=== PATIENT | female | born 1995 | race African-American/Black ===

== ENCOUNTER 2022-11-08 12:42 | Observation (INO) | payer BC, SELFPAY ==
[2022-11-08] MEDS ORDERED: KETOROLAC 30 MG/ML INJ ONE ×2 (13:31→18:20)
[2022-11-08] MEDS ORDERED: ONDANSETRON 4 MG/2 ML VIAL ONE ×2 (13:31→17:43)
[2022-11-08] MEDS ORDERED: FAMOTIDINE 20 MG/2 ML VIAL IV ONE (13:31)
[2022-11-08] MEDS ORDERED: NA CHLORIDE 0.9% 1,000 ML ONE (13:31)
[2022-11-08] MEDS ORDERED: MORPHINE 4 MG/ML SYR ONE (14:06)
[2022-11-08] MEDS ORDERED: CIPROFLOXACIN 400mg IV 400 MG/200 ML BAG IV ONE (16:11)
[2022-11-08] MEDS ORDERED: METRONIDAZOLE 500mg IVPB 500 MG/100 ML BAG IV ONE (16:12)
--- OUTSIDE RECORDS SUMMARY | 2022-11-08 16:30 | XMS REPORT | Continuity of Care Document ---
:1995 Author Organization [facility] t Address [address] [place] [address] Care Team Providers Name Role Phone Malia Durbin Primary Care Physician AYLEEN NAVA Attending Clinician Unavailable Visit, [facility] Nurse Attending Clinician Unavailable Ayleen Nava CNM Attending Clinician GISELA AZEVEDO Attending Clinician Unavailable , [facility] Attending Clinician Unavailable Jolly Gisela DALAL Attending Clinician YANIRA SCHREIBER Attending Clinician Unavailable Visit, [facility] Nurse Attending Clinician Unavailable HELGA NAM Attending Clinician Unavailable MALIA PALAFOX Attending Clinician Unavailable MALIA PALAFOX Attending Clinician Unavailable Pcp, Patient Does Not Have A Attending Clinician [phone] Lorenzo Clark Attending Clinician LORENZO CLARK Attending Clinician Unavailable ILAN PEREZ Attending Clinician Unavailable Monica Thomas Attending Clinician MONICA THOMAS Attending Clinician Unavailable Abdoul CHINCHILLA, Yanira Attending Clinician Meme Sylvester Attending Clinician MEME ZULETA Attending Clinician Unavailable LADI, CHARLESA R Attending Clinician Unavailable Shaikh FNP, Lenardnda R Attending Clinician CHATO KWON Attending Clinician Unavailable ADELFO SUAZO Attending Clinician Unavailable [place] LEAK OPERATOR PARAFFIN PLANT, Adelfo B Attending Clinician Torgillian CHINCHILLA, Lor Roe Attending Clinician [phone] Doctor Unassigned, [place] Attending Clinician Unavailable Esther Lindo Attending Clinician ESTHER LINDO Attending Clinician Unavailable LATRICE BELLA Attending Clinician Unavailable Nurse, [facility] Attending Clinician Unavailable Latrice Bella PA-C Attending Clinician Femi Paul DO Attending Clinician Torres Garaz MD Attending Clinician TORRES GARZA Attending Clinician Unavailable SHARI CHOWDHURY Attending Clinician Unavailable Cher [facility] Attending Clinician [phone] Erica Perla Attending Clinician Beck Nelson Attending Clinician Colt, Judy-Mfnatasha Attending Clinician Unavailable Priscilla Mark MD Attending Clinician [phone] Sj Gold MD Attending Clinician PRISCILLA MARK Attending Clinician Unavailable Pieter Barnes Attending Clinician Madeleine Brunson Attending Clinician Andrew Xie Attending Clinician HELGA NAM Admitting Clinician Unavailable Erica Perla Admitting Clinician Beck Nelson Admitting Clinician Payers Payer Name Policy Type Policy Number Effective Date Expiration Date Stacey king [facility] MEDICAID STAR [id number] 2020 00:00:00 [facility] [id number] 2020 CHOICE [place] STAR 00:00:00 BCBS FED SELECT [id number] 1994 00:00:00 Problems Condition Condition Condition Status Onset Resolution Last Treating Co mments Source Name Details Category Date Date Treatment Clinician Date FEVER FEVER Diagnosis Active 2021-042022-03-18 Mem oria Active 05-17 02:45:00 l 03/17/2022 00:00: Fredy ying [facility] 00 [facility] COVID-19 COVID-19 Diagnosis Active 2021-042022-03-21 Memoria VIRUS VIRUS 05-17 20:29:00 l INFECTION; INFECTION; 00:00: Faraz rmann ACUTE ACUTE 00 HYPOTENS HYPOTENS Active 03/17/2022 [facility] SOB SOB Diagnosis Active 2021-042022-02-06 Mem oria Active 015 03:07:00 l 02/06/2022 00:00: Fredy ying [address] VOMITING, VOMITING, Diagnosis Active 2021-11-12 Memoria DIARRHEA, DIARRHEA, - 20:13:00 l Active 00:00: Luis Alberto 11/12/2021 00 [facility] TONGUE TONGUE Diagnosis Active 2020-042021-02-05 Me moria BLEED BLEED 0-14 14:34:00 l Active 00:00: Luis Alberto 02/05/2021 00 [facility] 40WKS 40WKS Diagnosis Active 2019-07-10 Mem oria PREG/VAG PREG/VAG -17 08:08:00 l BLEEDING BLEEDING 07:35: Fredy ying Active 00 07/10/2019 [facility] PRE-TERM PRE-TERM Diagnosis Active 2019-07-10 Memoria LABOR/CERV LABOR/CERV -17 17:42:00 l IAL IAL 00:00: Luis Alberto DILATION DILATION 00 Active 07/10/2019 [facility] RIGHT EYE RIGHT EYE Diagnosis Active 2018-042019-04-19 Memoria INJURY INJURY 2- 15:24:00 l Active 00:00: Luis Alberto 04/19/2019 00 [facility] 7WKS 7WKS Diagnosis Active 2018-042019-03-10 Mem oria /A /A 05-10 16:39:00 l BDOMINAL BDOMINAL 05:00: Fredy ying PAIN PAIN 00 Active 03/10/2019 [facility] Streptococ Streptoco Problem Active 2021-11-16 Memoria cus ccus 10:07:01 l agalactiae agalactiae Faraz fountain (organism) (organism) Active Problem 11/16/2021 Automatica lly added by Discern Expert for result @EVENTCDDI SP:1 of @RESULT:1 on @EVENTENDD TTM:1. [facility] COVID-19 COVID-19 Diagnosis Active 2022-03-21 Memoria Active 20:29:00 l [facility] HYPOTENSIO HYPOTENSI Diagnosis Active 2022-03-21 [place], [place], 20:29:00 l UNSPECIFIE UNSPECIFIE Faraz Langston Active [facility] No known No known Disease Unive rs active active ity of problems problems [facility] Patient Patient Problem Resolve 2021-11-16 2021-11-16 Memoria currently currently d 3-17 10:07:01 10:07:01 l 00:00: Fredy ying (finding) (finding) 00 Resolved 07/10/2019 Problem 11/16/2021 [facility] Chlamydial Chlamydia Problem Resolve 2021-11-16 2021-11-16 Memoria infection l d - 10:07:01 10:07:01 l (disorder) infection 00:00: Her montemayor (disorder) 00 Resolved 04/25/2016 Problem 11/16/2021 [facility] History of Past Illness Condition Condition Condition Status Onset Resolution Last Treating Co mments Source Name Details Category Date Date Treatment Clinician Date Viral Viral Problem 2021-11-16 2021-11-16 M emoria infection, infection, 11-13 10:07:01 10:07:01 l unspecifie unspecifie 02:07: Faraz langston d 00 11/13/2021 11/16/2021 [facility] Glossitis Glossitis Problem 2020-042021-02-07 2021-02-07 Memoria 0-14 22:09:09 22:09:09 l 1 17:00: Luis Alberto 02/07/2021 00 [facility] Encounter Encounter Problem 2020-042021-02-07 2021-02-07 Memoria for for 0-14 22:09:09 22:09:09 l screening, screening, 17:00: Faraz fountain unspecifie unspecifie 00 d d 02/05/2021 02/07/2021 [facility] Antepartum Antepartu Problem 2019-07-12 2019-07-12 Memoria hemorrhage m 3- 22:29:53 22:29:53 l , hemorrhage 17:00: Fredy ying unspecifie , 00 d, unspecifie unspecifie d, d unspecifie trimester d trimester 07/10/2019 07/12/2019 [facility] 34 weeks 34 weeks Problem 2019-07-12 2019-07-12 Memoria gestation gestation 3- 22:29:53 22:29:53 l of of 17:00: Luis Alberto 00 07/10/2019 07/12/2019 [facility] Other Other Problem 2018-042019-04-21 2019-04-21 Memoria specified specified 06-20 22:47:59 22:47:59 l disorders disorders 18:00: Manuelito chavis of eyelid of eyelid 00 04/19/2019 04/21/2019 [facility] Other Other Problem 2018-042019-03-12 2019-03-12 M emoria specified specified 05-10 23:04:41 23:04:41 l diseases diseases 18:00: Fredy ying and and 00 conditions conditions complicati complicati ng ng , , childbirth childbirth and the and the puerperium puerperium 9 03/12/2019 [facility] Other Other Problem 2018-042019-03-12 2019-03-12 M emoria specified specified 05-10 23:04:41 23:04:41 l 18:00: Herm palmira related related 00 conditions conditions , , unspecifie unspecifie d d trimester trimester 03/10/2019 03/12/2019 [facility] Acute Acute Problem 2017-0 2017-09-08 2017-09-08 M emoria pharyngiti pharyngiti 08 16:16:29 16:16:29 l s, s, 06:00: Luis Alberto unspecifie unspecifie 00 d d 06/02/2017 09/08/2017 [facility] Allergies, Adverse Reactions, Alerts Allergy Allergy Status Severity Reaction(s) Onset Inactive Treating Comm ents Source Name Type Date Date Clinician Aspirin Propensi Active Hives 2016- Univers ty to 04-26 ity of adverse 00:00: [place] reaction 00 Medical s Branch Shellfis Propensi Active Unknown - Uni vers h ty to See comments 04-26 ity of Derived adverse 00:00: [place] reaction 00 Medical s Branch ASPIRIN DRUG Active Hives Univers INGREDI 04-26 ity of 00:00: [place] 00 Medical Branch SHELLFIS DRUG Active Unknown-Cmnt Un roopa H INGREDI 04-26 ity of DERIVED 00:00: [place] 00 Medical Branch Penicill Propensi Active Hives 2015- Univer s ins ty to 2-07 ity of adverse 00:00: [place] reaction 00 Medical s Branch Penicill Propensi Active Hives 2015- Univer s ins ty to 2-07 ity of adverse 00:00: [place] reaction 00 Medical s Branch Penicill Propensi Active Hives 2015- Univer s ins ty to 2-07 ity of adverse 00:00: [place] reaction 00 Medical s Branch PENICILL Drug Active Rash 2015- Univers INS Class 2-07 ity of 00:00: [place] 00 Medical Branch penicill penicill Active Memori a ins ins l Luis Alberto shellfis shellfis Active Memori a h h l [place] aspirin aspirin Active Memoria l Luis Alberto Social History Social Habit Start Date Stop Date Quantity Comments Source Exposure to 2022-08-14 2022-08-24 Not sure [facility] SARS-CoV-2 00:00:00 12:30:00 [place] [facility] (event) Branch Tobacco use and 2022-02-24 2022-02-24 Smokeless tobacco Un iversity of exposure 00:00:00 00:00:00 non-user [facility] Alcohol intake 2022-02-24 2022-02-24 0 /d University of 00:00:00 00:00:00 [facility] Social History 2019-07-10 2019-07-10 Matt cadena 13:28:02 13:28:02 Sex [birth year] At [birth year] Univers y of 00:00:00 00:00:00 [facility] Smoking Status Start Date Stop Date Source Tobacco smoking status Matt Sahu Medications Ordered Filled Start Stop Current Ordering Indication Dosage Frequency Signature Comments Components Source Medication Medication Date Date Medication? Clinician (SIG) Name Name medroxyPROG 2021-04 Yes [id number] 150mg Univers ESTERone -02 ity of (DEPO-PROVE 15:45: [place] RA) syringe 00 Medical 150 mg Branch medroxyPROG 2021-04 Yes [id number] 150mg 150 mg, Univers ESTERone - Intramuscu ity o f (DEPO-PROVE 15:45: lar, [place] RA) syringe 00 [id number], Med ical 150 mg First dose Branch on Tue02/24/22 at 1045, Until Discontinu ed, Routine medroxyPROG 2021-04 Yes [id number] 150mg Univers ESTERone -02 ity of (DEPO-PROVE 15:45: [place] RA) syringe 00 Medical 150 mg Branch medroxyPROG 2021-04 Yes [id number] 150mg 150 mg, Univers ESTERone -02 Intramuscu ity o f (DEPO-PROVE 15:45: lar, [place] RA) syringe 00 [id number], Med ical 150 mg First dose Branch on Tue02/24/22 at 1045, Until Discontinu ed, Routine medroxyPROG 2021-04 Yes [id number] 150mg Univers ESTERone 1-02 ity of (DEPO-PROVE 15:45: [place] RA) syringe 00 Medical 150 mg Branch medroxyPROG 2021-04 Yes [id number] 150mg 150 mg, Univers ESTERone 1-02 Intramuscu ity o f (DEPO-PROVE 15:45: lar, [place] RA) syringe 00 [id number], Med ical 150 mg First dose Branch on Tue02/24/22 at 1045, Until Discontinu ed, Routine medroxyPROG 2021-04 Yes [id number] 150mg Univers ESTERone 1-02 ity of (DEPO-PROVE 15:45: [place] RA) syringe 00 Medical 150 mg Branch medroxyPROG 2021-04 Yes [id number] 150mg Univers ESTERone 04-26 ity of (DEPO-PROVE 15:45: [place] RA) syringe 00 Medical 150 mg Branch medroxyPROG 2021-04 Yes [id number] 150mg 150 mg, Univers ESTERone 04-26 Intramuscu ity o f (DEPO-PROVE 15:45: lar, [place] RA) syringe 00 [id number], Med ical 150 mg First dose Branch on Tue02/24/22 at 1045, Until Discontinu ed, Routine medroxyPROG 2021-04 Yes [id number] 150mg Univers ESTERone 04-26 ity of (DEPO-PROVE 15:45: [place] RA) syringe 00 Medical 150 mg Branch medroxyPROG 2021-04 Yes [id number] 150mg 150 mg, Univers ESTERone 04-26 Intramuscu ity o f (DEPO-PROVE 15:45: lar, [place] RA) syringe 00 [id number], Med ical 150 mg First dose Branch on Tue02/24/22 at 1045, Until Discontinu ed, Routine tramadol 2021-04 Yes 50 mg = 1 M emoria mg oral 0-15 tab, PO, l tablet 08:51: Q6H, PRN [place] 00 Pain, X 10 day, # 20 tab, 0 Refill(s), Pharmacy: [facility] #[id number], 172.72, cm, 02/06/22 0:14:00 CDT, Height, 54.545, kg, 02/06/22 0:14:00 CDT, Weight tramadol 2021-04 Yes 50 mg = 1 M emoria mg oral 0-15 tab, PO, l tablet 08:51: Q6H, PRN [place] 00 Pain, X 10 day, # 20 tab, 0 Refill(s), Pharmacy: [facility] #[id number], 172.72, cm, 02/06/22 0:14:00 CDT, Height, 54.545, kg, 02/06/22 0:14:00 CDT, Weight tramadol 50 2021-04 Yes 50 mg = 1 M emoria mg oral 0-15 tab, PO, l tablet 08:51: Q6H, PRN Luis Alberto 00 Pain, X 10 day, # 20 tab, 0 Refill(s), Pharmacy: [facility] #[id number], 172.72, cm, 02/06/22 0:14:00 CDT, Height, 54.545, kg, 02/06/22 0:14:00 CDT, Weight Zofran 4 mg 2022-0 Yes 4 mg = 1 Me moria oral tablet 7-22 tab, PO, l 02:07: BID, X 5 Luis Alberto 00 day, # 10 tab, 0 Refill(s), Pharmacy: [facility] #[id number], 172.72, cm, 11/12/21 17:42:00 CDT, Height, 51.091, kg, 11/12/21 17:42:00 CDT, Weight Zofran 4 mg 2-0 Yes 4 mg = 1 Me moria oral tablet 7-22 tab, PO, l 02:07: BID, X 5 [place] 00 day, # 10 tab, 0 Refill(s), Pharmacy: [facility] #[id number], 172.72, cm, 11/12/21 17:42:00 CDT, Height, 51.091, kg, 11/12/21 17:42:00 CDT, Weight Zofran 4 mg 2-0 Yes 4 mg = 1 Me moria oral tablet 7-22 tab, PO, l 02:07: BID, X 5 [place] 00 day, # 10 tab, 0 Refill(s), Pharmacy: [facility] #[id number], 172.72, cm, 11/12/21 17:42:00 CDT, Height, 51.091, kg, 11/12/21 17:42:00 CDT, Weight cephALEXin 2020-04 Yes [id number] 500mg Take 1 Univers (KEFLEX) 2-08 capsule by ity o f 500 mg 00:00: mouth 2 [place] capsule 00 (two) Medical times Branch daily. phenazopyri 2020-04 Yes [id number] 200mg Take 1 Univers dine 200 mg 2-08 tablet by ity of tablet 00:00: mouth 3 [place] 00 (three) Medical times Branch daily. cephALEXin 2020-04 Yes [id number] 500mg Take 1 Univers (KEFLEX) 2-08 capsule by ity o f 500 mg 00:00: mouth 2 [place] capsule 00 (two) Medical times Branch daily. phenazopyri 2020-04 Yes [id number] 200mg Take 1 Univers dine 200 mg 2-08 tablet by ity of tablet 00:00: mouth 3 [place] 00 (three) Medical times Branch daily. cephALEXin 2020-04 Yes [id number] 500mg Take 1 Univers (KEFLEX) 2-08 capsule by ity o f 500 mg 00:00: mouth 2 [place] capsule 00 (two) Medical times Branch daily. phenazopyri 2020-04 Yes [id number] 200mg Take 1 Univers dine 200 mg 2-08 tablet by ity of tablet 00:00: mouth 3 [place] 00 (three) Medical times Branch daily. cephALEXin 2020-04 Yes [id number] 500mg Take 1 Univers (KEFLEX) 2-08 capsule by ity o f 500 mg 00:00: mouth 2 [place] capsule 00 (two) Medical times Branch daily. phenazopyri 2020-04 Yes [id number] 200mg Take 1 Univers dine 200 mg 2-08 tablet by ity of tablet 00:00: mouth 3 00 (three) Medical times Branch daily. cephALEXin 2020-04 Yes [id number] 500mg Take 1 Univers (KEFLEX) 2-08 capsule by ity o f 500 mg 00:00: mouth 2 [place] capsule 00 (two) Medical times Branch daily. phenazopyri 2020-04 Yes [id number] 200mg Take 1 Univers dine 200 mg 2-08 tablet by ity of tablet 00:00: mouth 3 [place] 00 (three) Medical times Branch daily. cephALEXin 2020-04 Yes [id number] 500mg Take 1 Univers (KEFLEX) 2-08 capsule by ity o f 500 mg 00:00: mouth 2 [place] capsule 00 (two) Medical times Branch daily. phenazopyri 2020-04 Yes [id number] 200mg Take 1 Univers dine 200 mg 2-08 tablet by ity of tablet 00:00: mouth 3 [place] 00 (three) Medical times Branch daily. cephALEXin 2020-04 Yes [id number] 500mg Take 1 Univers (KEFLEX) 2-08 capsule by ity o f 500 mg 00:00: mouth 2 [place] capsule 00 (two) Medical times Branch daily. phenazopyri 2020-04 Yes [id number] 200mg Take 1 Univers dine 200 mg 2-08 tablet by ity of tablet 00:00: mouth 3 [place] 00 (three) Medical times Branch daily. cephALEXin 2020-04 Yes [id number] 500mg Take 1 Univers (KEFLEX) 2-08 capsule by ity o f 500 mg 00:00: mouth 2 [place] capsule 00 (two) Medical times Branch daily. phenazopyri 2020-04 Yes [id number] 200mg Take 1 Univers dine 200 mg 2-08 tablet by ity of tablet 00:00: mouth 3 [place] 00 (three) Medical times Branch daily. cephALEXin 2020-04 Yes [id number] 500mg Take 1 Univers (KEFLEX) 2-08 capsule by ity o f 500 mg 00:00: mouth 2 [place] capsule 00 (two) Medical times Branch daily. phenazopyri 2020-04 Yes [id number] 200mg Take 1 Univers dine 200 mg 2-08 tablet by ity of tablet 00:00: mouth 3 00 (three) Medical times Branch daily. cephALEXin 2020-04 Yes [id number] 500mg Take 1 Univers (KEFLEX) 2-08 capsule by ity o f 500 mg 00:00: mouth 2 [place] capsule 00 (two) Medical times Branch daily. phenazopyri 2020-04 Yes [id number] 200mg Take 1 Univers dine 200 mg 2-08 tablet by ity of tablet 00:00: mouth 3 00 (three) Medical times Branch daily. cephALEXin 2020-04 Yes [id number] 500mg Take 1 Univers (KEFLEX) 2-08 capsule by ity o f 500 mg 00:00: mouth 2 [place] capsule 00 (two) Medical times Branch daily. phenazopyri 2020-04 Yes [id number] 200mg Take 1 Univers dine 200 mg 2-08 tablet by ity of tablet 00:00: mouth 3 [place] 00 (three) Medical times Branch daily. cephALEXin 2020-04 Yes [id number] 500mg Take 1 Univers (KEFLEX) 2-08 capsule by ity o f 500 mg 00:00: mouth 2 [place] capsule 00 (two) Medical times Branch daily. phenazopyri 2020-04 Yes [id number] 200mg Take 1 Univers dine 200 mg 2-08 tablet by ity of tablet 00:00: mouth 3 [place] 00 (three) Medical times Branch daily. cephALEXin 2020-04 Yes [id number] 500mg Take 1 Univers (KEFLEX) 2-08 capsule by ity o f 500 mg 00:00: mouth 2 [place] capsule 00 (two) Medical times Branch daily. phenazopyri 2020-04 Yes [id number] 200mg Take 1 Univers dine 200 mg 2-08 tablet by ity of tablet 00:00: mouth 3 [place] 00 (three) Medical times Branch daily. phenazopyri 2020-04- No [id number] 200mg Take 1 Univers dine 200 mg 2-08 12-08 tablet by it y of tablet 00:00: 00:00 mouth 3 [place] 00 :00 (three) Medical times Branch daily. cephALEXin 2020-04- No [id number] 500mg Take 1 Univers (KEFLEX) 2-08 12-08 capsule by ity of 500 mg 00:00: 00:00 mouth 2 [place] capsule 00 :00 (two) Medical times Branch daily for 7 days. medroxyPROG 2021- No [id number] 150mg Univers ESTERone 01-19 ity of (DEPO-PROVE 17:00: 16:59 [place] RA) 00 :00 Medical injection Branch 150 mg medroxyPROG 2021- No [id number] 150mg 150 mg, Univers ESTERone 01-19 Intramuscu ity of (DEPO-PROVE 17:00: 16:59 [facility], [place] RA) 00 :00 [id number], Medical injection 4 doses, Branch 150 mg First dose on Tue01/19/21 at 1200, Last dose on Tue09/28/21 at 1200, Routine medroxyPROG 2021- No [id number] 150mg Univers ESTERone 01-19 ity of (DEPO-PROVE 17:00: 16:59 [place] RA) 00 :00 Medical injection Branch 150 mg medroxyPROG 2021- No [id number] 150mg 150 mg, Univers ESTERone 01-19 Intramuscu ity of (DEPO-PROVE 17:00: 16:59 lar, [place] RA) 00 :00 [id number], Medical injection 4 doses, Branch 150 mg First dose on Tue01/19/21 at 1200, Last dose on Tue09/28/21 at 1200, Routine medroxyPROG 2021- No [id number] 150mg Univers ESTERone 01-19 ity of (DEPO-PROVE 17:00: 16:59 [place] RA) 00 :00 Medical injection Branch 150 mg medroxyPROG 2020-2021- No [id number] 150mg Univers ESTERone 01-19 08 ity of (DEPO-PROVE 17:00: 16:59 [place] RA) 00 :00 Medical injection Branch 150 mg medroxyPROG 2020-2021- No [id number] 150mg Univers ESTERone 01-19 ity of (DEPO-PROVE 17:00: 16:59 [place] RA) 00 :00 Medical injection Branch 150 mg medroxyPROG 2021- No [id number] 150mg Univers ESTERone 01-19 0607 ity of (DEPO-PROVE 17:00: 16:05 [place] RA) 00 :00 Medical injection Branch 150 mg medroxyPROG 2021- No [id number] 150mg 150 mg, Univers ESTERone 01-19 06-07 Intramuscu ity of (DEPO-PROVE 17:00: 16:05 lar, [place] RA) 00 :00 [id number], Medical injection 4 doses, Branch 150 mg First dose on Tue01/19/21 at 1200, Last dose on Tue09/28/21 at 1200, Routine Colace 100 2019-0 Yes 100 mg = 1 M emoria mg oral 3-21 cap, PO, l capsule 07:00: BID, PRN Fredy n 00 Constipati on, # 60 cap, 0 Refill(s), Pharmacy: [facility] #[id number] ferrous 2020-0 Yes 325 mg = 1 Oseas sondra sulfate 325 3-21 tab, PO, l mg oral 07:00: Daily, # Fredy n enteric 00 30 tab, 0 coated Refill(s), tablet Pharmacy: [facility] #[id number] PNV 2020-0 Yes 1 tab, PO, Memoria 3-21 Daily, # l oral tablet 07:00: 30 tab, 11 [place] 00 Refill(s), Pharmacy: [facility] #[id number] Docusate 2019-0 Yes 100 mg = 1 Mem oria Sodium 100 3-21 cap, PO, l MG Oral 07:00: BID, PRN Fredy n Capsule 00 Constipati [Colace] on, # 60 cap, 0 Refill(s), Pharmacy: [facility] #[id number] Acetaminoph 2020-0 Yes 325 mg = 1 Memoria en 325 MG 3-21 tab, PO, l Oral Tablet 07:00: Q4H, PRN He rmann [Tylenol] 00 Pain, X 10 day, # 60 tab, 0 Refill(s), Pharmacy: [facility] #[id number] Docusate 2020-0 Yes 100 mg = 1 Mem oria Sodium 100 3-21 cap, PO, l MG Oral 07:00: BID, PRN Fredy n Capsule 00 Constipati [Colace] on, # 60 cap, 0 Refill(s), Pharmacy: [facility] #[id number] Acetaminoph 2020-0 Yes 325 mg = 1 Memoria en 325 MG 3-21 tab, PO, l Oral Tablet 07:00: Q4H, PRN He r[place] [Tylenol] 00 Pain, X 10 day, # 60 tab, 0 Refill(s), Pharmacy: [facility] #[id number] Colace 100 2020-0 Yes 100 mg = 1 M emoria mg oral 3-21 cap, PO, l capsule 07:00: BID, PRN Fredy n 00 Constipati on, # 60 cap, 0 Refill(s), Pharmacy: [facility] #[id number] ferrous 2020-0 Yes 325 mg = 1 Oseas sondra sulfate 325 3-21 tab, PO, l mg oral 07:00: Daily, # Fredy n enteric 00 30 tab, 0 coated Refill(s), tablet Pharmacy: [facility] #[id number] PNV 2020-0 Yes 1 tab, PO, Memoria 3-21 Daily, # l oral tablet 07:00: 30 tab, 11 Luis Alberto 00 Refill(s), Pharmacy: [facility] #[id number] Colace 100 2020-0 Yes 100 mg = 1 M emoria mg oral 3-21 cap, PO, l capsule 07:00: BID, PRN Fredy n 00 Constipati on, # 60 cap, 0 Refill(s), Pharmacy: [facility] #[id number] ferrous 2019-0 Yes 325 mg = 1 Oseas sondra sulfate 325 3-21 tab, PO, l mg oral 07:00: Daily, # Fredy n enteric 00 30 tab, 0 coated Refill(s), tablet Pharmacy: [facility] #[id number] PNV 2019-0 Yes 1 tab, PO, Memoria 3-21 Daily, # l oral tablet 07:00: 30 tab, 11 Luis Alberto 00 Refill(s), Pharmacy: [facility] #[id number] Docusate 2019-0 Yes 100 mg = 1 Mem oria Sodium 100 3-21 cap, PO, l MG Oral 07:00: BID, PRN Fredy n Capsule 00 Constipati [Colace] on, # 60 cap, 0 Refill(s), Pharmacy: [id number] Acetaminoph 2019-0 Yes 325 mg = 1 Memoria en 325 MG 3-21 tab, PO, l Oral Tablet 07:00: Q4H, PRN [place] [Tylenol] 00 Pain, X 10 day, # 60 tab, 0 Refill(s), Pharmacy: [facility] #[id number] Depo-Rpg Developer 0 No Notes: Oseas sondra a - (Same as: l 11:: Depo-Prove ) This is NOT Depo-SubQ Provera 104 For IM use only Hazardous Drug Group 2:Non-anti neoplastic Hazardous Drug -- Refer to safe handling procedure PPE Matrix MEDICATION WASTE Product Size: 150 mg Product Wasted: ___ mg Depo-Rpg Developer 0 No Notes: Oseas sondra a 07-11 (Same as: l 11:09: Depo-Prove [place]) This is NOT Depo-SubQ Provera 104 For IM use only Hazardous Drug Group 2:Non-anti neoplastic Hazardous Drug -- Refer to safe handling procedure PPE Matrix MEDICATION WASTE Product Size: 150 mg Product Wasted: ___ mg Depo-Rpg Developer 0 No Notes: Oseas sondra a 3- (Same as: l 11:09: Depo-Prove [place]) This is NOT Depo-SubQ Provera 104 For IM use only Hazardous Drug Group 2:Non-anti neoplastic Hazardous Drug -- Refer to safe handling procedure PPE Matrix MEDICATION WASTE Product Size: 150 mg Product Wasted: ___ mg Sodium 2020-0 No 250 mL, Memoria Chloride 3-18 Rate: To l 0.9% 15:40: prime line Luis Alberto (titrate) 00 and flush 250 mL remaining blood products., Dosing Weight 60.909, kg, Route: IV, Total Volume: 250, Start Date: 07/11/19 10:40:00 CDT, Duration: 1 day, Stop date: 07/12/19 10:39:00 CDT, Replace Every: 24 hr, 0 Sodium 2020-0 No 250 mL, Memoria Chloride 3-18 Rate: To l 0.9% 15:40: prime line [place] (titrate) 00 and flush 250 mL remaining blood products., Dosing Weight 60.909, kg, Route: IV, Total Volume: 250, Start Date: 07/11/19 10:40:00 CDT, Duration: 1 day, Stop date: 07/12/19 10:39:00 CDT, Replace Every: 24 hr, 0 Sodium 2020-0 No 250 mL, Memoria Chloride 3-18 Rate: To l 0.9% 15:40: prime line Luis Alberto (titrate) 00 and flush 250 mL remaining blood products., Dosing Weight 60.909, kg, Route: IV, Total Volume: 250, Start Date: 07/11/19 10:40:00 CDT, Duration: 1 day, Stop date: 07/12/19 10:39:00 CDT, Replace Every: 24 hr, 0 Benadryl 2020-0 No Notes: Memoria 3-18 (Same as: l 15:24: Benadryl) [place] 00 Benadryl 2020-0 No Notes: [facility]oria 3-18 (Same as: l 15:24: Benadryl) [place] 00 Benadryl 2020-0 No Notes: [facility]oria 3-18 (Same as: l 15:24: Benadryl) [place] 00 2019-0 No 1 tab, Memoria Multivitami 3-18 Route: PO, l ns oral 14:00: Drug Form: Herm palmira tablet 00 TAB, Dosing Weight 60.909, kg, Daily, Start date: 07/11/19 9:00:00 CDT, Duration: 30 day, Stop date: 08/09/19 9:00:00 CDT, 0 Saline 0 No Notes: Memoria Flush 0.9% 3-18 (Same as: l 14:00: BD [place] 00 Posiflush) ferrous No Notes: Memoria sulfate 3-18 Give with l 14:00: food. "Do Luis Alberto 00 Not Crush" No 1 tab, [facility] Multivitami 3-18 Route: PO, l ns oral 14:00: Drug Form: Herm palmira tablet 00 TAB, Dosing Weight 60.909, kg, Daily, Start date: 07/11/19 9:00:00 CDT, Duration: 30 day, Stop date: 08/09/19 9:00:00 CDT, 0 Saline 2019-0 No Notes: [facility] Flush 0.9% 3-18 (Same as: l 14:00: BD [place] 00 Posiflush) ferrous 0 No Notes: Memoria sulfate 3-18 Give with l 14:00: food. "Do Luis Alberto 00 Not Crush" No 1 tab, [facility] Multivitami 3-18 Route: PO, l ns oral 14:00: Drug Form: Herm palmira tablet 00 TAB, Dosing Weight 60.909, kg, Daily, Start date: 07/11/19 9:00:00 CDT, Duration: 30 day, Stop date: 08/09/19 9:00:00 CDT, 0 Saline 0 No Notes: [facility] Flush 0.9% 3-18 (Same as: l 14:00: BD [place] 00 Posiflush) ferrous 0 No Notes: [facility]oria sulfate 3-18 Give with l 14:00: food. "Do [place] Not Crush" M-M-R II 0 No Notes: Memoria 3-18 (Same as: l 05:00: M-M-R II) [place] (measles-m umps-rubel la virus vaccine 0.5 ml INJ VL) WASTE: F/P - Red; E -Red GIVE PRIOR TO DISCHARGE Ibuprofen 2019-0 No Notes: Memori a 3-18 (Same as: l 05:00: Motrin) [place] 00 "Do Not Crush" Take with food. -M-R II No Notes: Memoria 3-18 (Same as: l 05:00: M-M-R II) Luis Alberto (measles-m umps-rubel la virus vaccine 0.5 ml INJ VL) WASTE: F/P - Red; E -Red GIVE PRIOR TO DISCHARGE Ibuprofen 0 No Notes: Memori a 3-18 (Same as: l 05:00: Motrin) Luis Alberto "Do Not Crush" Take with food. --R II No Notes: Memoria 3-18 (Same as: l 05:00: -M-R II) Luis Alberto 00 (measles-m umps-rubel la virus vaccine 0.5 ml INJ VL) WASTE: F/P - Red; E -Red GIVE PRIOR TO DISCHARGE Ibuprofen 0 No Notes: Memori a 3-18 (Same as: l 05:00: Motrin) [place] "Do Not Crush" Take with food. Oxytocin No Notes: [facility]oria 3-18 Hazardous l 04:39: Drug Group Luis Alberto 00 3:Reproduc tive risk Hazardous Drug -- Refer to safe handling procedure PPE Matrix Lactated No 1,000 mL, Oseas sondra Ringers IV 18 Rate: 100 l 1,000 mL 04:39: ml/hr, Luis Alberto 00 Infuse over: 10 hr, Route: IV, Dosing Weight 60.909 kg, Total Volume: 1,000, Start date: 07/10/19 23:39:00 CDT, Duration: 30 day, Stop date: 08/09/19 23:38:00 CDT, 1.72, m2, 0 Bisacodyl No Notes: Memori a 3-18 (Same As: l 04:39: Dulcolax, [place] 00 Correctol) (Do Not Crush) "Do Not Crush" Docusate No Notes: [facility]oria 3-18 (Same as: l 04:39: Colace) Luis Alber[place] 00 (Do Not Crush) lanolin 0 No Notes: Memoria topical 3-18 (Same l cream 04:39: as:Lanolin Fredy n 00 ) Acetaminoph 0 No Notes: Do M emoria en -18 not exceed l 04:39: 4 gm/day. Luis Alberto 00 (Same as: Tylenol) Simethicone No Notes: Oseas sondra 3-18 (Same as: l 04:39: Mylicon) zolpidem No Notes: Memoria 3-18 (Same As: l 04:39: Ambien) Saline No Notes: [facility]oria Flush 0.9% 18 (Same as: l 04:39: BD Posiflush) Tramadol No Notes: Not Mem oria -18 to exceed l 04:39: 400mg/day. (Same As: Ultram) Oxytocin No Notes: [facility]oria 3-18 Hazardous l 04:39: Drug Group 3:Reproduc tive risk Hazardous Drug -- Refer to safe handling procedure PPE Matrix Lactated No 1,000 mL, Oseas sondra Ringers IV 07-10 Rate: 100 l 1,000 mL 04:39: ml/hr, Infuse over: 10 hr, Route: IV, Dosing Weight 60.909 kg, Total Volume: 1,000, Start date: 07/10/19 23:39:00 CDT, Duration: 30 day, Stop date: 08/09/19 23:38:00 CDT, 1.72, m2, 0 Bisacodyl No Notes: Memori a -18 (Same As: l 04:39: Dulcolax, Correctol) (Do Not Crush) "Do Not Crush" Oxytocin No Notes: [facility]oria 3-18 Hazardous l 04:39: Drug Group 3:Reproduc tive risk Hazardous Drug -- Refer to safe handling procedure PPE Matrix Docusate No Notes: [facility]oria 3-18 (Same as: l 04:39: Colace) (Do Not Crush) lanolin 0 No Notes: Memoria topical 18 (Same l cream 04:39: as:Lanolin Fredy n 00 ) Acetaminoph 0 No Notes: Do M emoria en -18 not exceed l 04:39: 4 gm/day. Luis Alberto 00 (Same as: Tylenol) Simethicone 0 No Notes: Oseas sondra 3-18 (Same as: l 04:39: Mylicon) Luis Alber[place] 00 zolpidem 0 No Notes: [facility]oria 3-18 (Same As: l 04:39: Ambien) [place] 00 Saline No Notes: [facility] Flush 0.9% 3-18 (Same as: l 04:39: BD [place] 00 Posiflush) Tramadol No Notes: Not Mem oria 3-18 to exceed l 04:39: 400mg/day. [place] 00 (Same As: Ultram) Lactated No 1,000 mL, Oseas sondra Ringers IV -18 Rate: 100 l 1,000 mL 04:39: ml/hr, Infuse over: 10 hr, Route: IV, Dosing Weight 60.909 kg, Total Volume: 1,000, Start date: 07/10/19 23:39:00 CDT, Duration: 30 day, Stop date: 08/09/19 23:38:00 CDT, 1.72, m2, 0 Bisacodyl No Notes: Memori a 3-18 (Same As: l 04:39: Dulcolax, Correctol) (Do Not Crush) "Do Not Crush" Docusate No Notes: [facility]oria 3-18 (Same as: l 04:39: Colace) (Do Not Crush) lanolin 0 No Notes: [facility]oria topical 3-18 (Same l cream 04:39: as:Lanolin Fredy n 00 ) Acetaminoph 0 No Notes: Do M emoria en 3-18 not exceed l 04:39: 4 gm/day. Luis Alberto 00 (Same as: Tylenol) Simethicone 0 No Notes: Oseas sondra 3-18 (Same as: l 04:39: Mylicon) Luis Alber[place] 00 zolpidem 0 No Notes: [facility] 3-18 (Same As: l 04:39: Ambien) [place] 00 Saline No Notes: [facility] Flush 0.9% 3-18 (Same as: l 04:39: BD [place] 00 Posiflush) Tramadol 2020-0 No Notes: Not Mem oria 3-18 to exceed l 04:39: 400mg/day. (Same As: Ultram) promethazin 2020-0 No Route: IV, Memoria e (ANES) 3-18 Drug form: l 04:20: INJ, ONCE, Stop date: 07/10/19 23:20:00 CDT dexamethaso 2020-0 No Route: IV, Memoria ne (ANES) 3-18 Drug form: l 04:20: INJ, ONCE, Stop date: 07/10/19 23:20:00 CDT promethazin 2020-0 No Route: IV, Memoria e (ANES) 3-18 Drug form: l 04:20: INJ, ONCE, Stop date: 07/10/19 23:20:00 CDT dexamethaso 2020-0 No Route: IV, Memoria ne (ANES) 3-18 Drug form: l 04:20: INJ, ONCE, Stop date: 07/10/19 23:20:00 CDT promethazin 2020-0 No Route: IV, Memoria e (ANES) 3-18 Drug form: l 04:20: INJ, ONCE, Stop date: 07/10/19 23:20:00 CDT dexamethaso 2020-0 No Route: IV, Memoria ne (ANES) 3-18 Drug form: l 04:20: INJ, ONCE, Stop date: 07/10/19 23:20:00 CDT methylergon 2020-0 No Route: IM, [facility]oria ovine 3-18 Drug form: l (ANES) 04:15: INJ, ONCE, [place] nn Stop date: 07/10/19 23:15:00 CDT methylergon 2020-0 No Route: IM, [facility] ovine 3-18 Drug form: l (ANES) 04:15: INJ, ONCE, [place] Stop date: 07/10/19 23:15:00 CDT methylergon 2020-0 No Route: IM, [facility] ovine 3-18 Drug form: l (ANES) 04:15: INJ, ONCE, [place] Stop date: 07/10/19 23:15:00 CDT midazolam 2020-0 No Route: IV, Me moria (ANES) 3-18 Drug form: l 04:09: SOLN, [place] Alberto 00 ONCE, Stop date: 07/10/19 23:09:00 CDT propofol 2020-0 No Route: IV, Mem oria (ANES) 3-18 Drug form: l 04:09: INJ, ONCE, Luis Alber[place] 00 Stop date: 07/10/19 23:09:00 CDT midazolam 2020-0 No Route: IV, Me moria (ANES) 3-18 Drug form: l 04:09: SOLN, [place] 00 ONCE, Stop date: 07/10/19 23:09:00 CDT propofol 2020-0 No Route: IV, Mem oria (ANES) 3-18 Drug form: l 04:09: INJ, ONCE, [place] Stop date: 07/10/19 23:09:00 CDT midazolam 2020-0 No Route: IV, Me moria (ANES) 3-18 Drug form: l 04:09: SOLN, [place] 00 ONCE, Stop date: 07/10/19 23:09:00 CDT propofol 2020-0 No Route: IV, Mem oria (ANES) 3-18 Drug form: l 04:09: INJ, ONCE, [place] Alber[place] 00 Stop date: 07/10/19 23:09:00 CDT Naloxone 2020-0 No Notes: [facility] 3-18 Same as l 04:00: Narcan [place] 00 Naloxone 2020-0 No Notes: [facility] 3-18 Same as l 04:00: Narcan [place] 00 Naloxone 2020-0 No Notes: [facility] 3-18 Same as l 04:00: Narcan [place] 00 bupivacaine 2020-0 No Route: Oseas sondra (ANES) 3-18 INTRATHECA l 03:54: L, Drug [place] 00 Form: INJ, ONCE, Stop date: 07/10/19 22:54:00 CDT fentaNYL 2020-0 No Route: Memoria (ANES) 3-18 INTRATHECA l 03:54: L, Drug Luis Alberto 00 form: INJ, ONCE, Stop date: 07/10/19 22:54:00 CDT morphine 2020-0 No Route: [facility] Sulfate 3-18 INTRATHECA l (ANES) 03:54: L, Drug Luis Alber[place] 00 form: INJ, ONCE, Stop date: 07/10/19 22:54:00 CDT bupivacaine 2020-0 No Route: Oseas sondra (ANES) 3-18 INTRATHECA l 03:54: L, Drug [place] 00 Form: INJ, ONCE, Stop date: 07/10/19 22:54:00 CDT fentaNYL 2020-0 No Route: [facility]oria (ANES) 3-18 INTRATHECA l 03:54: L, Drug [place] 00 form: INJ, ONCE, Stop date: 07/10/19 22:54:00 CDT morphine 2020-0 No Route: [facility] Sulfate 3-18 INTRATHECA l (ANES) 03:54: L, Drug Luis Alberto 00 form: INJ, ONCE, Stop date: 07/10/19 22:54:00 CDT bupivacaine 2020-0 No Route: Oseas sondra (ANES) 3-18 INTRATHECA l 03:54: L, Drug [place] 00 Form: INJ, ONCE, Stop date: 07/10/19 22:54:00 CDT fentaNYL 2020-0 No Route: Memoria (ANES) 3-18 INTRATHECA l 03:54: L, Drug [place] 00 form: INJ, ONCE, Stop date: 07/10/19 22:54:00 CDT morphine 2020-0 No Route: [facility] Sulfate 3-18 INTRATHECA l (ANES) 03:54: L, Drug Luis Alberto 00 form: INJ, ONCE, Stop date: 07/10/19 22:54:00 CDT famotidine 2020-0 No Route: IV, M emoria (ANES) 318 Drug form: l 03:49: INJ, ONCE, Luis Alberto Stop date: 07/10/19 22:49:00 CDT sodium 2020-0 No Route: PO, Memor ia citrate 18 Drug Form: l (ANES) 03:49: INJ, ONCE, [place] nn Stop date: 07/10/19 22:49:00 CDT ceFAZolin 2020-0 No Route: IV, Me moria (ANES) 318 Drug form: l 03:49: INJ, ONCE, [place] 00 Stop date: 07/10/19 22:49:00 CDT famotidine 2020-0 No Route: IV, M emoria (ANES) 3-18 Drug form: l 03:49: INJ, ONCE, [place] 00 Stop date: 07/10/19 22:49:00 CDT sodium 2020-0 No Route: PO, Memor ia citrate 3-18 Drug Form: l (ANES) 03:49: INJ, ONCE, [place] Stop date: 07/10/19 22:49:00 CDT ceFAZolin 2020-0 No Route: IV, Me moria (ANES) 3-18 Drug form: l 03:49: INJ, ONCE, [place] 00 Stop date: 07/10/19 22:49:00 CDT famotidine 2019-0 No Route: IV, M emoria (ANES) 3-18 Drug form: l 03:49: INJ, ONCE, Stop date: 07/10/19 22:49:00 CDT sodium 2020-0 No Route: PO, Memor ia citrate 3-18 Drug Form: l (ANES) 03:49: INJ, ONCE, [place] Stop date: 07/10/19 22:49:00 CDT ceFAZolin 2020-0 No Route: IV, Me moria (ANES) 3-18 Drug form: l 03:49: INJ, ONCE, Stop date: 07/10/19 22:49:00 CDT Acetaminoph 2020-0 Yes Notes: Max Memoria en 3-18 acetaminop l 03:47: hen 4000 [place] 00 mg/day (4 gm/day). (Same as: Tylenol Extra Strength) Acetaminoph 2020-0 Yes Notes: Max Memoria en 3-18 acetaminop l 03:47: hen 4000 Luis Alberto 00 mg/day (4 gm/day). (Same as: Tylenol Extra Strength) Acetaminoph 2020-0 Yes Notes: Max Memoria en 3-18 acetaminop l 03:47: hen 4000 [place] 00 mg/day (4 gm/day). (Same as: Tylenol Extra Strength) Meperidine 2019-0 No Notes: Memor ia 3-18 (Same as: l 03:46: Demerol) "Use Precaution in Elderly, Seizure disorders, and Renal impairment " Oxycodone 2019-0 No Notes: Memori a Hydrochlori -18 (Same as: l de 5 MG 03:46: Roxicodone Herm palmira Oral Tablet 00 ) Ondansetron 2020-0 No Notes: Oseas sondra 3-18 (Same as: l 03:46: Zofran) MEDICATION WASTE Product Size: 4 mg Product Wasted: ___ mg Promethazin 2020-0 No 6.25 mg, Me moria e 3-18 0.25 mL, l 03:46: Route: [place] IVPB, Drug form: INJ, Q6H, Dosing Weight 60.909, kg, PRN Nausea & Vomiting, Start date: 07/10/19 22:46:00 CDT, Duration: 24 hr, Stop date: 07/11/19 22:45:00 CDT, 0 Nalbuphine 2020-0 No Notes: Memor ia 3-18 (Same As: l 03:46: Nubain) Meperidine 2020-0 No Notes: Memor ia 3-18 (Same as: l 03:46: Demerol) "Use Precaution in Elderly, Seizure disorders, and Renal impairment " Oxycodone 2020-0 No Notes: Memori a Hydrochlori 3-18 (Same as: l de 5 MG 03:46: Roxicodone Herm palmira Oral Tablet 00 ) Ondansetron 2020-0 No Notes: Oseas sondra 3-18 (Same as: l 03:46: Zofran) MEDICATION WASTE Product Size: 4 mg Product Wasted: ___ mg Promethazin 2020-0 No 6.25 mg, Me moria e 3-18 0.25 mL, l 03:46: Route: Luis Alberto 00 IVPB, Drug form: INJ, Q6H, Dosing Weight 60.909, kg, PRN Nausea & Vomiting, Start date: 07/10/19 22:46:00 CDT, Duration: 24 hr, Stop date: 07/11/19 22:45:00 CDT, 0 Nalbuphine 2020-0 No Notes: Memor ia 3-18 (Same As: l 03:46: Nubain) Meperidine 2020-0 No Notes: Memor ia 3-18 (Same as: l 03:46: Demerol) "Use Precaution in Elderly, Seizure disorders, and Renal impairment " Oxycodone No Notes: Memori a Hydrochlori 3-18 (Same as: l de 5 MG 03:46: Roxicodone Herm palmira Oral Tablet ) Ondansetron No Notes: Oseas sondra 3-18 (Same as: l 03:46: Zofran) MEDICATION WASTE Product Size: 4 mg Product Wasted: ___ mg Promethazin No 6.25 mg, Me moria e 3-18 0.25 mL, l 03:46: Route: IVPB, Drug form: INJ, Q6H, Dosing Weight 60.909, kg, PRN Nausea & Vomiting, Start date: 07/10/19 22:46:00 CDT, Duration: 24 hr, Stop date: 07/11/19 22:45:00 CDT, 0 Nalbuphine No Notes: Memor ia 3-18 (Same As: l 03:46: Nubain) oxytocin 0 No Route: IV, Mem oria (ANES) 30 3-18 Drug form: l unit 03:40: SOLN, Luis Alberto 00 Start date: 07/10/19 22:40:00 CDT, Stop date: 07/10/19 23:40:00 CDT oxytocin 2019-0 No Route: IV, Mem oria (ANES) 30 3-18 Drug form: l unit 03:40: SOLN, [place] Start date: 07/10/19 22:40:00 CDT, Stop date: 07/10/19 23:40:00 CDT oxytocin 0 No Route: IV, Mem oria (ANES) 30 3-18 Drug form: l unit 03:40: SOLN, Luis Alberto Start date: 07/10/19 22:40:00 CDT, Stop date: 07/10/19 23:40:00 CDT phenylephri 0 No Route: IV, Memoria ne (ANES) 3-18 Drug form: l 100 03:10: INJ, Start [place] microgram 00 date: 07/10/19 22:10:00 CDT, Stop date: 07/10/19 23:10:00 CDT phenylephri 2020-0 No Route: IV, Memoria ne (ANES) 3-18 Drug form: l 100 03:10: INJ, Start Luis Alberto microgram 00 date: 07/10/19 22:10:00 CDT, Stop date: 07/10/19 23:10:00 CDT phenylephri 2020-0 No Route: IV, Memoria ne (ANES) 3-18 Drug form: l 100 03:10: INJ, Start [place] microgram date: 07/10/19 22:10:00 CDT, Stop date: 07/10/19 23:10:00 CDT Lactated 2020-0 No Route: IV, Mem oria Ringers 3-18 Total l Injection 02:49: Volume: [place] nn IV (ANES) 00 1,000, 1000 mL Start date: 07/10/19 21:49:00 CDT, Stop date: 07/10/19 22:49:00 CDT Lactated 2020-0 No Route: IV, Mem oria Ringers 3-18 Total l Injection 02:49: Volume: [place] nn IV (ANES) 00 1,000, 1000 mL Start date: 07/10/19 21:49:00 CDT, Stop date: 07/10/19 22:49:00 CDT Lactated 2020-0 No Route: IV, Mem oria Ringers 3-18 Total l Injection 02:49: Volume: [place] nn IV (ANES) 00 1,000, 1000 mL Start date: 07/10/19 21:49:00 CDT, Stop date: 07/10/19 22:49:00 CDT azithromyci 2020-0 No Route: IV, Memoria n (ANES) 3-18 Drug form: l 500 mg 02:45: INJ, Start [place] nn 00 date: 07/10/19 21:45:00 CDT, Stop date: 07/10/19 22:45:00 CDT azithromyci 2020-0 No Route: IV, Memoria n (ANES) 3-18 Drug form: l 500 mg 02:45: INJ, Start [place] nn 00 date: 07/10/19 21:45:00 CDT, Stop date: 07/10/19 22:45:00 CDT azithromyci 2020-0 No Route: IV, Memoria n (ANES) 3-18 Drug form: l 500 mg 02:45: INJ, Start [place] date: 07/10/19 21:45:00 CDT, Stop date: 07/10/19 22:45:00 CDT Misoprostol 2020-0 No 1,000 Memor ia 3-18 microgram, l 01:00: 5 tab, Route: MT, Drug form: TAB, ONCALL, Dosing Weight 60.909, kg, Start date: 07/10/19 20:00:00 CDT, Duration: 30 day, Stop date: 08/09/19 19:59:00 CDT, 0 Methylergon 2020-0 No 0.2 mg, 1 M emoria ovine 3-18 mL, Route: l 01:00: IM, Drug form: INJ, ONCALL, Dosing Weight 60.909, kg, Start date: 07/10/19 20:00:00 CDT, Duration: 30 day, Stop date: 08/09/19 19:59:00 CDT, 0 Carboprost 2020-0 No 250 Memoria 3-18 microgram, l 01:00: 1 mL, Route: IM, Drug form: INJ, ONCALL, Dosing Weight 60.909, kg, Start date: 07/10/19 20:00:00 CDT, Duration: 30 day, Stop date: 08/09/19 19:59:00 CDT, 0 Tranexamic 2020-0 No 1 gm, 10 Mem oria Acid 3-18 mL, Route: l 01:00: IVPB, Drug form: INJ, ONCALL, Dosing Weight 60.909, kg, Start date: 07/10/19 20:00:00 CDT, Duration: 1 doses or times, 0 Misoprostol 2020-0 No 1,000 Memor ia 3-18 microgram, l 01:00: 5 tab, Route: MT, Drug form: TAB, ONCALL, Dosing Weight 60.909, kg, Start date: 07/10/19 20:00:00 CDT, Duration: 30 day, Stop date: 08/09/19 19:59:00 CDT, 0 Methylergon 2020-0 No 0.2 mg, 1 M emoria ovine 3-18 mL, Route: l 01:00: IM, Drug form: INJ, ONCALL, Dosing Weight 60.909, kg, Start date: 07/10/19 20:00:00 CDT, Duration: 30 day, Stop date: 08/09/19 19:59:00 CDT, 0 Carboprost 2020-0 No 250 Memoria 3-18 microgram, l 01:00: 1 mL, Route: IM, Drug form: INJ, ONCALL, Dosing Weight 60.909, kg, Start date: 07/10/19 20:00:00 CDT, Duration: 30 day, Stop date: 08/09/19 19:59:00 CDT, 0 Tranexamic 2020-0 No 1 gm, 10 Mem oria Acid 3-18 mL, Route: l 01:00: IVPB, Drug form: INJ, ONCALL, Dosing Weight 60.909, kg, Start date: 07/10/19 20:00:00 CDT, Duration: 1 doses or times, 0 Misoprostol 2020-0 No 1,000 Memor ia 3-18 microgram, l 01:00: 5 tab, Route: MT, Drug form: TAB, ONCALL, Dosing Weight 60.909, kg, Start date: 07/10/19 20:00:00 CDT, Duration: 30 day, Stop date: 08/09/19 19:59:00 CDT, 0 Methylergon 2020-0 No 0.2 mg, 1 M emoria ovine 3-18 mL, Route: l 01:00: IM, Drug form: INJ, ONCALL, Dosing Weight 60.909, kg, Start date: 07/10/19 20:00:00 CDT, Duration: 30 day, Stop date: 08/09/19 19:59:00 CDT, 0 Carboprost 2020-0 No 250 Memoria 3-18 microgram, l 01:00: 1 mL, Route: IM, Drug form: INJ, ONCALL, Dosing Weight 60.909, kg, Start date: 07/10/19 20:00:00 CDT, Duration: 30 day, Stop date: 08/09/19 19:59:00 CDT, 0 Tranexamic 2020-0 No 1 gm, 10 Mem oria Acid 3-18 mL, Route: l 01:00: IVPB, Drug form: INJ, ONCALL, Dosing Weight 60.909, kg, Start date: 07/10/19 20:00:00 CDT, Duration: 1 doses or times, 0 Calcium 2020-0 No 1,000 mL, Memor ia Chloride 3-18 1,000 l 0.0014 00:35: ml/hr, Luis Alberto MEQ/ML / 00 Infuse Potassium Over: 1 Chloride hr, Route: 0.004 IV, 1,000, MEQ/ML / Drug form: Sodium INJ, ONCE, Chlor[place] Dosing 0.103 Weight MEQ/ML / 60.909 kg, Sodium Start Lactate date: 0.028 07/10/19 MEQ/ML 19:35:00 Injectable CDT, Stop Solution date: 07/10/19 19:35:00 CDT, 0 Citric Acid No Notes: Oseas sondra / sodium 3-18 (Same As: l citrate 00:35: Fredy Neal 00 Cytra-2) Sodium citrate-ci tric acid (500-334 mg/5 mL): 1 mL contains sodium 1 mEq/mL and bicarbonat e 1 mEq/mL Terbutaline No Notes: Oseas sondra 3-18 DO NOT l 00:35: USE IN [employer] AREA Oxytocin No 30 unit, Memor ia 3-18 500 mL, l 00:35: Rate: Luis Alberto 00 Titrate, Dosing Weight 60.909, kg, Route: IV, Total Volume: 500 mL, Start date: 07/10/19 19:35:00 CDT, Duration: 1 doses or times, Stop date: 07/11/19 19:34:00 CDT, Replace Every: 24 hr, 0 Morphine No Notes: Memoria 3-18 (Same l 00:35: as:MORPhin e Sulfate) Ondansetron No Notes: Memoria 3-18 MEDICATION l 00:35: WASTE Product Size: 4 mg Product Wasted: ___ mg Metoclopram No Notes: Oseas sondra saeid 3-18 (Same as: l 00:35: Reglan) Calcium 2020-0 No 1,000 mL, Memor ia Chloride 3-18 1,000 l 0.0014 00:35: ml/hr, Luis Alberto MEQ/ML / 00 Infuse Potassium Over: 1 Chloride hr, Route: 0.004 IV, 1,000, MEQ/ML / Drug form: Sodium INJ, ONCE, [place] Dosing 0.103 Weight MEQ/ML / 60.909 kg, Sodium Start Lactate date: 0.028 07/10/19 MEQ/ML 19:35:00 Injectable CDT, Stop Solution date: 07/10/19 19:35:00 CDT, 0 Citric Acid 2019-0 No Notes: Oseas sondra / sodium 3-18 (Same As: l citrate 00:35: BicitraFredy n 00 Cytra-2) Sodium citrate-ci tric acid (500-334 mg/5 mL): 1 mL contains sodium 1 mEq/mL and bicarbonat e 1 mEq/mL Terbutaline No Notes: Oseas sondra 3-18 DO NOT l 00:35: USE IN [employer]IAN AREA Oxytocin 2019- No 30 unit, Memor ia 3-18 500 mL, l 00:35: Rate: Titrate, Dosing Weight 60.909, kg, Route: IV, Total Volume: 500 mL, Start date: 07/10/19 19:35:00 CDT, Duration: 1 doses or times, Stop date: 07/11/19 19:34:00 CDT, Replace Every: 24 hr, 0 Morphine No Notes: Memoria 3-18 (Same l 00:35: as:MORPhin e Sulfate) Ondansetron No Notes: Memoria 3-18 MEDICATION l 00:35: WASTE Product Size: 4 mg Product Wasted: ___ mg Metoclopram No Notes: Oseas sondra saeid 3-18 (Same as: l 00:35: Reglan) Calcium 2019-0 No 1,000 mL, Memor ia Chloride 3-18 1,000 l 0.0014 00:35: ml/hr, [place] MEQ/ML / 00 Infuse Potassium Over: 1 Chloride hr, Route: 0.004 IV, 1,000, MEQ/ML / Drug form: Sodium INJ, ONCE, Chloride Dosing 0.103 Weight MEQ/ML / 60.909 kg, Sodium Start Lactate date: 0.028 07/10/19 MEQ/ML 19:35:00 Injectable CDT, Stop Solution date: 07/10/19 19:35:00 CDT, 0 Citric Acid 2020-0 No Notes: Oseas sondra / sodium 3-18 (Same As: l citrate 00:35: BicitrFredy whaley 00 Cytra-2) Sodium citrate-ci tric acid (500-334 mg/5 mL): 1 mL contains sodium 1 mEq/mL and bicarbonat e 1 mEq/mL Terbutaline 2019-0 No Notes: Oseas sondra 3-18 DO NOT l 00:35: USE IN [employer] AREA Oxytocin 2019-0 No 30 unit, Memor ia 3-18 500 mL, l 00:35: Rate: Titrate, Dosing Weight 60.909, kg, Route: IV, Total Volume: 500 mL, Start date: 07/10/19 19:35:00 CDT, Duration: 1 doses or times, Stop date: 07/11/19 19:34:00 CDT, Replace Every: 24 hr, 0 Morphine 2019-0 No Notes: Memoria 3-18 (Same l 00:35: as:MORPhin e Sulfate) Ondansetron 0 No Notes: Memoria 3-18 MEDICATION l 00:35: WASTE Product Size: 4 mg Product Wasted: ___ mg Metoclopram 2019-0 No Notes: Oseas sondra saeid 3-18 (Same as: l 00:35: Reglan) betamethaso 2020-0 No Notes: Oseas sondra ne 3-17 (betametha l 17:00: sone acetate-so dium phosphate 6 mg/ml INJ) (Same As: [place] Soluspan) betamethaso 2019-0 No Notes: Oseas sondra ne 3-17 (betametha l 17:00: sone acetate-so dium phosphate 6 mg/ml INJ) (Same As: [place] Soluspan) betamethaso 2020-0 No Notes: Oseas sondra ne 3-17 (betametha l 17:00: sone Luis Alberto 00 acetate-so dium phosphate 6 mg/ml INJ) (Same As: [place] Soluspan) Lactated 2020-0 No 1,000 mL, Oseas sondra Ringers 3-17 Rate: l (titrate) 16:35: Titrate, Herm palmira IV 1,000 mL 00 Dosing Weight 63.636, kg, Route: IV, Total Volume: 1,000, Start Date: 07/10/19 11:35:00 CDT, Duration: 30 day, Stop date: 08/09/19 11:34:00 CDT, Replace Every: 24 hr, 0 Magnesium 2020-0 No Notes: Memori a Sulfate 40 3-17 WASTE: F/P l MG/ML 16:35: - Sink; E [place] Injection 00 - [facility] Magnesium 2020-0 No Notes: Memori a Sulfate 3-17 (Same as: l 16:35: MgSO4) WASTE: F/P - Sink; E - [facility] Calcium 2020-0 No Notes: [facility] Gluconate 3-17 WASTE: F/P l 16:35: - Sink; E [place] 00 - [facility] Lactated 2020-0 No 1,000 mL, Oseas sondra Ringers 3-17 Rate: l (titrate) 16:35: Titrate, Herm palmira IV 1,000 mL 00 Dosing Weight 63.636, kg, Route: IV, Total Volume: 1,000, Start Date: 07/10/19 11:35:00 CDT, Duration: 30 day, Stop date: 08/09/19 11:34:00 CDT, Replace Every: 24 hr, 0 Magnesium 2020-0 No Notes: Memori a Sulfate 40 3-17 WASTE: F/P l MG/ML 16:35: - Sink; E [place] Injection 00 - [facility] Magnesium 2020-0 No Notes: Memori a Sulfate 3-17 (Same as: l 16:35: MgSO4) Luis Alberto 00 WASTE: F/P - Sink; E - [facility] Calcium 2020-0 No Notes: [facility] Gluconate 3-17 WASTE: F/P l 16:35: - Sink; E Luis Alberto 00 - [facility] Calcium 2020-0 No Notes: [facility] Gluconate 3-17 WASTE: F/P l 16:35: - Sink; E [place] 00 - [facility] Lactated 2019-0 No 1,000 mL, Oseas sondra Ringers 3-17 Rate: l (titrate) 16:35: Titrate, Herm palmira IV 1,000 mL 00 Dosing Weight 63.636, kg, Route: IV, Total Volume: 1,000, Start Date: 07/10/19 11:35:00 CDT, Duration: 30 day, Stop date: 08/09/19 11:34:00 CDT, Replace Every: 24 hr, 0 Magnesium 2019-0 No Notes: Memori a Sulfate 40 - WASTE: F/P l MG/ML 16:35: - Sink; E [place] Injection - [facility] Magnesium 2019-0 No Notes: Memori a Sulfate 3-17 (Same as: l 16:35: MgSO4) WASTE: F/P - Sink; E - [facility] BD Normal 2019-0 No Notes: Memori a Saline 3-17 (Same as: l Flush 14:50: BD Luis Alberto 00 Posiflush) Sodium 2020-0 No 25 mL, [facility] Chloride 3-17 Route: IV, l 0.9% IV 14:50: Start date: 07/10/19 9:50:00 CDT, Duration: 30 day, Stop date: 08/09/19 9:49:00 CDT, PRN Line Flush, 0 BD Normal 2019-0 No Notes: Memori a Saline 3-17 (Same as: l Flush 14:50: BD Luis Alberto 00 Posiflush) Sodium 2020-0 No 25 mL, Memoria Chloride 3-17 Route: IV, l 0.9% IV 14:50: Start date: 07/10/19 9:50:00 CDT, Duration: 30 day, Stop date: 08/09/19 9:49:00 CDT, PRN Line Flush, 0 BD Normal 2019-0 No Notes: Memori a Saline 3-17 (Same as: l Flush 14:50: BD [place] 00 Posiflush) Sodium 2020-0 No 25 mL, [facility] Chloride 3-17 Route: IV, l 0.9% IV 14:50: Start date: 07/10/19 9:50:00 CDT, Duration: 30 day, Stop date: 08/09/19 9:49:00 CDT, PRN Line Flush, 0 Prena1 oral 2020-0 Yes 1 cap, PO, [facility] capsule 3-17 Daily, 0 l 13:19: Refill(s) ferrous 2020-0 Yes PO, 0 [facility] sulfate 3-17 Refill(s) l 13:19: Prena1 oral 2020-0 Yes 1 cap, PO, [facility] capsule 3-17 Daily, 0 l 13:19: Refill(s) ferrous 2020-0 Yes PO, 0 [facility] sulfate 3-17 Refill(s) l 13:19: Prena1 oral 2020-0 Yes 1 cap, PO, [facility] capsule 3-17 Daily, 0 l 13:19: Refill(s) ferrous 2020-0 Yes PO, 0 [facility] sulfate 3-17 Refill(s) l 13:19: Famotidine 2019-0 No Notes: Mem[facility] ia 3-17 (Same as: l 13:00: Pepcid) [place] 00 Can be dilute in 5-10cc NS IVP: Slow IV push over at least 2 minutes. Misoprostol 0 No Notes: Oseas sondra 3-17 (Same l 13:00: as:Cytotec ) Hazardous Drug Group 3:Reproduc tive risk Hazardous Drug -- Refer to safe handling procedure PPE Matrix Take with food Methylergon 2019-0 No Notes: Oseas sondra ovine 3-17 (Same l 13:00: as:Metherg ine) Hazardous Drug Group 3:Reproduc tive risk Hazardous Drug -- Refer to safe handling procedure PPE Matrix Carboprost 2019-0 No Notes: [facility] ia 3-17 (Same As: l 13:00: Hemabate) Tranexamic 2019-0 No Notes: [facility] Acid 3-17 (Same As: l 13:00: Cyklokapro n) Famotidine 2019-0 No Notes: [facility] ia 3-17 (Same as: l 13:00: Pepcid) Luis Alber[place] 00 Can be dilute in 5-10cc NS IVP: Slow IV push over at least 2 minutes. Misoprostol 2019-0 No Notes: Oseas sondra 3-17 (Same l 13:00: as:Cytotec Luis Alberto 00 ) Hazardous Drug Group 3:Reproduc tive risk Hazardous Drug -- Refer to safe handling procedure PPE Matrix Take with food Methylergon 2019-0 No Notes: Oseas sondra ovine 3-17 (Same l 13:00: as:Metherg [place] ine) Hazardous Drug Group 3:Reproduc tive risk Hazardous Drug -- Refer to safe handling procedure PPE Matrix Carboprost 2019-0 No Notes: Mem[facility] ia 3-17 (Same As: l 13:00: Hemabate) [place] Tranexamic No Notes: [facility] Acid 3-17 (Same As: l 13:00: Cyklokapro [place] 00 n) Famotidine No Notes: [facility] ia 3-17 (Same as: l 13:00: Pepcid) Luis Alberto 00 Can be dilute in 5-10cc NS IVP: Slow IV push over at least 2 minutes. Misoprostol No Notes: Oseas sondra 3-17 (Same l 13:00: as:Cytotec [place] 00 ) Hazardous Drug Group 3:Reproduc tive risk Hazardous Drug -- Refer to safe handling procedure PPE Matrix Take with food Methylergon 2019-0 No Notes: [facility]seas sondra ovine 3-17 (Same l 13:00: as:Metherg Luis Alberto ine) Hazardous Drug Group 3:Reproduc tive risk Hazardous Drug -- Refer to safe handling procedure PPE Matrix Carboprost 2019-0 No Notes: [facility] ia 3-17 (Same As: l 13:00: Hemabate) [place] Alber[place] 00 Tranexamic 0 No Notes: [facility] Acid 3-17 (Same As: l 13:00: Cyklokapro [place] Alberto 00 n) Lidocaine 2019- No Notes: Mem[facility] a Hydrochlori 3-17 Preservati l de 10 MG/ML 12:59: ve free. He rmann Injectable 00 (Same as: Solution Xylocaine MPF) Calcium 2019-0 No 1,000 mL, [facility] Chloride 3-17 1,000 l 0.0014 12:59: ml/hr, [place] MEQ/ML / 00 Infuse Potassium Over: 1 Chloride hr, Route: 0.004 IV, 1,000, MEQ/ML / Drug form: Sodium INJ, ONCE, Chloride Dosing 0.103 Weight MEQ/ML / 63.636 kg, Sodium Start Lactate date: 0.028 07/10/19 MEQ/ML 7:59:00 Injectable CDT, Stop Solution date: 07/10/19 7:59:00 CDT, Bolus for regional anesthesia per unit routine, 0 Lactated No 1,000 mL, Oseas sondra Ringers IV 07-09 Rate: 125 l 1,000 mL 12:59: ml/hr, Luis Alberto 00 Infuse over: 8 hr, Route: IV, Dosing Weight 63.636 kg, Total Volume: 1,000, Start date: 07/10/19 7:59:00 CDT, Duration: 30 day, Stop date: 08/09/19 7:58:00 CDT, 1.73, m2, 0 Oxytocin No Notes: [facility] 3-17 Hazardous l 12:59: Drug Group 3:Reproduc tive risk Hazardous Drug -- Refer to safe handling procedure PPE Matrix Butorphanol No Notes: [facility]se[place] sondra 3-17 (Same As: l 12:59: Stadol) Ibuprofen No Notes: Memori a 3-17 (Same as: l 12:59: Motrin) "Do Not Crush" Take with food. Acetaminoph No Notes: Oseas sondra en 325 MG / -17 (Same as: l Hydrocodone 12:59: [place] Capri nn Bitartrate 00 325/5) Do 5 MG Oral not exceed Tablet 4gm/day of acetaminop hen. Ondansetron No Notes: Ose[facility] sondra 3-17 (Same as: l 12:59: Zofran) MEDICATION WASTE Product Size: 4 mg Product Wasted: _0__ mg Terbutaline No Notes: Oseas sondra 3-17 DO NOT l 12:59: USE IN [place] 00 [employer] AREA (Same As: Brethine) Lidocaine No Notes: Mem[facility] a Hydrochlori -17 Preservati l de 10 MG/ML 12:59: ve free. He rmann Injectable (Same as: Solution Xylocaine MPF) Calcium 2019-0 No 1,000 mL, [facility] ia Chloride -17 1,000 l 0.0014 12:59: ml/hr, [place] MEQ/ML / 00 Infuse Potassium Over: 1 Chloride hr, Route: 0.004 IV, 1,000, MEQ/ML / Drug form: Sodium INJ, ONCE, Chloride Dosing 0.103 Weight MEQ/ML / 63.636 kg, Sodium Start Lactate date: 0.028 07/10/19 MEQ/ML 7:59:00 Injectable CDT, Stop Solution date: 07/10/19 7:59:00 CDT, Bolus for regional anesthesia per unit routine, 0 Lactated 2019- No 1,000 mL, Oseas sondra Ringers IV 07-09 Rate: 125 l 1,000 mL 12:59: ml/hr, [place] Alber[place] 00 Infuse over: 8 hr, Route: IV, Dosing Weight 63.636 kg, Total Volume: 1,000, Start date: 07/10/19 7:59:00 CDT, Duration: 30 day, Stop date: 08/09/19 7:58:00 CDT, 1.73, m2, 0 Oxytocin No Notes: [facility] 3-17 Hazardous l 12:59: Drug Group 3:Reproduc tive risk Hazardous Drug -- Refer to safe handling procedure PPE Matrix Butorphanol No Notes: [place]se[place] sondra 3-17 (Same As: l 12:59: Stadol) Ibuprofen No Notes: [facility] a -17 (Same as: l 12:59: Motrin) "Do Not Crush" Take with food. Acetaminoph No Notes: Oseas sondra en 325 MG / -17 (Same as: l Hydrocodone 12:59: [place] Capri nn Bitartrate 00 325/5) Do 5 MG Oral not exceed Tablet 4gm/day of acetaminop hen. Ondansetron No Notes: [facility]se[facility] sondra 3-17 (Same as: l 12:59: Zofran) MEDICATION WASTE Product Size: 4 mg Product Wasted: _0__ mg Terbutaline No Notes: Ose[facility] sondra 3-17 DO NOT l 12:59: USE IN [place] Alber[place] 00 [employer]IAN AREA (Same As: Brethine) Lidocaine No Notes: Mem[facility] a Hydrochlori -17 Preservati l de 10 MG/ML 12:59: ve free. He rmann Injectable 00 (Same as: Solution Xylocaine MPF) Calcium No 1,000 mL, [facility] Chloride -17 1,000 l 0.0014 12:59: ml/hr, Luis Alberto MEQ/ML / 00 Infuse Potassium Over: 1 Chloride hr, Route: 0.004 IV, 1,000, MEQ/ML / Drug form: Sodium INJ, ONCE, Chloride Dosing 0.103 Weight MEQ/ML / 63.636 kg, Sodium Start Lactate date: 0.028 07/10/19 MEQ/ML 7:59:00 Injectable CDT, Stop Solution date: 07/10/19 7:59:00 CDT, Bolus for regional anesthesia per unit routine, 0 Lactated No 1,000 mL, Oseas sondra Ringers IV 07-09 Rate: 125 l 1,000 mL 12:59: ml/hr, Infuse over: 8 hr, Route: IV, Dosing Weight 63.636 kg, Total Volume: 1,000, Start date: 07/10/19 7:59:00 CDT, Duration: 30 day, Stop date: 08/09/19 7:58:00 CDT, 1.73, m2, 0 Oxytocin No Notes: [facility] 3-17 Hazardous l 12:59: Drug Group 3:Reproduc tive risk Hazardous Drug -- Refer to safe handling procedure PPE Matrix Butorphanol No Notes: [facility]se[place] sondra 3-17 (Same As: l 12:59: Stadol) Ibuprofen No Notes: [facility] a 3-17 (Same as: l 12:59: Motrin) "Do Not Crush" Take with food. Acetaminoph No Notes: Ose[place] sondra en 325 MG / 3-17 (Same as: l Hydrocodone 12:59: [place] Capri nn Bitartrate 00 325/5) Do 5 MG Oral not exceed Tablet 4gm/day of acetaminop hen. Ondansetron No Notes: [facility]se[facility] sondra 3-17 (Same as: l 12:59: Zofran) MEDICATION WASTE Product Size: 4 mg Product Wasted: _0__ mg Terbutaline No Notes: Ose[facility] sondra 3-17 DO NOT l 12:59: USE IN [employer] ARE[employer] (Same As: Brethine) tetanus/dip No Notes: [facility]se[facility] sondra hth/pertuss 3-17 Therapeuti l (Tdap) 05:00: c [place] adult/adol 00 Interchang e for Boostrix tetanus/dip 2019- No Notes: [facility]se[facility] sondra hth/pertuss 3-17 Therapeuti l (Tdap) 05:00: c [place] adult/adol 00 Interchang e for Boostrix tetanus/dip 2019- No Notes: [facility]se[facility] sondra hth/pertuss 3-17 Therapeuti l (Tdap) 05:00: c [place] adult/adol 00 Interchang e for Boostrix erythromyci 2018-04 Yes 1 appl, Mem oria n - RIGHT EYE, l ophthalmic 23:31: QID, X 7 Her montemayor 0.5% 00 day, # 3 ointment gm, 0 Refill(s) erythromyci 2018-04 Yes 1 appl, Mem oria n - RIGHT EYE, l ophthalmic 23:31: QID, X 7 Her montemayor 0.5% 00 day, # 3 ointment gm, 0 Refill(s) erythromyci 2018-04 Yes 1 appl, Mem oria n - RIGHT EYE, l ophthalmic 23:31: QID, X 7 Her montemayor 0.5% 00 day, # 3 ointment gm, 0 Refill(s) Acetaminoph 2018-04 No Notes: Oseas sondra en 325 MG / 06-20 (Same as: l Hydrocodone 21:14: [place] [facility] nn Bitartrate 00 325/5) Do 5 MG Oral not exceed Tablet 4gm/day of [[place] acetaminop 5/325] hen. Acetaminoph 2018-04 No Notes: Oseas sondra en 325 MG / 06-20 (Same as: l Hydrocodone 21:14: [place] [facility] nn Bitartrate 00 325/5) Do 5 MG Oral not exceed Tablet 4gm/day of [[place] acetaminop 5/325] hen. Acetaminoph 2018-04 No Notes: Ose[facility] sondra en 325 MG / 06-20 (Same as: l Hydrocodone 21:14: [place] nn Bitartrate 00 325/5) Do 5 MG Oral not exceed Tablet 4gm/day of [[place] acetaminop 5/325] hen. Ibuprofen 2018-04 No 800 mg, Mem[facility] ia 06-20 Route: PO, l 21:13: ONCE, [place] Alber[place] Dosing Weight 55, kg, Priority: STAT, Start date: 04/19/19 15:13:00 DICE PERSON, Stop date: 04/19/19 15:13:00 DICE PERSON Famotidine 2018-04 No 1 tab, Mem[facility] ia 20 MG Oral 06-20 Route: PO, l Tablet 21:13: ONCE, [place] [Pepcid] Dosing Weight 55, kg, Start date: 04/19/19 15:13:00 DICE PERSON, Stop date: 04/19/19 15:13:00 DICE PERSON Tramadol 2018-04 No 50 kg, Memori a 06-20 Priority: l 21:13: STAT, [place] 00 Start date: 04/19/19 15:13:00 DICE PERSON, Stop date: 04/19/19 15:13:00 DICE PERSON Ibuprofen 2018-04 No 800 mg, [facility] ia 06-20 Route: PO, l 21:13: ONCE, [place] Dosing Weight 55, kg, Priority: STAT, Start date: 04/19/19 15:13:00 DICE PERSON, Stop date: 04/19/19 15:13:00 DICE PERSON Famotidine 2018-04 No 1 tab, [facility] 20 MG Oral 06-20 Route: PO, l Tablet 21:13: ONCE, [place] Alber[place] [Pepcid] Dosing Weight 55, kg, Start date: 04/19/19 15:13:00 DICE PERSON, Stop date: 04/19/19 15:13:00 DICE PERSON Tramadol 2018-04 No 50 kg, Memori a 06-20 Priority: l 21:13: STAT, [place] Alber[place] 00 Start date: 04/19/19 15:13:00 DICE PERSON, Stop date: 04/19/19 15:13:00 DICE PERSON Ibuprofen 2018-04 No 800 mg, [facility] ia 06-20 Route: PO, l 21:13: ONCE, [place] 00 Dosing Weight 55, kg, Priority: STAT, Start date: 04/19/19 15:13:00 DICE PERSON, Stop date: 04/19/19 15:13:00 DICE PERSON Famotidine 2018-04 No 1 tab, [facility] 20 MG Oral 06-20 Route: PO, l Tablet 21:13: ONCE, [place] [Pepcid] 00 Dosing Weight 55, kg, Start date: 04/19/19 15:13:00 DICE PERSON, Stop date: 04/19/19 15:13:00 DICE PERSON Tramadol 2018-04 No 50 kg, Memori a 06-20 Priority: l 21:13: STAT, [place] 00 Start date: 04/19/19 15:13:00 DICE PERSON, Stop date: 04/19/19 15:13:00 DICE PERSON Nitrofurant 2018-04 Yes 100 mg = 1 Memoria oin 100 MG 1-16 cap, PO, l Oral 23:46: BID, X 7 Luis Alberto Capsule 00 day, # 14 [Macrobid] cap, 0 Refill(s) Nitrofurant 2018-04 Yes 100 mg = 1 Memoria oin 100 MG 1-16 cap, PO, l Oral 23:46: BID, X 7 Ulis Alberto Capsule 00 day, # 14 [Macrobid] cap, 0 Refill(s) Nitrofurant 2018-04 Yes 100 mg = 1 Memoria oin 100 MG 1-16 cap, PO, l Oral 23:46: BID, X 7 [place] Capsule 00 day, # 14 [Macrobid] cap, 0 Refill(s) Saline 2018-04 No Notes: [facility] Flush 0.9% 1-16 (Same as: l 21:37: BD [place] 00 Posiflush) Sodium 2018-04 No 1,000 mL, Memori a Chloride 1-16 1,000 l 0.9% 21:37: ml/hr, Luis Alberto (Bolus) IV 00 Infuse Over: 1 hr, Route: IV, ONCE, Priority: STAT, Dosing Weight 52.273 kg, Start date: 03/10/19 15:37:00 DICE PERSON, Stop date: 03/10/19 15:37:00 DICE PERSON Saline 2018-04 No Notes: [facility] Flush 0.9% 1-16 (Same as: l 21:37: BD [place] 00 Posiflush) Sodium 2018-04 No 1,000 mL, Mem[facility] a Chloride 1-16 1,000 l 0.9% 21:37: ml/hr, [place] (Bolus) IV 00 Infuse Over: 1 hr, Route: IV, ONCE, Priority: STAT, Dosing Weight 52.273 kg, Start date: 03/10/19 15:37:00 DICE PERSON, Stop date: 03/10/19 15:37:00 DICE PERSON Saline 2018-04 No Notes: [facility] Flush 0.9% 1-16 (Same as: l 21:37: BD [place] 00 Posiflush) Sodium 2018-04 No 1,000 mL, Mem[facility] a Chloride 1-16 1,000 l 0.9% 21:37: ml/hr, [place] (Bolus) IV 00 Infuse Over: 1 hr, Route: IV, ONCE, Priority: STAT, Dosing Weight 52.273 kg, Start date: 03/10/19 15:37:00 DICE PERSON, Stop date: 03/10/19 15:37:00 DICE PERSON Immunizations Ordered Immunization Filled Immunization Date Status Commen ts Source Name Name Influenza Virus 2022-05-27 Completed [facility] [place] [facility] Preserv and ABX Free Bran ch 6 MO-64 YRS Influenza Virus 2022-05-27 Completed [facility], 00:00:00 [place] [facility] Preserv and ABX Free Bran ch 6 MO-64 YRS Influenza Virus 2021-04-13 Completed [facility], 00:00:00 [place] [facility] Preserv and ABX Free Bran ch 6 MO-64 YRS Influenza Virus 2021-04-13 Completed [facility], 00:00:00 [place] [facility] Preserv and ABX Free Bran ch 6 MO-64 YRS Influenza Virus 2021-04-13 Completed [facility], 00:00:00 [place] [facility] Preserv and ABX Free Bran ch 6 MO-64 YRS Influenza Virus 2021-04-13 Completed [facility], 00:00:00 [place] [facility] Preserv and ABX Free Bran ch 6 MO-64 YRS Influenza Virus 2021-04-13 Completed [facility], 00:00:00 [place] [facility] Preserv and ABX Free Bran ch 6 MO-64 YRS Influenza Virus 2021-04-13 Completed [facility], 00:00:00 [place] [facility] Preserv and ABX Free Bran ch 6 MO-64 YRS Influenza Virus 2021-04-13 Completed [facility], 00:00:00 [place] [facility] Preserv and ABX Free Bran ch 6 MO-64 YRS Influenza Virus 2021-04-13 Completed [facility], 00:00:00 [place] [facility] Preserv and ABX Free Bran ch 6 MO-64 YRS Influenza Virus 2021-04-13 Completed [facility], 00:00:00 [place] [facility] Preserv and ABX Free Bran ch 6 MO-64 YRS Influenza Virus 2021-04-13 Completed [facility], 00:00:00 [facility] dical Preserv and ABX Free Bran ch 6 MO-64 YRS Influenza Virus 2021-04-13 Completed [facility], 00:00:00 [facility] dical Preserv and ABX Free Bran ch 6 MO-64 YRS Influenza Virus 2021-04-13 Completed [facility], 00:00:00 [facility] dical Preserv and ABX Free Bran ch 6 MO-64 YRS Influenza Virus 2020-02-08 Completed [facility] 3+ 00:00:00 [facility] Influenza Virus 2020-02-08 Completed [facility] 3+ 00:00:00 [facility] Influenza Virus 2020-02-08 Completed [facility] IM 3+ 00:00:00 [facility] Influenza Virus 2020-02-08 Completed [facility] IM 3+ 00:00:00 [facility] Influenza Virus 2020-02-08 Completed [facility] IM 3+ 00:00:00 [facility] Influenza Virus 2020-02-08 Completed [facility] 3+ 00:00:00 [facility] Influenza Virus 2020-02-08 Completed [facility] 3+ 00:00:00 [facility] Influenza Virus 2020-02-08 Completed [facility] IM 3+ 00:00:00 [facility] Influenza Virus 2020-02-08 Completed [facility] IM 3+ 00:00:00 [facility] Influenza Virus 2020-02-08 Completed [facility] Vaccine Quad IM 3+ 00:00:00 [facility] Influenza Virus 2020-02-08 Completed [facility] Vaccine [facility] IM 3+ 00:00:00 [facility] Influenza Virus 2020-02-08 Completed [facility]ine [facility] IM 3+ 00:00:00 [facility] Influenza Virus 2020-02-08 Completed [facility] Vaccine [facility] IM 3+ 00:00:00 [facility] Influenza Virus 2020-02-08 Completed [facility] IM 3+ 00:00:00 [facility] Influenza Virus 2020-02-08 Completed [facility] 3+ 00:00:00 [facility] TDAP (ADACEL) VACCINE 2019-05-31 Completed [facility] vers[facility] of 00:00:00 [facility] TDAP (ADACEL) VACCINE 2019-05-31 Completed [facility] vers[facility] of 00:00:00 [facility] TDAP (ADACEL) VACCINE 2019-05-31 Completed [facility] vers[facility] of 00:00:00 [facility] TDAP (ADACEL) VACCINE 2019-05-31 Completed [facility] vers[facility] of 00:00:00 [facility] TDAP (ADACEL) VACCINE 2019-05-31 Completed Uni versity of 00:00:00 [facility] TDAP (ADACEL) VACCINE 2019-05-31 Completed Uni versity of 00:00:00 [facility] TDAP (ADACEL) VACCINE 2019-05-31 Completed [facility] vers[facility] of 00:00:00 [facility] TDAP (ADACEL) VACCINE 2019-05-31 Completed [facility] vers[facility] of 00:00:00 [facility] TDAP (ADACEL) VACCINE 2019-05-31 Completed [facility] vers[facility] of 00:00:00 [facility] TDAP (ADACEL) VACCINE 2019-05-31 Completed [facility] vers[facility] of 00:00:00 [facility] TDAP (ADACEL) VACCINE 2019-05-31 Completed [facility] vers[facility] of 00:00:00 [facility] TDAP (ADACEL) VACCINE 2019-05-31 Completed [facility] vers[facility] of 00:00:00 [facility] TDAP (ADACEL) VACCINE 2019-05-31 Completed [facility] versity of 00:00:00 [facility] TDAP (ADACEL) VACCINE 2019-05-31 Completed [facility] vers[facility] of 00:00:00 [facility] TDAP (ADACEL) VACCINE 2019-05-31 Completed [facility] vers[facility] of 00:00:00 [facility] Influenza Virus 2019-02-23 Completed [facility] Vaccine 00:00:00 [facility] Influenza Virus 2019-02-23 Completed [facility] Vaccine 00:00:00 [facility] Influenza Virus 2019-02-23 Completed [facility] Vaccine 00:00:00 [facility] Influenza Virus 2019-02-23 Completed [facility] Vaccine 00:00:00 [facility] Influenza Virus 2019-02-23 Completed [facility] Vaccine 00:00:00 [facility] Influenza Virus 2019-02-23 Completed [facility] Vaccine 00:00:00 [facility] Influenza Virus 2019-02-23 Completed [facility] Vaccine 00:00:00 [facility] Influenza Virus 2019-02-23 Completed [facility] Vaccine 00:00:00 [facility] Influenza Virus 2019-02-23 Completed [facility] of Vaccine 00:00:00 [facility] Influenza Virus 2019-02-23 Completed [facility] Vaccine 00:00:00 [facility] Influenza Virus 2019-02-23 Completed [facility] Vaccine 00:00:00 [facility] Influenza Virus 2019-02-23 Completed [facility] Vaccine 00:00:00 [facility] Influenza Virus 2019-02-23 Completed [facility] Vaccine 00:00:00 [facility] Influenza Virus 2019-02-23 Completed [facility] Vaccine 00:00:00 [facility] Influenza Virus 2019-02-23 Completed [facility] Vaccine 00:00:00 [facility] Influenza Virus 2017-01-12 Completed [facility]ine [facility] IM 3+ 00:00:00 [facility] Influenza Virus 2017-01-12 Completed [facility] Vaccine [facility] IM 3+ 00:00:00 [facility] Influenza Virus 2017-01-12 Completed [facility] Vaccine Quad IM 3+ 00:00:00 [facility] Influenza Virus 2017-01-12 Completed [facility] Vaccine Quad IM 3+ 00:00:00 [facility] Influenza Virus 2017-01-12 Completed [facility] Vaccine Quad IM 3+ 00:00:00 [facility] Influenza Virus 2017-01-12 Completed [facility] of Vaccine Quad IM 3+ 00:00:00 [facility] Influenza Virus 2017-01-12 Completed [facility] of Vaccine Quad IM 3+ 00:00:00 [facility] Influenza Virus 2017-01-12 Completed [facility] Vaccine Quad IM 3+ 00:00:00 [facility] Influenza Virus 2017-01-12 Completed [facility] of Vaccine Quad IM 3+ 00:00:00 [facility] Influenza Virus 2017-01-12 Completed [facility] of Vaccine Quad IM 3+ 00:00:00 [facility] Influenza Virus 2017-01-12 Completed [facility] Vaccine Quad IM 3+ 00:00:00 [facility] Influenza Virus 2017-01-12 Completed [facility] of Vaccine Quad IM 3+ 00:00:00 [facility] Influenza Virus 2017-01-12 Completed [facility] Vaccine [facility] IM 3+ 00:00:00 [facility] Influenza Virus 2017-01-12 Completed [facility] Vaccine Quad IM 3+ 00:00:00 [facility] Influenza Virus 2017-01-12 Completed [facility] Vaccine Quad IM 3+ 00:00:00 [facility] TDAP 2016-09-23 Completed [facility] 00:00:00 [facility] TDAP 2016-09-23 Completed [facility] of 00:00:00 [facility] TDAP 2016-09-23 Completed [facility] of 00:00:00 [facility] TDAP 2016-09-23 Completed [facility] of 00:00:00 [facility] TDAP 2016-09-23 Completed [facility] of 00:00:00 [facility] TDAP 2016-09-23 Completed [facility] of 00:00:00 [facility] TDAP 2016-09-23 Completed University of 00:00:00 [facility] TDAP 2016-09-23 Completed [facility] of 00:00:00 [facility] TDAP 2016-09-23 Completed University of 00:00:00 [facility] TDAP 2016-09-23 Completed University of 00:00:00 [facility] TDAP 2016-09-23 Completed University of 00:00:00 [facility] TDAP 2016-09-23 Completed University of 00:00:00 [facility] TDAP 2016-09-23 Completed University of 00:00:00 [facility] TDAP 2016-09-23 Completed University of 00:00:00 [facility] TDAP 2016-09-23 Completed University of 00:00:00 [facility] HPV9 2013-12-11 Completed University of 00:00:00 [facility] HPV9 2013-12-11 Completed [facility] of 00:00:00 [facility] HPV9 2013-12-11 Completed [facility] of 00:00:00 [facility] HPV9 2013-12-11 Completed University of 00:00:00 [facility] HPV9 2013-12-11 Completed [facility] of 00:00:00 [facility] HPV9 2013-12-11 Completed University of 00:00:00 [facility] HPV9 2013-12-11 Completed University of 00:00:00 [facility] HPV9 2013-12-11 Completed University of 00:00:00 [facility] HPV9 2013-12-11 Completed University of 00:00:00 [facility] HPV9 2013-12-11 Completed University of 00:00:00 [facility] HPV9 2013-12-11 Completed University of 00:00:00 [facility] HPV9 2013-12-11 Completed [facility] of 00:00:00 [facility] HPV9 2013-12-11 Completed University of 00:00:00 [facility] HPV9 2013-12-11 Completed University of 00:00:00 [facility] HPV9 2013-12-11 Completed University of 00:00:00 [facility] HPV9 2012-11-17 Completed University of 00:00:00 [facility] Meningococcal Vaccine 2012-11-17 Completed Uni versity of 00:00:00 [facility] TDAP 2012-11-17 Completed University of 00:00:00 [facility] Meningococcal 2012-11-17 Completed University of Polysaccharide 00:00:00 [place] [facility] (groups A, C, Y and Branc h W-135) conjugate vaccine (MCV4P) HPV9 2012-11-17 Completed University of 00:00:00 [facility] Meningococcal Vaccine 2012-11-17 Completed [facility] 00:00:00 [place] [facility] TDAP 2012-11-17 Completed [facility] 00:00:00 [facility] Meningococcal 2012-11-17 Completed University of Polysaccharide 00:00:00 [place] [facility] (groups A, C, Y and Branc h W-135) conjugate vaccine (MCV4P) HPV9 2012-11-17 Completed University of 00:00:00 [facility] Meningococcal Vaccine 2012-11-17 Completed Uni versity of 00:00:00 [facility] TDAP 2012-11-17 Completed University of 00:00:00 [facility] Meningococcal 2012-11-17 Completed University of Polysaccharide 00:00:00 [place] [facility] (groups A, C, Y and Branc h W-135) conjugate vaccine (MCV4P) HPV9 2012-11-17 Completed [facility] of 00:00:00 [facility] Meningococcal Vaccine 2012-11-17 Completed Uni versity of 00:00:00 [facility] TDAP 2012-11-17 Completed [facility] of 00:00:00 [facility] Meningococcal 2012-11-17 Completed University of Polysaccharide 00:00:00 [place] [facility] (groups A, C, Y and Branc h W-135) conjugate vaccine (MCV4P) HPV9 2012-11-17 Completed [facility] of 00:00:00 [facility] Meningococcal Vaccine 2012-11-17 Completed Uni versity of 00:00:00 [facility] TDAP 2012-11-17 Completed [facility] of 00:00:00 [facility] Meningococcal 2012-11-17 Completed University of Polysaccharide 00:00:00 [place] [facility] (groups A, C, Y and Branc h W-135) conjugate vaccine (MCV4P) HPV9 2012-11-17 Completed [facility] of 00:00:00 [facility] Meningococcal Vaccine 2012-11-17 Completed Uni versity of 00:00:00 [facility] TDAP 2012-11-17 Completed [facility] of 00:00:00 [facility] Meningococcal 2012-11-17 Completed [facility] of Polysaccharide 00:00:00 [place] [facility] (groups A, C, Y and Branc h W-135) conjugate vaccine (MCV4P) HPV9 2012-11-17 Completed [facility] of 00:00:00 [facility] Meningococcal Vaccine 2012-11-17 Completed Uni versity of 00:00:00 [facility] TDAP 2012-11-17 Completed [facility] of 00:00:00 [facility] Meningococcal 2012-11-17 Completed [facility] of Polysaccharide 00:00:00 [place] [facility] (groups A, C, Y and Branc h W-135) conjugate vaccine (MCV4P) HPV9 2012-11-17 Completed [facility] of 00:00:00 [facility] Meningococcal Vaccine 2012-11-17 Completed Uni versity of 00:00:00 [facility] TDAP 2012-11-17 Completed [facility] of 00:00:00 [facility] Meningococcal 2012-11-17 Completed University of Polysaccharide 00:00:00 [place] [facility] (groups A, C, Y and Branc h W-135) conjugate vaccine (MCV4P) HPV9 2012-11-17 Completed [facility] of 00:00:00 [facility] Meningococcal Vaccine 2012-11-17 Completed Uni versity of 00:00:00 [facility] TDAP 2012-11-17 Completed University of 00:00:00 [facility] Meningococcal 2012-11-17 Completed University of Polysaccharide 00:00:00 [place] [facility] (groups A, C, Y and Branc h W-135) conjugate vaccine (MCV4P) HPV9 2012-11-17 Completed University of 00:00:00 [facility] Meningococcal Vaccine 2012-11-17 Completed Uni versity of 00:00:00 [facility] TDAP 2012-11-17 Completed University of 00:00:00 [facility] Meningococcal 2012-11-17 Completed University of Polysaccharide 00:00:00 [place] [facility] (groups A, C, Y and Branc h W-135) conjugate vaccine (MCV4P) HPV9 2012-11-17 Completed [facility] of 00:00:00 [facility] Meningococcal Vaccine 2012-11-17 Completed Uni versity of 00:00:00 [facility] TDAP 2012-11-17 Completed [facility] of 00:00:00 [facility] Meningococcal 2012-11-17 Completed University of Polysaccharide 00:00:00 [place] [facility] (groups A, C, Y and Branc h W-135) conjugate vaccine (MCV4P) HPV9 2012-11-17 Completed [facility] of 00:00:00 [facility] Meningococcal Vaccine 2012-11-17 Completed Uni versity of 00:00:00 [facility] TDAP 2012-11-17 Completed [facility] of 00:00:00 [facility] Meningococcal 2012-11-17 Completed University of Polysaccharide 00:00:00 [place] [facility] (groups A, C, Y and Branc h W-135) conjugate vaccine (MCV4P) HPV9 2012-11-17 Completed [facility] of 00:00:00 [facility] Meningococcal Vaccine 2012-11-17 Completed Uni versity of 00:00:00 [facility] TDAP 2012-11-17 Completed [facility] of 00:00:00 [facility] Meningococcal 2012-11-17 Completed University of Polysaccharide 00:00:00 [place] [facility] (groups A, C, Y and Branc h W-135) conjugate vaccine (MCV4P) HPV9 2012-11-17 Completed [facility] of 00:00:00 [facility] Meningococcal Vaccine 2012-11-17 Completed Uni versity of 00:00:00 [facility] TDAP 2012-11-17 Completed [facility] of 00:00:00 [facility] Meningococcal 2012-11-17 Completed University of Polysaccharide 00:00:00 [place] [facility] (groups A, C, Y and Branc h W-135) conjugate vaccine (MCV4P) HPV9 2012-11-17 Completed [facility] of 00:00:00 [facility] Meningococcal Vaccine 2012-11-17 Completed Uni versity of 00:00:00 [facility] TDAP 2012-11-17 Completed [facility] of 00:00:00 [facility] Meningococcal 2012-11-17 Completed [facility] of Polysaccharide 00:00:00 [place] [facility] (groups A, C, Y and Branc h W-135) conjugate vaccine (MCV4P) Influenza Virus 2012-04-21 Completed Universit y of Vaccine Quad IM 00:00:00 [place] [facility] Multi-dose 6+ MO Branch Influenza Virus 2012-04-21 Completed Universit y of Vaccine [facility] IM 00:00:00 [place] [facility] Multi-dose 6+ MO [facility] Influenza Virus 2012-04-21 Completed Universit y of Vaccine [facility] IM 00:00:00 [place] [facility] Multi-dose 6+ MO Branch Influenza Virus 2012-04-21 Completed Universit y of Vaccine [facility] IM 00:00:00 [place] [facility] Multi-dose 6+ MO Branch Influenza Virus 2012-04-21 Completed Universit y of Vaccine [facility] IM 00:00:00 [place] [facility] Multi-dose 6+ MO Branch Influenza Virus 2012-04-21 Completed Universit y of Vaccine [facility] IM 00:00:00 [place] [facility] Multi-dose 6+ MO Branch Influenza Virus 2012-04-21 Completed Universit y of Vaccine [facility] IM 00:00:00 [place] [facility] Multi-dose 6+ MO Branch Influenza Virus 2012-04-21 Completed Universit y of Vaccine [facility] IM 00:00:00 [place] [facility] Multi-dose 6+ MO Branch Influenza Virus 2012-04-21 Completed Universit y of Vaccine [facility] IM 00:00:00 [place] [facility] Multi-dose 6+ MO Branch Influenza Virus 2012-04-21 Completed Universit y of Vaccine [facility] IM 00:00:00 [place] [facility] Multi-dose 6+ MO Branch Influenza Virus 2012-04-21 Completed Universit y of Vaccine [facility] IM 00:00:00 [place] [facility] Multi-dose 6+ MO Branch Influenza Virus 2012-04-21 Completed Universit y of Vaccine [facility] IM 00:00:00 [place] [facility] Multi-dose 6+ MO Branch Influenza Virus 2012-04-21 Completed Universit y of Vaccine [facility] IM 00:00:00 [place] [facility] Multi-dose 6+ MO Branch Influenza Virus 2012-04-21 Completed Universit y of Vaccine [facility] IM 00:00:00 [place] [facility] Multi-dose 6+ MO Branch Influenza Virus 2012-04-21 Completed Universit y of Vaccine [facility] IM 00:00:00 [place] [facility] Multi-dose 6+ MO Branch HEPATITIS A 2008-07-03 Completed University of 00:00:00 [facility] HPV9 2008-07-03 Completed [facility] of 00:00:00 [facility] Varicella 2008-07-03 Completed University of (varivax)(chicken 00:00:00 [place] [facility] pox) [facility] HEPATITIS A 2008-07-03 Completed [facility] of 00:00:00 [facility] HPV9 2008-07-03 Completed [facility] of 00:00:00 [facility] Varicella 2008-07-03 Completed University of (varivax)(chicken 00:00:00 [place] [facility] pox) [facility] HEPATITIS A 2008-07-03 Completed [facility] of 00:00:00 [facility] HPV9 2008-07-03 Completed [facility] of 00:00:00 [facility] Varicella 2008-07-03 Completed University of (varivax)(chicken 00:00:00 [place] [facility] pox) [facility] HEPATITIS A 2008-07-03 Completed [facility] of 00:00:00 [facility] HPV9 2008-07-03 Completed [facility] of 00:00:00 [facility] Varicella 2008-07-03 Completed University of (varivax)(chicken 00:00:00 [place] [facility] pox) [facility] HEPATITIS A 2008-07-03 Completed [facility] of 00:00:00 [facility] HPV9 2008-07-03 Completed [facility] of 00:00:00 [facility] Varicella 2008-07-03 Completed University of (varivax)(chicken 00:00:00 [place] [facility] pox) [facility] HEPATITIS A 2008-07-03 Completed [facility] of 00:00:00 [facility] HPV9 2008-07-03 Completed [facility] of 00:00:00 [facility] Varicella 2008-07-03 Completed University of (varivax)(chicken 00:00:00 [place] [facility] pox) [facility] HEPATITIS A 2008-07-03 Completed [facility] of 00:00:00 [facility] HPV9 2008-07-03 Completed [facility] of 00:00:00 [facility] Varicella 2008-07-03 Completed University of (varivax)(chicken 00:00:00 [place] [facility] pox) [facility] HEPATITIS A 2008-07-03 Completed [facility] of 00:00:00 [facility] HPV9 2008-07-03 Completed University of 00:00:00 [facility] Varicella 2008-07-03 Completed University of (varivax)(chicken 00:00:00 [place] [facility] pox) [facility] HEPATITIS A 2008-07-03 Completed [facility] of 00:00:00 [facility] HPV9 2008-07-03 Completed [facility] of 00:00:00 [facility] Varicella 2008-07-03 Completed University of (varivax)(chicken 00:00:00 [place] [facility] pox) [facility] HEPATITIS A 2008-07-03 Completed [facility] of 00:00:00 [facility] HPV9 2008-07-03 Completed [facility] of 00:00:00 [facility] Varicella 2008-07-03 Completed University of (varivax)(chicken 00:00:00 [place] [facility] pox) [facility] HEPATITIS A 2008-07-03 Completed [facility] of 00:00:00 [facility] HPV9 2008-07-03 Completed [facility] of 00:00:00 [facility] Varicella 2008-07-03 Completed University of (varivax)(chicken 00:00:00 [place] [facility] pox) [facility] HEPATITIS A 2008-07-03 Completed University of 00:00:00 [facility] HPV9 2008-07-03 Completed [facility] of 00:00:00 [facility] Varicella 2008-07-03 Completed University of (varivax)(chicken 00:00:00 [place] [facility] pox) [facility] HEPATITIS A 2008-07-03 Completed [facility] of 00:00:00 [facility] HPV9 2008-07-03 Completed University of 00:00:00 [facility] Varicella 2008-07-03 Completed University of (varivax)(chicken 00:00:00 [facility] edical pox) Branch HEPATITIS A 2008-07-03 Completed University of 00:00:00 [facility] HPV9 2008-07-03 Completed University of 00:00:00 [facility] Varicella 2008-07-03 Completed University of (varivax)(chicken 00:00:00 [facility] edical pox) Branch HEPATITIS A 2008-07-03 Completed University of 00:00:00 [facility] HPV9 2008-07-03 Completed University of 00:00:00 [facility] Varicella 2008-07-03 Completed University of (varivax)(chicken 00:00:00 [facility] edical pox) Branch Vital Signs Vital Name Observation Time Observation Value Comments Source Systolic blood 2022-08-24 18:34:00 117 mm[Hg] Univer sity of pressure [facility] Diastolic blood 2022-08-24 18:34:00 74 mm[Hg] Unive rsity of [facility] Heart rate 2022-08-24 18:34:00 69 /min [facility] Body temperature 2022-08-24 18:34:00 36.67 [facility] Respiratory rate 2022-08-24 18:34:00 17 /min [facility] Body height 2022-08-24 18:34:00 172.7 cm [facility] Body weight 2022-08-24 18:34:00 58.423 kg [facility] BMI 2022-08-24 18:34:00 19.58 kg/m2 [facility] Systolic blood 2022-05-27 21:10:00 109 mm[Hg] Univer sity of [facility] Diastolic blood 2022-05-27 21:10:00 78 mm[Hg] Unive rsity of [facility] Heart rate 2022-05-27 21:10:00 90 /min [facility] Body temperature 2022-05-27 21:10:00 36.94 Johnna [facility] 2022-05-27 21:10:00 18 /min [facility] Body height 2022-05-27 21:10:00 172.7 cm [facility]i ty [facility] Body weight 2022-05-27 21:10:00 58.65 kg [facility]i [facility] BMI 2022-05-27 21:10:00 19.66 kg/m2 [facility] Systolic blood 2022-02-24 14:35:00 118 mm[Hg] Univer sity of pressure [facility] Diastolic blood 2022-02-24 14:35:00 77 mm[Hg] Unive rsity of pressure [facility] Heart rate 2022-02-24 14:35:00 73 /min [facility] Body temperature 2022-02-24 14:35:00 36.56 Johnna Univ ers[facility] Respiratory rate 2022-02-24 14:35:00 18 /min Univ ersity of [facility] Body height 2022-02-24 14:35:00 172.7 cm [facility] Body weight 2022-02-24 14:35:00 58.06 kg [facility] BMI 2022-02-24 14:35:00 19.46 kg/m2 [facility] Systolic blood 2021-09-29 16:00:00 112 mm[Hg] Univer sity of pressure [facility] Diastolic blood 2021-09-29 16:00:00 75 mm[Hg] Unive rsity of pressure [facility] Heart rate 2021-09-29 16:00:00 73 /min [facility] Body temperature 2021-09-29 16:00:00 36.5 Johnna Univ ers[facility] Respiratory rate 2021-09-29 16:00:00 18 /min Univ ersity of [facility] Body height 2021-09-29 16:00:00 172.7 cm [facility] Body weight 2021-09-29 16:00:00 58.996 kg [facility] BMI 2021-09-29 16:00:00 19.78 kg/m2 [facility] Systolic blood 2021-07-07 19:26:00 122 mm[Hg] Univer sity of pressure [facility] Diastolic blood 2021-07-07 19:26:00 78 mm[Hg] Unive rsity of pressure [facility] Heart rate 2021-07-07 19:26:00 78 /min [facility] Body temperature 2021-07-07 19:26:00 36.94 Johnna [facility] Respiratory rate 2021-07-07 19:26:00 16 /min Univ ersity of [facility] Body height 2021-07-07 19:26:00 172.7 cm [facility] Body weight 2021-07-07 19:26:00 57.561 kg [facility] BMI 2021-07-07 19:26:00 19.30 kg/m2 [facility] Systolic blood 2021-04-13 19:42:00 124 mm[Hg] Univer sity of pressure [facility] Diastolic blood 2021-04-13 19:42:00 86 mm[Hg] Unive rsity of pressure [facility] Heart rate 2021-04-13 19:42:00 81 /min [facility] Body temperature 2021-04-13 19:42:00 36.11 Johnna [facility] ers[facility] Respiratory rate 2021-04-13 19:42:00 16 /min Univ ersity [facility] Body height 2021-04-13 19:42:00 172.7 cm [facility] Body weight 2021-04-13 19:42:00 57.38 kg [facility] BMI 2021-04-13 19:42:00 19.23 kg/m2 [facility] Systolic blood 2021-04-01 20:43:00 149 mm[Hg] Univer sity of pressure [facility] Diastolic blood 2021-04-01 20:43:00 72 mm[Hg] Unive rsity of pressure [facility] Heart rate 2021-04-01 20:43:00 79 /min [facility] Body temperature 2021-04-01 20:43:00 36.78 Johnna [facility] Respiratory rate 2021-04-01 20:43:00 18 /min Univ ers[facility] Body height 2021-04-01 20:43:00 172.7 cm [facility] Body weight 2021-04-01 20:43:00 54.432 kg [facility] BMI 2021-04-01 20:43:00 18.25 kg/m2 [facility] Oxygen saturation in 2021-04-01 20:43:00 100 /min [facility] Arterial blood by [facility] Pulse oximetry Branch Temperature Oral (F) 2022-02-06 09:10:00 98.1 F [facility] Systolic (mm Hg) 2022-02-06 09:10:00 [facility] Diastolic (mm Hg) 2022-02-06 09:10:00 [facility] [place] Height 2022-02-06 05:14:00 172.72 cm [facility] BMI Calculated 2022-02-06 05:14:00 [facility] Weight 2022-02-06 05:14:00 [facility] Heart Rate 2022-02-06 05:14:00 [facility] Heart Rate 2021-11-13 02:46:00 [facility] Respitory Rate 2021-11-13 02:46:00 [facility] [place] Systolic (mm Hg) 2021-11-13 02:46:00 [facility] Diastolic (mm Hg) 2021-11-13 02:46:00 [facility] [place] Height 2021-11-12 22:42:00 172.72 cm [facility] BMI Calculated 2021-11-12 22:42:00 [facility] [place] Weight 2021-11-12 22:42:00 [facility] Systolic (mm Hg) 2021-11-12 22:42:00 [facility] [place] Diastolic (mm Hg) 2021-11-12 22:42:00 [facility] Heart Rate 2021-11-12 22:42:00 [facility] Respitory Rate 2021-11-12 22:42:00 [facility] Height 2021-02-05 18:37:00 172.72 cm [facility] BMI Calculated 2021-02-05 18:37:00 [facility] [place] Weight 2021-02-05 18:37:00 [facility] Systolic (mm Hg) 2021-02-05 18:37:00 [facility] Diastolic (mm Hg) 2021-02-05 18:37:00 [facility] Heart Rate 2021-02-05 18:37:00 [facility] Respitory Rate 2021-02-05 18:37:00 [facility] [place] Temperature Oral (F) 2019-07-14 14:30:00 98.4 F [facility] Heart Rate 2019-07-14 14:30:00 [facility] Respitory Rate 2019-07-14 14:30:00 [facility] Systolic (mm Hg) 2019-07-14 14:30:00 [facility] Diastolic (mm Hg) 2019-07-14 14:30:00 [facility] Temperature Oral (F) 2019-07-14 05:00:00 98.2 F [facility] Heart Rate 2019-07-14 05:00:00 [facility] [place] Respitory Rate 2019-07-14 05:00:00 [facility] Systolic (mm Hg) 2019-07-14 05:00:00 [facility] [place] Diastolic (mm Hg) 2019-07-14 05:00:00 [facility] [place] Temperature Oral (F) 2019-07-13 21:22:00 98.6 F [facility] Heart Rate 2019-07-13 21:22:00 [facility] Respitory Rate 2019-07-13 21:22:00 [facility] Systolic (mm Hg) 2019-07-13 21:22:00 [facility] [place] Diastolic (mm Hg) 2019-07-13 21:22:00 [facility] [place] Height 2019-07-10 23:00:00 172.72 cm [facility] Weight 2019-07-10 23:00:00 [facility] BMI Calculated 2019-07-10 23:00:00 [facility] [place] Systolic (mm Hg) 2019-07-10 21:00:00 [facility] [place] Diastolic (mm Hg) 2019-07-10 21:00:00 [facility] [place] Temperature Oral (F) 2019-07-10 21:00:00 98.2 F [facility] Respitory Rate 2019-07-10 21:00:00 [facility] Systolic (mm Hg) 2019-07-10 20:45:00 [facility] [place] Diastolic (mm Hg) 2019-07-10 20:45:00 [facility] [place] Systolic (mm Hg) 2019-07-10 20:15:00 [facility] Diastolic (mm Hg) 2019-07-10 20:15:00 [facility] Temperature Oral (F) 2019-07-10 18:00:00 98.1 F [facility] Heart Rate 2019-07-10 13:30:00 [facility] Respitory Rate 2019-07-10 13:30:00 [facility] Heart Rate 2019-07-10 12:47:00 [facility] Respitory Rate 2019-07-10 12:47:00 [facility] [place] Height 2019-07-10 12:47:00 167.64 cm [facility] BMI Calculated 2019-07-10 12:47:00 [facility] Weight 2019-07-10 12:47:00 [facility] Temperature Oral (F) 2019-04-19 23:39:00 98.4 F [facility] Heart Rate 2019-04-19 23:39:00 [facility] Respitory Rate 2019-04-19 23:39:00 [facility] Systolic (mm Hg) 2019-04-19 23:39:00 [facility] Diastolic (mm Hg) 2019-04-19 23:39:00 [facility] [place] Systolic (mm Hg) 2019-04-19 20:11:00 [facility] Diastolic (mm Hg) 2019-04-19 20:11:00 [facility] [place] Heart Rate 2019-04-19 20:11:00 [facility] [place] Respitory Rate 2019-04-19 20:11:00 [facility] Temperature Oral (F) 2019-04-19 20:11:00 98.7 F [facility] Weight 2019-04-19 20:11:00 [facility] Heart Rate 2019-03-11 00:08:00 [facility] Temperature Oral (F) 2019-03-11 00:08:00 98.4 F [facility] Respitory Rate 2019-03-11 00:08:00 [facility] [place] Systolic (mm Hg) 2019-03-11 00:08:00 [facility] [place] Diastolic (mm Hg) 2019-03-11 00:08:00 [facility] [place] Heart Rate 2019-03-10 22:03:00 [facility] Respitory Rate 2019-03-10 22:03:00 [facility] [place] Systolic (mm Hg) 2019-03-10 22:03:00 [facility] [place] Diastolic (mm Hg) 2019-03-10 22:03:00 [facility] Systolic (mm Hg) 2019-03-10 21:28:00 [facility] [place] Diastolic (mm Hg) 2019-03-10 21:28:00 [facility] Heart Rate 2019-03-10 21:28:00 [facility] [place] Respitory Rate 2019-03-10 21:28:00 [facility] Temperature Oral (F) 2019-03-10 21:28:00 98.1 F [facility] Height 2019-03-10 21:28:00 165.1 cm [facility] BMI Calculated 2019-03-10 21:28:00 [facility] Weight 2019-03-10 21:28:00 [facility] Systolic (mm Hg) 2017-06-02 22:17:00 [facility] Diastolic (mm Hg) 2017-06-02 22:17:00 [facility] Respitory Rate 2017-06-02 22:17:00 [facility] [place] Temperature Oral (F) 2017-06-02 22:17:00 97.7 F [facility] Heart Rate 2017-06-02 22:17:00 [facility] Respitory Rate 2017-06-02 21:08:00 [facility] [place] Heart Rate 2017-06-02 21:08:00 [facility] Temperature Oral (F) 2017-06-02 21:08:00 98 F [facility] Weight 2017-06-02 21:08:00 [facility] Systolic (mm Hg) 2017-06-02 21:08:00 [facility] [place] Diastolic (mm Hg) 2017-06-02 21:08:00 [facility] Procedures Procedure Date / Time Performed Performing Clinician Sourc e FLU VACC (), 2022-05-27 21:11:51 Malia Palafox [facility] 6 MO-64 YRS, .5ML, IM, Medical [facility] QUAD (FLUCELVAX) POCT TEST 2022-02-24 15:48:00 Malia Palafox [facility] POCT TEST 2021-07-07 19:38:00 Abdoul [facility] FLU VACC ([id number]), 2021-04-13 19:59:56 Minnie Shaikhfrancisca [facility] [place] 2-64 YRS, .5ML, IM, Medical Bran ch QUAD (FLUCELVAX) POCT TEST 2021-04-01 21:33:00 Adelfo Suazo [facility] URINALYSIS 2021-04-01 21:00:00 Panfilo Choi Davidson o f [facility] CONSENT/REFUSAL FOR 2021-04-01 20:23:48 [facility] Name [facility] TREATMENT NOTICE OF PRIVACY 2021-04-01 20:23:30 Doctor Unassigned, No Univ ersity [facility] PRACTICES Name [facility] Vaginal delivery of [facility] fetus Encounters Start End Encounter Admission Attending Care Care Encounter Source Date/Time Date/Time Type Type Clinicians Facility Department ID 2022-07-08 Outpatient [facility] [id number] [place] 13:26:55 [id number] [facility] 2022-05-11 Outpatient [facility] [id number] [place] 14:59:37 [id number] [facility] 2022-11-16 2022-11-16 Outpatient [facility] [id number] [facility] 13[facility]00[facility]00 [facility] 2022-08-24 2022-08-24 Outpatient R [facility] [id number] Univers 14:00:00 14:00:00 [facility] 2022-08-24 2022-08-24 Outpatient R PAUL [facility] [id number] Univers 13:30:00 13:30:00 AYLEEN [facility] 2022-08-24 2022-08-24 Nurse Visit, Drake-Rmchp Nurse [facility] 1.2 .840.114 [id number] Univers 13:30:00 13:30:00 Visit Ayleen Nava HEAT TREAT TECHNICIAN 350.1.13.1 0 ity of REGIONAL 4.2.7.2.686 Roman as MATERNAL [phone] Med ical & CHILD 107 [facility] 2022-05-27 2022-05-27 Outpatient R JOLLY [facility] [id number] Univers 15:00:00 15:22:24 GISELA fernandes [facility] 2022-05-27 2022-05-27 Nurse Gris Manrique Nurse Visit [facility] 1 .2.840.114 [id number] Univers 15:00:00 15:22:24 Visit Giseal Azevedo HEAT TREAT TECHNICIAN 350.1.13.10 ity of REGIONAL 4.2.7.2.686 Roman as MATERNAL [phone] Med ical & CHILD 116 [facility] 2022-05-27 2022-05-27 Outpatient R NORIS [facility] [id number] Univers 14:00:00 14:00:00 YANIRA HOUSTON [facility] 2022-05-24 2022-05-24 Telephone Visit, [facility] 1.2.218.219 [id number] Univers 00:00:00 00:00:00 BaronRmchp HEAT TREAT TECHNICIAN 350.1.13.10 ity of Nurse REGIONAL 4.2.7.2.686 Roman as MATERNAL [phone] [facility] ica & CHILD [address] [place] [address] 2022-03-19 2022-03-21 Inpatient Karmen NAM [facility]ON [facility] 7507 Memoria 17:30:00 13:35:00 HELGA strong 2022-02-24 2022-02-24 Outpatient MALIA JURADO [facility] [id number] Univers 09:30:00 11:19:54 MALIA PALAFOX [facility] 2022-02-24 2022-02-24 [facility] 1.2.840.114 [id number] Univers 09:30:00 11:19:54 Visit Malia HEAT TREAT TECHNICIAN 350.1.13.10 it y of REGIONAL 4.2.7.2.686 Roman as MATERNAL [id number] [facility] ical & CHILD [address] [place] [address] 2022-02-16 2022-02-16 Telephone Pcp, [facility] 1.2.931.180 [id number] Univers 00:00:00 00:00:00 Patient HEAT TREAT TECHNICIAN 350.1.13.10 it y of Does Not [place].2.686 [place] MATERNAL [phone] [facility] & [address] 2022-02-06 2022-02-06 Emergency [facility]Fl[facility] [id number] Memoria 05:13:53 09:29:00 hansa Molina [facility] 2022-02-06 2022-02-06 Emergency nullFlavo [facility] [id number] Memoria 05:13:53 09:29:00 hansa Sahu [address] [place] [address] 2022-02-06 2022-02-06 Outpatient SOPHIA Clark [facility] [id number] 00:13:53 04:29:00 Lorenzo Molina 2022-02-06 2022-02-06 Emergency E KAYLA [facility] [id number] Memoria 00:13:00 04:29:00 LORENZO [facility] 2022-02-06 2022-02-06 Telephone [facility] 1.2.624.608 [id number] Univers 00:00:00 00:00:00 Malia HEAT TREAT TECHNICIAN 350.1.13.10 it y of REGIONAL 4.2.7.2.686 Roman as MATERNAL [id number] [facility] & [address] 2022-01-26 2022-01-26 Outpatient Hansa PEREZ [facility] [id number] Univers 09:30:00 09:30:00 ILAN fernandes [facility] 2021-12-30 2021-12-30 Outpatient Hansa HAMM [facility] [id number] Univers 13:45:00 13:45:00 YANIRA HOUSTON y [facility] 2021-11-12 2021-11-13 Emergency [facility] [id number] Memoria 22:29:40 02:48:00 hansa Johnson [facility] 2021-11-12 2021-11-13 Emergency nullFlavo [facility] [id number] Memoria 22:29:40 02:48:00 r Luis Alberto Johnson l [facility] 2021-11-12 2021-11-12 Outpatient SOPHIA Thomas 9 [id number] 17:29:40 21:48:00 Nashid 05 [facility] 2021-11-12 2021-11-12 Outpatient SOPHIA Thomas 9 [id number] 17:29:40 21:48:00 Nashid 05 [facility] 2021-11-12 2021-11-12 Emergency E MARTHA, KM KM 7505 Memoria 17:29:00 21:48:00 [facility] 2021-09-29 2021-09-29 Outpatient R ANSHU-LAKSHMI [facility] [id number] Univers 14:30:00 14:30:00 [facility] 2021-09-29 2021-09-29 Outpatient R ANSHU-LAKSHMI [facility] [id number] Univers 10:30:00 11:05:48 , YANIRA [facility] 2021-09-29 2021-09-29 [facility] 1.2 .840.114 [id number] Univers 10:30:00 11:05:48 Visit Yanira Schreiber HEAT TREAT TECHNICIAN 350.1.1 3.10 ity [facility] 4.2.7.2.686 Roman as MATERNAL [id number] [facility] & [address] 2021-07-07 2021-07-07 Nurse Visit, Chris-chp Nurse [facility] 1.2 .840.114 [id number] [facility] 15:00:00 15:00:00 Visit Meme Zuleta HEAT TREAT TECHNICIAN 350.1.13.10 ity of [facility] 4.2.7.2.686 Roman as MATERNAL [phone] [address] 2021-07-07 2021-07-07 Outpatient Hansa ZULETA [facility] [id number] Univers 15:00:00 14:51:07 MEME fernandes [facility] 2021-07-06 2021-07-06 Out[facility] [id number] Univers 13:30:00 13:30:00 ORESTES waltery o f [facility] 2021-04-13 2021-04-13 Outpatient R [facility] [id number] Univers 14:45:00 14:45:00 ity of [facility] 2021-04-13 2021-04-13 Outpatient R LADI [facility] [id number] Univers 13:30:00 14:00:07 ORESTES ity o f [facility] 2021-04-13 2021-04-13 Nurse Visit, Drake-Rmchp Nurse [facility] 1.2 .840.114 [id number] Univers 13:30:00 14:00:07 Visit Orestes Shaikh R HEAT TREAT TECHNICIAN 350.1.13.10 ity [facility] 4.2.7.2.686 Roman as MATERNAL [phone] Med ical & CHILD [address] [place] [address] 2021-04-02 2021-04-02 Outpatient R [facility] [id number] Univers 09:00:00 09:00:00 ity [facility] 2021-04-02 2021-04-02 Outpatient [facility] [id number] Univers 09:00:00 09:00:00 LIMAMAHIKarmen ity o f [facility] 2021-04-01 2021-04-01 Emergency X LAKEISHA, [facility] ERT [id number] Univers 14:45:00 19:49:00 ADELFO ity [facility] 2021-04-01 2021-04-01 Emergency [facility] 1.2.840.114 [id number] Univers 14:45:00 19:49:00 Adelfo Demond [place] 350.1.13.10 i ty of [place] 4.2.7.2.686 [facility] [phone] [address] 2021-04-01 2021-04-01 Telephone Dana [facility] 1.2.840.114 [id number] Univers 00:00:00 00:00:00 Lor HEAT TREAT TECHNICIAN 350.1.13.10 it y of [facility] 4.2.7.2.686 Roman as MATERNAL [id number] [facility] & CHILD [address] [place] [address] 2021-04-01 2021-04-01 Orders Doctor LUL 1.2.840.114 [id number] Univers 00:00:00 00:00:00 Only Unassigned, QUAN 350.1.13.10 ity [facility] 4.2.7.2.686 Roman as [id number] [address] 2021-02-05 2021-02-05 Emergency [facility] [id number] Memoria 18:37:16 19:29:[address] 2021-02-05 2021-02-05 Emergency [facility] [id number] Memoria 18:37:16 19:29:00 hansa Sahu [address] [place] [address] 2021-02-05 2021-02-05 Outpatient SOPHIA Lindo 9 [id number] 13:37:16 14:29:00 Esther Matos 2021-02-05 2021-02-05 Emergency E JOHN RON [facility] 7504 Memoria 13:37:00 14:29:[address] [facility] 2021-01-19 2021-01-19 Outpatient R [facility] [id number] Univers 15:00:00 15:00:[facility] 2021-01-19 2021-01-19 Nurse Ivy ManriqueRmchp Nurse Visit [facility] 1 .2.840.114 [id number] Univers 11:13:21 11:57:30 Visit Gisela Azevedo HEAT TREAT TECHNICIAN 350.1.13.10 ity [facility] 4.2.7.2.686 Roman as MATERNAL [id number] [facility] CHILD [address] [place] [address] 2021-01-12 2021-01-12 Outpatient R [facility] [id number] Univers 14:45:00 14:45:00 [facility] 2020-12-25 2020-12-25 Office Lor Cortez [facility] 1 .2.840.114 [id number] Univers 14:50:53 16:08:08 Visit Gisela Azevedo HEAT TREAT TECHNICIAN 350.1.13.10 [facility] 4.2.7.2.686 Roman as MATERNAL [phone] [address] 2020-12-25 2020-12-25 Outpatient Hansa [facility] [id number] Univers 15:00:00 15:00:00 [facility] 2020-10-20 2020-10-20 Nurse 1, Judy-Rmchp Nurse Visit [facility] 1 .2.840.114 [id number] Univers 14:45:34 15:12:58 Visit Gisela Azevedo HEAT TREAT TECHNICIAN 350.1.13.10 [facility] 4.2.7.2.686 Roman as MATERNAL [phone] [address] 2020-10-20 2020-10-20 Outpatient Hansa AZEVEDO [facility] [id number] Univers 14:45:00 14:45:00 [facility] 2020-10-20 2020-10-20 Outpatient Hansa [facility] [id number] Univers 13:30:00 13:30:00 [facility] 2020-10-17 2020-10-17 Outpatient Hansa BELLA [facility] [id number] Univers 14:00:00 14:00:[facility] 2020-07-21 2020-07-21 Nurse Nurse, [facility] Health [facility] 1.2.840.114 [id number] Univers 14:15:19 14:30:19 Visit Latrice Bella 350.1.13.10 [facility] [place] [phone] [address] 2020-07-21 2020-07-21 Outpatient Hansa [facility] [id number] Univers 14:00:00 14:00:00 [facility] 2020-07-21 2020-07-21 Orders Doctor MCCARTY 1.2.840.114 [id number] Univers 00:00:00 00:00:00 Only Unassigned, QUAN 350.1.13.10 ity of [place] [facility] 4.2.7.2.686 Roman as [phone] [facility] 00[address] [place] 2020-07-15 2020-07-15 Patient Humberto [facility] 1.2.840.114 [id number] Univers 00:00:00 00:00:00 [facility] 350.1.13.10 i ty of [facility] 4.2.7.2.686 [place] [phone] Pr dical 388 [place] 2020-05-08 2020-05-08 Outpatient R SHAYNE [facility] [id number] Univers 13:30:00 13:30:00 LATRICE itjignesh [facility] 2020-04-21 2020-04-21 Nurse Nurse, [facility]'s [facility] 1.2.840.114 [id number] Univers 14:05:07 14:20:07 Visit Torres Garza 350.1.13.10 ity of [place] [phone] Pr dical nal 134 [facility] 2020-04-21 2020-04-21 Outpatient R [facility] [id number] Univers 14:00:00 14:00:00 ity of [facility] 2020-02-14 2020-02-14 Case Shayne [facility] 1.2.463.994 [id number] Univers 00:00:00 00:00:00 Management Latrice Hebert 350.1.13.10 [place] of [place] [id number] Pr dical nal 134 [facility] 2020-02-14 2020-02-14 Telephone Shayne [facility] 1.2.840.114 [id number] Univers 00:00:00 00:00:00 Latrice Hebert 350.1.13.10 i [place] of [place]2.[place] [phone] Pr dical nal 134 [facility] 2020-02-13 2020-02-13 Office Torres Garza [facility] 1.2.754.670 [id number] Univers 11:36:10 12:12:11 Visit Dandre [place]bert 350.1.13.10 i ty of [place].2.[place] [id number] Pr dical [address] 2020-02-13 2020-02-13 Outpatient R TORRES GARZA [facility] [id number] Univers 11:15:00 11:15:00 ity [facility] 2020-01-18 2020-01-18 Nurse Nurse, [facility] 1.2.840.114 [id number] Univers 14:08:41 14:40:56 Visit Torres Garza Emilee 350.1.13.10 ity of [place].2.[place] [phone] [address] 2020-01-18 2020-01-18 Outpatient R [facility] [id number] Univers 14:00:00 14:00:00 ity [facility] 2019-12-24 2019-12-24 Outpatient R [facility] [id number] Univers 16:00:00 16:00:00 [facility] 2019-10-18 2019-10-18 Office [facility] 1.2.182.720 [id number] Univers 10:37:39 11:21:53 Visit Latrice Hebert 350.1.13.10 i ty of [place].2.[place] [id number] [address] 2019-10-18 2019-10-18 Outpatient R [facility] [id number] Univers 10:30:00 10:30:00 LATRICE ity [facility] 2019-10-18 2019-10-18 Orders Doctor MCCARTY 1.2.840.114 [id number] Univers 00:00:00 00:00:00 Only Unassigned, QUAN 350.1.13.10 ity of [place] [facility] 4.2.7.2.686 Roman as [phone] [address] 2019-07-19 2019-07-19 Outpatient R [facility] [id number] [facility] 18:00:00 18:00:00 MELLERIE ity o f [facility] 2019-07-18 2019-07-[address] [facility] 12.840.114 [id number] Univers 00:00:00 00:00:00 Mellerie O HEAT TREAT TECHNICIAN 350.1.13.10 ity of REGIONAL 4.2.7.2.686 Roman as MATERNAL [id number] [address] 2019-07-10 2019-07-14 Inpatient nullFlavo [facility] [id number] Memoria 22:40:00 20:19:[address] 2019-07-10 2019-07-14 Inpatient nullFlavo [facility] [id number] Memoria 22:40:00 20:19:[address] 2019-07-10 2019-07-14 Outpatient Minda [facility] [id number] 17:40:00 15:19:00 [place] [address] 2019-06-28 2019-07-[address] [facility] 12.186.455 [id number] Univers 15:20:28 18:03:39 Mellerie O HEAT TREAT TECHNICIAN 350.1.13.10 ity of Visit REGIONAL 4.2.7.2.686 Roman as MATERNAL [phone] [address] 2019-07-12 2019-07-12 Outpatient R [facility] [id number] [facility] 18:00:00 18:00:00 MELLERIE ity o f [facility] 2019-07-12 2019-07-[address] [facility] 1.2.840.114 [id number] Univers 00:00:00 00:00:00 Mellerie O HEAT TREAT TECHNICIAN 350.1.13.10 ity of REGIONAL 4.2.7.2.686 Roman as MATERNAL [phone] [address] 2019-07-10 2019-07-10 Inpatient nullFlavo [facility] [id number] Memoria 12:43:22 21:38:[address] 2019-07-10 2019-07-10 Inpatient [facility] [id number] Memoria 12:43:22 21:38:00 r [place] 03 l [facility] 2019-07-10 2019-07-10 Outpatient SOPHIA Nelson9 [id number] 07:43:22 16:38:00 Beck Coleman Arik 2019 2019 Orders Doctor LUL 1.2.840.114 [id number] Univers 00:00:00 00:00:00 Only Unassigned, QUAN 350.1.13.10 ity of [place] [facility] 4.2.7.2.686 Roman as [id number] [address] 2019-07-05 2019-07-05 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 13.10 ity of [place] [facility] 4.2.7.2.686 [place] MATERNAL [phone] [facility] & CHILD [address] [place] [address] 2019-07-05 2019-07-05 Outpatient P SHERLY [facility] [id number] Univers 15:00:00 15:00:00 CARLA it y of StaceyPRISCILLA [facility] 2019-07-04 2019-07-[address] [facility] 1.2.840.114 [id number] Univers 00:00:00 00:00:00 Mellerie Jim HEAT TREAT TECHNICIAN 350.1.13.10 ity of [facility] 4.2.7.2.686 Roman as MATERNAL [id number] [facility] & CHILD [address] [place] [address] 2019-06-28 2019-06-28 Outpatient R [facility] [id number] Univers 15:30:00 15:30:00 MELLERIE ity o f [facility] 2019-06-14 2019-06-[address] 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 13.10 ity of REGIONAL 4.2.7.2.686 Roman as MATERNAL [phone] [facility] & CHILD [address] [place] [address] 2019-06-21 2019-06-21 Outpatient P DU[facility]IS [facility] [id number] Univers 15:00:00 15:00:00 CARLA it y of SPRISCILLA [facility] 2019-06-14 2019-06-14 Outpatient [facility] [id number] Univers 15:00:00 15:21:07 CHATO fernandes o f [facility] 2019-05-31 2019-06-[address] [facility] 1.2.310.438 [id number] Univers 15:45:04 17:13:39 Mellerie O HEAT TREAT TECHNICIAN 350.1.13.10 ity of Visit [facility] 4.2.7.2.686 Roman as MATERNAL [phone] [address] 2019-05-24 2019-05-24 Professor Of Business Administration [facility]tras[facility], [facility] 1.2 .840.114 [id number] Univers 15:24:36 16:27:41 Visit Sherly FontenotangelicaPriscilla lopez HEAT TREAT TECHNICIAN 350.1. 13.10 ity of REGIONAL 4.2.7.2.686 Roman as MATERNAL [id number] [facility] & CHILD [address] [place] [address] 2019-05-17 2019-05-17 [facility] 1.2.205.724 [id number] Univers 15:41:08 16:10:01 Mellerie O HEAT TREAT TECHNICIAN 350.1.13.10 ity of Visit REGIONAL 4.2.7.2.686 Roman as MATERNAL [phone] [facility] & CHILD [address] [place] [address] 2019-04-19 2019-04-19 Emergency [facility] [id number] Memoria 20:06:33 23:43:00 r Luis Alberto 02 [facility] 2019-04-19 2019-04-19 Emergency [facility] [id number] Memoria 20:06:33 23:43:00 r Luis Alberto 02 [facility] 2019-04-19 2019-04-19 Outpatient TENA Barnes9 9 [id number] 14:06:33 17:43:00 Pieter Correa 2019-04-19 2019-04-19 Emergency E KM KM 7502 Memoria 14:06:00 14:06:00 l Luis Alberto Bach 2019-03-10 2019-03-11 Emergency [facility] [id number] Memoria 21:25:04 00:43:00 r Luis Alberto [facility] 2019-03-10 2019-03-11 Emergency [facility] [id number] Memoria 21:25:04 00:43:00 r Luis Alberto [facility] 2019-03-10 2019-03-10 Outpatient N[facility] [id number] 15:25:04 18:43:00 Madeleineliyah Hope 2019-03-10 2019-03-10 Emergency E KM KM 7501 Memoria 15:25:00 15:25:00 tae [facility] 2019-01-02 2019-01-02 Orders Doctor LUL 1.2.840.114 [id number] Univers 00:00:00 00:00:00 Only Unassigned, QUAN 350.1.13.10 ity of [facility] 4.2.7.2.686 Roman as [phone] [place] [address] [place] 2017-06-02 2017-06-02 Emergency [facility] [id number] Memoria 21:02:00 21:57:00 r Luis Alberto 00 [facility] 2017-06-02 2017-06-02 Emergency [facility] [id number] Memoria 21:02:00 21:57:00 r Luis Alberto 00 [facility] 2017-06-02 2017-06-02 Outpatient TENA Xie9 9 [id number] 15:02:00 15:57:00 Zalma 00 Results Test Description Test Time Test Comments Results Result Comments Source POCT TEST 2022-02-24 15:48:00 Test Item Value Reference Range Interpretation Comme nts POCT PREG (test code = 1605) Negative On board controls acceptable with C Line (test code = 3574) Yes POCT PREG LOT # (test code = 3575) POCT PREG TEST DATE (test code = 3576) [id number] 15:48:00 Test Item Value Reference Range Interpretation Comments POCT PREG (test code = 1605) Negative On board controls acceptable with C Yes Line (test code = 3574) POCT PREG LOT # (test code = 3575) POCT PREG TEST DATE (test code = 3576) [facility] [id number] 15:48:00 Test Item Value Reference Range Interpretation Comments POCT PREG (test code = 1605) Negative On board controls acceptable with C Yes Line (test code = 3574) POCT PREG LOT # (test code = 3575) POCT PREG TEST DATE (test code = 3576) [facility] 07:54:31 Test Item Value Reference Range Interpretation Comments RADRPT (test code Radiation Dose CTDIVOL = 0 = RADRPT) (mGy): DLP = 446 (mGy-cm)PROCEDURE INFORMATION: Exam: CT Abdomen And Pelvis With Contrast Exam date and time: 02/06/2022 2:36 AM Age: 26 years old Clinical indication: /right sided pelvic/adnexal pain during intercourse TECHNIQUE: Imaging protocol: Computed tomography of the abdomen and pelvis with contrast. Radiation optimization: All CT scans at this facility use at least one of these dose optimization techniques: automated exposure control; mA and/or kV adjustment per patient size (includes targeted exams where dose is matched to clinical indication); or iterative reconstruction. Contrast material: OMNI 350; Contrast volume: 75 ml; Contrast route: INTRAVENOUS (IV); COMPARISON: PREG COMP SINGLE GEST W BPP AND NST US 07/10/2019 10:11 AM RADIATION DOSE METRICS: Total DLP (mGy-cm): 446 FINDINGS: Liver: Normal. No mass. Gallbladder and bile ducts: Normal. No calcified stones. No ductal dilation. Pancreas: Normal. No ductal dilation. Spleen: Normal. No splenomegaly. Adrenal glands: Normal. No mass. Kidneys and ureters: Normal. No hydronephrosis. Stomach and bowel: Unremarkable. No obstruction. No mucosal thickening. Appendix: Normal caliber appendix without periappendiceal inflammation. Intraperitoneal space: Small volume of free pelvic fluid. Vasculature: Unremarkable. No abdominal aortic aneurysm. Lymph nodes: Unremarkable. No enlarged lymph nodes. Urinary bladder: Mild bladder wall thickening likely secondary to under distention. Reproductive: Left ovarian cyst measuring up to 3.1 cm demonstrates an irregular, incompletely rim enhancing wall. Bones/joints: Unremarkable. No acute fracture. Soft tissues: No acute findings. IMPRESSION: 1. Findings suggest a recently ruptured left ovarian corpus luteal cyst associated with a small volume of free pelvic fluid. 2. Mild bladder wall thickening likely secondary to under distention. Correlate with urinalysis if there is concern for cystitis. 3. Normal appendix. Jeffrey Guerrero MD On 02/06/2022 02:53:39; [id number] [id number] 07:54:31 Test Item Value Reference Range Interpretation Comments RADRPT (test code Radiation Dose CTDIVOL = 0 = RADRPT) (mGy): DLP = 446 (mGy-cm)PROCEDURE INFORMATION: Exam: CT Abdomen And Pelvis With Contrast Exam date and time: 02/06/2022 2:36 AM Age: 26 years old Clinical indication: /right sided pelvic/adnexal pain during intercourse TECHNIQUE: Imaging protocol: Computed tomography of the abdomen and pelvis with contrast. Radiation optimization: All CT scans at this facility use at least one of these dose optimization techniques: automated exposure control; mA and/or kV adjustment per patient size (includes targeted exams where dose is matched to clinical indication); or iterative reconstruction. Contrast material: OMNI 350; Contrast volume: 75 ml; Contrast route: INTRAVENOUS (IV); COMPARISON: PREG COMP SINGLE GEST W BPP AND NST US 07/10/2019 10:11 AM RADIATION DOSE METRICS: Total DLP (mGy-cm): 446 FINDINGS: Liver: Normal. No mass. Gallbladder and bile ducts: Normal. No calcified stones. No ductal dilation. Pancreas: Normal. No ductal dilation. Spleen: Normal. No splenomegaly. Adrenal glands: Normal. No mass. Kidneys and ureters: Normal. No hydronephrosis. Stomach and bowel: Unremarkable. No obstruction. No mucosal thickening. Appendix: Normal caliber appendix without periappendiceal inflammation. Intraperitoneal space: Small volume of free pelvic fluid. Vasculature: Unremarkable. No abdominal aortic aneurysm. Lymph nodes: Unremarkable. No enlarged lymph nodes. Urinary bladder: Mild bladder wall thickening likely secondary to under distention. Reproductive: Left ovarian cyst measuring up to 3.1 cm demonstrates an irregular, incompletely rim enhancing wall. Bones/joints: Unremarkable. No acute fracture. Soft tissues: No acute findings. IMPRESSION: 1. Findings suggest a recently ruptured left ovarian corpus luteal cyst associated with a small volume of free pelvic fluid. 2. Mild bladder wall thickening likely secondary to under distention. Correlate with urinalysis if there is concern for cystitis. 3. Normal appendix. Jeffrey Guerrero MD On 02/06/2022 02:53:39; [id number] [facility] CampusGiakedaPGYZEC5160-48-21 07:54:31 Test Item Value Reference Range Interpretation Comments RADRPT (test code Radiation Dose CTDIVOL = 0 = RADRPT) (mGy): DLP = 446 (mGy-cm)PROCEDURE INFORMATION: Exam: CT Abdomen And Pelvis With Contrast Exam date and time: 02/06/2022 2:36 AM Age: 26 years old Clinical indication: /right sided pelvic/adnexal pain during intercourse TECHNIQUE: Imaging protocol: Computed tomography of the abdomen and pelvis with contrast. Radiation optimization: All CT scans at this facility use at least one of these dose optimization techniques: automated exposure control; mA and/or kV adjustment per patient size (includes targeted exams where dose is matched to clinical indication); or iterative reconstruction. Contrast material: OMNI 350; Contrast volume: 75 ml; Contrast route: INTRAVENOUS (IV); COMPARISON: PREG COMP SINGLE GEST W BPP AND NST US 07/10/2019 10:11 AM RADIATION DOSE METRICS: Total DLP (mGy-cm): 446 FINDINGS: Liver: Normal. No mass. Gallbladder and bile ducts: Normal. No calcified stones. No ductal dilation. Pancreas: Normal. No ductal dilation. Spleen: Normal. No splenomegaly. Adrenal glands: Normal. No mass. Kidneys and ureters: Normal. No hydronephrosis. Stomach and bowel: Unremarkable. No obstruction. No mucosal thickening. Appendix: Normal caliber appendix without periappendiceal inflammation. Intraperitoneal space: Small volume of free pelvic fluid. Vasculature: Unremarkable. No abdominal aortic aneurysm. Lymph nodes: Unremarkable. No enlarged lymph nodes. Urinary bladder: Mild bladder wall thickening likely secondary to under distention. Reproductive: Left ovarian cyst measuring up to 3.1 cm demonstrates an irregular, incompletely rim enhancing wall. Bones/joints: Unremarkable. No acute fracture. Soft tissues: No acute findings. IMPRESSION: 1. Findings suggest a recently ruptured left ovarian corpus luteal cyst associated with a small volume of free pelvic fluid. 2. Mild bladder wall thickening likely secondary to under distention. Correlate with urinalysis if there is concern for cystitis. 3. Normal appendix. Jeffrey Guerrero MD On 02/06/2022 02:53:39; [id number] [facility] HospitalPlsuvjjMQIIXBIKVU9507-02-31 06:39:00 Test Item Value Reference Range Interpretation Comments RDW (test code = RDW) 13.7 11.5-14.5 [facility] HospitalMdyogrwFFCAZGQNAZ7735-07-19 06:39:00 Test Item Value Reference Range Interpretation Comments Platelet (test code = Platelet) 335 133-450 [facility] HospitalEqbbqfeBAZJQRDDQA1732-79-38 06:39:00 Test Item Value Reference Range Interpretation Comments MPV (test code = MPV) 8.4 7.4-10.4 [place] 358982-10-15 06:39:00 Test Item Value Reference Range Interpretation Comments Segs (test code = Segs) 68.7 45.0-75.0 [facility] HospitalIjeckuvVATOGUSVVZ1264-33-88 06:39:00 Test Item Value Reference Range Interpretation Comments Lymphocytes (test code = Lymphocytes) 22.8 20.0-40.0 [place] [address]-10-15 06:39:00 Test Item Value Reference Range Interpretation Comments Monocytes (test code = Monocytes) 4.1 2.0-12.0 [place] [address]-10-15 06:39:00 Test Item Value Reference Range Interpretation Comments Eosinophils (test code = 3.9 See_Comment [A utomated message] The Eosinophils) system which ge nerated this result tra nsmitted reference range : <=4.0. The reference r lucy was not used to int erpret this result as normal/abnormal . [address]10-15 06:39:00 Test Item Value Reference Range Interpretation Comments Basophils (test code = 0.5 See_Comment [Aut omated message] The Basophils) system which ge nerated this result tra nsmitted reference range : <=1.0. The reference r lucy was not used to int erpret this result as normal/abnormal . [facility] HospitalJmzanarYLVZOGZBDW3984-08-87 06:39:00 Test Item Value Reference Range Interpretation Comments Neutrophils # (test code = Neutrophils 5.6 1.5-8.1 #) [facility] HospitalPaedclvHTNEFGNXBK7014-70-54 06:39:00 Test Item Value Reference Range Interpretation Comments Lymphocytes # (test code = Lymphocytes 1.9 1.0-5.5 #) [facility] HospitalHofzvynOZAZFCLQYU6899-39-97 06:39:00 Test Item Value Reference Range Interpretation Comments Monocytes # (test code 0.3 See_Comment [Aut omated message] The = Monocytes #) system which generated this result tra nsmitted reference range : <=0.8. The reference r lucy was not used to int erpret this result as normal/abnormal . [facility] HospitalIdtcpenRIRYRBQEHF5709-90-72 06:39:00 Test Item Value Reference Range Interpretation Comments Eosinophils # (test code 0.3 See_Comment [A utomated message] The = Eosinophils #) system whic h generated this result tra nsmitted reference range : <=0.5. The reference r lucy was not used to int erpret this result as normal/abnormal . [facility] AND [id number] 06:39:00 Test Item Value Reference Range Interpretation Comments UA Color (test code = Yellow *NA*(02/06/22 UA Color) 1:39 AM) [facility] AND [id number] 06:39:00 Test Item Value Reference Range Interpretation Comments UA Turbidity (test code Slight *ABN*(02/06/22 = UA Turbidity) 1:39 AM) [facility] AND [id number] 06:39:00 Test Item Value Reference Range Interpretation Comments UA Spec Grav (test code = UA Spec 1.020 1 Grav) [facility] AND [id number] 06:39:00 Test Item Value Reference Range Interpretation Comments UA pH (test code = UA pH) 6.0 1 5.0-8.0 [facility] [id number] 06:39:00 Test Item Value Reference Range Interpretation Comments UA Protein (test code = UA Negative mg/dL Protein) [facility] AND [id number] 06:39:00 Test Item Value Reference Range Interpretation Comments UA Glucose (test code = UA Negative mg/dL Glucose) [facility] AND [id number] 06:39:00 Test Item Value Reference Range Interpretation Comments UA Ketones (test code = UA Ketones) 20 mg/dL [facility] AND [id number] 06:39:00 Test Item Value Reference Range Interpretation Comments UA Bili (test code = Negative *NA*(02/06/22 UA Bili) 1:39 AM) [facility] AND [id number] 06:39:00 Test Item Value Reference Range Interpretation Comments UA Blood (test code = Negative (02/06/22 1:39 UA Blood) AM) [facility] AND [id number] 06:39:00 Test Item Value Reference Range Interpretation Comments UA Nitrite (test code Negative (02/06/22 1:39 = UA Nitrite) AM) [facility] AND [id number] 06:39:00 Test Item Value Reference Range Interpretation Comments UA Leuk Est (test Negative (02/06/22 1:39 code = UA Leuk Est) AM) [facility] AND [id number] 06:39:00 Test Item Value Reference Range Interpretation Comments UA Sq Epi (test code = UA Sq Occasional /LPF Epi) [facility] AND [id number] 06:39:00 Test Item Value Reference Range Interpretation Comments UA WBC (test code = 4 See_Comment [Automa jenna message] The UA WBC) system which ge nerated this result transmit jenna reference range : <=5. The reference range was not used to interpr et this result as domenic l/abnormal. [facility] [id number] 06:39:00 Test Item Value Reference Range Interpretation Comments UA RBC (test code = 1 See_Comment [Automa jenna message] The UA RBC) system which ge nerated this result transmit jenna reference range : <=2. The reference range was not used to interpr et this result as domenic l/abnormal. [facility] AND [id number] 06:39:00 Test Item Value Reference Range Interpretation Comments UA Mucus (test code = UA Mucus) Few /LPF [facility] AND [id number] 06:39:00 Test Item Value Reference Range Interpretation Comments UA Renal Epi (test code = UA Renal Epi) 4 [facility] AND [id number] 06:39:00 Test Item Value Reference Range Interpretation Comments UA Urobilinogen (test code = UA <=1.0 mg/dL 0.1-1.0 Urobilinogen) [facility]MqamjwpIMPLTUHBW9621-58-53 06:39:00 Test Item Value Reference Range Interpretation Comments Glucose Lvl (test code = Glucose Lvl) 95 70-99 [facility]anoCqfrzstADIJYKUOI3183-25-35 06:39:00 Test Item Value Reference Range Interpretation Comments BUN (test code = BUN) 12 7-22 [facility] PlanoVkdisgkDDOAURVBK0835-24-26 06:39:00 Test Item Value Reference Range Interpretation Comments Creatinine Lvl (test code = Creatinine 0.84 0.50-1.40 Lvl) [facility] PlanoRxuxecbKJHBGECOD1643-72-23 06:39:00 Test Item Value Reference Range Interpretation Comments Sodium Lvl (test code = Sodium Lvl) 139 135-145 [facility] PlanoElsfgmnKNEDIHNTS2931-76-06 06:39:00 Test Item Value Reference Range Interpretation Comments Potassium Lvl (test code = Potassium 3.3 3.5-5.1 Lvl) [facility] PlanoTaxsvcsCIFFERFYB6125-77-36 06:39:00 Test Item Value Reference Range Interpretation Comments Chloride Lvl (test code = Chloride Lvl) 107 95-109 [facility] PlanoCjnfdghWSESCBMNP6539-91-74 06:39:00 Test Item Value Reference Range Interpretation Comments CO2 (test code = CO2) 26 24-32 [facility] PlanoSruvnfyUIIHSIMZI0965-11-43 06:39:00 Test Item Value Reference Range Interpretation Comments Calcium Lvl (test code = Calcium Lvl) 9.0 8.5-10.5 [facility] PlanoDergxbyODRTMTUKN5676-23-58 06:39:00 Test Item Value Reference Range Interpretation Comments Total Protein (test code = Total 7.8 6.4-8.4 Protein) [facility] PlanoVslpymoWQTTLSBLO8685-54-37 06:39:00 Test Item Value Reference Range Interpretation Comments Albumin Lvl (test code = Albumin Lvl) 3.9 3.5-5.0 [facility] NyqcmixNSYRCEGOX7875-78-40 06:39:00 Test Item Value Reference Range Interpretation Comments ALT (test code = ALT) 17 See_Comment [Auto mated message] The system which ge nerated this result transmit jenna reference range : <=65. The reference range was not used to interpr et this result as domenic l/abnormal. [facility] BsdircnZKZYPFNWO9059-39-29 06:39:00 Test Item Value Reference Range Interpretation Comments AST (test code = AST) 11 See_Comment [Auto mated message] The system which ge nerated this result transmit jenna reference range : <=37. The reference range was not used to interpr et this result as domenic l/abnormal. [facility] LsfzlegGSZUIYLDO4547-29-21 06:39:00 Test Item Value Reference Range Interpretation Comments Alk Phos (test code = Alk Phos) 42 39-136 [facility] ZbzidkzLLUQVGNCA9920-29-30 06:39:00 Test Item Value Reference Range Interpretation Comments Bili Total (test code = Bili Total) 0.4 0.2-1.3 [facility] GrzwzohSKDGAHHQV4118-88-40 06:39:00 Test Item Value Reference Range Interpretation Comments AGAP (test code = AGAP) 9.3 10.0-20.0 [facility] ZpmqlskLCSYUXDKX1966-22-51 06:39:00 Test Item Value Reference Range Interpretation Comments B/C Ratio (test code = B/C Ratio) 14 1 6-25 [facility] SnyfvpyRKROAPMBL4662-35-96 06:39:00 Test Item Value Reference Range Interpretation Comments Globulin (test code = Globulin) 3.9 2.7-4.2 [facility] SnwjsfqLHBIJTFIY0628-44-16 06:39:00 Test Item Value Reference Range Interpretation Comments A/G Ratio (test code = A/G Ratio) 1.0 1 0.7-1.6 [facility] YwphjjcDPPLWINSS2654-78-87 06:39:00 Test Item Value Reference Range Interpretation Comments Glucose Lvl (test code = Glucose Lvl) 95 70-99 [facility] OseibhnINYHEQOTD3966-20-86 06:39:00 Test Item Value Reference Range Interpretation Comments BUN (test code = BUN) 12 7-22 [place] [address]-10-15 06:39:00 Test Item Value Reference Range Interpretation Comments Creatinine Lvl (test code = Creatinine 0.84 0.50-1.40 Lvl) [place] [address]-10-15 06:39:00 Test Item Value Reference Range Interpretation Comments Sodium Lvl (test code = Sodium Lvl) 139 135-145 [place] [address]-10-15 06:39:00 Test Item Value Reference Range Interpretation Comments Potassium Lvl (test code = Potassium 3.3 3.5-5.1 Lvl) [place] [address]-10-15 06:39:00 Test Item Value Reference Range Interpretation Comments Chloride Lvl (test code = Chloride Lvl) 107 95-109 [place] [address]-10-15 06:39:00 Test Item Value Reference Range Interpretation Comments CO2 (test code = CO2) 26 24-32 [place] [address]-10-15 06:39:00 Test Item Value Reference Range Interpretation Comments Calcium Lvl (test code = Calcium Lvl) 9.0 8.5-10.5 [place] [address]-10-15 06:39:00 Test Item Value Reference Range Interpretation Comments Total Protein (test code = Total 7.8 6.4-8.4 Protein) [place] [address]-10-15 06:39:00 Test Item Value Reference Range Interpretation Comments Albumin Lvl (test code = Albumin Lvl) 3.9 3.5-5.0 [place] [address]-10-15 06:39:00 Test Item Value Reference Range Interpretation Comments eGFR (test code = eGFR) 97 [place] [address]-10-15 06:39:00 Test Item Value Reference Range Interpretation Comments ALT (test code = ALT) 17 See_Comment [Auto mated message] The system which ge nerated this result transmit jenna reference range : <=65. The reference range was not used to interpr et this result as domenic l/abnormal. [place] [address]-10-15 06:39:00 Test Item Value Reference Range Interpretation Comments AST (test code = AST) 11 See_Comment [Auto mated message] The system which ge nerated this result transmit jenna reference range : <=37. The reference range was not used to interpr et this result as domenic l/abnormal. [facility]anoXpduhxwULTUTQBHF4162-51-97 06:39:00 Test Item Value Reference Range Interpretation Comments Alk Phos (test code = Alk Phos) 42 39-136 [facility] PlanoIgiaezrYPHAGJVSD7059-00-29 06:39:00 Test Item Value Reference Range Interpretation Comments Bili Total (test code = Bili Total) 0.4 0.2-1.3 [facility] PlanoOjzvgheLUGPABVTR7238-10-93 06:39:00 Test Item Value Reference Range Interpretation Comments AGAP (test code = AGAP) 9.3 10.0-20.0 [facility] PlanoZitzedvYQVUNDRUF4856-35-99 06:39:00 Test Item Value Reference Range Interpretation Comments B/C Ratio (test code = B/C Ratio) 14 1 6-25 [facility] PlanoIdmobmiJGHCDOOGY1392-63-47 06:39:00 Test Item Value Reference Range Interpretation Comments Globulin (test code = Globulin) 3.9 2.7-4.2 [facility] PlanoYmlrzwqRDYBTEGYQ7521-93-95 06:39:00 Test Item Value Reference Range Interpretation Comments A/G Ratio (test code = A/G Ratio) 1.0 1 0.7-1.6 [facility] PlanoDazcvkdHPQABAOSG3057-23-51 06:39:00 Test Item Value Reference Range Interpretation Comments eGFR (test code = eGFR) 97 [facility] PlanoYycsqtcQIWTBYVOX3498-30-34 06:39:00 Test Item Value Reference Range Interpretation Comments S Preg (test code = S Negative *NA*(02/06/22 Preg) 1:39 AM) [facility] PlanoLvadtpzRXFMWLIAX8431-29-12 06:39:00 Test Item Value Reference Range Interpretation Comments S Preg (test code = S Negative *NA*(02/06/22 Preg) 1:39 AM) [facility] HospitalCxlqtekZTWCLMMRAT1466-47-15 06:39:00 Test Item Value Reference Range Interpretation Comments WBC (test code = WBC) 8.2 3.7-10.4 [facility] HospitalHwpsecxEVFONNYKYT7695-91-72 06:39:00 Test Item Value Reference Range Interpretation Comments RBC (test code = RBC) 4.30 4.20-5.40 [facility] HospitalZozqkhiQJPZIGXMUE0773-23-57 06:39:00 Test Item Value Reference Range Interpretation Comments Hgb (test code = Hgb) 11.8 12.0-16.0 [facility] HospitalUmpblobPUVYFDCPWS9407-68-78 06:39:00 Test Item Value Reference Range Interpretation Comments Hct (test code = Hct) 34.5 36.0-48.0 [facility] HospitalFpgwadiKZCYBNNSBK2121-34-37 06:39:00 Test Item Value Reference Range Interpretation Comments MCV (test code = MCV) 80.2 80.0-98.0 [facility] HospitalLfraueuACHJEKNOZF5195-63-57 06:39:00 Test Item Value Reference Range Interpretation Comments MCH (test code = MCH) 27.5 pg 27.0-31.0 [facility] HospitalRfdmbllTVINMJDAVP0719-86-17 06:39:00 Test Item Value Reference Range Interpretation Comments MCHC (test code = MCHC) 34.3 32.0-36.0 [facility] HospitalQewvlhjCKKKSKZYDF8459-89-90 06:39:00 Test Item Value Reference Range Interpretation Comments RDW (test code = RDW) 13.7 11.5-14.5 [facility] HospitalFlnfrtaCZUXJJCIHR9126-97-55 06:39:00 Test Item Value Reference Range Interpretation Comments Platelet (test code = Platelet) 335 133-450 [facility] HospitalMisvlwiXKORFTJHGX7913-07-12 06:39:00 Test Item Value Reference Range Interpretation Comments MPV (test code = MPV) 8.4 7.4-10.4 [facility] HospitalNvkevujTXYIDRMURG3063-14-32 06:39:00 Test Item Value Reference Range Interpretation Comments WBC (test code = WBC) 8.2 3.7-10.4 [facility] HospitalDepvkvwFZPSVKUCKD7561-50-73 06:39:00 Test Item Value Reference Range Interpretation Comments Segs (test code = Segs) 68.7 45.0-75.0 [facility] HospitalQnzxyvvFNKGYGVNMJ0633-78-63 06:39:00 Test Item Value Reference Range Interpretation Comments Lymphocytes (test code = Lymphocytes) 22.8 20.0-40.0 [place] 358982-10-15 06:39:00 Test Item Value Reference Range Interpretation Comments Monocytes (test code = Monocytes) 4.1 2.0-12.0 [facility] HospitalLptbczoECNVBENONU7802-27-96 06:39:00 Test Item Value Reference Range Interpretation Comments Eosinophils (test code = 3.9 See_Comment [A utomated message] The Eosinophils) system which ge nerated this result tra nsmitted reference range : <=4.0. The reference r lucy was not used to int erpret this result as normal/abnormal . [facility] HospitalMlfbueoERFBTCMZIX9206-69-84 06:39:00 Test Item Value Reference Range Interpretation Comments Basophils (test code = 0.5 See_Comment [Aut omated message] The Basophils) system which ge nerated this result tra nsmitted reference range : <=1.0. The reference r lucy was not used to int erpret this result as normal/abnormal . [facility] HospitalJssjbvlYLEVMOGPOJ5668-48-43 06:39:00 Test Item Value Reference Range Interpretation Comments Neutrophils # (test code = Neutrophils 5.6 1.5-8.1 #) [facility] HospitalLkthwdrFIXKDSRIMV3107-01-10 06:39:00 Test Item Value Reference Range Interpretation Comments Lymphocytes # (test code = Lymphocytes 1.9 1.0-5.5 #) [facility] HospitalSmetsvfPAZJRKWJDY5464-52-54 06:39:00 Test Item Value Reference Range Interpretation Comments Monocytes # (test code 0.3 See_Comment [Aut omated message] The = Monocytes #) system which generated this result tra nsmitted reference range : <=0.8. The reference r lucy was not used to int erpret this result as normal/abnormal . [facility] HospitalJycgavzDSXSBHQFOG0031-08-15 06:39:00 Test Item Value Reference Range Interpretation Comments Eosinophils # (test code 0.3 See_Comment [A utomated message] The = Eosinophils #) system ic h generated this result tra nsmitted reference range : <=0.5. The reference r lucy was not used to int erpret this result as normal/abnormal . [facility]2022-10-15 06:39:00 Test Item Value Reference Range Interpretation Comments UA Color (test code = Yellow *NA*(02/06/22 UA Color) 1:39 AM) [facility] HospitalQuesureIMXHNRGUYB0526-82-97 06:39:00 Test Item Value Reference Range Interpretation Comments RBC (test code = RBC) 4.30 4.20-5.40 [facility]2022-10-15 06:39:00 Test Item Value Reference Range Interpretation Comments UA Turbidity (test code Slight *ABN*(02/06/22 = UA Turbidity) 1:39 AM) [facility] AND [id number] 06:39:00 Test Item Value Reference Range Interpretation Comments UA Spec Grav (test code = UA Spec 1.020 1 Grav) [facility] [id number] 06:39:00 Test Item Value Reference Range Interpretation Comments UA pH (test code = UA pH) 6.0 1 5.0-8.0 [facility] AND [id number] 06:39:00 Test Item Value Reference Range Interpretation Comments UA Protein (test code = UA Negative mg/dL Protein) [facility] AND [id number] 06:39:00 Test Item Value Reference Range Interpretation Comments UA Glucose (test code = UA Negative mg/dL Glucose) [facility] AND [id number] 06:39:00 Test Item Value Reference Range Interpretation Comments UA Ketones (test code = UA Ketones) 20 mg/dL [facility] AND [id number] 06:39:00 Test Item Value Reference Range Interpretation Comments UA Bili (test code = Negative *NA*(02/06/22 UA Bili) 1:39 AM) [facility] AND [id number] 06:39:00 Test Item Value Reference Range Interpretation Comments UA Blood (test code = Negative (02/06/22 1:39 UA Blood) AM) [facility] AND [id number] 06:39:00 Test Item Value Reference Range Interpretation Comments UA Nitrite (test code Negative (02/06/22 1:39 = UA Nitrite) AM) [facility] AND [id number] 06:39:00 Test Item Value Reference Range Interpretation Comments UA Leuk Est (test Negative (02/06/22 1:39 code = UA Leuk Est) AM) [facility] IlkvvppSUJLRNAJHY3475-09-13 06:39:00 Test Item Value Reference Range Interpretation Comments Hgb (test code = Hgb) 11.8 12.0-16.0 [facility] AND [id number] 06:39:00 Test Item Value Reference Range Interpretation Comments UA Sq Epi (test code = UA Sq Occasional /LPF Epi) [facility] AND [id number] 06:39:00 Test Item Value Reference Range Interpretation Comments UA WBC (test code = 4 See_Comment [Automa jenna message] The UA WBC) system which ge nerated this result transmit jenna reference range : <=5. The reference range was not used to interpr et this result as domenic l/abnormal. [facility] [id number] 06:39:00 Test Item Value Reference Range Interpretation Comments UA RBC (test code = 1 See_Comment [Automa jenna message] The UA RBC) system which ge nerated this result transmit jenna reference range : <=2. The reference range was not used to interpr et this result as domenic l/abnormal. [facility] AND [id number] 06:39:00 Test Item Value Reference Range Interpretation Comments UA Mucus (test code = UA Mucus) Few /LPF [facility] AND [id number] 06:39:00 Test Item Value Reference Range Interpretation Comments UA Renal Epi (test code = UA Renal Epi) 4 [facility] AND [id number] 06:39:00 Test Item Value Reference Range Interpretation Comments UA Urobilinogen (test code = UA <=1.0 mg/dL 0.1-1.0 Urobilinogen) [facility] HospitalTxzogmcLSYFZCOIER2531-24-11 06:39:00 Test Item Value Reference Range Interpretation Comments Hct (test code = Hct) 34.5 36.0-48.0 [facility] HospitalXwiayyfETMGLYMIXN5502-88-33 06:39:00 Test Item Value Reference Range Interpretation Comments MCV (test code = MCV) 80.2 80.0-98.0 [facility]ScffdzrZVCZCLFBSO0058-14-39 06:39:00 Test Item Value Reference Range Interpretation Comments MCH (test code = MCH) 27.5 pg 27.0-31.0 [facility]IjktsuiTCMJKVECZT0048-63-76 06:39:00 Test Item Value Reference Range Interpretation Comments MCHC (test code = MCHC) 34.3 32.0-36.0 [facility]intErgjsavPPGRDMTFXW6631-92-54 06:39:00 Test Item Value Reference Range Interpretation Comments RDW (test code = RDW) 13.7 11.5-14.5 [facility] HospitalDpydkuqUFYJMFAXEH9671-98-20 06:39:00 Test Item Value Reference Range Interpretation Comments Platelet (test code = Platelet) 335 133-450 [facility] HospitalGvlnelgVXHGGIIOHB6450-95-93 06:39:00 Test Item Value Reference Range Interpretation Comments MPV (test code = MPV) 8.4 7.4-10.4 [facility] HospitalGfoznzzTBXIMQDWLP8459-20-05 06:39:00 Test Item Value Reference Range Interpretation Comments Segs (test code = Segs) 68.7 45.0-75.0 [facility] HospitalZylltstDSXKDAPVTT4693-28-11 06:39:00 Test Item Value Reference Range Interpretation Comments Lymphocytes (test code = Lymphocytes) 22.8 20.0-40.0 [facility] HospitalAzbnppuQZZENQQICW4175-17-17 06:39:00 Test Item Value Reference Range Interpretation Comments Monocytes (test code = Monocytes) 4.1 2.0-12.0 [facility] HospitalOrefxszIWHOGKQISJ1986-33-66 06:39:00 Test Item Value Reference Range Interpretation Comments Eosinophils (test code = 3.9 See_Comment [A utomated message] The Eosinophils) system which ge nerated this result tra nsmitted reference range : <=4.0. The reference r lucy was not used to int erpret this result as normal/abnormal . [facility] HospitalOlslgprCYAZNCZAFN9306-64-24 06:39:00 Test Item Value Reference Range Interpretation Comments Basophils (test code = 0.5 See_Comment [Aut omated message] The Basophils) system which ge nerated this result tra nsmitted reference range : <=1.0. The reference r lucy was not used to int erpret this result as normal/abnormal . [facility] HospitalDcxvuqjAFWIUQITNE8861-95-72 06:39:00 Test Item Value Reference Range Interpretation Comments Neutrophils # (test code = Neutrophils 5.6 1.5-8.1 #) [place] 358982-10-15 06:39:00 Test Item Value Reference Range Interpretation Comments Lymphocytes # (test code = Lymphocytes 1.9 1.0-5.5 #) [place] [address]-10-15 06:39:00 Test Item Value Reference Range Interpretation Comments Monocytes # (test code 0.3 See_Comment [Aut omated message] The = Monocytes #) system which generated this result tra nsmitted reference range : <=0.8. The reference r lucy was not used to int erpret this result as normal/abnormal . [facility] HospitalXsdogfdTUYQHSSZNV5638-60-97 06:39:00 Test Item Value Reference Range Interpretation Comments Eosinophils # (test code 0.3 See_Comment [A utomated message] The = Eosinophils #) system [employer] h generated this result tra nsmitted reference range : <=0.5. The reference r lucy was not used to int erpret this result as normal/abnormal . [facility] [id number] 06:39:00 Test Item Value Reference Range Interpretation Comments UA Color (test code = Yellow *NA*(02/06/22 UA Color) 1:39 AM) [facility] [id number] 06:39:00 Test Item Value Reference Range Interpretation Comments UA Turbidity (test code Slight *ABN*(02/06/22 = UA Turbidity) 1:39 AM) [facility] [id number] 06:39:00 Test Item Value Reference Range Interpretation Comments UA Spec Grav (test code = UA Spec 1.020 1 Grav) [facility] [id number] 06:39:00 Test Item Value Reference Range Interpretation Comments UA pH (test code = UA pH) 6.0 1 5.0-8.0 [facility] [id number] 06:39:00 Test Item Value Reference Range Interpretation Comments UA Protein (test code = UA Negative mg/dL Protein) [facility] [id number] 06:39:00 Test Item Value Reference Range Interpretation Comments UA Glucose (test code = UA Negative mg/dL Glucose) [facility] [id number] 06:39:00 Test Item Value Reference Range Interpretation Comments UA Ketones (test code = UA Ketones) 20 mg/dL [facility] [id number] 06:39:00 Test Item Value Reference Range Interpretation Comments UA Bili (test code = Negative *NA*(02/06/22 UA Bili) 1:39 AM) [facility] [id number] 06:39:00 Test Item Value Reference Range Interpretation Comments UA Blood (test code = Negative (02/06/22 1:39 UA Blood) AM) [facility] [id number] 06:39:00 Test Item Value Reference Range Interpretation Comments UA Nitrite (test code Negative (02/06/22 1:39 = UA Nitrite) AM) [facility] [id number] 06:39:00 Test Item Value Reference Range Interpretation Comments UA Leuk Est (test Negative (02/06/22 1:39 code = UA Leuk Est) AM) [facility] [id number] 06:39:00 Test Item Value Reference Range Interpretation Comments UA Sq Epi (test code = UA Sq Occasional /LPF Epi) [facility] [id number] 06:39:00 Test Item Value Reference Range Interpretation Comments UA WBC (test code = 4 See_Comment [Automa jenna message] The UA WBC) system which ge nerated this result transmit jenna reference range : <=5. The reference range was not used to interpr et this result as domenic l/abnormal. [facility] [id number] 06:39:00 Test Item Value Reference Range Interpretation Comments UA RBC (test code = 1 See_Comment [Automa jenna message] The UA RBC) system which ge nerated this result transmit jenna reference range : <=2. The reference range was not used to interpr et this result as domenic l/abnormal. [facility] [id number] 06:39:00 Test Item Value Reference Range Interpretation Comments UA Mucus (test code = UA Mucus) Few /LPF [facility] [id number] 06:39:00 Test Item Value Reference Range Interpretation Comments UA Renal Epi (test code = UA Renal Epi) 4 [facility] [id number] 06:39:00 Test Item Value Reference Range Interpretation Comments UA Urobilinogen (test code = UA <=1.0 mg/dL 0.1-1.0 Urobilinogen) [facility]XrrrkkcQSEQBZWWL7370-96-02 06:39:00 Test Item Value Reference Range Interpretation Comments Glucose Lvl (test code = Glucose Lvl) 95 70-99 [facility]anoWbgbrywOACHIACZH2617-47-95 06:39:00 Test Item Value Reference Range Interpretation Comments BUN (test code = BUN) 11-13 [facility]anoXwyqrlwARXDQRLYK6697-26-02 06:39:00 Test Item Value Reference Range Interpretation Comments Creatinine Lvl (test code = Creatinine 0.84 0.50-1.40 Lvl) [facility]anoTtyfnkdVUBAWUQWX7527-89-82 06:39:00 Test Item Value Reference Range Interpretation Comments Sodium Lvl (test code = Sodium Lvl) 139 135-145 [facility] CenterDmtanhrXMBHJYKFR0527-60-16 06:39:00 Test Item Value Reference Range Interpretation Comments Potassium Lvl (test code = Potassium 3.3 3.5-5.1 Lvl) [facility]anoCqbjcdrHYINBTHRY5873-35-65 06:39:00 Test Item Value Reference Range Interpretation Comments Chloride Lvl (test code = Chloride Lvl) 107 95-109 [facility]anoVlmjavpRLFRNAXDY0474-23-99 06:39:00 Test Item Value Reference Range Interpretation Comments CO2 (test code = CO2) 26 24-32 [facility] CenterOqpmoejFCHJELYCL4387-68-08 06:39:00 Test Item Value Reference Range Interpretation Comments Calcium Lvl (test code = Calcium Lvl) 9.0 8.5-10.5 [facility]anoQijncgfRLIIVZVSY6712-80-67 06:39:00 Test Item Value Reference Range Interpretation Comments Total Protein (test code = Total 7.8 6.4-8.4 Protein) [facility]anoTnjsyomZSFLXNYPB1159-62-25 06:39:00 Test Item Value Reference Range Interpretation Comments Albumin Lvl (test code = Albumin Lvl) 3.9 3.5-5.0 [facility] CenterYdxbyhfCFSVVAUOI7970-47-13 06:39:00 Test Item Value Reference Range Interpretation Comments ALT (test code = ALT) 17 See_Comment [Auto mated message] The system which ge nerated this result transmit jenna reference range : <=65. The reference range was not used to interpr et this result as domenic l/abnormal. [facility] CenterPgrqwkuBXVUJETBX4261-80-81 06:39:00 Test Item Value Reference Range Interpretation Comments AST (test code = AST) 11 See_Comment [Auto mated message] The system which ge nerated this result transmit jenna reference range : <=37. The reference range was not used to interpr et this result as domenic l/abnormal. [facility] CenterJwcxqseZTAVSLRNU8614-89-00 06:39:00 Test Item Value Reference Range Interpretation Comments Alk Phos (test code = Alk Phos) 42 39-136 [facility]anoDgqnhmlVKMYWEMJY3519-82-22 06:39:00 Test Item Value Reference Range Interpretation Comments Bili Total (test code = Bili Total) 0.4 0.2-1.3 [facility] PlanoFybkwebXAKUWINLI0693-34-20 06:39:00 Test Item Value Reference Range Interpretation Comments AGAP (test code = AGAP) 9.3 10.0-20.0 [facility] PlanoSaanljvPJAVNNWPZ0307-21-42 06:39:00 Test Item Value Reference Range Interpretation Comments B/C Ratio (test code = B/C Ratio) 14 1 6-25 [facility] PlanoYcxutqyIBHPMVYBQ0947-34-11 06:39:00 Test Item Value Reference Range Interpretation Comments Globulin (test code = Globulin) 3.9 2.7-4.2 [facility]anoYtqieagODBUPVDSO0038-45-17 06:39:00 Test Item Value Reference Range Interpretation Comments A/G Ratio (test code = A/G Ratio) 1.0 1 0.7-1.6 [facility]anoPxnxslsAZWIPTULY2819-18-62 06:39:00 Test Item Value Reference Range Interpretation Comments eGFR (test code = eGFR) 97 [facility]anoWphqdplVIFGWXTFC5589-18-59 06:39:00 Test Item Value Reference Range Interpretation Comments S Preg (test code = S Negative *NA*(02/06/22 Preg) 1:39 AM) [facility] HospitalMvtfyevHXMCJFLUWL4636-31-54 06:39:00 Test Item Value Reference Range Interpretation Comments WBC (test code = WBC) 8.2 3.7-10.4 [facility] HospitalFfjopqySEFNPBNIRK3529-72-68 06:39:00 Test Item Value Reference Range Interpretation Comments RBC (test code = RBC) 4.30 4.20-5.40 [facility] HospitalFqpweriUZNXVNWTAR0274-99-69 06:39:00 Test Item Value Reference Range Interpretation Comments Hgb (test code = Hgb) 11.8 12.0-16.0 [facility] HospitalOqydshjWUSROSHYQQ6999-32-86 06:39:00 Test Item Value Reference Range Interpretation Comments Hct (test code = Hct) 34.5 36.0-48.0 [facility] HospitalRymmynsYKGCVLTXKL4699-09-89 06:39:00 Test Item Value Reference Range Interpretation Comments MCV (test code = MCV) 80.2 80.0-98.0 [facility] HospitalDefycbmPUBQSXZJTR1054-25-46 06:39:00 Test Item Value Reference Range Interpretation Comments MCH (test code = MCH) 27.5 pg 27.0-31.0 [facility] HospitalPmrnpcnTOGEQCNNTK9106-28-80 06:39:00 Test Item Value Reference Range Interpretation Comments MCHC (test code = MCHC) 34.3 32.0-36.0 [facility]KymybrrVZGNXGIAUH6709-41-41 23:20:00 Test Item Value Reference Range Interpretation Comments Coronavirus (COVID-19) Not Detected (11/12/21 MATEUS (test code = 6:20 PM) Coronavirus (COVID-19) MATEUS) [facility]HhmrmfhLLUCZTQJOF2631-86-01 23:20:00 Test Item Value Reference Range Interpretation Comments Coronavirus (COVID-19) Not Detected (11/12/21 MATEUS (test code = 6:20 PM) Coronavirus (COVID-19) MATEUS) [facility] HospitalDvhcvcuYVUPUCJXMH8858-33-16 23:20:00 Test Item Value Reference Range Interpretation Comments Coronavirus (COVID-19) Not Detected (11/12/21 MATEUS (test code = 6:20 PM) Coronavirus (COVID-19) MATEUS) [facility] CGKW9837-30-16 19:38:00 Test Item Value Reference Range Interpretation Comments POCT PREG (test code = 1605) Negative On board controls acceptable with C Yes Line (test code = 3574) POCT PREG LOT # (test code = 3575) POCT PREG TEST DATE (test code = 3576) [facility] QEGS5110-33-42 21:33:00 Test Item Value Reference Range Interpretation Comments POCT PREG (test code = 1605) negative On board controls acceptable with C present Line (test code = 3574) Lab Interpretation (test code = Normal 49233-7) [facility] 11:28:00 Test Item Value Reference Range Interpretation Comments Segs (test code = Segs) 76.1 45.0-75.0 [facility]ZbaifvjXPRNRHKCYM8875-74-44 11:28:00 Test Item Value Reference Range Interpretation Comments Lymphocytes (test code = Lymphocytes) 16.9 20.0-40.0 [facility] HospitalUoosmqaWRSFUWPYKI1469-50-31 11:28:00 Test Item Value Reference Range Interpretation Comments Monocytes (test code = Monocytes) 5.1 2.0-12.0 [facility]intUqeefqfHPIUUTHKJK2430-84-51 11:28:00 Test Item Value Reference Range Interpretation Comments Eosinophils (test code = 1.8 See_Comment [A utomated message] The Eosinophils) system which ge nerated this result tra nsmitted reference range : <=4.0. The reference r lucy was not used to int erpret this result as normal/abnormal . [facility] HospitalFwkwwhjQAVOAHBFSV0232-48-09 11:28:00 Test Item Value Reference Range Interpretation Comments Basophils (test code = 0.1 See_Comment [Aut omated message] The Basophils) system which ge nerated this result tra nsmitted reference range : <=1.0. The reference r lucy was not used to int erpret this result as normal/abnormal . [facility] HospitalOawnbneFWHQRLYKOF0409-22-05 11:28:00 Test Item Value Reference Range Interpretation Comments Neutrophils # (test code = Neutrophils 9.3 1.5-8.1 #) [facility] HospitalTmnewbvWLZOKIRJJG7677-87-46 11:28:00 Test Item Value Reference Range Interpretation Comments Lymphocytes # (test code = Lymphocytes 2.1 1.0-5.5 #) [place] 358980-03-20 11:28:00 Test Item Value Reference Range Interpretation Comments Monocytes # (test code 0.6 See_Comment [Aut omated message] The = Monocytes #) system which generated this result tra nsmitted reference range : <=0.8. The reference r lucy was not used to int erpret this result as normal/abnormal . [facility] HospitalUylpxccDKAMWNEVER6742-58-24 11:28:00 Test Item Value Reference Range Interpretation Comments Eosinophils # (test code 0.2 See_Comment [A utomated message] The = Eosinophils #) system whic h generated this result tra nsmitted reference range : <=0.5. The reference r lucy was not used to int erpret this result as normal/abnormal . [facility] HospitalPebzfqsGKZPQTXQRC9212-79-24 11:28:00 Test Item Value Reference Range Interpretation Comments WBC (test code = WBC) 12.2 3.7-10.4 [place] 358980-03-20 11:28:00 Test Item Value Reference Range Interpretation Comments RBC (test code = RBC) 2.73 4.20-5.40 [place] 358980-03-20 11:28:00 Test Item Value Reference Range Interpretation Comments Hgb (test code = Hgb) 7.9 12.0-16.0 [facility] HospitalNkblhfeMWJSMKOJGQ5835-66-02 11:28:00 Test Item Value Reference Range Interpretation Comments Hct (test code = Hct) 23.9 36.0-48.0 [facility] HospitalDitlrboDWQYSWUGZN1551-25-79 11:28:00 Test Item Value Reference Range Interpretation Comments MCV (test code = MCV) 87.6 80.0-98.0 [facility] HospitalUppzchsXSELDJSTOA0881-26-83 11:28:00 Test Item Value Reference Range Interpretation Comments MCH (test code = MCH) 29.1 pg 27.0-31.0 [facility] HospitalHhelpbvDFYOCBPHRV1654-24-80 11:28:00 Test Item Value Reference Range Interpretation Comments MCHC (test code = MCHC) 33.3 32.0-36.0 [facility] HospitalAyfpzliAWIMIVRJMK3300-71-81 11:28:00 Test Item Value Reference Range Interpretation Comments RDW (test code = RDW) 14.5 11.5-14.5 [facility] HospitalOnhynebJTEGFEAOQM9387-99-79 11:28:00 Test Item Value Reference Range Interpretation Comments Platelet (test code = Platelet) 157 133-450 [facility] HospitalYrwndhrFQAKDAQPJK0759-69-73 11:28:00 Test Item Value Reference Range Interpretation Comments MPV (test code = MPV) 8.7 7.4-10.4 [facility] HospitalPezosivBLJUFMTOGD0622-28-62 11:28:00 Test Item Value Reference Range Interpretation Comments Segs (test code = Segs) 76.1 45.0-75.0 [facility] HospitalYsccsbmEUIQIJBFPS2370-02-42 11:28:00 Test Item Value Reference Range Interpretation Comments Lymphocytes (test code = Lymphocytes) 16.9 20.0-40.0 [facility] HospitalZrwjhxqWJHJDWEAKQ4622-20-81 11:28:00 Test Item Value Reference Range Interpretation Comments Monocytes (test code = Monocytes) 5.1 2.0-12.0 [facility] HospitalNqqktmgBEQDBBVOWO6248-14-60 11:28:00 Test Item Value Reference Range Interpretation Comments Eosinophils (test code = 1.8 See_Comment [A utomated message] The Eosinophils) system which ge nerated this result tra nsmitted reference range : <=4.0. The reference r lucy was not used to int erpret this result as normal/abnormal . [facility] HospitalCwwbdkuRHUKFJNAUP6613-84-80 11:28:00 Test Item Value Reference Range Interpretation Comments Basophils (test code = 0.1 See_Comment [Aut omated message] The Basophils) system which ge nerated this result tra nsmitted reference range : <=1.0. The reference r lucy was not used to int erpret this result as normal/abnormal . [facility] HospitalKagthjlPYGBYVQIRV9050-20-83 11:28:00 Test Item Value Reference Range Interpretation Comments Neutrophils # (test code = Neutrophils 9.3 1.5-8.1 #) [facility] HospitalGmlbmhlRNJSKQMKEM2592-49-69 11:28:00 Test Item Value Reference Range Interpretation Comments Lymphocytes # (test code = Lymphocytes 2.1 1.0-5.5 #) [facility] HospitalWrdwfphOQATBEOZKF1444-04-42 11:28:00 Test Item Value Reference Range Interpretation Comments Monocytes # (test code 0.6 See_Comment [Aut omated message] The = Monocytes #) system which generated this result tra nsmitted reference range : <=0.8. The reference r lucy was not used to int erpret this result as normal/abnormal . [facility] HospitalTtqstsoUAQTFFQBDS8460-69-99 11:28:00 Test Item Value Reference Range Interpretation Comments Eosinophils # (test code 0.2 See_Comment [A utomated message] The = Eosinophils #) system whic h generated this result tra nsmitted reference range : <=0.5. The reference r ulcy was not used to int erpret this result as normal/abnormal . [facility] HospitalRsxpjjzYVEUFEIVBM0746-94-37 11:28:00 Test Item Value Reference Range Interpretation Comments WBC (test code = WBC) 12.2 3.7-10.4 [facility] HospitalCnhdemyAQEEXOVJEZ2651-79-55 11:28:00 Test Item Value Reference Range Interpretation Comments RBC (test code = RBC) 2.73 4.20-5.40 [place] 358980-03-20 11:28:00 Test Item Value Reference Range Interpretation Comments Hgb (test code = Hgb) 7.9 12.0-16.0 [place] 358980-03-20 11:28:00 Test Item Value Reference Range Interpretation Comments Hct (test code = Hct) 23.9 36.0-48.0 [facility] HospitalLmktowaCJHHDXEAUP7851-00-18 11:28:00 Test Item Value Reference Range Interpretation Comments MCV (test code = MCV) 87.6 80.0-98.0 [place] 358980-03-20 11:28:00 Test Item Value Reference Range Interpretation Comments MCH (test code = MCH) 29.1 pg 27.0-31.0 [place] 358980-03-20 11:28:00 Test Item Value Reference Range Interpretation Comments MCHC (test code = MCHC) 33.3 32.0-36.0 [facility] HospitalEilrcvsOKXCPCIKXT2916-80-37 11:28:00 Test Item Value Reference Range Interpretation Comments RDW (test code = RDW) 14.5 11.5-14.5 [place] 358980-03-20 11:28:00 Test Item Value Reference Range Interpretation Comments Platelet (test code = Platelet) 157 133-450 [place] 358980-03-20 11:28:00 Test Item Value Reference Range Interpretation Comments MPV (test code = MPV) 8.7 7.4-10.4 [facility] HospitalZttsdqcHAFTZDUBPW3041-57-49 11:28:00 Test Item Value Reference Range Interpretation Comments Segs (test code = Segs) 76.1 45.0-75.0 [facility] HospitalRifwyjzGZHNBWMWOZ6809-02-29 11:28:00 Test Item Value Reference Range Interpretation Comments Lymphocytes (test code = Lymphocytes) 16.9 20.0-40.0 [place] 358980-03-20 11:28:00 Test Item Value Reference Range Interpretation Comments Monocytes (test code = Monocytes) 5.1 2.0-12.0 [place] 358980-03-20 11:28:00 Test Item Value Reference Range Interpretation Comments Eosinophils (test code = 1.8 See_Comment [A utomated message] The Eosinophils) system which ge nerated this result tra nsmitted reference range : <=4.0. The reference r lucy was not used to int erpret this result as normal/abnormal . [facility] HospitalRiklkvjDIQQRQRKGR8547-20-69 11:28:00 Test Item Value Reference Range Interpretation Comments Basophils (test code = 0.1 See_Comment [Aut omated message] The Basophils) system which ge nerated this result tra nsmitted reference range : <=1.0. The reference r lucy was not used to int erpret this result as normal/abnormal . [facility] HospitalMecvjfhNMJXOUHEZF0962-85-73 11:28:00 Test Item Value Reference Range Interpretation Comments Neutrophils # (test code = Neutrophils 9.3 1.5-8.1 #) [facility] HospitalMilkomtUFDSOCIHYW0570-63-21 11:28:00 Test Item Value Reference Range Interpretation Comments Lymphocytes # (test code = Lymphocytes 2.1 1.0-5.5 #) [facility] HospitalAahyxuoZJDTCGXDUT9745-94-40 11:28:00 Test Item Value Reference Range Interpretation Comments Monocytes # (test code 0.6 See_Comment [Aut omated message] The = Monocytes #) system which generated this result tra nsmitted reference range : <=0.8. The reference r lucy was not used to int erpret this result as normal/abnormal . [place] 358980-03-20 11:28:00 Test Item Value Reference Range Interpretation Comments Eosinophils # (test code 0.2 See_Comment [A utomated message] The = Eosinophils #) system whic h generated this result tra nsmitted reference range : <=0.5. The reference r lucy was not used to int erpret this result as normal/abnormal . [facility] HospitalMfnwtyhUBSIOOTJSI3400-47-48 11:28:00 Test Item Value Reference Range Interpretation Comments WBC (test code = WBC) 12.2 3.7-10.4 [place] 358980-03-20 11:28:00 Test Item Value Reference Range Interpretation Comments RBC (test code = RBC) 2.73 4.20-5.40 [place] 358980-03-20 11:28:00 Test Item Value Reference Range Interpretation Comments Hgb (test code = Hgb) 7.9 12.0-16.0 [place] [address]-03-20 11:28:00 Test Item Value Reference Range Interpretation Comments Hct (test code = Hct) 23.9 36.0-48.0 [place] [address]-03-20 11:28:00 Test Item Value Reference Range Interpretation Comments MCV (test code = MCV) 87.6 80.0-98.0 [place] [address]-03-20 11:28:00 Test Item Value Reference Range Interpretation Comments MCH (test code = MCH) 29.1 pg 27.0-31.0 [facility]UsjhwhtGRXGPBWECG6219-94-38 11:28:00 Test Item Value Reference Range Interpretation Comments MCHC (test code = MCHC) 33.3 32.0-36.0 [facility]YzplvtdYSVYSIQPWP8547-54-29 11:28:00 Test Item Value Reference Range Interpretation Comments RDW (test code = RDW) 14.5 11.5-14.5 [facility]intLkbhescOGHEBTUOLG9091-29-92 11:28:00 Test Item Value Reference Range Interpretation Comments Platelet (test code = Platelet) 157 133-450 [facility]intTnizyjyHIBODRWQCT1399-01-12 11:28:00 Test Item Value Reference Range Interpretation Comments MPV (test code = MPV) 8.7 7.4-10.4 [facility]EbjzqqaJVPAPGPOPT0679-04-08 01:30:00 Test Item Value Reference Range Interpretation Comments WBC (test code = WBC) 20.3 3.7-10.4 [facility] HospitalTrflbneHXDFNBBLYO9172-37-95 01:30:00 Test Item Value Reference Range Interpretation Comments RBC (test code = RBC) 3.29 4.20-5.40 [facility]sxexzmZBZBVUQTJJ4941-04-35 01:30:00 Test Item Value Reference Range Interpretation Comments Hgb (test code = Hgb) 9.6 12.0-16.0 [facility] HospitalCihmilrLLHHETVKFL8035-10-45 01:30:00 Test Item Value Reference Range Interpretation Comments Hct (test code = Hct) 29.7 36.0-48.0 [facility] HospitalWnfxkdnIJPSAZWYGV8714-64-60 01:30:00 Test Item Value Reference Range Interpretation Comments MCV (test code = MCV) 90.3 80.0-98.0 [facility] HospitalQtzywbxKDPCKDRWOS9423-30-80 01:30:00 Test Item Value Reference Range Interpretation Comments MCH (test code = MCH) 29.1 pg 27.0-31.0 [facility]intHsxlgjxXABCBMVCTI1545-08-43 01:30:00 Test Item Value Reference Range Interpretation Comments MCHC (test code = MCHC) 32.2 32.0-36.0 [facility] HospitalTddmdxbWSSNIPBRFN3936-88-24 01:30:00 Test Item Value Reference Range Interpretation Comments RDW (test code = RDW) 14.4 11.5-14.5 [facility] HospitalAmjfsyzCFNTXVWUIE0019-17-44 01:30:00 Test Item Value Reference Range Interpretation Comments Platelet (test code = Platelet) 176 133-450 [facility] HospitalWcjjgcaPFYQPBNWAG7798-35-86 01:30:00 Test Item Value Reference Range Interpretation Comments MPV (test code = MPV) 9.0 7.4-10.4 [facility] HospitalUovhrvlJWOAVZDIES7230-07-07 01:30:00 Test Item Value Reference Range Interpretation Comments RBC Morph (test code = Normal (07/11/19 8:30 RBC Morph) PM) [facility] HospitalYcpvgeoCNTYPHYJMQ9403-62-43 01:30:00 Test Item Value Reference Range Interpretation Comments Plt Morph (test code = Normal (07/11/19 8:30 Plt Morph) PM) [facility] HospitalFjnybqgGWCJMZWVZD2004-88-58 01:30:00 Test Item Value Reference Range Interpretation Comments Segs (test code = Segs) 87.4 45.0-75.0 [facility] HospitalBicajlkNNPMQRJLQB2387-91-45 01:30:00 Test Item Value Reference Range Interpretation Comments Lymphocytes (test code = Lymphocytes) 4.8 20.0-40.0 [facility] HospitalKjfunzzAHCGKFEZGQ2118-70-72 01:30:00 Test Item Value Reference Range Interpretation Comments Monocytes (test code = Monocytes) 7.3 2.0-12.0 [facility] HospitalVldmyuzEKEKNNYFDW3985-47-62 01:30:00 Test Item Value Reference Range Interpretation Comments Eosinophils (test code = 0.1 See_Comment [A utomated message] The Eosinophils) system which ge nerated this result tra nsmitted reference range : <=4.0. The reference r lucy was not used to int erpret this result as normal/abnormal . [facility] HospitalRaowkcsBSKHYQLWCC0634-24-97 01:30:00 Test Item Value Reference Range Interpretation Comments Basophils (test code = 0.4 See_Comment [Aut omated message] The Basophils) system which ge nerated this result tra nsmitted reference range : <=1.0. The reference r lucy was not used to int erpret this result as normal/abnormal . [facility] HospitalLadpoufCGWREXWIVJ8459-80-64 01:30:00 Test Item Value Reference Range Interpretation Comments Neutrophils # (test code = Neutrophils 17.7 1.5-8.1 #) [facility] HospitalIrwexneRLKBZTXAYE0952-20-43 01:30:00 Test Item Value Reference Range Interpretation Comments Lymphocytes # (test code = Lymphocytes 1.0 1.0-5.5 #) [facility] HospitalIbnpalsFPMDIOCUBE1593-45-67 01:30:00 Test Item Value Reference Range Interpretation Comments Monocytes # (test code 1.5 See_Comment [Aut omated message] The = Monocytes #) system which generated this result tra nsmitted reference range : <=0.8. The reference r lucy was not used to int erpret this result as normal/abnormal . [facility] HospitalIeuebthESRISJEOQI4575-96-19 01:30:00 Test Item Value Reference Range Interpretation Comments Basophils # (test code 0.1 See_Comment [Aut omated message] The = Basophils #) system which generated this result tra nsmitted reference range : <=0.2. The reference r lucy was not used to int erpret this result as normal/abnormal . [facility] HospitalAqhxqxeGWUCBQHGSV2624-41-08 01:30:00 Test Item Value Reference Range Interpretation Comments WBC (test code = WBC) 20.3 3.7-10.4 [facility] HospitalSofpugpPJXYEOKUOO4381-59-36 01:30:00 Test Item Value Reference Range Interpretation Comments RBC (test code = RBC) 3.29 4.20-5.40 [facility] HospitalXbnvskkCJBOPRHCYR8777-93-72 01:30:00 Test Item Value Reference Range Interpretation Comments Hgb (test code = Hgb) 9.6 12.0-16.0 [facility] HospitalWrzaazzEWQSFDDGLW4062-70-02 01:30:00 Test Item Value Reference Range Interpretation Comments Hct (test code = Hct) 29.7 36.0-48.0 [facility] HospitalKevsssyFQFUVRFFDD8036-44-76 01:30:00 Test Item Value Reference Range Interpretation Comments MCV (test code = MCV) 90.3 80.0-98.0 [facility] HospitalSxassudANUBXRBEEJ2387-24-12 01:30:00 Test Item Value Reference Range Interpretation Comments MCH (test code = MCH) 29.1 pg 27.0-31.0 [facility] HospitalRupnorvTQLSLOWHJA7374-89-93 01:30:00 Test Item Value Reference Range Interpretation Comments MCHC (test code = MCHC) 32.2 32.0-36.0 [facility] HospitalVrzfzfsRJZSUZUFTM7773-53-39 01:30:00 Test Item Value Reference Range Interpretation Comments RDW (test code = RDW) 14.4 11.5-14.5 [facility] HospitalVhgzxygDDSZPTKGFH5816-12-29 01:30:00 Test Item Value Reference Range Interpretation Comments Platelet (test code = Platelet) 176 133-450 [facility] HospitalPaupeunEQJFUPYJVM8986-71-16 01:30:00 Test Item Value Reference Range Interpretation Comments MPV (test code = MPV) 9.0 7.4-10.4 [facility] HospitalIroigzuIHVJCEMUCD2060-38-68 01:30:00 Test Item Value Reference Range Interpretation Comments RBC Morph (test code = Normal (07/11/19 8:30 RBC Morph) PM) [facility] HospitalAkhoiypGYUIDBJGLY1772-49-47 01:30:00 Test Item Value Reference Range Interpretation Comments Plt Morph (test code = Normal (07/11/19 8:30 Plt Morph) PM) [facility] HospitalBddqclzUTDYGDAPGU3538-23-98 01:30:00 Test Item Value Reference Range Interpretation Comments Segs (test code = Segs) 87.4 45.0-75.0 [facility] HospitalQzovhwlLPNEHMWOMZ2685-70-98 01:30:00 Test Item Value Reference Range Interpretation Comments Lymphocytes (test code = Lymphocytes) 4.8 20.0-40.0 [facility] HospitalTenrrxnDTTJEMRIBV8653-32-25 01:30:00 Test Item Value Reference Range Interpretation Comments Monocytes (test code = Monocytes) 7.3 2.0-12.0 [facility] HospitalLbijijmVMYIHSJQVA6228-36-84 01:30:00 Test Item Value Reference Range Interpretation Comments Eosinophils (test code = 0.1 See_Comment [A utomated message] The Eosinophils) system which ge nerated this result tra nsmitted reference range : <=4.0. The reference r lucy was not used to int erpret this result as normal/abnormal . [facility] HospitalWvivezpZWYKMYVASG1806-33-96 01:30:00 Test Item Value Reference Range Interpretation Comments Basophils (test code = 0.4 See_Comment [Aut omated message] The Basophils) system which ge nerated this result tra nsmitted reference range : <=1.0. The reference r lucy was not used to int erpret this result as normal/abnormal . [facility] HospitalBhxznuaZQQEFMBQDP4582-57-40 01:30:00 Test Item Value Reference Range Interpretation Comments Neutrophils # (test code = Neutrophils 17.7 1.5-8.1 #) [facility] HospitalEpvimkhUHEQELLNLZ0224-57-45 01:30:00 Test Item Value Reference Range Interpretation Comments Lymphocytes # (test code = Lymphocytes 1.0 1.0-5.5 #) [facility] HospitalEqemyndWNKWSDPMSU4399-81-04 01:30:00 Test Item Value Reference Range Interpretation Comments Monocytes # (test code 1.5 See_Comment [Aut omated message] The = Monocytes #) system which generated this result tra nsmitted reference range : <=0.8. The reference r lucy was not used to int erpret this result as normal/abnormal . [facility] HospitalHhgsuojORJQAMISLG2404-29-89 01:30:00 Test Item Value Reference Range Interpretation Comments Basophils # (test code 0.1 See_Comment [Aut omated message] The = Basophils #) system which generated this result tra nsmitted reference range : <=0.2. The reference r lucy was not used to int erpret this result as normal/abnormal . [facility] HospitalRncsqcgGQXGVKMPFZ3753-02-50 01:30:00 Test Item Value Reference Range Interpretation Comments WBC (test code = WBC) 20.3 3.7-10.4 [facility] HospitalSrgauwmPLJYKMTRDZ2691-17-25 01:30:00 Test Item Value Reference Range Interpretation Comments RBC (test code = RBC) 3.29 4.20-5.40 [facility] HospitalJohaqpfASKSVTHQGU1254-93-05 01:30:00 Test Item Value Reference Range Interpretation Comments Hgb (test code = Hgb) 9.6 12.0-16.0 [facility] HospitalXshgiqhYJCVVQZLZC0176-51-00 01:30:00 Test Item Value Reference Range Interpretation Comments Hct (test code = Hct) 29.7 36.0-48.0 [facility] HospitalKskegllIMKYOZWJUG4887-53-19 01:30:00 Test Item Value Reference Range Interpretation Comments MCV (test code = MCV) 90.3 80.0-98.0 [facility] HospitalYpnkqxlXMOFBKOBFU5111-57-18 01:30:00 Test Item Value Reference Range Interpretation Comments MCH (test code = MCH) 29.1 pg 27.0-31.0 [facility] HospitalQpdusafHBBBQINHWG9264-45-18 01:30:00 Test Item Value Reference Range Interpretation Comments MCHC (test code = MCHC) 32.2 32.0-36.0 [facility] HospitalKsytlaaNPOELNYTUR9400-46-88 01:30:00 Test Item Value Reference Range Interpretation Comments RDW (test code = RDW) 14.4 11.5-14.5 [facility] HospitalOirxpjrQEBYGUQTND6251-27-57 01:30:00 Test Item Value Reference Range Interpretation Comments Platelet (test code = Platelet) 176 133-450 [facility] HospitalAfcoegrFSTXZHGKXA1160-59-98 01:30:00 Test Item Value Reference Range Interpretation Comments MPV (test code = MPV) 9.0 7.4-10.4 [facility] HospitalFwdosxsVDLCZPTEXI8685-10-97 01:30:00 Test Item Value Reference Range Interpretation Comments RBC Morph (test code = Normal (07/11/19 8:30 RBC Morph) PM) [facility] HospitalXmcalrpKUWMIVTWGW7865-78-82 01:30:00 Test Item Value Reference Range Interpretation Comments Plt Morph (test code = Normal (07/11/19 8:30 Plt Morph) PM) [facility] HospitalIafiberVFZGREXKXF5133-52-08 01:30:00 Test Item Value Reference Range Interpretation Comments Segs (test code = Segs) 87.4 45.0-75.0 [facility] HospitalFcvzzxcAVZFTDIOHP8004-97-00 01:30:00 Test Item Value Reference Range Interpretation Comments Lymphocytes (test code = Lymphocytes) 4.8 20.0-40.0 [facility] HospitalEgfbsvxYLLSRHMPWY6838-11-92 01:30:00 Test Item Value Reference Range Interpretation Comments Monocytes (test code = Monocytes) 7.3 2.0-12.0 [facility] HospitalMakgoyaAWSSEUJFFB5251-73-17 01:30:00 Test Item Value Reference Range Interpretation Comments Eosinophils (test code = 0.1 See_Comment [A utomated message] The Eosinophils) system which ge nerated this result tra nsmitted reference range : <=4.0. The reference r lucy was not used to int erpret this result as normal/abnormal . [facility] HospitalItptxhrWFTNOWFJNW8918-51-80 01:30:00 Test Item Value Reference Range Interpretation Comments Basophils (test code = 0.4 See_Comment [Aut omated message] The Basophils) system which ge nerated this result tra nsmitted reference range : <=1.0. The reference r lucy was not used to int erpret this result as normal/abnormal . [facility] HospitalVzrujhiXFNHURLAYN9215-67-55 01:30:00 Test Item Value Reference Range Interpretation Comments Neutrophils # (test code = Neutrophils 17.7 1.5-8.1 #) [facility] HospitalLsrxgnqJESQZNCSPK7565-94-03 01:30:00 Test Item Value Reference Range Interpretation Comments Lymphocytes # (test code = Lymphocytes 1.0 1.0-5.5 #) [facility] HospitalUaatpgzSLVYJLULVU2518-12-05 01:30:00 Test Item Value Reference Range Interpretation Comments Monocytes # (test code 1.5 See_Comment [Aut omated message] The = Monocytes #) system which generated this result tra nsmitted reference range : <=0.8. The reference r lucy was not used to int erpret this result as normal/abnormal . [facility]VycbxbcLOXPHCUCAL3108-23-30 01:30:00 Test Item Value Reference Range Interpretation Comments Basophils # (test code 0.1 See_Comment [Aut omated message] The = Basophils #) system which generated this result tra nsmitted reference range : <=0.2. The reference r ulcy was not used to int erpret this result as normal/abnormal . [facility] CampusVinPerfect OYAASTZ1271-58-01 15:40:00 Test Item Value Reference Range Interpretation Comments RBC product (test code Product available = RBC product) (07/11/19 10:40 AM) [facility] KHIJZQQ6589-02-86 15:40:00 Test Item Value Reference Range Interpretation Comments RBC product (test code Product available = RBC product) (07/11/19 10:40 AM) [facility] [employer] DKNAZJF7736-52-07 15:40:00 Test Item Value Reference Range Interpretation Comments RBC product (test code Product available = RBC product) (07/11/19 10:40 AM) [facility] CampusKnpdiroOSYGFOYESJ1141-15-28 13:38:00 Test Item Value Reference Range Interpretation Comments Hgb (test code = Hgb) 6.4 12.0-16.0 [facility]EtferpuTCCYIEQAVF8808-41-52 13:38:00 Test Item Value Reference Range Interpretation Comments Hct (test code = Hct) 19.4 36.0-48.0 [facility] CenterNedaassELKUWDMXVW2856-82-09 13:38:00 Test Item Value Reference Range Interpretation Comments Hgb (test code = Hgb) 6.4 12.0-16.0 [facility] HospitalGrcoiokBAHWPAHMFW3459-19-54 13:38:00 Test Item Value Reference Range Interpretation Comments Hct (test code = Hct) 19.4 36.0-48.0 [facility] HospitalXijntfrAEDBDICXCH9884-16-02 13:38:00 Test Item Value Reference Range Interpretation Comments Hgb (test code = Hgb) 6.4 12.0-16.0 [facility] HospitalMgpvmutFZQUJUWTPR3139-26-35 13:38:00 Test Item Value Reference Range Interpretation Comments Hct (test code = Hct) 19.4 36.0-48.0 [facility] HOOJUZR2043-86-88 01:51:00 Test Item Value Reference Range Interpretation Comments RBC product (test code Product available = RBC product) (07/10/19 8:51 PM) [facility] [id number] 01:51:00 Test Item Value Reference Range Interpretation Comments RBC product (test code Product available = RBC product) (07/10/19 8:51 PM) [facility] OFMSQKM7571-39-44 01:51:00 Test Item Value Reference Range Interpretation Comments RBC product (test code Product available = RBC product) (07/10/19 8:51 PM) [facility] IHXGPRY7331-85-36 01:44:00 Test Item Value Reference Range Interpretation Comments ABO/Rh (test code = ABO/Rh) A POS [facility] HHUOVCD7285-68-92 01:44:00 Test Item Value Reference Range Interpretation Comments Antibody Scrn (test Negative (07/10/19 8:44 code = Antibody Scrn) PM) [facility] JORPMTY1935-14-14 01:44:00 Test Item Value Reference Range Interpretation Comments ABO/Rh (test code = ABO/Rh) A POS [facility] [id number] 01:44:00 Test Item Value Reference Range Interpretation Comments Antibody Scrn (test Negative (07/10/19 8:44 code = Antibody Scrn) PM) [facility] [id number] 01:44:00 Test Item Value Reference Range Interpretation Comments ABO/Rh (test code = ABO/Rh) A POS [facility] GDCPRSE5986-96-83 01:44:00 Test Item Value Reference Range Interpretation Comments Antibody Scrn (test Negative (07/10/19 8:44 code = Antibody Scrn) PM) [facility] HospitalNdlwgfzGKUCZZCMVS6164-55-08 00:46:00 Test Item Value Reference Range Interpretation Comments WBC (test code = WBC) 10.9 3.7-10.4 [facility] HospitalCfaipojEIXJVHWUWP6646-36-50 00:46:00 Test Item Value Reference Range Interpretation Comments RBC (test code = RBC) 3.13 4.20-5.40 [facility] HospitalBdmetqcWNEZMTXKQS8170-15-68 00:46:00 Test Item Value Reference Range Interpretation Comments MCV (test code = MCV) 86.6 80.0-98.0 [facility] HospitalHhhjmxzTJCWDRLUCM1667-15-76 00:46:00 Test Item Value Reference Range Interpretation Comments MCH (test code = MCH) 28.7 pg 27.0-31.0 [facility] HospitalJwewbctYCGHGBTFFX4483-03-28 00:46:00 Test Item Value Reference Range Interpretation Comments MCHC (test code = MCHC) 33.1 32.0-36.0 [facility] HospitalPzxiqqpCCXLSIFLHF2771-88-02 00:46:00 Test Item Value Reference Range Interpretation Comments RDW (test code = RDW) 14.1 11.5-14.5 [facility] HospitalFvddigrCVTTPWMRWU4466-02-20 00:46:00 Test Item Value Reference Range Interpretation Comments Platelet (test code = Platelet) 180 133-450 [facility] HospitalYymzwuyBAWKCSKQAV7216-27-48 00:46:00 Test Item Value Reference Range Interpretation Comments MPV (test code = MPV) 9.4 7.4-10.4 [facility] HospitalBkdivocQYFBMWBJLU2702-43-61 00:46:00 Test Item Value Reference Range Interpretation Comments Segs (test code = Segs) 92.7 45.0-75.0 [place] 358980-03-18 00:46:00 Test Item Value Reference Range Interpretation Comments Lymphocytes (test code = Lymphocytes) 6.2 20.0-40.0 [place] [address]-03-18 00:46:00 Test Item Value Reference Range Interpretation Comments Monocytes (test code = Monocytes) 0.9 2.0-12.0 [place] 358980-03-18 00:46:00 Test Item Value Reference Range Interpretation Comments Eosinophils (test code = 0.1 See_Comment [A utomated message] The Eosinophils) system which ge nerated this result tra nsmitted reference range : <=4.0. The reference r lucy was not used to int erpret this result as normal/abnormal . [facility] CampusDuktnpbMDCDQXKQZW2604-77-70 00:46:00 Test Item Value Reference Range Interpretation Comments Basophils (test code = 0.1 See_Comment [Aut omated message] The Basophils) system which ge nerated this result tra nsmitted reference range : <=1.0. The reference r lucy was not used to int erpret this result as normal/abnormal . [facility] HospitalZwbxkagGMNZKTXENR7775-05-17 00:46:00 Test Item Value Reference Range Interpretation Comments Neutrophils # (test code = Neutrophils 10.1 1.5-8.1 #) [facility] HospitalQicwrjzHSNDVQPDLR3770-39-63 00:46:00 Test Item Value Reference Range Interpretation Comments Lymphocytes # (test code = Lymphocytes 0.7 1.0-5.5 #) [facility] HospitalCjpzdysWCNNFVBJMB8894-86-90 00:46:00 Test Item Value Reference Range Interpretation Comments Monocytes # (test code 0.1 See_Comment [Aut omated message] The = Monocytes #) system which generated this result tra nsmitted reference range : <=0.8. The reference r lucy was not used to int erpret this result as normal/abnormal . [facility] CampusMdstfkxMNRWIRLQVZ5445-28-22 00:46:00 Test Item Value Reference Range Interpretation Comments Hep Bs Ag (test code Negative *NA*(07/10/19 = Hep Bs Ag) 7:46 PM) [facility] CampusPjfmpetWJHXDDSCKF8141-33-83 00:46:00 Test Item Value Reference Range Interpretation Comments Treponemal Ab (test code Non-Reactive = Treponemal Ab) *NA*(07/10/19 7:46 PM) [facility] CampusUrdozaeMADSBAPCAS4533-21-46 00:46:00 Test Item Value Reference Range Interpretation Comments HIV. (test code = Negative *NA*(07/10/19 HIV.) 7:46 PM) [facility] HospitalWnkrthgSRDVHYSFQB0847-78-07 00:46:00 Test Item Value Reference Range Interpretation Comments WBC (test code = WBC) 10.9 3.7-10.4 [facility] HospitalJmzlcqqAIKGIGWLKY8817-44-45 00:46:00 Test Item Value Reference Range Interpretation Comments RBC (test code = RBC) 3.13 4.20-5.40 [place] 358980-03-18 00:46:00 Test Item Value Reference Range Interpretation Comments MCV (test code = MCV) 86.6 80.0-98.0 [place] 358980-03-18 00:46:00 Test Item Value Reference Range Interpretation Comments MCH (test code = MCH) 28.7 pg 27.0-31.0 [place] [address]-03-18 00:46:00 Test Item Value Reference Range Interpretation Comments MCHC (test code = MCHC) 33.1 32.0-36.0 [place] [address]-03-18 00:46:00 Test Item Value Reference Range Interpretation Comments RDW (test code = RDW) 14.1 11.5-14.5 [place] [address]-03-18 00:46:00 Test Item Value Reference Range Interpretation Comments Platelet (test code = Platelet) 180 133-450 [place] 358980-03-18 00:46:00 Test Item Value Reference Range Interpretation Comments MPV (test code = MPV) 9.4 7.4-10.4 [place] 358980-03-18 00:46:00 Test Item Value Reference Range Interpretation Comments Segs (test code = Segs) 92.7 45.0-75.0 [place] 358980-03-18 00:46:00 Test Item Value Reference Range Interpretation Comments Lymphocytes (test code = Lymphocytes) 6.2 20.0-40.0 [place] 358980-03-18 00:46:00 Test Item Value Reference Range Interpretation Comments Monocytes (test code = Monocytes) 0.9 2.0-12.0 [place] [address]-03-18 00:46:00 Test Item Value Reference Range Interpretation Comments Eosinophils (test code = 0.1 See_Comment [A utomated message] The Eosinophils) system which ge nerated this result tra nsmitted reference range : <=4.0. The reference r lucy was not used to int erpret this result as normal/abnormal . [place] 358980-03-18 00:46:00 Test Item Value Reference Range Interpretation Comments Basophils (test code = 0.1 See_Comment [Aut omated message] The Basophils) system which ge nerated this result tra nsmitted reference range : <=1.0. The reference r lucy was not used to int erpret this result as normal/abnormal . [facility] CampusRrjvezgFJAHNTNYWI3248-21-10 00:46:00 Test Item Value Reference Range Interpretation Comments Neutrophils # (test code = Neutrophils 10.1 1.5-8.1 #) [facility] HospitalNkopmsvOMHMZXKZUK0532-56-63 00:46:00 Test Item Value Reference Range Interpretation Comments Lymphocytes # (test code = Lymphocytes 0.7 1.0-5.5 #) [facility] HospitalErkqplbYXOLCYFSHM8536-35-05 00:46:00 Test Item Value Reference Range Interpretation Comments Monocytes # (test code 0.1 See_Comment [Aut omated message] The = Monocytes #) system which generated this result tra nsmitted reference range : <=0.8. The reference r lucy was not used to int erpret this result as normal/abnormal . [facility] CampusEtlrksrCDPOIQAEBF1595-12-01 00:46:00 Test Item Value Reference Range Interpretation Comments Hep Bs Ag (test code Negative *NA*(07/10/19 = Hep Bs Ag) 7:46 PM) [facility] CampusRdzaoeqFMCYYIYZLC7145-38-82 00:46:00 Test Item Value Reference Range Interpretation Comments Treponemal Ab (test code Non-Reactive = Treponemal Ab) *NA*(07/10/19 7:46 PM) [facility] CampusGcqnxpaGLFEYUETLS6124-34-63 00:46:00 Test Item Value Reference Range Interpretation Comments HIV. (test code = Negative *NA*(07/10/19 HIV.) 7:46 PM) [facility] HospitalRitvdvpKDMBTBVQOY0304-00-00 00:46:00 Test Item Value Reference Range Interpretation Comments WBC (test code = WBC) 10.9 3.7-10.4 [facility] HospitalGyubtpeEYVYRLNUQP2906-61-56 00:46:00 Test Item Value Reference Range Interpretation Comments RBC (test code = RBC) 3.13 4.20-5.40 [facility] HospitalWiblgywNDUFCZBZGY0460-77-34 00:46:00 Test Item Value Reference Range Interpretation Comments MCV (test code = MCV) 86.6 80.0-98.0 [facility] [facility]WH1317-54-41 00:46:00 Test Item Value Reference Range Interpretation Comments MCH (test code = MCH) 28.7 pg 27.0-31.0 [facility]MwyvqibSLWHTZTMPC4917-53-43 00:46:00 Test Item Value Reference Range Interpretation Comments MCHC (test code = MCHC) 33.1 32.0-36.0 [place] 358980-03-18 00:46:00 Test Item Value Reference Range Interpretation Comments RDW (test code = RDW) 14.1 11.5-14.5 [place] 358980-03-18 00:46:00 Test Item Value Reference Range Interpretation Comments Platelet (test code = Platelet) 180 133-450 [place] 358980-03-18 00:46:00 Test Item Value Reference Range Interpretation Comments MPV (test code = MPV) 9.4 7.4-10.4 [place] 358980-03-18 00:46:00 Test Item Value Reference Range Interpretation Comments Segs (test code = Segs) 92.7 45.0-75.0 [place] 358980-03-18 00:46:00 Test Item Value Reference Range Interpretation Comments Lymphocytes (test code = Lymphocytes) 6.2 20.0-40.0 [place] 358980-03-18 00:46:00 Test Item Value Reference Range Interpretation Comments Monocytes (test code = Monocytes) 0.9 2.0-12.0 [place] 358980-03-18 00:46:00 Test Item Value Reference Range Interpretation Comments Eosinophils (test code = 0.1 See_Comment [A utomated message] The Eosinophils) system which ge nerated this result tra nsmitted reference range : <=4.0. The reference r lucy was not used to int erpret this result as normal/abnormal . [place] 358980-03-18 00:46:00 Test Item Value Reference Range Interpretation Comments Basophils (test code = 0.1 See_Comment [Aut omated message] The Basophils) system which ge nerated this result tra nsmitted reference range : <=1.0. The reference r lucy was not used to int erpret this result as normal/abnormal . [place] 358980-03-18 00:46:00 Test Item Value Reference Range Interpretation Comments Neutrophils # (test code = Neutrophils 10.1 1.5-8.1 #) [facility]NoypyyfGSNCDSJAQT0448-28-80 00:46:00 Test Item Value Reference Range Interpretation Comments Lymphocytes # (test code = Lymphocytes 0.7 1.0-5.5 #) [facility] HospitalZzekaauTCXCQELRLJ7143-05-57 00:46:00 Test Item Value Reference Range Interpretation Comments Monocytes # (test code 0.1 See_Comment [Aut omated message] The = Monocytes #) system which generated this result tra nsmitted reference range : <=0.8. The reference r lucy was not used to int erpret this result as normal/abnormal . [facility]ZxoybeiJJEPEJDXIV2160-92-23 00:46:00 Test Item Value Reference Range Interpretation Comments Hep Bs Ag (test code Negative *NA*(07/10/19 = Hep Bs Ag) 7:46 PM) [facility]BNPUQB4741[facility]79-69 00:46:00 Test Item Value Reference Range Interpretation Comments Treponemal Ab (test code Non-Reactive = Treponemal Ab) *NA*(07/10/19 7:46 PM) [facility]SpqjlsfJVTANBDUVY3968-45-31 00:46:00 Test Item Value Reference Range Interpretation Comments HIV. (test code = Negative *NA*(07/10/19 HIV.) 7:46 PM) [facility] HospitalPuqhuhfBHAWNNNQZJ8051-47-58 17:49:00 Test Item Value Reference Range Interpretation Comments WBC (test code = WBC) 8.2 3.7-10.4 [facility] HospitalGxghkvzSQCATEZMZP2611-70-99 17:49:00 Test Item Value Reference Range Interpretation Comments RBC (test code = RBC) 2.84 4.20-5.40 [facility] HospitalQhfevqaAZLVHFDSWI0688-09-26 17:49:00 Test Item Value Reference Range Interpretation Comments Hgb (test code = Hgb) 8.3 12.0-16.0 [facility] CampusJtxvhtcZXMLQYAKHP2942-07-61 17:49:00 Test Item Value Reference Range Interpretation Comments Hct (test code = Hct) 24.5 36.0-48.0 [facility] HospitalRqiggytKVDZPWKLSJ4064-73-01 17:49:00 Test Item Value Reference Range Interpretation Comments MCV (test code = MCV) 86.1 80.0-98.0 [facility] HospitalYipyntkTKDUDLTSGP1719-04-01 17:49:00 Test Item Value Reference Range Interpretation Comments MCH (test code = MCH) 29.1 pg 27.0-31.0 [facility] HospitalMuzpbvhEZVBWJESRO8853-87-85 17:49:00 Test Item Value Reference Range Interpretation Comments MCHC (test code = MCHC) 33.8 32.0-36.0 [place] 358980-03-17 17:49:00 Test Item Value Reference Range Interpretation Comments RDW (test code = RDW) 14.2 11.5-14.5 [place] [address]-03-17 17:49:00 Test Item Value Reference Range Interpretation Comments Platelet (test code = Platelet) 156 133-450 [place] [address]-03-17 17:49:00 Test Item Value Reference Range Interpretation Comments MPV (test code = MPV) 9.0 7.4-10.4 [place] [address]-03-17 17:49:00 Test Item Value Reference Range Interpretation Comments RBC Morph (test code = Normal (07/10/19 12:49 RBC Morph) PM) [place] [address]-03-17 17:49:00 Test Item Value Reference Range Interpretation Comments Plt Morph (test code = Normal (07/10/19 12:49 Plt Morph) PM) [facility] HospitalShoqqmrPVLWRTMVGC2023-85-68 17:49:00 Test Item Value Reference Range Interpretation Comments Segs (test code = Segs) 81.8 45.0-75.0 [place] [address]-03-17 17:49:00 Test Item Value Reference Range Interpretation Comments Lymphocytes (test code = Lymphocytes) 12.0 20.0-40.0 [place] 358980-03-17 17:49:00 Test Item Value Reference Range Interpretation Comments Monocytes (test code = Monocytes) 4.6 2.0-12.0 [place] [address]-03-17 17:49:00 Test Item Value Reference Range Interpretation Comments Eosinophils (test code = 1.3 See_Comment [A utomated message] The Eosinophils) system which ge nerated this result tra nsmitted reference range : <=4.0. The reference r lucy was not used to int erpret this result as normal/abnormal . [facility] HospitalVsyjemwVADWHIONJT0092-33-05 17:49:00 Test Item Value Reference Range Interpretation Comments Basophils (test code = 0.3 See_Comment [Aut omated message] The Basophils) system which ge nerated this result tra nsmitted reference range : <=1.0. The reference r lucy was not used to int erpret this result as normal/abnormal . [facility] HospitalOwszhusCGJDDJKKDP7037-07-76 17:49:00 Test Item Value Reference Range Interpretation Comments Neutrophils # (test code = Neutrophils 6.7 1.5-8.1 #) [facility] HospitalXdhwbssBGGSQTZQVW3212-95-79 17:49:00 Test Item Value Reference Range Interpretation Comments Lymphocytes # (test code = Lymphocytes 1.0 1.0-5.5 #) [place] 358980-03-17 17:49:00 Test Item Value Reference Range Interpretation Comments Monocytes # (test code 0.4 See_Comment [Aut omated message] The = Monocytes #) system which generated this result tra nsmitted reference range : <=0.8. The reference r lucy was not used to int erpret this result as normal/abnormal . [place] 358980-03-17 17:49:00 Test Item Value Reference Range Interpretation Comments Eosinophils # (test code 0.1 See_Comment [A utomated message] The = Eosinophils #) system whic h generated this result tra nsmitted reference range : <=0.5. The reference r lucy was not used to int erpret this result as normal/abnormal . [facility] HospitalNdqbnltCXGRNDDIUC3720-59-67 17:49:00 Test Item Value Reference Range Interpretation Comments WBC (test code = WBC) 8.2 3.7-10.4 [place] 358980-03-17 17:49:00 Test Item Value Reference Range Interpretation Comments RBC (test code = RBC) 2.84 4.20-5.40 [place] [address]-03-17 17:49:00 Test Item Value Reference Range Interpretation Comments Hgb (test code = Hgb) 8.3 12.0-16.0 [place] [address]-03-17 17:49:00 Test Item Value Reference Range Interpretation Comments Hct (test code = Hct) 24.5 36.0-48.0 [place] [address]-03-17 17:49:00 Test Item Value Reference Range Interpretation Comments MCV (test code = MCV) 86.1 80.0-98.0 [facility] HospitalGxoktklYJCGPBSQOD8153-73-03 17:49:00 Test Item Value Reference Range Interpretation Comments MCH (test code = MCH) 29.1 pg 27.0-31.0 [facility] HospitalFmzolowFXRXBBQSVO7982-44-01 17:49:00 Test Item Value Reference Range Interpretation Comments MCHC (test code = MCHC) 33.8 32.0-36.0 [facility] HospitalYbrcyftUAYKTANHGI1614-47-37 17:49:00 Test Item Value Reference Range Interpretation Comments RDW (test code = RDW) 14.2 11.5-14.5 [facility] HospitalAarcadgXNQGEVYVOS1800-98-57 17:49:00 Test Item Value Reference Range Interpretation Comments Platelet (test code = Platelet) 156 133-450 [facility] HospitalLnxzanvMLBQIGCYLD3356-08-20 17:49:00 Test Item Value Reference Range Interpretation Comments MPV (test code = MPV) 9.0 7.4-10.4 [facility] HospitalEyaqxcrPRSNYAIJSZ4147-33-35 17:49:00 Test Item Value Reference Range Interpretation Comments RBC Morph (test code = Normal (07/10/19 12:49 RBC Morph) PM) [facility] HospitalLojavneRZWADBFEZP5487-98-21 17:49:00 Test Item Value Reference Range Interpretation Comments Plt Morph (test code = Normal (07/10/19 12:49 Plt Morph) PM) [facility] HospitalAcdspfhRMOMKCRNHM3022-65-80 17:49:00 Test Item Value Reference Range Interpretation Comments Segs (test code = Segs) 81.8 45.0-75.0 [facility] HospitalWtfofpsDKMNVVGBBR5199-08-49 17:49:00 Test Item Value Reference Range Interpretation Comments Lymphocytes (test code = Lymphocytes) 12.0 20.0-40.0 [facility] HospitalMhowrqeSOJJFIBKBU0029-84-12 17:49:00 Test Item Value Reference Range Interpretation Comments Monocytes (test code = Monocytes) 4.6 2.0-12.0 [facility] HospitalXdyzxklJGCBUROQIR9727-78-80 17:49:00 Test Item Value Reference Range Interpretation Comments Eosinophils (test code = 1.3 See_Comment [A utomated message] The Eosinophils) system which ge nerated this result tra nsmitted reference range : <=4.0. The reference r lucy was not used to int erpret this result as normal/abnormal . [place] [address]-03-17 17:49:00 Test Item Value Reference Range Interpretation Comments Basophils (test code = 0.3 See_Comment [Aut omated message] The Basophils) system which ge nerated this result tra nsmitted reference range : <=1.0. The reference r lucy was not used to int erpret this result as normal/abnormal . [facility] HospitalIndzzqnFTPANKPNPS8131-88-00 17:49:00 Test Item Value Reference Range Interpretation Comments Neutrophils # (test code = Neutrophils 6.7 1.5-8.1 #) [facility] HospitalBqsaaxpOCCXNIAXIB6989-50-10 17:49:00 Test Item Value Reference Range Interpretation Comments Lymphocytes # (test code = Lymphocytes 1.0 1.0-5.5 #) [facility] HospitalVcvbbkpOPUFYAZZHH4228-43-85 17:49:00 Test Item Value Reference Range Interpretation Comments Monocytes # (test code 0.4 See_Comment [Aut omated message] The = Monocytes #) system which generated this result tra nsmitted reference range : <=0.8. The reference r lucy was not used to int erpret this result as normal/abnormal . [facility] HospitalTzcaqayVUBBUSOKUA5665-70-98 17:49:00 Test Item Value Reference Range Interpretation Comments Eosinophils # (test code 0.1 See_Comment [A utomated message] The = Eosinophils #) system whic h generated this result tra nsmitted reference range : <=0.5. The reference r lucy was not used to int erpret this result as normal/abnormal . [facility] HospitalWlgajhmXRMAQROBMB6725-53-55 17:49:00 Test Item Value Reference Range Interpretation Comments WBC (test code = WBC) 8.2 3.7-10.4 [place] 358980-03-17 17:49:00 Test Item Value Reference Range Interpretation Comments RBC (test code = RBC) 2.84 4.20-5.40 [place] [address]-03-17 17:49:00 Test Item Value Reference Range Interpretation Comments Hgb (test code = Hgb) 8.3 12.0-16.0 [place] [address]-03-17 17:49:00 Test Item Value Reference Range Interpretation Comments Hct (test code = Hct) 24.5 36.0-48.0 [place] [address]-03-17 17:49:00 Test Item Value Reference Range Interpretation Comments MCV (test code = MCV) 86.1 80.0-98.0 [facility] HospitalElnwktkXEURCTZGLW0456-90-48 17:49:00 Test Item Value Reference Range Interpretation Comments MCH (test code = MCH) 29.1 pg 27.0-31.0 [facility] HospitalQkeuiehYIKLXEERZH5314-72-88 17:49:00 Test Item Value Reference Range Interpretation Comments MCHC (test code = MCHC) 33.8 32.0-36.0 [facility] HospitalSubyeftILMLWLSUKZ3117-19-72 17:49:00 Test Item Value Reference Range Interpretation Comments RDW (test code = RDW) 14.2 11.5-14.5 [facility] HospitalVsouqxmTRPARPETFJ9959-72-55 17:49:00 Test Item Value Reference Range Interpretation Comments Platelet (test code = Platelet) 156 133-450 [facility] HospitalNqrmivoLKKNXFDIQV3205-11-54 17:49:00 Test Item Value Reference Range Interpretation Comments MPV (test code = MPV) 9.0 7.4-10.4 [facility] HospitalRcoibzyTYGUNWQLRT2859-52-50 17:49:00 Test Item Value Reference Range Interpretation Comments RBC Morph (test code = Normal (07/10/19 12:49 RBC Morph) PM) [facility] HospitalCuhpkqoVXGMKDYCRQ2132-71-80 17:49:00 Test Item Value Reference Range Interpretation Comments Plt Morph (test code = Normal (07/10/19 12:49 Plt Morph) PM) [facility] HospitalHqbebtdCQQRAOJMFN6406-96-55 17:49:00 Test Item Value Reference Range Interpretation Comments Segs (test code = Segs) 81.8 45.0-75.0 [facility] HospitalFhxdqouXUOGZVYIBI8930-53-00 17:49:00 Test Item Value Reference Range Interpretation Comments Lymphocytes (test code = Lymphocytes) 12.0 20.0-40.0 [place] [address]-03-17 17:49:00 Test Item Value Reference Range Interpretation Comments Monocytes (test code = Monocytes) 4.6 2.0-12.0 [place] [address]-03-17 17:49:00 Test Item Value Reference Range Interpretation Comments Eosinophils (test code = 1.3 See_Comment [A utomated message] The Eosinophils) system which ge nerated this result tra nsmitted reference range : <=4.0. The reference r lucy was not used to int erpret this result as normal/abnormal . [facility] HospitalXrkblamTGSOOMVNUM9196-62-62 17:49:00 Test Item Value Reference Range Interpretation Comments Basophils (test code = 0.3 See_Comment [Aut omated message] The Basophils) system which ge nerated this result tra nsmitted reference range : <=1.0. The reference r lucy was not used to int erpret this result as normal/abnormal . [facility] HospitalPtreafzZPDVCTLRXX0665-59-42 17:49:00 Test Item Value Reference Range Interpretation Comments Neutrophils # (test code = Neutrophils 6.7 1.5-8.1 #) [facility] HospitalYzvqmhnPLXQGMYNES0127-60-79 17:49:00 Test Item Value Reference Range Interpretation Comments Lymphocytes # (test code = Lymphocytes 1.0 1.0-5.5 #) [facility] HospitalJsatztmGPCSDRLAEQ2145-60-79 17:49:00 Test Item Value Reference Range Interpretation Comments Monocytes # (test code 0.4 See_Comment [Aut omated message] The = Monocytes #) system which generated this result tra nsmitted reference range : <=0.8. The reference r lucy was not used to int erpret this result as normal/abnormal . [facility] HospitalVliyduiQUDTRSSVPW7352-18-86 17:49:00 Test Item Value Reference Range Interpretation Comments Eosinophils # (test code 0.1 See_Comment [A utomated message] The = Eosinophils #) system whic h generated this result tra nsmitted reference range : <=0.5. The reference r lucy was not used to int erpret this result as normal/abnormal . [facility]2020-03-17 16:57:00 Test Item Value Reference Range Interpretation Comments Source APTIMA (test Vaginal *NA*(07/10/19 code = Source APTIMA) 11:57 AM) [facility]2020-03-17 16:57:00 Test Item Value Reference Range Interpretation Comments C trachomatis by Amp Det Negative *NA*(07/10/19 (APTIMA) (test code = C 11:57 AM) trachomatis by Amp Det (APTIMA)) [facility]2020-03-17 16:57:00 Test Item Value Reference Range Interpretation Comments N gonorrhea by Amp Det Negative *NA*(07/10/19 (APTIMA) (test code = N 11:57 AM) gonorrhea by Amp Det (APTIMA)) [facility] Axuzpv4379-10-03 16:57:00 Test Item Value Reference Range Interpretation Comments Culture: Genital Group B Streptococcus Strep Screen (test Isolated code = Culture: Genital Strep Screen) [facility] [id number] 16:57:00 Test Item Value Reference Range Interpretation Comments Source APTIMA (test Vaginal *NA*(07/10/19 code = Source APTIMA) 11:57 AM) [facility] ANJWMZTVBT3943-14-98 16:57:00 Test Item Value Reference Range Interpretation Comments C trachomatis by Amp Det Negative *NA*(07/10/19 (APTIMA) (test code = C 11:57 AM) trachomatis by Amp Det (APTIMA)) [facility] XWRAKXVIWZ9841-61-63 16:57:00 Test Item Value Reference Range Interpretation Comments N gonorrhea by Amp Det Negative *NA*(07/10/19 (APTIMA) (test code = N 11:57 AM) gonorrhea by Amp Det (APTIMA)) [facility]ital Strep Ohuzez6066-74-29 16:57:00 Test Item Value Reference Range Interpretation Comments Culture: Genital Group B Streptococcus Strep Screen (test Isolated code = Culture: Genital Strep Screen) [facility] [id number] 16:57:00 Test Item Value Reference Range Interpretation Comments Source APTIMA (test Vaginal *NA*(07/10/19 code = Source APTIMA) 11:57 AM) [facility] GABGKZQXKP6339-89-45 16:57:00 Test Item Value Reference Range Interpretation Comments C trachomatis by Amp Det Negative *NA*(07/10/19 (APTIMA) (test code = C 11:57 AM) trachomatis by Amp Det (APTIMA)) [facility] ZQFWZEFBSC4893-51-15 16:57:00 Test Item Value Reference Range Interpretation Comments N gonorrhea by Amp Det Negative *NA*(07/10/19 (APTIMA) (test code = N 11:57 AM) gonorrhea by Amp Det (APTIMA)) [facility] Strep Wvvgru2779-96-19 16:57:00 Test Item Value Reference Range Interpretation Comments Culture: Genital Group B Streptococcus Strep Screen (test Isolated code = Culture: Genital Strep Screen) [facility] [employer] [id number] 13:08:00 Test Item Value Reference Range Interpretation Comments ABO/Rh (test code = ABO/Rh) A POS [facility] [employer] [id number] 13:08:00 Test Item Value Reference Range Interpretation Comments Antibody Scrn (test Negative (07/10/19 8:08 code = Antibody Scrn) AM) [facility] [employer] [id number] 13:08:00 Test Item Value Reference Range Interpretation Comments Glucose Lvl (test code = Glucose Lvl) 79 70-99 [facility] [employer] [id number] 13:08:00 Test Item Value Reference Range Interpretation Comments BUN (test code = BUN) 9 7-22 [facility] [employer] [id number] 13:08:00 Test Item Value Reference Range Interpretation Comments Creatinine Lvl (test code = Creatinine 0.64 0.50-1.40 Lvl) [facility] [employer] [id number] 13:08:00 Test Item Value Reference Range Interpretation Comments Sodium Lvl (test code = Sodium Lvl) 141 135-145 [facility] [employer] [id number] 13:08:00 Test Item Value Reference Range Interpretation Comments Potassium Lvl (test code = Potassium 4.1 3.5-5.1 Lvl) [facility] [employer] [id number] 13:08:00 Test Item Value Reference Range Interpretation Comments Chloride Lvl (test code = Chloride Lvl) 110 95-109 [facility] [employer] [id number] 13:08:00 Test Item Value Reference Range Interpretation Comments CO2 (test code = CO2) 25 24-32 [facility] [employer] [id number] 13:08:00 Test Item Value Reference Range Interpretation Comments Calcium Lvl (test code = Calcium Lvl) 7.9 8.5-10.5 [facility] [employer] [id number] 13:08:00 Test Item Value Reference Range Interpretation Comments Total Protein (test code = Total 5.6 6.4-8.4 Protein) [facility] [employer] [id number] 13:08:00 Test Item Value Reference Range Interpretation Comments Albumin Lvl (test code = Albumin Lvl) 2.4 3.5-5.0 [employer] [id number] 13:08:00 Test Item Value Reference Range Interpretation Comments ALT (test code = ALT) 14 See_Comment [Auto mated message] The system which ge nerated this result transmit jenna reference range : <=65. The reference range was not used to interpr et this result as domenic l/abnormal. [employer]2020-03-17 13:08:00 Test Item Value Reference Range Interpretation Comments AST (test code = AST) 14 See_Comment [Auto mated message] The system which ge nerated this result transmit jenna reference range : <=37. The reference range was not used to interpr et this result as domenic l/abnormal. [employer]2020-03-17 13:08:00 Test Item Value Reference Range Interpretation Comments Alk Phos (test code = Alk Phos) 57 39-136 [employer]2020-03-17 13:08:00 Test Item Value Reference Range Interpretation Comments Bili Total (test code = Bili Total) 0.2 0.2-1.3 [employer]2020-03-17 13:08:00 Test Item Value Reference Range Interpretation Comments AGAP (test code = AGAP) 10.1 10.0-20.0 [employer]0-03-17 13:08:00 Test Item Value Reference Range Interpretation Comments B/C Ratio (test code = B/C Ratio) 14 1 6-25 [employer]-03-17 13:08:00 Test Item Value Reference Range Interpretation Comments Globulin (test code = Globulin) 3.2 2.7-4.2 [employer]2020-03-17 13:08:00 Test Item Value Reference Range Interpretation Comments A/G Ratio (test code = A/G Ratio) 0.8 1 0.7-1.6 [employer]-03-17 13:08:00 Test Item Value Reference Range Interpretation Comments eGFR (test code = eGFR) 143 [facility] [employer]2020-03-17 13:08:00 Test Item Value Reference Range Interpretation Comments U Amph Scr (test code Negative *NA*(07/10/19 = U Amph Scr) 8:08 AM) [id number] 13:08:00 Test Item Value Reference Range Interpretation Comments U Judy Scr (test code Negative *NA*(07/10/19 = U Judy Scr) 8:08 AM) [facility] [id number] 13:08:00 Test Item Value Reference Range Interpretation Comments U Benzodiaz Scr (test Negative *NA*(07/10/19 code = U Benzodiaz Scr) 8:08 AM) [facility] [id number] 13:08:00 Test Item Value Reference Range Interpretation Comments U Cocaine Scr (test Negative *NA*(07/10/19 code = U Cocaine Scr) 8:08 AM) [facility] [id number] 13:08:00 Test Item Value Reference Range Interpretation Comments U Cannab Scr (test Negative *NA*(07/10/19 code = U Cannab Scr) 8:08 AM) [facility] [id number] 13:08:00 Test Item Value Reference Range Interpretation Comments U Opiate Scr (test Negative *NA*(07/10/19 code = U Opiate Scr) 8:08 AM) [facility] [id number] 13:08:00 Test Item Value Reference Range Interpretation Comments U Phencyclidine Scr (test Negative code = U Phencyclidine *NA*(07/10/19 8:08 Scr) AM) [facility] [id number] 13:08:00 Test Item Value Reference Range Interpretation Comments UDS Note (test code = See Note (07/10/19 8:08 UDS Note) AM) [facility] [id number] 13:08:00 Test Item Value Reference Range Interpretation Comments WBC (test code = WBC) 6.5 3.7-10.4 [facility] DahaeavJHTWINQCJV9239-44-45 13:08:00 Test Item Value Reference Range Interpretation Comments RBC (test code = RBC) 3.49 4.20-5.40 [facility] SgeiorePMRAGONUFQ9491-27-70 13:08:00 Test Item Value Reference Range Interpretation Comments Hgb (test code = Hgb) 10.0 12.0-16.0 [facility] GiwguvqHZUBHMAJRY2156-56-22 13:08:00 Test Item Value Reference Range Interpretation Comments Hct (test code = Hct) 30.1 36.0-48.0 [place]8980-03-17 13:08:00 Test Item Value Reference Range Interpretation Comments MCV (test code = MCV) 86.0 80.0-98.0 [place] [address]-03-17 13:08:00 Test Item Value Reference Range Interpretation Comments MCH (test code = MCH) 28.5 pg 27.0-31.0 [place] 358980-03-17 13:08:00 Test Item Value Reference Range Interpretation Comments MCHC (test code = MCHC) 33.1 32.0-36.0 [place] [address]-03-17 13:08:00 Test Item Value Reference Range Interpretation Comments RDW (test code = RDW) 14.5 11.5-14.5 [place] [address]-03-17 13:08:00 Test Item Value Reference Range Interpretation Comments Platelet (test code = Platelet) 170 133-450 [place] 358980-03-17 13:08:00 Test Item Value Reference Range Interpretation Comments MPV (test code = MPV) 8.9 7.4-10.4 [place] [address]-03-17 13:08:00 Test Item Value Reference Range Interpretation Comments Fibrinogen Lvl (test code = Fibrinogen 417 230-510 Lvl) [facility]XrvnubtGKINADHATQ5316-[facility] 13:08:00 Test Item Value Reference Range Interpretation Comments Segs (test code = Segs) 62.0 45.0-75.0 [place] [address]-03-17 13:08:00 Test Item Value Reference Range Interpretation Comments Lymphocytes (test code = Lymphocytes) 25.8 20.0-40.0 [place] [address]-03-17 13:08:00 Test Item Value Reference Range Interpretation Comments Monocytes (test code = Monocytes) 7.8 2.0-12.0 [place] [address]-03-17 13:08:00 Test Item Value Reference Range Interpretation Comments Eosinophils (test code = 4.1 See_Comment [A utomated message] The Eosinophils) system which ge nerated this result tra nsmitted reference range : <=4.0. The reference r lucy was not used to int erpret this result as normal/abnormal . [facility] Hospit[id number] 13:08:00 Test Item Value Reference Range Interpretation Comments Basophils (test code = 0.3 See_Comment [Aut omated message] The Basophils) system which ge nerated this result tra nsmitted reference range : <=1.0. The reference r lucy was not used to int erpret this result as normal/abnormal . [facility]FSVAQJD7845-38-18 13:08:00 Test Item Value Reference Range Interpretation Comments Neutrophils # (test code = Neutrophils 4.0 1.5-8.1 #) [facility]intJcmepwaRRNHUSIMXA3556-95-63 13:08:00 Test Item Value Reference Range Interpretation Comments Lymphocytes # (test code = Lymphocytes 1.7 1.0-5.5 #) [facility]intIwdnyszSMGOFCCEEU2845-53-99 13:08:00 Test Item Value Reference Range Interpretation Comments Monocytes # (test code 0.5 See_Comment [Aut omated message] The = Monocytes #) system which generated this result tra nsmitted reference range : <=0.8. The reference r lucy was not used to int erpret this result as normal/abnormal . [facility] CampusGmnmsyyDSCMTNIHSA6088-75-67 13:08:00 Test Item Value Reference Range Interpretation Comments Eosinophils # (test code 0.3 See_Comment [A utomated message] The = Eosinophils #) system whic h generated this result tra nsmitted reference range : <=0.5. The reference r lucy was not used to int erpret this result as normal/abnormal . [facility] CampusAqwfwgpHUMAVUILTW5779-87-91 13:08:00 Test Item Value Reference Range Interpretation Comments Treponemal Ab (test code Non-Reactive = Treponemal Ab) *NA*(07/10/19 8:08 AM) [facility] CampusFrkbuiiQWALPRVJRC1286-28-43 13:08:00 Test Item Value Reference Range Interpretation Comments Hep Bs Ag (test code Negative *NA*(07/10/19 = Hep Bs Ag) 8:08 AM) [facility] CampusIhhgthyEZXSCLZKWS5663-47-67 13:08:00 Test Item Value Reference Range Interpretation Comments HIV. (test code = Negative (07/10/19 8:08 HIV.) AM) [facility] AND [id number] 13:08:00 Test Item Value Reference Range Interpretation Comments UA Color (test code = Yellow *NA*(07/10/19 UA Color) 8:08 AM) [facility] [id number] 13:08:00 Test Item Value Reference Range Interpretation Comments UA Turbidity (test code Slight *ABN*(07/10/19 = UA Turbidity) 8:08 AM) [facility] [id number] 13:08:00 Test Item Value Reference Range Interpretation Comments UA Spec Grav (test code = UA Spec 1.012 1 Grav) [facility] [id number] 13:08:00 Test Item Value Reference Range Interpretation Comments UA pH (test code = UA pH) 7.0 1 5.0-8.0 [facility] [id number] 13:08:00 Test Item Value Reference Range Interpretation Comments UA Protein (test code = UA Negative mg/dL Protein) [facility] [id number] 13:08:00 Test Item Value Reference Range Interpretation Comments UA Glucose (test code = UA Negative mg/dL Glucose) [facility] [id number] 13:08:00 Test Item Value Reference Range Interpretation Comments UA Ketones (test code = UA Trace mg/dL Ketones) [facility] [id number] 13:08:00 Test Item Value Reference Range Interpretation Comments UA Bili (test code = Negative *NA*(07/10/19 UA Bili) 8:08 AM) [facility] [id number] 13:08:00 Test Item Value Reference Range Interpretation Comments UA Blood (test code = Negative (07/10/19 8:08 UA Blood) AM) [facility] [id number] 13:08:00 Test Item Value Reference Range Interpretation Comments UA Nitrite (test code Negative (07/10/19 8:08 = UA Nitrite) AM) [facility] [id number] 13:08:00 Test Item Value Reference Range Interpretation Comments UA Leuk Est (test Negative (07/10/19 8:08 code = UA Leuk Est) AM) [facility] [id number] 13:08:00 Test Item Value Reference Range Interpretation Comments UA Sq Epi (test code = UA Sq Occasional /LPF Epi) [facility] [id number] 13:08:00 Test Item Value Reference Range Interpretation Comments UA WBC (test code = 3 See_Comment [Automa jenna message] The UA WBC) system which ge nerated this result transmit jenna reference range : <=5. The reference range was not used to interpr et this result as domenic l/abnormal. [facility] [facility] [id number] 13:08:00 Test Item Value Reference Range Interpretation Comments UA RBC (test code = no gt See_Comment [Automa jenna message] The UA RBC) system which ge nerated this result transmit jenna reference range : <=2. The reference range was not used to interpr et this result as domenic l/abnormal. [facility] AND [id number] 13:08:00 Test Item Value Reference Range Interpretation Comments UA Mucus (test code = UA Mucus) Few /LPF [facility] CenterNeonodeBA[facility] AND [id number] 13:08:00 Test Item Value Reference Range Interpretation Comments UA Amorph Monique (test code = Occasional /HPF UA Amorph Monique) [facility] Software[facility] AND [id number] 13:08:00 Test Item Value Reference Range Interpretation Comments UA Urobilinogen (test code = UA <=1.0 mg/dL 0.1-1.0 Urobilinogen) [facility] [employer] [id number] 13:08:00 Test Item Value Reference Range Interpretation Comments ABO/Rh (test code = ABO/Rh) A POS [facility] [employer] [id number] 13:08:00 Test Item Value Reference Range Interpretation Comments Antibody Scrn (test Negative (07/10/19 8:08 code = Antibody Scrn) AM) [facility] [employer] [id number] 13:08:00 Test Item Value Reference Range Interpretation Comments Glucose Lvl (test code = Glucose Lvl) 79 70-99 [facility] [employer] [id number] 13:08:00 Test Item Value Reference Range Interpretation Comments BUN (test code = BUN) 9 7-22 [facility] [employer] [id number] 13:08:00 Test Item Value Reference Range Interpretation Comments Creatinine Lvl (test code = Creatinine 0.64 0.50-1.40 Lvl) [facility] [employer] [id number] 13:08:00 Test Item Value Reference Range Interpretation Comments Sodium Lvl (test code = Sodium Lvl) 141 135-145 [facility] [id number] 13:08:00 Test Item Value Reference Range Interpretation Comments Potassium Lvl (test code = Potassium 4.1 3.5-5.1 Lvl) [facility] [id number] 13:08:00 Test Item Value Reference Range Interpretation Comments Chloride Lvl (test code = Chloride Lvl) 110 95-109 [facility] [employer] [id number] 13:08:00 Test Item Value Reference Range Interpretation Comments CO2 (test code = CO2) 25 24-32 [facility] [id number] 13:08:00 Test Item Value Reference Range Interpretation Comments Calcium Lvl (test code = Calcium Lvl) 7.9 8.5-10.5 [facility] [employer] [id number] 13:08:00 Test Item Value Reference Range Interpretation Comments Total Protein (test code = Total 5.6 6.4-8.4 Protein) [facility] [id number] 13:08:00 Test Item Value Reference Range Interpretation Comments Albumin Lvl (test code = Albumin Lvl) 2.4 3.5-5.0 [facility] [employer] [id number] 13:08:00 Test Item Value Reference Range Interpretation Comments ALT (test code = ALT) 14 See_Comment [Auto mated message] The system which ge nerated this result transmit jenna reference range : <=65. The reference range was not used to interpr et this result as domenic l/abnormal. [facility] [employer] [id number] 13:08:00 Test Item Value Reference Range Interpretation Comments AST (test code = AST) 14 See_Comment [Auto mated message] The system which ge nerated this result transmit jenna reference range : <=37. The reference range was not used to interpr et this result as domenic l/abnormal. [facility] [employer] [id number] 13:08:00 Test Item Value Reference Range Interpretation Comments Alk Phos (test code = Alk Phos) 57 39-136 [facility] [employer] [id number] 13:08:00 Test Item Value Reference Range Interpretation Comments Bili Total (test code = Bili Total) 0.2 0.2-1.3 [facility] HermannCHEM [id number] 13:08:00 Test Item Value Reference Range Interpretation Comments AGAP (test code = AGAP) 10.1 10.0-20.0 [facility] [employer] [id number] 13:08:00 Test Item Value Reference Range Interpretation Comments B/C Ratio (test code = B/C Ratio) 14 1 6-25 [facility] CenterannK [facility] [id number] 13:08:00 Test Item Value Reference Range Interpretation Comments Globulin (test code = Globulin) 3.2 2.7-4.2 [facility] [employer]K [employer] [id number] 13:08:00 Test Item Value Reference Range Interpretation Comments A/G Ratio (test code = A/G Ratio) 0.8 1 0.7-1.6 [facility] [employer] [id number] 13:08:00 Test Item Value Reference Range Interpretation Comments eGFR (test code = eGFR) 143 [facility] CenterannZolo Technologies [id number] 13:08:00 Test Item Value Reference Range Interpretation Comments U Amph Scr (test code Negative *NA*(07/10/19 = U Amph Scr) 8:08 AM) [facility]annDR[facility] [id number] 13:08:00 Test Item Value Reference Range Interpretation Comments U Judy Scr (test code Negative *NA*(07/10/19 = U Judy Scr) 8:08 AM) [facility] [id number] 13:08:00 Test Item Value Reference Range Interpretation Comments U Benzodiaz Scr (test Negative *NA*(07/10/19 code = U Benzodiaz Scr) 8:08 AM) [facility] [id number] 13:08:00 Test Item Value Reference Range Interpretation Comments U Cocaine Scr (test Negative *NA*(07/10/19 code = U Cocaine Scr) 8:08 AM) [facility]ann[facility] [id number] 13:08:00 Test Item Value Reference Range Interpretation Comments U Cannab Scr (test Negative *NA*(07/10/19 code = U Cannab Scr) 8:08 AM) [facility] [id number] 13:08:00 Test Item Value Reference Range Interpretation Comments U Opiate Scr (test Negative *NA*(07/10/19 code = U Opiate Scr) 8:08 AM) [facility] [id number] 13:08:00 Test Item Value Reference Range Interpretation Comments U Phencyclidine Scr (test Negative code = U Phencyclidine *NA*(07/10/19 8:08 Scr) AM) [facility] [id number] 13:08:00 Test Item Value Reference Range Interpretation Comments UDS Note (test code = See Note (07/10/19 8:08 UDS Note) AM) [facility] [id number] 13:08:00 Test Item Value Reference Range Interpretation Comments WBC (test code = WBC) 6.5 3.7-10.4 [facility] CenterNudhvjhPNXVGXGNRE0545-17-48 13:08:00 Test Item Value Reference Range Interpretation Comments RBC (test code = RBC) 3.49 4.20-5.40 [facility] CenterHospjqxVHSNLLRVGK9843-05-16 13:08:00 Test Item Value Reference Range Interpretation Comments Hgb (test code = Hgb) 10.0 12.0-16.0 [facility] CenterTmnwmwuMDVFADSHGA1522-12-41 13:08:00 Test Item Value Reference Range Interpretation Comments Hct (test code = Hct) 30.1 36.0-48.0 [facility] CenterVccppavSYURQQBIMH8673-98-10 13:08:00 Test Item Value Reference Range Interpretation Comments MCV (test code = MCV) 86.0 80.0-98.0 [facility] Cent[id number] 13:08:00 Test Item Value Reference Range Interpretation Comments MCH (test code = MCH) 28.5 pg 27.0-31.0 [facility] CenterJxeknugXTUQRWWZIA2616-60-05 13:08:00 Test Item Value Reference Range Interpretation Comments MCHC (test code = MCHC) 33.1 32.0-36.0 [facility] CenterWfinyxpMWTYBAQOJW7338-18-82 13:08:00 Test Item Value Reference Range Interpretation Comments RDW (test code = RDW) 14.5 11.5-14.5 [facility] CenterEucalfwKKJJRFOHMN2911-52-05 13:08:00 Test Item Value Reference Range Interpretation Comments Platelet (test code = Platelet) 170 133-450 [facility] Camp[id number] 13:08:00 Test Item Value Reference Range Interpretation Comments MPV (test code = MPV) 8.9 7.4-10.4 [place] 358980-03-17 13:08:00 Test Item Value Reference Range Interpretation Comments Fibrinogen Lvl (test code = Fibrinogen 417 230-510 Lvl) [facility] H[id number] 13:08:00 Test Item Value Reference Range Interpretation Comments Segs (test code = Segs) 62.0 45.0-75.0 [facility] Hos[id number] 13:08:00 Test Item Value Reference Range Interpretation Comments Lymphocytes (test code = Lymphocytes) 25.8 20.0-40.0 [place] 358980-03-17 13:08:00 Test Item Value Reference Range Interpretation Comments Monocytes (test code = Monocytes) 7.8 2.0-12.0 [place] 358980-03-17 13:08:00 Test Item Value Reference Range Interpretation Comments Eosinophils (test code = 4.1 See_Comment [A utomated message] The Eosinophils) system which ge nerated this result tra nsmitted reference range : <=4.0. The reference r lucy was not used to int erpret this result as normal/abnormal . [facility] H[id number] 13:08:00 Test Item Value Reference Range Interpretation Comments Basophils (test code = 0.3 See_Comment [Aut omated message] The Basophils) system which ge nerated this result tra nsmitted reference range : <=1.0. The reference r lucy was not used to int erpret this result as normal/abnormal . [facility] Hos[id number] 13:08:00 Test Item Value Reference Range Interpretation Comments Neutrophils # (test code = Neutrophils 4.0 1.5-8.1 #) [facility] Hospit[id number] 13:08:00 Test Item Value Reference Range Interpretation Comments Lymphocytes # (test code = Lymphocytes 1.7 1.0-5.5 #) [place] [address]-03-17 13:08:00 Test Item Value Reference Range Interpretation Comments Monocytes # (test code 0.5 See_Comment [Aut omated message] The = Monocytes #) system which generated this result tra nsmitted reference range : <=0.8. The reference r lucy was not used to int erpret this result as normal/abnormal . [place] 358980-03-17 13:08:00 Test Item Value Reference Range Interpretation Comments Eosinophils # (test code 0.3 See_Comment [A utomated message] The = Eosinophils #) system whic h generated this result tra nsmitted reference range : <=0.5. The reference r lucy was not used to int erpret this result as normal/abnormal . [facility] Camp[id number] 13:08:00 Test Item Value Reference Range Interpretation Comments Treponemal Ab (test code Non-Reactive = Treponemal Ab) *NA*(07/10/19 8:08 AM) [facility] CampusZfqbqyeCHNXLQMDBE5952-11-54 13:08:00 Test Item Value Reference Range Interpretation Comments Hep Bs Ag (test code Negative *NA*(07/10/19 = Hep Bs Ag) 8:08 AM) [facility] CampusLvomgvmDCAJNUBLOJ2644-86-43 13:08:00 Test Item Value Reference Range Interpretation Comments HIV. (test code = Negative (07/10/19 8:08 HIV.) AM) [facility] AND [id number] 13:08:00 Test Item Value Reference Range Interpretation Comments UA Color (test code = Yellow *NA*(07/10/19 UA Color) 8:08 AM) [facility] AND [id number] 13:08:00 Test Item Value Reference Range Interpretation Comments UA Turbidity (test code Slight *ABN*(07/10/19 = UA Turbidity) 8:08 AM) [facility] AND [id number] 13:08:00 Test Item Value Reference Range Interpretation Comments UA Spec Grav (test code = UA Spec 1.012 1 Grav) [facility] AND [id number] 13:08:00 Test Item Value Reference Range Interpretation Comments UA pH (test code = UA pH) 7.0 1 5.0-8.0 [facility] [id number] 13:08:00 Test Item Value Reference Range Interpretation Comments UA Protein (test code = UA Negative mg/dL Protein) [facility] AND [id number] 13:08:00 Test Item Value Reference Range Interpretation Comments UA Glucose (test code = UA Negative mg/dL Glucose) [facility] AND [id number] 13:08:00 Test Item Value Reference Range Interpretation Comments UA Ketones (test code = UA Trace mg/dL Ketones) [facility] [id number] 13:08:00 Test Item Value Reference Range Interpretation Comments UA Bili (test code = Negative *NA*(07/10/19 UA Bili) 8:08 AM) [facility] [id number] 13:08:00 Test Item Value Reference Range Interpretation Comments UA Blood (test code = Negative (07/10/19 8:08 UA Blood) AM) [facility] [id number] 13:08:00 Test Item Value Reference Range Interpretation Comments UA Nitrite (test code Negative (07/10/19 8:08 = UA Nitrite) AM) [facility] [id number] 13:08:00 Test Item Value Reference Range Interpretation Comments UA Leuk Est (test Negative (07/10/19 8:08 code = UA Leuk Est) AM) [facility] [id number] 13:08:00 Test Item Value Reference Range Interpretation Comments UA Sq Epi (test code = UA Sq Occasional /LPF Epi) [facility] [id number] 13:08:00 Test Item Value Reference Range Interpretation Comments UA WBC (test code = 3 See_Comment [Automa jenna message] The UA WBC) system which ge nerated this result transmit jenna reference range : <=5. The reference range was not used to interpr et this result as domenic l/abnormal. [facility] [id number] 13:08:00 Test Item Value Reference Range Interpretation Comments UA RBC (test code = no gt See_Comment [Automa jenna message] The UA RBC) system which ge nerated this result transmit jenna reference range : <=2. The reference range was not used to interpr et this result as domenic l/abnormal. [facility] [id number] 13:08:00 Test Item Value Reference Range Interpretation Comments UA Mucus (test code = UA Mucus) Few /LPF [facility] [id number] 13:08:00 Test Item Value Reference Range Interpretation Comments UA Amorph Monique (test code = Occasional /HPF UA Amorph Monique) [facility] [id number] 13:08:00 Test Item Value Reference Range Interpretation Comments UA Urobilinogen (test code = UA <=1.0 mg/dL 0.1-1.0 Urobilinogen) [facility] [employer] [id number] 13:08:00 Test Item Value Reference Range Interpretation Comments ABO/Rh (test code = ABO/Rh) A POS [facility] [employer] [id number] 13:08:00 Test Item Value Reference Range Interpretation Comments Antibody Scrn (test Negative (07/10/19 8:08 code = Antibody Scrn) AM) [facility] [employer] [id number] 13:08:00 Test Item Value Reference Range Interpretation Comments Glucose Lvl (test code = Glucose Lvl) 79 70-99 [facility] [employer] [id number] 13:08:00 Test Item Value Reference Range Interpretation Comments BUN (test code = BUN) 9 7-22 [facility] [employer] [id number] 13:08:00 Test Item Value Reference Range Interpretation Comments Creatinine Lvl (test code = Creatinine 0.64 0.50-1.40 Lvl) [facility] [employer]2020-03-17 13:08:00 Test Item Value Reference Range Interpretation Comments Sodium Lvl (test code = Sodium Lvl) 141 135-145 [facility] [employer] [id number] 13:08:00 Test Item Value Reference Range Interpretation Comments Potassium Lvl (test code = Potassium 4.1 3.5-5.1 Lvl) [facility] [employer] [id number] 13:08:00 Test Item Value Reference Range Interpretation Comments Chloride Lvl (test code = Chloride Lvl) 110 95-109 [facility] [employer] [id number] 13:08:00 Test Item Value Reference Range Interpretation Comments CO2 (test code = CO2) 25 24-32 [facility] [employer] [id number] 13:08:00 Test Item Value Reference Range Interpretation Comments Calcium Lvl (test code = Calcium Lvl) 7.9 8.5-10.5 [facility] [employer] [id number] 13:08:00 Test Item Value Reference Range Interpretation Comments Total Protein (test code = Total 5.6 6.4-8.4 Protein) [facility] [employer] [id number] 13:08:00 Test Item Value Reference Range Interpretation Comments Albumin Lvl (test code = Albumin Lvl) 2.4 3.5-5.0 [facility] [employer]2020-03-17 13:08:00 Test Item Value Reference Range Interpretation Comments ALT (test code = ALT) 14 See_Comment [Auto mated message] The system which ge nerated this result transmit jenna reference range : <=65. The reference range was not used to interpr et this result as domenic l/abnormal. [employer]0-03-17 13:08:00 Test Item Value Reference Range Interpretation Comments AST (test code = AST) 14 See_Comment [Auto mated message] The system which ge nerated this result transmit jenna reference range : <=37. The reference range was not used to interpr et this result as domenic l/abnormal. [employer]0-03-17 13:08:00 Test Item Value Reference Range Interpretation Comments Alk Phos (test code = Alk Phos) 57 39-136 [facility] [employer]2020-03-17 13:08:00 Test Item Value Reference Range Interpretation Comments Bili Total (test code = Bili Total) 0.2 0.2-1.3 [facility] [employer]0-03-17 13:08:00 Test Item Value Reference Range Interpretation Comments AGAP (test code = AGAP) 10.1 10.0-20.0 [employer]-03-17 13:08:00 Test Item Value Reference Range Interpretation Comments B/C Ratio (test code = B/C Ratio) 14 1 6-25 [facility] [employer]-03-17 13:08:00 Test Item Value Reference Range Interpretation Comments Globulin (test code = Globulin) 3.2 2.7-4.2 [facility] [employer]-03-17 13:08:00 Test Item Value Reference Range Interpretation Comments A/G Ratio (test code = A/G Ratio) 0.8 1 0.7-1.6 [employer]-03-17 13:08:00 Test Item Value Reference Range Interpretation Comments eGFR (test code = eGFR) 143 [facility] [employer]2020-03-17 13:08:00 Test Item Value Reference Range Interpretation Comments U Amph Scr (test code Negative *NA*(07/10/19 = U Amph Scr) 8:08 AM) [facility] [employer]2020-03-17 13:08:00 Test Item Value Reference Range Interpretation Comments U Judy Scr (test code Negative *NA*(07/10/19 = U Judy Scr) 8:08 AM) [facility] [id number] 13:08:00 Test Item Value Reference Range Interpretation Comments U Benzodiaz Scr (test Negative *NA*(07/10/19 code = U Benzodiaz Scr) 8:08 AM) [facility] [id number] 13:08:00 Test Item Value Reference Range Interpretation Comments U Cocaine Scr (test Negative *NA*(07/10/19 code = U Cocaine Scr) 8:08 AM) [facility] [id number] 13:08:00 Test Item Value Reference Range Interpretation Comments U Cannab Scr (test Negative *NA*(07/10/19 code = U Cannab Scr) 8:08 AM) [facility] [id number] 13:08:00 Test Item Value Reference Range Interpretation Comments U Opiate Scr (test Negative *NA*(07/10/19 code = U Opiate Scr) 8:08 AM) [facility] [id number] 13:08:00 Test Item Value Reference Range Interpretation Comments U Phencyclidine Scr (test Negative code = U Phencyclidine *NA*(07/10/19 8:08 Scr) AM) [facility] [id number] 13:08:00 Test Item Value Reference Range Interpretation Comments UDS Note (test code = See Note (07/10/19 8:08 UDS Note) AM) [facility] CenterLinkrnjIUWIAHTDMN0175-84-02 13:08:00 Test Item Value Reference Range Interpretation Comments WBC (test code = WBC) 6.5 3.7-10.4 [facility] FpmcwnsYINIKCUCJG3781-89-78 13:08:00 Test Item Value Reference Range Interpretation Comments RBC (test code = RBC) 3.49 4.20-5.40 [facility] EyaokorGEAXURGVWH4472-90-46 13:08:00 Test Item Value Reference Range Interpretation Comments Hgb (test code = Hgb) 10.0 12.0-16.0 [facility] RezuwhnWDVJRQQFFX9952-71-95 13:08:00 Test Item Value Reference Range Interpretation Comments Hct (test code = Hct) 30.1 36.0-48.0 [facility] NbwerxgGQXJWGQWKU8243-63-96 13:08:00 Test Item Value Reference Range Interpretation Comments MCV (test code = MCV) 86.0 80.0-98.0 [place] [address]-03-17 13:08:00 Test Item Value Reference Range Interpretation Comments MCH (test code = MCH) 28.5 pg 27.0-31.0 [place] [address]-03-17 13:08:00 Test Item Value Reference Range Interpretation Comments MCHC (test code = MCHC) 33.1 32.0-36.0 [place] [address]-03-17 13:08:00 Test Item Value Reference Range Interpretation Comments RDW (test code = RDW) 14.5 11.5-14.5 [place] [address]-03-17 13:08:00 Test Item Value Reference Range Interpretation Comments Platelet (test code = Platelet) 170 133-450 [place] [address]-03-17 13:08:00 Test Item Value Reference Range Interpretation Comments MPV (test code = MPV) 8.9 7.4-10.4 [place] [address]-03-17 13:08:00 Test Item Value Reference Range Interpretation Comments Fibrinogen Lvl (test code = Fibrinogen 417 230-510 Lvl) [facility]ttikchHSWKEDPAJH2337-35-13 13:08:00 Test Item Value Reference Range Interpretation Comments Segs (test code = Segs) 62.0 45.0-75.0 [place] [address]-03-17 13:08:00 Test Item Value Reference Range Interpretation Comments Lymphocytes (test code = Lymphocytes) 25.8 20.0-40.0 [place] [address]-03-17 13:08:00 Test Item Value Reference Range Interpretation Comments Monocytes (test code = Monocytes) 7.8 2.0-12.0 [place] [address]-03-17 13:08:00 Test Item Value Reference Range Interpretation Comments Eosinophils (test code = 4.1 See_Comment [A utomated message] The Eosinophils) system which ge nerated this result tra nsmitted reference range : <=4.0. The reference r lucy was not used to int erpret this result as normal/abnormal . [place] 358980-03-17 13:08:00 Test Item Value Reference Range Interpretation Comments Basophils (test code = 0.3 See_Comment [Aut omated message] The Basophils) system which ge nerated this result tra nsmitted reference range : <=1.0. The reference r lucy was not used to int erpret this result as normal/abnormal . [facility]fbbjzhPRAXCSZNDR5194-26-61 13:08:00 Test Item Value Reference Range Interpretation Comments Neutrophils # (test code = Neutrophils 4.0 1.5-8.1 #) [facility]XyqmkzdIMUTEUKXGY9899-74-69 13:08:00 Test Item Value Reference Range Interpretation Comments Lymphocytes # (test code = Lymphocytes 1.7 1.0-5.5 #) [facility]YhhznuhIKIZFLABAF9030-75-89 13:08:00 Test Item Value Reference Range Interpretation Comments Monocytes # (test code 0.5 See_Comment [Aut omated message] The = Monocytes #) system which generated this result tra nsmitted reference range : <=0.8. The reference r lucy was not used to int erpret this result as normal/abnormal . [facility]intEujdwzkXWCDLJLGTM0049-25-06 13:08:00 Test Item Value Reference Range Interpretation Comments Eosinophils # (test code 0.3 See_Comment [A utomated message] The = Eosinophils #) system whic h generated this result tra nsmitted reference range : <=0.5. The reference r lucy was not used to int erpret this result as normal/abnormal . [facility]PmldowrFFQIIVSBCT2605-11-65 13:08:00 Test Item Value Reference Range Interpretation Comments Treponemal Ab (test code Non-Reactive = Treponemal Ab) *NA*(07/10/19 8:08 AM) [facility] CampusMspvhgmPLTSDDCIDW9220-64-02 13:08:00 Test Item Value Reference Range Interpretation Comments Hep Bs Ag (test code Negative *NA*(07/10/19 = Hep Bs Ag) 8:08 AM) [facility] CampusNvqamgdEKZXLIYEER8698-82-93 13:08:00 Test Item Value Reference Range Interpretation Comments HIV. (test code = Negative (07/10/19 8:08 HIV.) AM) [facility] AND [id number] 13:08:00 Test Item Value Reference Range Interpretation Comments UA Color (test code = Yellow *NA*(07/10/19 UA Color) 8:08 AM) [facility] AND [id number] 13:08:00 Test Item Value Reference Range Interpretation Comments UA Turbidity (test code Slight *ABN*(07/10/19 = UA Turbidity) 8:08 AM) [facility] AND [id number] 13:08:00 Test Item Value Reference Range Interpretation Comments UA Spec Grav (test code = UA Spec 1.012 1 Grav) [facility] AND [id number] 13:08:00 Test Item Value Reference Range Interpretation Comments UA pH (test code = UA pH) 7.0 1 5.0-8.0 [facility] AND [id number] 13:08:00 Test Item Value Reference Range Interpretation Comments UA Protein (test code = UA Negative mg/dL Protein) [facility] AND [id number] 13:08:00 Test Item Value Reference Range Interpretation Comments UA Glucose (test code = UA Negative mg/dL Glucose) [facility] AND [id number] 13:08:00 Test Item Value Reference Range Interpretation Comments UA Ketones (test code = UA Trace mg/dL Ketones) [facility] AND [id number] 13:08:00 Test Item Value Reference Range Interpretation Comments UA Bili (test code = Negative *NA*(07/10/19 UA Bili) 8:08 AM) [facility] AND [id number] 13:08:00 Test Item Value Reference Range Interpretation Comments UA Blood (test code = Negative (07/10/19 8:08 UA Blood) AM) [facility] AND [id number] 13:08:00 Test Item Value Reference Range Interpretation Comments UA Nitrite (test code Negative (07/10/19 8:08 = UA Nitrite) AM) [facility] AND [id number] 13:08:00 Test Item Value Reference Range Interpretation Comments UA Leuk Est (test Negative (07/10/19 8:08 code = UA Leuk Est) AM) [facility] AND [id number] 13:08:00 Test Item Value Reference Range Interpretation Comments UA Sq Epi (test code = UA Sq Occasional /LPF Epi) [facility] AND [id number] 13:08:00 Test Item Value Reference Range Interpretation Comments UA WBC (test code = 3 See_Comment [Automa jenna message] The UA WBC) system which ge nerated this result transmit jenna reference range : <=5. The reference range was not used to interpr et this result as domenic l/abnormal. [facility] AND [id number] 13:08:00 Test Item Value Reference Range Interpretation Comments UA RBC (test code = no gt See_Comment [Automa jenna message] The UA RBC) system which ge nerated this result transmit jenna reference range : <=2. The reference range was not used to interpr et this result as domenic l/abnormal. [facility] AND [id number] 13:08:00 Test Item Value Reference Range Interpretation Comments UA Mucus (test code = UA Mucus) Few /LPF [facility] AND [id number] 13:08:00 Test Item Value Reference Range Interpretation Comments UA Amorph Monique (test code = Occasional /HPF UA Amorph Monique) [facility] AND [id number] 13:08:00 Test Item Value Reference Range Interpretation Comments UA Urobilinogen (test code = UA <=1.0 mg/dL 0.1-1.0 Urobilinogen) [facility] [id number] 21:51:00 Test Item Value Reference Range Interpretation Comments ABO/Rh (test code = ABO/Rh) [facility]IEEWFMKITYTN9588-[facility]-35 21:51:00 Test Item Value Reference Range Interpretation Comments AGAP (test code = AGAP) 10.5 10.0-20.0 [facility]GhahqhxFOFAWNGOONIQ9993-59-69 21:51:00 Test Item Value Reference Range Interpretation Comments B/C Ratio (test code = B/C Ratio) 11 1 6-25 [facility] CenterYqmxyyrKTRNBRZJTZYZ4241-58-77 21:51:00 Test Item Value Reference Range Interpretation Comments Globulin (test code = Globulin) 4.6 2.7-4.2 [facility] HospitalRdukbzvGCVGUNMMSMIW4409-36-76 21:51:00 Test Item Value Reference Range Interpretation Comments A/G Ratio (test code = A/G Ratio) 0.7 1 0.7-1.6 [facility]IzngcyiPZXRKIJFKSOB7074-68-17 21:51:00 Test Item Value Reference Range Interpretation Comments Glucose Lvl (test code = Glucose Lvl) 87 70-99 [facility] HospitalOyqzjziRRWJXGLKXCWO4059-37-82 21:51:00 Test Item Value Reference Range Interpretation Comments BUN (test code = BUN) 7 7-22 [facility] HospitalWxeyokfSFLCWNXYMTCL2846-84-31 21:51:00 Test Item Value Reference Range Interpretation Comments Creatinine Lvl (test code = Creatinine 0.64 0.50-1.40 Lvl) [facility] HospitalNmgwxpfLNQTPSHMPCTU5563-58-89 21:51:00 Test Item Value Reference Range Interpretation Comments Sodium Lvl (test code = Sodium Lvl) 138 135-145 [facility] HospitalWfuwetfIGKTBVRQEYPG3670-76-08 21:51:00 Test Item Value Reference Range Interpretation Comments Potassium Lvl (test code = Potassium 3.5 3.5-5.1 Lvl) [facility] HospitalNkdmieqTUNHTNSUVQPB4051-43-31 21:51:00 Test Item Value Reference Range Interpretation Comments Chloride Lvl (test code = Chloride Lvl) 105 95-109 [facility] HospitalWglciddCVGSJLWMVVJB1325-27-68 21:51:00 Test Item Value Reference Range Interpretation Comments CO2 (test code = CO2) 26 24-32 [facility] HospitalYlrsilgEZMMBZGNAKTH4359-56-36 21:51:00 Test Item Value Reference Range Interpretation Comments Calcium Lvl (test code = Calcium Lvl) 8.8 8.5-10.5 [facility] HospitalUdxvobeGKFGIERLIDEM7186-03-86 21:51:00 Test Item Value Reference Range Interpretation Comments Total Protein (test code = Total 8.0 6.4-8.4 Protein) [facility] HospitalEhhajhlJJOSZATTGCVH0574-80-45 21:51:00 Test Item Value Reference Range Interpretation Comments Albumin Lvl (test code = Albumin Lvl) 3.4 3.5-5.0 [facility] HospitalJdlfkbeRFDZEORYWYXM9331-52-65 21:51:00 Test Item Value Reference Range Interpretation Comments ALT (test code = ALT) 13 See_Comment [Auto mated message] The system which ge nerated this result transmit jenna reference range : <=65. The reference range was not used to interpr et this result as domenic l/abnormal. [facility] HospitalVnicmvqKDZQLQJOGFYS8522-61-18 21:51:00 Test Item Value Reference Range Interpretation Comments AST (test code = AST) 10 See_Comment [Auto mated message] The system which ge nerated this result transmit jenna reference range : <=37. The reference range was not used to interpr et this result as domenic l/abnormal. [facility] HospitalRolhmraEDSIKLHMBYMG1482-37-63 21:51:00 Test Item Value Reference Range Interpretation Comments Alk Phos (test code = Alk Phos) 36 39-136 [facility] HospitalLgzqvbmNTJGNCOOFWPL2131-30-43 21:51:00 Test Item Value Reference Range Interpretation Comments Bili Total (test code = Bili Total) 0.3 0.2-1.3 [facility] HospitalYljtfziGRYTOKYBXBYG1965-83-89 21:51:00 Test Item Value Reference Range Interpretation Comments eGFR (test code = eGFR) 145 [facility]CkkhrwqDSGTNVLZIHWAQ8178-89-04 21:51:00 Test Item Value Reference Range Interpretation Comments hCG Tot (test code = hCG Tot) [address] [facility] HospitalZsawlgwDYBCVUKMPA9932-12-27 21:51:00 Test Item Value Reference Range Interpretation Comments WBC (test code = WBC) 9.0 3.7-10.4 [facility] HospitalJmdblfrSTXOCMKKOF9229-84-85 21:51:00 Test Item Value Reference Range Interpretation Comments RBC (test code = RBC) 4.28 4.20-5.40 [facility] HospitalEejsyfhLAESFWVWFY4832-88-17 21:51:00 Test Item Value Reference Range Interpretation Comments Hgb (test code = Hgb) 11.5 12.0-16.0 [facility] HospitalZvnhbpoTYSKPUHNQT0839-89-71 21:51:00 Test Item Value Reference Range Interpretation Comments Hct (test code = Hct) 34.5 36.0-48.0 [facility] HospitalIcrpxwsYDCHUKEBDE7458-34-05 21:51:00 Test Item Value Reference Range Interpretation Comments MCV (test code = MCV) 80.5 80.0-98.0 [facility] HospitalKwyktgkBBANQNRQHY8085-64-52 21:51:00 Test Item Value Reference Range Interpretation Comments MCH (test code = MCH) 26.8 pg 27.0-31.0 [facility] HospitalFhxxqkqZWNBJTYTSV7199-68-81 21:51:00 Test Item Value Reference Range Interpretation Comments MCHC (test code = MCHC) 33.2 32.0-36.0 [facility] HospitalDyafkmrPDUMJLDTWQ0570-48-55 21:51:00 Test Item Value Reference Range Interpretation Comments RDW (test code = RDW) 14.6 11.5-14.5 [facility] HospitalAfzhxyjQXJWPNNXFL5611-55-80 21:51:00 Test Item Value Reference Range Interpretation Comments Platelet (test code = Platelet) 312 133-450 [facility] HospitalCyvnigaYXMCJSDTZC3484-50-42 21:51:00 Test Item Value Reference Range Interpretation Comments MPV (test code = MPV) 8.2 7.4-10.4 [facility] HospitalOwwcofqRLMWHBLMLI3411-23-16 21:51:00 Test Item Value Reference Range Interpretation Comments Segs (test code = Segs) 69.1 45.0-75.0 [facility] HospitalDjyvbodCOKHVJGSQG6260-88-02 21:51:00 Test Item Value Reference Range Interpretation Comments Lymphocytes (test code = Lymphocytes) 18.1 20.0-40.0 [facility] HospitalGxnszcjBDDWKXOEIY9975-66-96 21:51:00 Test Item Value Reference Range Interpretation Comments Monocytes (test code = Monocytes) 3.6 2.0-12.0 [facility] HospitalOzgsfwzSRPYPLRKLR0539-66-40 21:51:00 Test Item Value Reference Range Interpretation Comments Eosinophils (test code = 8.9 See_Comment [A utomated message] The Eosinophils) system which ge nerated this result tra nsmitted reference range : <=4.0. The reference r lucy was not used to int erpret this result as normal/abnormal . [facility] HospitalRqiwzncZDSNNTFEZV5816-37-52 21:51:00 Test Item Value Reference Range Interpretation Comments Basophils (test code = 0.3 See_Comment [Aut omated message] The Basophils) system which ge nerated this result tra nsmitted reference range : <=1.0. The reference r lucy was not used to int erpret this result as normal/abnormal . [facility] HospitalPtmujxhMGJDVWXHAJ0712-70-58 21:51:00 Test Item Value Reference Range Interpretation Comments Neutrophils # (test code = Neutrophils 6.2 1.5-8.1 #) [facility] HospitalQmpolbwFPTDLGGZYZ0543-27-83 21:51:00 Test Item Value Reference Range Interpretation Comments Lymphocytes # (test code = Lymphocytes 1.6 1.0-5.5 #) [facility] HospitalTidapidIAGPRSRKKS8040-35-81 21:51:00 Test Item Value Reference Range Interpretation Comments Monocytes # (test code 0.3 See_Comment [Aut omated message] The = Monocytes #) system which generated this result tra nsmitted reference range : <=0.8. The reference r lucy was not used to int erpret this result as normal/abnormal . [facility] CenterJamtlmbXEXBJQSMOM1059-61-24 21:51:00 Test Item Value Reference Range Interpretation Comments Eosinophils # (test code 0.8 See_Comment [A utomated message] The = Eosinophils #) system whic h generated this result tra nsmitted reference range : <=0.5. The reference r lucy was not used to int erpret this result as normal/abnormal . [facility] [id number] 21:51:00 Test Item Value Reference Range Interpretation Comments UA Color (test code = Yellow *NA*(03/10/19 UA Color) 3:51 PM) [facility] [id number] 21:51:00 Test Item Value Reference Range Interpretation Comments UA Turbidity (test code Marked *ABN*(03/10/19 = UA Turbidity) 3:51 PM) [facility] [id number] 21:51:00 Test Item Value Reference Range Interpretation Comments UA Spec Grav (test code = UA Spec 1.020 1 Grav) [facility] [id number] 21:51:00 Test Item Value Reference Range Interpretation Comments UA pH (test code = UA pH) 7.0 1 5.0-8.0 [facility] [id number] 21:51:00 Test Item Value Reference Range Interpretation Comments UA Protein (test code = UA Protein) 100 mg/dL [facility] [id number] 21:51:00 Test Item Value Reference Range Interpretation Comments UA Glucose (test code = UA Negative mg/dL Glucose) [facility] [id number] 21:51:00 Test Item Value Reference Range Interpretation Comments UA Ketones (test code = UA Negative mg/dL Ketones) [facility] [id number] 21:51:00 Test Item Value Reference Range Interpretation Comments UA Bili (test code = Negative *NA*(03/10/19 UA Bili) 3:51 PM) [facility] [id number] 21:51:00 Test Item Value Reference Range Interpretation Comments UA Blood (test code = Negative (03/10/19 3:51 UA Blood) PM) [facility] AND [id number] 21:51:00 Test Item Value Reference Range Interpretation Comments UA Nitrite (test code Negative (03/10/19 3:51 = UA Nitrite) PM) [facility] AND [id number] 21:51:00 Test Item Value Reference Range Interpretation Comments UA Leuk Est (test code Small *ABN*(03/10/19 = UA Leuk Est) 3:51 PM) [facility] AND [id number] 21:51:00 Test Item Value Reference Range Interpretation Comments UA Sq Epi (test code = UA Sq Moderate /LPF Epi) [facility] AND [id number] 21:51:00 Test Item Value Reference Range Interpretation Comments UA WBC (test code = 14 See_Comment [Automa jenna message] The UA WBC) system which ge nerated this result transmit jenna reference range : <=5. The reference range was not used to interpr et this result as domenic l/abnormal. [facility] AND [id number] 21:51:00 Test Item Value Reference Range Interpretation Comments UA RBC (test code = 2 See_Comment [Automa jenna message] The UA RBC) system which ge nerated this result transmit jenna reference range : <=2. The reference range was not used to interpr et this result as domenic l/abnormal. [facility] AND [id number] 21:51:00 Test Item Value Reference Range Interpretation Comments UA Bacteria (test code = UA Occasional /HPF Bacteria) [facility] AND [id number] 21:51:00 Test Item Value Reference Range Interpretation Comments UA Mucus (test code = UA Mucus) Many /LPF [facility] AND [id number] 21:51:00 Test Item Value Reference Range Interpretation Comments UA Amorph Monique (test code = Occasional /HPF UA Amorph Monique) [facility] AND [id number] 21:51:00 Test Item Value Reference Range Interpretation Comments UA Urobilinogen (test code = UA <=1.0 mg/dL 0.1-1.0 Urobilinogen) [facility] BANK IUAXGWX7604-10-88 21:51:00 Test Item Value Reference Range Interpretation Comments ABO/Rh (test code = ABO/Rh) A POS [facility] HospitalUgcayojDRECZRAIKQKY2539-99-61 21:51:00 Test Item Value Reference Range Interpretation Comments AGAP (test code = AGAP) 10.5 10.0-20.0 [facility] HospitalDxnatgyMXCTHJILWYWI2355-18-19 21:51:00 Test Item Value Reference Range Interpretation Comments B/C Ratio (test code = B/C Ratio) 11 1 6-25 [facility] HospitalSdhzlwvAKULUAUSRTVI1956-24-18 21:51:00 Test Item Value Reference Range Interpretation Comments Globulin (test code = Globulin) 4.6 2.7-4.2 [facility] HospitalQzsobnrTGWCASHNIQQZ9383-58-25 21:51:00 Test Item Value Reference Range Interpretation Comments A/G Ratio (test code = A/G Ratio) 0.7 1 0.7-1.6 [facility] HospitalYbckgyrOLTDSGJLCFSJ0919-01-27 21:51:00 Test Item Value Reference Range Interpretation Comments Glucose Lvl (test code = Glucose Lvl) 87 70-99 [facility] HospitalApfyblrLKTTZRNYGVUB0717-55-79 21:51:00 Test Item Value Reference Range Interpretation Comments BUN (test code = BUN) 7 7-22 [facility] HospitalDvdmvivETYQKANJFSAA1045-83-29 21:51:00 Test Item Value Reference Range Interpretation Comments Creatinine Lvl (test code = Creatinine 0.64 0.50-1.40 Lvl) [facility] HospitalEzxwiusUXHOWYBVVMMD7633-82-99 21:51:00 Test Item Value Reference Range Interpretation Comments Sodium Lvl (test code = Sodium Lvl) 138 135-145 [facility] HospitalLartqssAVIXTCHZNMGM4021-98-49 21:51:00 Test Item Value Reference Range Interpretation Comments Potassium Lvl (test code = Potassium 3.5 3.5-5.1 Lvl) [facility] HospitalJdrlynjZNUSEBJMLCUW6641-01-01 21:51:00 Test Item Value Reference Range Interpretation Comments Chloride Lvl (test code = Chloride Lvl) 105 95-109 [facility] HospitalIahtinbKBNGICKFQYLO3398-46-81 21:51:00 Test Item Value Reference Range Interpretation Comments CO2 (test code = CO2) 26 24-32 [facility] HospitalPbbwkdqHNSCVPONZLIX4280-10-20 21:51:00 Test Item Value Reference Range Interpretation Comments Calcium Lvl (test code = Calcium Lvl) 8.8 8.5-10.5 [facility] HospitalNabbtrqMFLDRICTLVQF2121-79-10 21:51:00 Test Item Value Reference Range Interpretation Comments Total Protein (test code = Total 8.0 6.4-8.4 Protein) [facility] HospitalXcnlxmnDFEFCAOYHJNN9675-83-74 21:51:00 Test Item Value Reference Range Interpretation Comments Albumin Lvl (test code = Albumin Lvl) 3.4 3.5-5.0 [facility] HospitalTmhcixmXXYFANZSVVRY5177-25-18 21:51:00 Test Item Value Reference Range Interpretation Comments ALT (test code = ALT) 13 See_Comment [Auto mated message] The system which ge nerated this result transmit jenna reference range : <=65. The reference range was not used to interpr et this result as domenic l/abnormal. [facility] HospitalUvwgayaWSNCPXQBBVRL3886-06-61 21:51:00 Test Item Value Reference Range Interpretation Comments AST (test code = AST) 10 See_Comment [Auto mated message] The system which ge nerated this result transmit jenna reference range : <=37. The reference range was not used to interpr et this result as domenic l/abnormal. [facility] HospitalQijihakWUINEOGCMEUJ7718-67-28 21:51:00 Test Item Value Reference Range Interpretation Comments Alk Phos (test code = Alk Phos) 36 39-136 [facility] HospitalQkeihmyOKARQSLSFIBZ3440-16-16 21:51:00 Test Item Value Reference Range Interpretation Comments Bili Total (test code = Bili Total) 0.3 0.2-1.3 [facility] HospitalNoiztgvSLYWTACRSKVZ3227-04-79 21:51:00 Test Item Value Reference Range Interpretation Comments eGFR (test code = eGFR) 145 [place] [id number] 21:51:00 Test Item Value Reference Range Interpretation Comments hCG Tot (test code = hCG Tot) 01122 [facility] HospitalGywgyuaNSATIGRFTR5920-37-97 21:51:00 Test Item Value Reference Range Interpretation Comments WBC (test code = WBC) 9.0 3.7-10.4 [facility] HospitalJqjiixaCCWIMSGKEJ2761-08-71 21:51:00 Test Item Value Reference Range Interpretation Comments RBC (test code = RBC) 4.28 4.20-5.40 [facility] HospitalNynqzlhLRTRECDMCV6811-26-36 21:51:00 Test Item Value Reference Range Interpretation Comments Hgb (test code = Hgb) 11.5 12.0-16.0 [facility] HospitalOzvrkqtXWRYZJSUZU2759-24-84 21:51:00 Test Item Value Reference Range Interpretation Comments Hct (test code = Hct) 34.5 36.0-48.0 [facility] HospitalKshgbadHCKMIJODAB6914-22-12 21:51:00 Test Item Value Reference Range Interpretation Comments MCV (test code = MCV) 80.5 80.0-98.0 [facility] HospitalPyjeeqpAUIRDTETSJ9619-61-27 21:51:00 Test Item Value Reference Range Interpretation Comments MCH (test code = MCH) 26.8 pg 27.0-31.0 [facility] HospitalRafjjldTRPOKTAQQW0627-05-96 21:51:00 Test Item Value Reference Range Interpretation Comments MCHC (test code = MCHC) 33.2 32.0-36.0 [facility] HospitalQohtrccITRIKDEMSN2036-72-59 21:51:00 Test Item Value Reference Range Interpretation Comments RDW (test code = RDW) 14.6 11.5-14.5 [facility] HospitalDqwacpiFXYJOTYZUL2116-51-65 21:51:00 Test Item Value Reference Range Interpretation Comments Platelet (test code = Platelet) 312 133-450 [facility] HospitalZasafdyPFWRCSJWLJ4350-65-17 21:51:00 Test Item Value Reference Range Interpretation Comments MPV (test code = MPV) 8.2 7.4-10.4 [facility] HospitalMbyqxihOWUODELEGS5222-59-64 21:51:00 Test Item Value Reference Range Interpretation Comments Segs (test code = Segs) 69.1 45.0-75.0 [id number] 21:51:00 Test Item Value Reference Range Interpretation Comments Lymphocytes (test code = Lymphocytes) 18.1 20.0-40.0 [facility] HospitalVsfxknnDSFVBBZLUY9924-36-03 21:51:00 Test Item Value Reference Range Interpretation Comments Monocytes (test code = Monocytes) 3.6 2.0-12.0 [facility] Hospit[id number] 21:51:00 Test Item Value Reference Range Interpretation Comments Eosinophils (test code = 8.9 See_Comment [A utomated message] The Eosinophils) system which ge nerated this result tra nsmitted reference range : <=4.0. The reference r lucy was not used to int erpret this result as normal/abnormal . [facility] HospitalWjivadlGHMMVBYUGC7705-72-13 21:51:00 Test Item Value Reference Range Interpretation Comments Basophils (test code = 0.3 See_Comment [Aut omated message] The Basophils) system which ge nerated this result tra nsmitted reference range : <=1.0. The reference r lucy was not used to int erpret this result as normal/abnormal . [facility] HospitalVmfjfueTDLTTRKWCS4601-88-52 21:51:00 Test Item Value Reference Range Interpretation Comments Neutrophils # (test code = Neutrophils 6.2 1.5-8.1 #) [facility] Hospit[id number] 21:51:00 Test Item Value Reference Range Interpretation Comments Lymphocytes # (test code = Lymphocytes 1.6 1.0-5.5 #) [facility] HospitalFoiamutNVWNRZTYNZ7324-09-00 21:51:00 Test Item Value Reference Range Interpretation Comments Monocytes # (test code 0.3 See_Comment [Aut omated message] The = Monocytes #) system which generated this result tra nsmitted reference range : <=0.8. The reference r lucy was not used to int erpret this result as normal/abnormal . [facility] HospitalJxghvxqBBLACZDLKT4977-37-96 21:51:00 Test Item Value Reference Range Interpretation Comments Eosinophils # (test code 0.8 See_Comment [A utomated message] The = Eosinophils #) system whic h generated this result tra nsmitted reference range : <=0.5. The reference r lucy was not used to int erpret this result as normal/abnormal . [facility] AND [id number] 21:51:00 Test Item Value Reference Range Interpretation Comments UA Color (test code = Yellow *NA*(03/10/19 UA Color) 3:51 PM) [facility] AND [id number] 21:51:00 Test Item Value Reference Range Interpretation Comments UA Turbidity (test code Marked *ABN*(03/10/19 = UA Turbidity) 3:51 PM) [facility] AND [id number] 21:51:00 Test Item Value Reference Range Interpretation Comments UA Spec Grav (test code = UA Spec 1.020 1 Grav) [facility] AND [id number] 21:51:00 Test Item Value Reference Range Interpretation Comments UA pH (test code = UA pH) 7.0 1 5.0-8.0 [facility] AND [id number] 21:51:00 Test Item Value Reference Range Interpretation Comments UA Protein (test code = UA Protein) 100 mg/dL [facility] AND [id number] 21:51:00 Test Item Value Reference Range Interpretation Comments UA Glucose (test code = UA Negative mg/dL Glucose) [facility] AND [id number] 21:51:00 Test Item Value Reference Range Interpretation Comments UA Ketones (test code = UA Negative mg/dL Ketones) [facility] AND [id number] 21:51:00 Test Item Value Reference Range Interpretation Comments UA Bili (test code = Negative *NA*(03/10/19 UA Bili) 3:51 PM) [facility] AND [id number] 21:51:00 Test Item Value Reference Range Interpretation Comments UA Blood (test code = Negative (03/10/19 3:51 UA Blood) PM) [facility] AND [id number] 21:51:00 Test Item Value Reference Range Interpretation Comments UA Nitrite (test code Negative (03/10/19 3:51 = UA Nitrite) PM) [facility] AND [id number] 21:51:00 Test Item Value Reference Range Interpretation Comments UA Leuk Est (test code Small *ABN*(03/10/19 = UA Leuk Est) 3:51 PM) [facility] AND [id number] 21:51:00 Test Item Value Reference Range Interpretation Comments UA Sq Epi (test code = UA Sq Moderate /LPF Epi) [facility] AND [id number] 21:51:00 Test Item Value Reference Range Interpretation Comments UA WBC (test code = 14 See_Comment [Automa jenna message] The UA WBC) system which ge nerated this result transmit jenna reference range : <=5. The reference range was not used to interpr et this result as domenic l/abnormal. [facility] AND [id number] 21:51:00 Test Item Value Reference Range Interpretation Comments UA RBC (test code = 2 See_Comment [Automa jenna message] The UA RBC) system which ge nerated this result transmit jenna reference range : <=2. The reference range was not used to interpr et this result as domenic l/abnormal. [facility] AND [id number] 21:51:00 Test Item Value Reference Range Interpretation Comments UA Bacteria (test code = UA Occasional /HPF Bacteria) [facility] AND [id number] 21:51:00 Test Item Value Reference Range Interpretation Comments UA Mucus (test code = UA Mucus) Many /LPF [facility] AND [id number] 21:51:00 Test Item Value Reference Range Interpretation Comments UA Amorph Monique (test code = Occasional /HPF UA Amorph Monique) [facility] AND [id number] 21:51:00 Test Item Value Reference Range Interpretation Comments UA Urobilinogen (test code = UA <=1.0 mg/dL 0.1-1.0 Urobilinogen) [facility] [id number] 21:51:00 Test Item Value Reference Range Interpretation Comments ABO/Rh (test code = ABO/Rh) A POS [facility][id number] 21:51:00 Test Item Value Reference Range Interpretation Comments AGAP (test code = AGAP) 10.5 10.0-20.0 [facility] HospitalEjsppljTWFQKPJUSRDS2227-83-66 21:51:00 Test Item Value Reference Range Interpretation Comments B/C Ratio (test code = B/C Ratio) 11 1 6-25 [facility] HospitalVbbyrlvPAMOOZYONFSW7656-32-72 21:51:00 Test Item Value Reference Range Interpretation Comments Globulin (test code = Globulin) 4.6 2.7-4.2 [facility] HospitalIfuenbnWWUWFAKNSMAJ6027-17-49 21:51:00 Test Item Value Reference Range Interpretation Comments A/G Ratio (test code = A/G Ratio) 0.7 1 0.7-1.6 [facility] HospitalMthevafTRUQHUOKRIVS0827-84-44 21:51:00 Test Item Value Reference Range Interpretation Comments Glucose Lvl (test code = Glucose Lvl) 87 70-99 [facility] Hospital[id number] 21:51:00 Test Item Value Reference Range Interpretation Comments BUN (test code = BUN) 7 7-22 [facility] HospitalSqqypusIXCGXNAGXTNA9394-45-05 21:51:00 Test Item Value Reference Range Interpretation Comments Creatinine Lvl (test code = Creatinine 0.64 0.50-1.40 Lvl) [facility] HospitalYfhhetcTBBDVRKDLKPA6500-45-26 21:51:00 Test Item Value Reference Range Interpretation Comments Sodium Lvl (test code = Sodium Lvl) 138 135-145 [facility] HospitalOrfthbeTWZLBVVWSIRH8378-69-53 21:51:00 Test Item Value Reference Range Interpretation Comments Potassium Lvl (test code = Potassium 3.5 3.5-5.1 Lvl) [facility] HospitalYszgqvzWMABRFABHSXN4701-04-51 21:51:00 Test Item Value Reference Range Interpretation Comments Chloride Lvl (test code = Chloride Lvl) 105 95-109 [facility] HospitalCydkxmuEAQVXNDVNECI3360-76-88 21:51:00 Test Item Value Reference Range Interpretation Comments CO2 (test code = CO2) 26 24-32 [facility] HospitalFscjzegVQWWYDJNLXSS1740-68-60 21:51:00 Test Item Value Reference Range Interpretation Comments Calcium Lvl (test code = Calcium Lvl) 8.8 8.5-10.5 [facility] HospitalJlhfpndBFLMNYSZPMQI9371-13-03 21:51:00 Test Item Value Reference Range Interpretation Comments Total Protein (test code = Total 8.0 6.4-8.4 Protein) [facility] HospitalSnkfcpaPRQLKKGMVEOU9686-96-26 21:51:00 Test Item Value Reference Range Interpretation Comments Albumin Lvl (test code = Albumin Lvl) 3.4 3.5-5.0 [facility] HospitalJlcumfcFZYIVHINCCRQ7780-76-42 21:51:00 Test Item Value Reference Range Interpretation Comments ALT (test code = ALT) 13 See_Comment [Auto mated message] The system which ge nerated this result transmit jenna reference range : <=65. The reference range was not used to interpr et this result as domenic l/abnormal. [facility] HospitalWdrhtcfGIKUMKPQKEBE6166-61-89 21:51:00 Test Item Value Reference Range Interpretation Comments AST (test code = AST) 10 See_Comment [Auto mated message] The system which ge nerated this result transmit jenna reference range : <=37. The reference range was not used to interpr et this result as domenic l/abnormal. [facility] HospitalIqcllxiDEMSQOSUNOMF5009-51-69 21:51:00 Test Item Value Reference Range Interpretation Comments Alk Phos (test code = Alk Phos) 36 39-136 [facility] HospitalHfhqxpcUBRPPUZKPNIR6094-25-19 21:51:00 Test Item Value Reference Range Interpretation Comments Bili Total (test code = Bili Total) 0.3 0.2-1.3 [facility] HospitalLgcpstxILWSSOABRWUI9085-89-86 21:51:00 Test Item Value Reference Range Interpretation Comments eGFR (test code = eGFR) 145 [facility]KjlurcuKHMQUXKTXFVDL1385-53-32 21:51:00 Test Item Value Reference Range Interpretation Comments hCG Tot (test code = hCG Tot) [address] [facility] HospitalKxzeclxJHACPHCCPB0098-19-78 21:51:00 Test Item Value Reference Range Interpretation Comments WBC (test code = WBC) 9.0 3.7-10.4 [facility] HospitalCcqkgmiHNHKRVWXFQ6842-05-15 21:51:00 Test Item Value Reference Range Interpretation Comments RBC (test code = RBC) 4.28 4.20-5.40 [facility] HospitalWzyrjyoTXJUZMLCHB9465-41-44 21:51:00 Test Item Value Reference Range Interpretation Comments Hgb (test code = Hgb) 11.5 12.0-16.0 [facility] HospitalJhjwnbgJEQGZQODDU1702-15-95 21:51:00 Test Item Value Reference Range Interpretation Comments Hct (test code = Hct) 34.5 36.0-48.0 [facility] HospitalJamteblVQGYVZGRVQ0024-54-50 21:51:00 Test Item Value Reference Range Interpretation Comments MCV (test code = MCV) 80.5 80.0-98.0 [facility] HospitalVjzrysaTIFWMZECQK1968-17-04 21:51:00 Test Item Value Reference Range Interpretation Comments MCH (test code = MCH) 26.8 pg 27.0-31.0 [facility] HospitalEnijccqRPENDGSWNP7385-74-86 21:51:00 Test Item Value Reference Range Interpretation Comments MCHC (test code = MCHC) 33.2 32.0-36.0 [facility] HospitalCysjfqlCJOWWBEHUI4210-70-27 21:51:00 Test Item Value Reference Range Interpretation Comments RDW (test code = RDW) 14.6 11.5-14.5 [facility] HospitalNfkmfawIXQCPHIMMB7471-40-69 21:51:00 Test Item Value Reference Range Interpretation Comments Platelet (test code = Platelet) 312 133-450 [facility] HospitalZmzdipzPSZNGBHKGC8008-17-98 21:51:00 Test Item Value Reference Range Interpretation Comments MPV (test code = MPV) 8.2 7.4-10.4 [facility] HospitalEgdzasuOFEWBEIDMI0432-74-10 21:51:00 Test Item Value Reference Range Interpretation Comments Segs (test code = Segs) 69.1 45.0-75.0 [facility] HospitalRnfhdxoHMJZUMQTEB9664-91-84 21:51:00 Test Item Value Reference Range Interpretation Comments Lymphocytes (test code = Lymphocytes) 18.1 20.0-40.0 [facility] HospitalNlogilfJMPBKTKFEB0238-95-22 21:51:00 Test Item Value Reference Range Interpretation Comments Monocytes (test code = Monocytes) 3.6 2.0-12.0 [facility] HospitalCskogyuBFNUNKJKEI7137-48-19 21:51:00 Test Item Value Reference Range Interpretation Comments Eosinophils (test code = 8.9 See_Comment [A utomated message] The Eosinophils) system which ge nerated this result tra nsmitted reference range : <=4.0. The reference r lucy was not used to int erpret this result as normal/abnormal . [facility] HospitalUhicudaNSIDKBNCJP5740-01-15 21:51:00 Test Item Value Reference Range Interpretation Comments Basophils (test code = 0.3 See_Comment [Aut omated message] The Basophils) system which ge nerated this result tra nsmitted reference range : <=1.0. The reference r lucy was not used to int erpret this result as normal/abnormal . [facility] HospitalOcghoanIBRCQFEWXL8774-15-65 21:51:00 Test Item Value Reference Range Interpretation Comments Neutrophils # (test code = Neutrophils 6.2 1.5-8.1 #) [facility] HospitalAludqcgVSEXIYUKHZ9225-52-83 21:51:00 Test Item Value Reference Range Interpretation Comments Lymphocytes # (test code = Lymphocytes 1.6 1.0-5.5 #) [facility] HospitalHdipvntFHHAPZNLHW3801-00-89 21:51:00 Test Item Value Reference Range Interpretation Comments Monocytes # (test code 0.3 See_Comment [Aut omated message] The = Monocytes #) system which generated this result tra nsmitted reference range : <=0.8. The reference r lucy was not used to int erpret this result as normal/abnormal . [facility] HospitalYbyvwysDIMZGDPXLJ1549-27-56 21:51:00 Test Item Value Reference Range Interpretation Comments Eosinophils # (test code 0.8 See_Comment [A utomated message] The = Eosinophils #) system [employer] h generated this result tra nsmitted reference range : <=0.5. The reference r lucy was not used to int erpret this result as normal/abnormal . [facility] AND [id number] 21:51:00 Test Item Value Reference Range Interpretation Comments UA Color (test code = Yellow *NA*(03/10/19 UA Color) 3:51 PM) [facility] AND [id number] 21:51:00 Test Item Value Reference Range Interpretation Comments UA Turbidity (test code Marked *ABN*(03/10/19 = UA Turbidity) 3:51 PM) [facility] AND [id number] 21:51:00 Test Item Value Reference Range Interpretation Comments UA Spec Grav (test code = UA Spec 1.020 1 Grav) [facility] AND [id number] 21:51:00 Test Item Value Reference Range Interpretation Comments UA pH (test code = UA pH) 7.0 1 5.0-8.0 [facility] AND [id number] 21:51:00 Test Item Value Reference Range Interpretation Comments UA Protein (test code = UA Protein) 100 mg/dL [facility] AND [id number] 21:51:00 Test Item Value Reference Range Interpretation Comments UA Glucose (test code = UA Negative mg/dL Glucose) [facility] AND [id number] 21:51:00 Test Item Value Reference Range Interpretation Comments UA Ketones (test code = UA Negative mg/dL Ketones) [facility] AND [id number] 21:51:00 Test Item Value Reference Range Interpretation Comments UA Bili (test code = Negative *NA*(03/10/19 UA Bili) 3:51 PM) [facility] AND [id number] 21:51:00 Test Item Value Reference Range Interpretation Comments UA Blood (test code = Negative (03/10/19 3:51 UA Blood) PM) [facility] AND [id number] 21:51:00 Test Item Value Reference Range Interpretation Comments UA Nitrite (test code Negative (03/10/19 3:51 = UA Nitrite) PM) [facility] AND [id number] 21:51:00 Test Item Value Reference Range Interpretation Comments UA Leuk Est (test code Small *ABN*(03/10/19 = UA Leuk Est) 3:51 PM) [facility] AND [id number] 21:51:00 Test Item Value Reference Range Interpretation Comments UA Sq Epi (test code = UA Sq Moderate /LPF Epi) [facility] AND [id number] 21:51:00 Test Item Value Reference Range Interpretation Comments UA WBC (test code = 14 See_Comment [Automa jenna message] The UA WBC) system which ge nerated this result transmit jenna reference range : <=5. The reference range was not used to interpr et this result as domenic l/abnormal. [facility] AND [id number] 21:51:00 Test Item Value Reference Range Interpretation Comments UA RBC (test code = 2 See_Comment [Automa jenna message] The UA RBC) system which ge nerated this result transmit jenna reference range : <=2. The reference range was not used to interpr et this result as domenic l/abnormal. [facility] AND [id number] 21:51:00 Test Item Value Reference Range Interpretation Comments UA Bacteria (test code = UA Occasional /HPF Bacteria) [facility] AND [id number] 21:51:00 Test Item Value Reference Range Interpretation Comments UA Mucus (test code = UA Mucus) Many /LPF [facility] AND [id number] 21:51:00 Test Item Value Reference Range Interpretation Comments UA Amorph Monique (test code = Occasional /HPF UA Amorph Monique) [facility] AND [id number] 21:51:00 Test Item Value Reference Range Interpretation Comments UA Urobilinogen (test code = UA <=1.0 mg/dL 0.1-1.0 Urobilinogen) [place] [id number] 21:27:00 Test Item Value Reference Range Interpretation Comments Grp A Strep Scr (test Negative (06/02/17 3:27 code = Grp A Strep PM) Scr) [place] [id number] 21:27:00 Test Item Value Reference Range Interpretation Comments Grp A Strep Scr (test Negative (06/02/17 3:27 code = Grp A Strep PM) Scr) [place] [id number] 21:27:00 Test Item Value Reference Range Interpretation Comments Grp A Strep Scr (test Negative (06/02/17 3:27 code = Grp A Strep PM) Scr) [facility] Notes Date/Time Note Provider Source 2022-03-18 18:26:00-00:00 Radiation Dose CTDIVOL = 0 ( mGy): DLP = 260.24 (mGy-cm) [facility] PROCEDURE INFORMATION: Exam: CTA Chest With Contrast Exam date and time: 03/18/2022 6:26 PM Age: 26 years old Clinical indication: /pe rule out given covid an d ongiong tachycardia TECHNIQUE: Imaging protocol: Computed tomographic a ngiography of the chest with contrast. 3D rendering (Not supervised by radiologist): [place] P and/or 3D reconstructed images were created by the technologist. Radiation optimization: All CT scans at this facility use at least one of these dose optimization techniques: automated exposure control; mA and/or kV adjustment per patient size (includes targeted e xams where dose is matched to clinical indication); or iterative reconstructio n. Contrast material: OMNIPAQUE; Contrast volume: 7 5 ml; Contrast route: INTRAVENOUS (IV); COMPARISON: CR CHEST 1VIEW DX 03/18/2022 12:01 AM RADIATION DOSE METRICS: Total DLP (mGy-cm): 260.24 FINDINGS: Pulmonary arteries: No evidence of pulmonary emb olism. Aorta: Normal appearance of the aorta. Lungs: Mild dependent atelectasis. Minimal groun d-glass opacity within the posterior aspect of the right upper lobe near th e hilum. No focal consolidation. No nodularity or mass lesion. Pleural spaces: Unremarkable. Heart: Unremarkable. No pericardial disease. Lymph nodes: No enlarged lymph nodes. Bones/joints: No significant abnormality. Soft tissues: The extra thoracic soft tissues ar e unremarkable. IMPRESSION: 1. No evidence of acute pulmonary embolism. 2. Minimal right upper lobe infiltrate. 3. Mild dependent atelectasis. Corey Nur MD On 03/18/2022 19:28:59; SAMIRA-LSCHO [id number] 23:55:00-00:00 PROCEDURE INFORMATION: [facility] Exam: XR Chest Exam date and time: 03/18/2022 12:01 AM Age: 26 years old Clinical indication: /fever, cough TECHNIQUE: Imaging protocol: Radiologic exam of the chest. Views: 1 view. COMPARISON: CT ED Abdomen/Pelvis IV contrast only 02/06/2022 2:36 AM FINDINGS: Lungs: No consolidation. Pleural spaces: No pleural effusion. No pneumoth orax. Heart/Mediastinum: No cardiomegaly. Bones/joints: No acute abnormality. IMPRESSION: No acute cardiopulmonary findings. Jeffrey Guerrero MD On 03/18/2022 00:03:12; [id number] 2022-02-06 02:41:30-00:00 Radiation Dose CTDIVOL = 0 (mGy): DLP = 446 (mGy-cm) [facility] PROCEDURE INFORMATION: Exam: CT Abdomen And Pelvis With Contrast Exam date and time: 02/06/2022 2:36 AM Age: 26 years old Clinical indication: /right sided pelvic/adnexal pain during intercourse TECHNIQUE: Imaging protocol: Computed tomography of the abdomen and pelvis with contrast. Radiation optimization: All CT scans at this facility use at least one of these dose optimization techniques: automated exposure control; mA and/or kV adjustment per patient size (includes targeted e xams where dose is matched to clinical indication); or iterative reconstructio n. Contrast material: OMNI 350; Contrast volume: 75 ml; Contrast route: INTRAVENOUS (IV); COMPARISON: PREG COMP SINGLE GEST W BPP AND NST US 07/10/2019 10:11 AM RADIATION DOSE METRICS: Total DLP (mGy-cm): 446 FINDINGS: Liver: Normal. No mass. Gallbladder and bile ducts: Normal. No calcified stones. No ductal dilation. Pancreas: Normal. No ductal dilation. Spleen: Normal. No splenomegaly. Adrenal glands: Normal. No mass. Kidneys and ureters: Normal. No hydronephrosis. Stomach and bowel: Unremarkable. No obstruction. No mucosal thickening. Appendix: Normal caliber appendix without periap pendiceal inflammation. Intraperitoneal space: Small volume of free pelv ic fluid. Vasculature: Unremarkable. No abdominal aortic a neurysm. Lymph nodes: Unremarkable. No enlarged lymph nod es. Urinary bladder: Mild bladder wall thickening li parker secondary to under distention. Reproductive: Left ovarian cyst measuring up to 3.1 cm demonstrates an irregular, incompletely rim enhancing wall. Bones/joints: Unremarkable. No acute fracture. Soft tissues: No acute findings. IMPRESSION: 1. Findings suggest a recently ruptured left ova devon corpus luteal cyst associated with a small volume of free pelvic fl uid. 2. Mild bladder wall thicken ing likely secondary to under distention. Correlate with urinalysis if there is concern for cystitis . 3. Normal appendix. Jeffrey Guerrero MD On 02/06/2022 02:53:39; [id number] 2019-07-10 08:08:00-00:00 There is a posteriorly locat ed grade 2 placenta without placenta previa. [facility] Jose Eduardo Thomas MD On 07/10/2019 13:37:11; NIHARIKA [id number] PROCEDURE INFORMATION: Exam: US Biophysical Profile With Non-Stre ss Test Exam date and time: 07/10/2019 8:08 AM Age: 24 years old Clinical indication: /vaginal bleeding TECHNIQUE: Imaging protocol: biophysical profile with non-stress test. COMPARISON: US AGE 1103/10/2019 4:20 PM FINDINGS: Breathin/2 Gross body movements: 2/2 Qualitative amniotic fluid: 2/2 tone: 2/2 Reactive heart rate: 2/2 Biophysical Profile Score: 8/8 Notes: The fetus is in cephalic presenta tion with an estimated gestational age of cephalic by LMP. There is positive card iac activity of 143 bpm. The amniotic fluid index equals 12.66 cm and the umbilical artery S/D ratio is 2.7. IMPRESSION: Biophysical profile 8/8. Jose Eduardo Thomas MD On 07/10/2019 10:35:32; NIHARIKA [id number] 2019-03-10 16:04:00-00:00 PROCEDURE INFORMATION: [facility] Exam: US , Limited Exam date and time: 03/10/2019 4:20 PM Clinical history: 23 years old, female; Pain; Ad ditional info: Pelvic pressure/pelvic pressure TECHNIQUE: Imaging protocol: Real-time ultrasound of the pr egnant maternal uterus with image documentation. Exam focused on the clinica l indication. COMPARISON: No relevant prior studies available. FINDINGS: GESTATION: Gestation: Intrauterine gestation. Presentation: Intrauterine p regnancy in cephalic position. Heart rate 149 beats per minute. Gestational age 16 weeks 3 days. Placenta: Placenta is fundal without previa. Amniotic fluid: The amniotic fluid volume visual ly appears adequate. BIOMETRY: Estimated weight: Estimated weight 1 45 g. Estimated date of delivery 08/23/2019. MATERNAL: Cervix: Cervix measures 3.9 cm length. IMPRESSION: Single living intrauterine with gestat ional age 16 weeks 3 days. Pranav Jimenez MD On 03/10/2019 17:27:21; [id number]
--- NOTE | 2022-11-08 16:44 | P.HP ---
Date of Service: 11/08/22 Chief complaint: Abdominal pain History of present Illness: Patient is a 27-year-old female comes in with 1 day history of diffuse abdominal pain localizing to the right lower quadrant and associated with nausea, vomiting and constipation. Patient denies any dysuria or hematuria or blood per rectum. Patient denies any sore throat, runny nose, cough, headaches, dizziness, chest pain, fever or chills. Patient denies any anorexia. Review of systems: Otherwise unremarkable Past medical history: Negative Past surgical history: Allergies: Penicillin aspirin Social history: Denies smoking, drinks alcohol occasionally Family history: Noncontributory Vital signs: Stable, afebrile Physical exam: Awake, alert and oriented x3 Head and neck: No masses Chest: Clear Heart: S1-S2 Abdomen: Soft, nondistended, positive bowel sounds, positive right lower quadrant tenderness with rebound no rigidity or guarding Extremity: Neurovascular intact, nontender Neuro: Nonfocal Diagnostic data: White count is 17,000, CT scan reviewed with the radiologist and is consistent with acute appendicitisuncomplicated Assessment: Acute appendicitis Plan/recommendation: Admit, n.p.o., IV fluids, IV antibiotics and to the OR for laparoscopic appendectomy possible open. Patient understands risk, benefits and alternatives and agrees to procedure. CC:
--- NOTE | 2022-11-08 16:45 | EDPHYS ---
Physician Documentation [facility] Name: Remedios Capellan Age: 27 yrs Sex: Female : 1995 Arrival Date: 11/08/2022 Time: 12:41 Bed 4 Private MD: ED Physician Van Esteban HPI: 11/08 13:35 This 27 yrs old Black Female presents to ER via Wheelchair with complaints of Abdominal kb Pain, Nausea/Vomiting/Diarrhea. 13:35 The patient presents with abdominal pain that is diffuse. Onset: The symptoms/episode kb began/occurred this morning. The symptoms do not radiate. Associated signs and symptoms: Pertinent positives: nausea, vomiting, and diarrhea, Pertinent negatives: fever. The symptoms are described as constant. Modifying factors: The symptoms are alleviated by nothing, the symptoms are aggravated by nothing. Severity of pain: At its worst the pain was moderate in the emergency department the pain is unchanged. The patient has not experienced similar symptoms in the past. The patient has not recently seen a physician. 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 - Social history:: Smoking status: Patient denies any tobacco usage or history of. ROS: 13:34 Constitutional: Negative for fever, chills, and weight loss. kb 13:34 Abdomen/GI: Positive for abdominal pain, nausea, vomiting, and diarrhea. 13:34 All other systems are negative. Exam: 13:34 Constitutional: This is a well developed, well nourished patient who is awake, alert, kb and in no acute distress. Head/Face: Normocephalic, atraumatic. ENT: Moist Mucous membranes Cardiovascular: Regular rate and rhythm with a normal S1 and S2. No gallops, murmurs, or rubs. No pulse deficits. Respiratory: Respirations even and unlabored. No increased work of breathing. Talking in full sentences Skin: Warm, dry with normal turgor. Normal color. MS/ Extremity: Pulses equal, no cyanosis. Neurovascular intact. Full, normal range of motion. Neuro: Awake and alert, GCS 15, oriented to person, place, time, and situation. Moves all extremities. Normal gait. 13:34 Abdomen/GI: Inspection: abdomen appears normal, Bowel sounds: normal, Palpation: soft, in all quadrants, moderate abdominal tenderness, in the left upper quadrant and left lower quadrant. Vital Signs: 13:01 Weight 54.43 kg; Height 5 ft. 8 in. ; Pain 10/10; mb9 13:03 BP 133 / 95 LA Sitting (auto/reg); Pulse 104 MON; Resp 18 S; Temp 98.1(O); Pulse Ox 97% ds4 on R/A; Weight 56.25 kg; Height 5 ft. 8 in. ; Pain 10/10; 13:50 BP 123 / 68; Pulse 89; Resp 16; Pulse Ox 98% on R/A; Pain 10/10; iw 13:03 Body Mass Index 18.85 (56.25 kg, 172.72 cm) ds4 13:01 Pain Scale: Adult mb9 13:03 Pain Scale: Adult ds4 13:50 Pain Scale: Adult iw MDM: 12:50 Patient medically screened. kb 13:35 Data reviewed: vital signs, nurses notes. kb 15:50 Differential diagnosis: appendicitis, diverticulitis, gastritis, non-specific abd pain. kb Consideration of Admission/Observation Patient was admitted/placed on observation. Escalation of care including admission/observation considered. Management of patient was discussed with the following: Polisher And Buffer: Discussed case with Dr Vergara. Accepts pt for admission as primary. Counseling: I had a detailed discussion with the patient and/or guardian regarding: the historical points, exam findings, and any diagnostic results supporting the discharge/admit diagnosis, lab results, radiology results, the need for further work-up and treatment in the hospital. 16:09 Discussion of test interpretation with radiology: I had a discussion with radiology kb regarding a test interpretation. Dr Acosta gave verbal report. Acute Appendicitis without perforation. 11/08 13:02 Order name: IV Saline Lock; Complete Time: 13:18 kb 11/08 13:02 Order name: Labs collected and sent; Complete Time: 13:18 kb Administered Medications: 13:29 Drug: NS 0.9% IV 1000 ml Route: IV; Rate: 1 bolus; Site: right antecubital; iw 14:20 Follow up: IV Status: Completed infusion iw 13:29 Drug: Famotidine IVP 20 mg Route: IVP; Site: right antecubital; iw 14:00 Follow up: Response: No adverse reaction iw 13:29 Drug: Ondansetron IVP 4 mg Route: IVP; Site: right antecubital; iw 14:20 Follow up: Response: No adverse reaction iw 13:30 Drug: TORadol - Ketorolac IVP 15 mg Route: IVP; Site: right antecubital; iw 14:00 Follow up: Response: No adverse reaction iw 14:00 Drug: morphine IVP or IV 4 mg Route: IVP; Infused Over: 4 mins; Site: right antecubital;iw 16:00 Follow up: Response: No adverse reaction iw 16:20 Drug: Ciprofloxacin IVPB 400 mg Volume: 200 ml; Route: IVPB; Infused Over: 60 mins; iw Site: right antecubital; 16:25 Follow up: IV Status: Infusion continued upon admission iw 16:20 Drug: metroNIDAZOLE IVPB 500 mg Volume: 100 ml; Route: IVPB; Rate: 200 ml/hr; Infused iw Over: 30 mins; Site: right antecubital; 16:30 Follow up: IV Status: Infusion continued upon admission iw Disposition: 17:45 Co-signature as Attending Physician, Van Esteban MD I reviewed the patient's care rn provided by the Advanced Practice Provider and agree with the diagnosis and treatment plan. Disposition Summary: 11/08/22 15:52 Hospitalization Ordered Hospitalization Status: Observation kb Provider: Perry Vergara Location: Telemetry/MedSur (observation) kb Condition: Stable kb Problem: new kb Symptoms: are unchanged kb Bed/Room Type: Standard Room Assignment: kb Diagnosis - Unspecified acute appendicitis kb Forms: - Medication Reconciliation Form kb - SBAR form kb Signatures: Ban Vidal FNP-C FNP-Mervat Ruiz RN RN iw Nieto, Roman, MD MD rn Breneman, Mary Beth, RN RN mb9 Corrections: (The following items were deleted from the chart) 13:02 13:02 Home Meds: Unable to obtain; mbGayatri mb9
--- NOTE | 2022-11-08 16:45 | ER ---
Nurse's Notes [facility] Name: Remedios Capellan Age: 27 yrs Sex: Female : 1995 Arrival Date: 11/08/2022 Time: 12:41 Bed 4 Private MD: Diagnosis: Unspecified acute appendicitis Presentation: 11/08 13:01 Chief complaint: Patient states: "N/V/D and abdominal pain that started this morning. mb9 Its in the center and feels like someone is stabbing me. I've never had pain like this before". Coronavirus screen: Vaccine status: Patient reports receiving the 2nd dose of the covid vaccine. Ebola Screen: No symptoms or risks identified at this time. Initial Sepsis Screen: Does the patient meet any 2 criteria? No. Patient's initial sepsis screen is negative. Does the patient have a suspected source of infection? No. Patient's initial sepsis screen is negative. Risk Assessment: Do you want to hurt yourself or someone else? Patient reports no desire to harm self or others. Onset of symptoms was November 08, 2022. 13:01 Method Of Arrival: Wheelchair mb9 13:01 Acuity: SUZETTE 3 mb9 Triage Assessment: 13:02 General: Appears uncomfortable, ill, Behavior is calm, cooperative. Pain: Complains of mb9 pain in abdomen Pain does not radiate. Pain currently is 10 out of 10 on a pain scale. Quality of pain is described as stabbing, Pain began suddenly, Is continuous. Neuro: Celis Agitation-Sedation Scale (RASS): 0 - Alert and Calm Level of Consciousness is awake, alert, obeys commands, Oriented to person, place, time, situation, Appropriate for age. Cardiovascular: Patient's skin is warm and dry. Respiratory: Airway is patent Respiratory effort is even, unlabored, Respiratory pattern is regular, symmetrical. GI: Abdomen is flat, non-distended, Bowel sounds present X 4 quads. Abd is soft Abdomen is tender to palpation in epigastric area and umbilical area Reports diarrhea, nausea, vomiting. : No signs and/or symptoms were reported regarding the genitourinary system. Derm: Skin is pink, warm \\T\\ dry. Musculoskeletal: Range of motion: intact in all extremities. 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 - Social history:: Smoking status: Patient denies any tobacco usage or history of. Screenin:36 [facility] ED Fall Risk Assessment (Adult) History of falling in the last 3 months, iw including since admission Score/Fall Risk Level 0 - 2 = Low Risk. Abuse screen: Denies threats or abuse. Denies injuries from another. Nutritional screening: No deficits noted. Tuberculosis screening: No symptoms or risk factors identified. Assessment: 13:35 General: Appears in no apparent distress. Behavior is cooperative. Pain: Complains of iw pain in umbilical area and epigastric area Pain currently is 10 out of 10 on a pain scale. Neuro: Level of Consciousness is awake, alert, obeys commands, Oriented to person, place, time, situation, Moves all extremities. Full function. Cardiovascular: Patient's skin is warm and dry. Respiratory: Respiratory effort is even, unlabored, Respiratory pattern is regular. GI: Reports upper abdominal pain, nausea, vomiting. Derm: Skin is intact, is healthy with good turgor. Musculoskeletal: Capillary refill < 3 seconds. 14:06 Reassessment: Patient appears in no apparent distress at this time. Patient and/or iw family updated on plan of care and expected duration. Pain level reassessed. Patient is alert, oriented x 3, equal unlabored respirations, skin warm/dry/pink. pt c/o pain 10/10 , pain meds admin per JUN , pt transported to bathroom via wheelchair. Vital Signs: 13:01 Weight 54.43 kg; Height 5 ft. 8 in. ; Pain 10/10; mb9 13:03 BP 133 / 95 LA Sitting (auto/reg); Pulse 104 MON; Resp 18 S; Temp 98.1(O); Pulse Ox 97% ds4 on R/A; Weight 56.25 kg; Height 5 ft. 8 in. ; Pain 10/10; 13:50 BP 123 / 68; Pulse 89; Resp 16; Pulse Ox 98% on R/A; Pain 10/10; iw 13:03 Body Mass Index 18.85 (56.25 kg, 172.72 cm) ds4 13:01 Pain Scale: Adult mb9 13:03 Pain Scale: Adult ds4 13:50 Pain Scale: Adult iw ED Course: 12:41 Patient arrived in ED. am2 12:45 [facility]C [facility] kb 12:45 Van Esteban MD is Attending Physician. kb 12:57 Arm band placed on Patient placed in an exam room, on a stretcher. ll1 13:02 Triage completed. mb9 13:04 Placed in gown. Bed in low position. Call light in reach. Side rails up X 1. Client mb9 placed on continuous cardiac and pulse oximetry monitoring. NIBP monitoring applied. 13:17 Mervat Coffman, RN is Primary Nurse. iw 13:18 Inserted saline lock: 22 gauge in right antecubital area, using aseptic technique. ds4 Blood collected. 13:36 No provider procedures requiring assistance completed. iw 15:52 Perry Vergara MD is Hospitalizing Provider. kb 16:27 Provided Education on: Surgical Consent. iw 16:27 Patient admitted, IV remains in place. iw Administered Medications: 13:29 Drug: NS 0.9% IV 1000 ml Route: IV; Rate: 1 bolus; Site: right antecubital; iw 14:20 Follow up: IV Status: Completed infusion iw 13:29 Drug: Famotidine IVP 20 mg Route: IVP; Site: right antecubital; iw 14:00 Follow up: Response: No adverse reaction iw 13:29 Drug: Ondansetron IVP 4 mg Route: IVP; Site: right antecubital; iw 14:20 Follow up: Response: No adverse reaction iw 13:30 Drug: TORadol - Ketorolac IVP 15 mg Route: IVP; Site: right antecubital; iw 14:00 Follow up: Response: No adverse reaction iw 14:00 Drug: morphine IVP or IV 4 mg Route: IVP; Infused Over: 4 mins; Site: right antecubital;iw 16:00 Follow up: Response: No adverse reaction iw 16:20 Drug: Ciprofloxacin IVPB 400 mg Volume: 200 ml; Route: IVPB; Infused Over: 60 mins; iw Site: right antecubital; 16:25 Follow up: IV Status: Infusion continued upon admission iw 16:20 Drug: metroNIDAZOLE IVPB 500 mg Volume: 100 ml; Route: IVPB; Rate: 200 ml/hr; Infused iw Over: 30 mins; Site: right antecubital; 16:30 Follow up: IV Status: Infusion continued upon admission iw Medication: 16:20 VIS not applicable for this client. iw Outcome: 15:52 Decision to Hospitalize by Provider. kb 16:27 Admitted to OR accompanied by nurse. iw 16:27 Condition: good 16:27 Discharge instructions given to patient, Instructed on the need for admit, Demonstrated understanding of instructions. 16:28 Patient left the ED. iw Signatures: Ban Vidal, BILINGUAL LOAN PROCESSOR-C BILINGUAL LOAN PROCESSOR-Ckb Mervat Coffman, RN RN iw Demetrio Cleveland ds4 Ingris Torres Lynsay, RN RN ll1 Stacie Cosme, RN RN mb9 Corrections: (The following items were deleted from the chart) 13:02 13:02 Home Meds: Unable to obtain; mb9 mb9
[2022-11-08] MEDS ORDERED: Ringers Lactate 1,000 ML IV ONE (16:46)
[2022-11-08] MEDS: BUPIVACAINE 0.5% PF 10 ML VIAL ONE ×2 (16:49→17:23)
[2022-11-08] MEDS ORDERED: SUCCINYLCHOLINE 20 MG/ML (10 ML) IV ONE (16:56)
[2022-11-08] MEDS ORDERED: FENTANYL CITR 100 MCG/2 ML ONE ×2 (17:07→17:40)
[2022-11-08] MEDS ORDERED: ROCURONIUM 50 MG/5 ML VIAL IV ONE (17:07)
[2022-11-08] MEDS ORDERED: MIDAZOLAM HCL 2 MG/2 ML INJ ONE (17:07)
[2022-11-08] MEDS ORDERED: propofoL 200 MG/20 ML VIAL IV ONE (17:07)
[2022-11-08 17:38] LABS: Absolute Lymphocytes (CBC) 1.2 K/uL (0.7-4.9); Hematocrit 39.7 % (36.0-45.0); Lymphocytes % 7.1 % (15.3-44.8); MCV 80.1 fL (80-100); MPV 7.9 fL (7.6-11.3); RBC Red Blood Cell Count 4.96 M/uL (3.86-4.86)
[2022-11-08] MEDS ORDERED: NEOSTIGMINE 1 MG/ML -10 ML VIAL ONE (17:42)
[2022-11-08] MEDS ORDERED: GLYCOPYRROLATE 0.2 MG/ML SYR ONE (17:43)
[2022-11-08] MEDS ORDERED: dexAMETHasone 10 MG/ML VIAL ONE (17:43)
--- NOTE | 2022-11-08 17:50 | RAD REPORT ---
EXAM DESCRIPTION: CT - Abdomen Pelvis W Contrast - 11/08/2022 5:34 pm CLINICAL HISTORY: Abdominal pain COMPARISON: none. TECHNIQUE: Computed axial tomography of the abdomen pelvis was obtained. 100 cc Isovue-300 was admin istered intravenously. Oral contrast was not requested which limits evaluation of bowel and appendix All CT scans are performed using dose optimization technique as appropriate and may include automated exposure control or mA/KV adjustment according to patient size. FINDINGS: The liver, spleen, pancreas, adrenal and kidneys appear unremarkable. There is no evidence of diverticulitis. Several small stones within the appendix. The appendix is dilated and fluid-filled extending inferior ly from the cecum. No free air. No abscess. IMPRESSION: Appendicitis Due to technical issues the exam could not be dictated until now. A preliminary report was given afte r the completion of this exam
[2022-11-08] MEDS ORDERED: Mastisol Adhesive Liq ONE (17:52)
--- NOTE | 2022-11-08 17:52 | P.OP ---
Date of Service: 11/08/22 Preop diagnosis: Acute appendicitis Postop diagnosis: Same Procedure performed: Laparoscopic appendectomy Surgeon: Perry Vergara MD Vat Overhauler: None Estimated blood loss: Minimal Specimen: Appendix Findings: As above Anesthesia: General Complications: None Drains: None Fluids and blood products: Nonapplicable Disposition: Recovery room Operative note: Patient brought to the OR and placed in the supine position. General anesthesia begun. Patient prepped and draped in the usual sterile fashion. Marcaine 0.5% infiltrated locally. 15 blade used to make a 1 cm infraumbilical midline incision. Subcutaneous tissue divided. Bleeding controlled with cautery. Fascia identified and divided. #1 Vicryl stay suture placed. Peritoneal cavity entered with sharp and blunt dissection. 12 mm trocar placed into the peritoneal cavity under direct vision. Pneumoperitoneum established. And two 5 mm trocar placed. 1 trocar placed in the left lower quadrant and another placed in the suprapubic region. Laparoscopy revealed acute uncomplicated appendicitis with dilatation, injection of blood vessels and probable fecal as. Base of the appendix and mesoappendix clearly identified. Endo MARCO stapling device used to divide both structures. Appendix retrieved through the umbilicus via Endo Catch bag. Right lower quadrant examined carefully no evidence of bleeding or bowel injury appreciated. There is no other evidence of disease. All trocars removed under direct vision. Stay sutures tied to each other to reapproximate the fascial defect. Wounds irrigated and bleeding controlled cautery. 3-0 chromic used to reapproximate subcutaneous tissue and close skin. Sterile dressing applied. Patient awakened and taken to recovery room in good general condition. CC:
[2022-11-08] MEDS ORDERED: HYDROMORPHONE HCL 1 MG/ML INJ IV PRN (17:56)
[2022-11-08] MEDS ORDERED: ONDANSETRON 4 MG/2 ML VIAL IV PRN (17:56)
[2022-11-08] MEDS ORDERED: HYDROCODONE/APAP 7.5/325 MG TAB PO PRN (17:56)
[2022-11-08] MEDS ORDERED: NALOXONE 0.4 MG/ML VIAL ONE (18:06)
[2022-11-08] MEDS: Ringers Lactate 1,000 ML IV SCH (18:39)
[2022-11-08 18:40] VITALS: BMI 20.5
[2022-11-08 18:51] LABS: Albumin 4.4 g/dL (3.4-5.0); Bilirubin Total 0.6 mg/dL (0.2-1.0); Potassium 3.3 mEq/L (3.5-5.1); Protein, Total 8.5 g/dL (6.4-8.2)
[2022-11-08 18:52] LABS: Specific Gravity 1.021 (1.005-1.030); Urine Bacteria None Seen /HPF (<20); Urine Bilirubin NEGATIVE (Negative); Urine Blood Negative (Negative); Urine Clarity Turbid (Clear); Urine Color Light-Yellow (Yellow); Urine Glucose NEGATIVE (Negative); Urine Mucus 1+ /HPF (None Seen); Urine Protein TRACE (Negative); Urine RBC <5 /HPF (None Seen); Urine Urobilinogen Normal (Normal); Urine pH 7.5 (5.0-7.0)
[2022-11-08 18:53] LABS: Specific Gravity 1.021 (1.005-1.030)
[2022-11-08 19:04] VITALS: O2SAT 98
[2022-11-08] MEDS ORDERED: CIPROFLOXACIN 400mg IV 400 MG/200 ML BAG IV SCH (21:00)
[2022-11-09] MEDS ORDERED: METRONIDAZOLE 500mg IVPB 500 MG/100 ML BAG IV SCH (01:00)
[2022-11-09 03:29] LABS: Absolute Lymphocytes (CBC) 0.6 K/uL (0.7-4.9); Hematocrit 35.5 % (36.0-45.0); Lymphocytes % 4.9 % (15.3-44.8); MCV 79.9 fL (80-100); MPV 8.4 fL (7.6-11.3); RBC Red Blood Cell Count 4.44 M/uL (3.86-4.86)
[2022-11-09 04:28] LABS: Blood Morphology Comment NOT SEEN (NOT SEEN); Platelet Estimate ADEQ
[2022-11-09] MEDS: Ringers Lactate 1,000 ML IV SCH (05:47)
--- NOTE | 2022-11-09 07:56 | DS ---
Date of Discharge: 11/09/2022 Admitting Diagnosis: Acute appendicitis. Discharge Diagnosis: Acute appendicitis. Procedure Performed: Laparoscopic appendectomy. Hospital Course: The patient is a 27-year-old female, underwent the aforementioned procedure. Posto peratively, she is tolerating diet, ambulating, pain controlled on p.o. pain medications, afebrile, a nd the patient will be discharged to home. White count is down from 17 to 12,000. Disposition: Home. Condition: Stable. Discharge Instructions: Resume home medications and diet. Activity as tolerated. No heavy lifting. Remove outer dressing in the a.m., shower. Keep wound clean and dry. Keep Steri-Strips on all anjelica es. Follow up in my office in 1 week. Call for appointment. Trinh Frias5, Lety Boykin, and Renetta awad been called in to the patient's pharmacy. /LEONIDL Voice ID: [id number] Report ID: [id number]
[2022-11-09 08:52] VITALS: BP 112/75; TEMP 98.1
== END 2022-11-09 09:46 | disposition home or self-care (01) ==
LOC: ER 12:42 → 2ND 17:48
PROVIDERS: ADMIT Surgery; ATTEND Surgery
PROC: 0DTJ4ZZ Resection of Appendix, Percutaneous Endoscopic Approach (ICD-10-PCS; principal; 2022-11-08 16:30)
DX: K35.80 Unspecified acute appendicitis (principal)
CPT/HCPCS: 36415; 74177; 80053; 81001; 81025; 83690; 85025; 88304; 94010; 96361; 96374; 96375; 99285; G0378; J0744; J1100; J2250; J2310; J2405; J2704; J2710; J3010; J7030; J7120; Q9967

== ENCOUNTER 2024-12-10 21:25 | Emergency (ER) | payer SELFPAY ==
--- OUTSIDE RECORDS SUMMARY | 2024-12-10 21:34 | XMS REPORT | Continuity of Care Document ---
Author Name Unknown Address [address] [facility] [address] [place] [address] [facility] Address [address] [facility] [place] [address] Care Team Providers Care River Boat Captain Name Role Phone Malia Durbin Primary Care Physician [phone] FALGUNI SHUKLA Attending Clinician Unavailable Vazquez Falguni DALAL Attending Clinician [phone] ALIYA CIFUENTES Attending Clinician Unavailab ALIYA Enrqiuez Attending Clinician Unavailab katherine Doctor Unassigned, [place] Attending Clinician U GEORGI [place] Attending Clinician UnavailGEORGI Pantoja Attending Clinician UnavailAYUSH Noble Attending Clinician Unavailable [facility], [facility] Attending Clinician UnaAyush Vicente Attending Clinician AYLEEN NAVA Attending Clinician UnavailAyleen Stewart CNM Attending Clinician [phone] RAMOS ISIDRO Attending Clinician Unavail able [place] [facility] Ramos C Attending Clinician + Doctor Unassigned, [place] Attending Clinician U darrionailGISELA Chapman Attending Clinician Unavailable 1, [facility] Attending Clinician Robyn vailamagdaleno Azevedo Gisela DALAL Attending Clinician [phone] YANIRA MCFARLANE Attending Clinician Unava ilable Visit, [facility] Attending Clinician Unava ilable HELGA NAM Attending Clinician UnavailMALIA Roland Attending Clinician Unavailable MALIA PALAFOX Attending Clinician Unavailable Pcp, Patient Does Not Have A Attending Clinician LORENZO TRAN Attending Clinician Unavai ILAN Alejo Attending Clinician Unavailable MONICA THOMAS Attending Clinician Unav ailable Abdoul CHINCHILLA, Yanira Attending Clinician + Meme Sylvester Attending Clinician [phone] MEME JIMENES Attending Clinician Unavailable ORESTES BLEDSOE Attending Clinician Unavailab Orestes Dyson Attending Clinician [phone] CHATO KWON Attending Clinician Unavail able ADELFO SUAZO Attending Clinician Unavailable Adelfo Klein Attending Clinician [phone] Lor Lobato Attending Clinician RAYMUNDO LOPEZ Attending Clinician Unavail able LATRICE BELLA Attending Clinician Unavailable Nurse, [facility] Attending Clinician Un available Latrice Bella PA-C Attending Clinician [phone] Femi Paul DO Attending Clinician [phone] Torres Garza MD Attending Clinician [phone] TORRES GARZA Attending Clinician Unavailable SHARI CHOWDHURY Attending Clinician Unavailable Soraida Chato DALAL Attending Clinician + Ultrasound, [facility] Attending Clinician Unavaila ble Priscilla Mark MD Attending Clinician + Sj Gold MD Attending Clinician PRISCILLA MARK Attending Clinician HELGA Cedeno Admitting Clinician Unavailabl e Payers Payer Name Policy Type Policy Number Effective Date Expirati on Date Source [facility] MEDICAID STAR [id number] 2020 00:00:00 FORMERLY [facility] STAR [id number] 2020 00:00:00 BCBS FED SELECT [id number] 1994 00:00:00 Problems Condition Name Condition Details Condition Category Status Onset Date Resolution Date Last Treatment Date Treating Clinician Comments Source History of anemia History of anemia Disease Active 05-13 00:00: 00 Jaqueline fernandes [facility] FEVER FEVER Active 03/17/2022 [facility] Diagnosis Active 2021-04 00:00: 00 2022-03-18 02:45:00 Isreal Sahu COVID-19 VIRUS INFECTION; ACUTE HYPOTENS COVID-19 VIRUS INFECTION; ACUTE HYPOTENS Active 03/17/2022 [facility] Diagnosis Active 2021-04 00:00: 00 2022-03-21 20:29:00 Isreal Sahu SOB SOB Active 02/06/2022 [facility] Diagnosis Active 2021-04 0- 00:00: 00 2022-02-06 03:07:00 Isreal Sahu VOMITING, DIARRHEA, VOMITING, DIARRHEA, Active 11/12/2021 [facility] Diagnosis Active - 00:00: 00 2021-11-12 20:13:00 Isreal Sahu TONGUE BLEED TONGUE BLEED Active 02/05/2021 [facility] Diagnosis Active 2020-04 0-14 00:00: 00 2021-02-05 14:34:00 Isreal Sahu 40WKS PREG/VAG BLEEDING 40WKS PREG/VAG BLEEDING Active 07/10/2019 [facility] Diagnosis Active 3-17 07:35: 00 2019-07-10 08:08:00 Isreal Sahu PRE-TERM LABOR/CERV IAL DILATION PRE-TERM LABOR/CERV IAL DILATION Active 07/10/2019 [facility] Diagnosis Active -17 00:00: 00 2019-07-10 17:42:00 Isreal Sahu RIGHT EYE INJURY RIGHT EYE INJURY Active 04/19/2019 [facility] Diagnosis Active 2018-04 00:00: 00 2019-04-19 15:24:00 Isreal Sahu 7WKS /A BDOMINAL PAIN 7WKS /A BDOMINAL PAIN Active 03/10/2019 [facility] Diagnosis Active 2018-04 05:00: 00 2019-03-10 16:39:00 Isreal Sahu Streptococ cus 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 [facility] Problem Active 2021-11-16 10:07:01 Isreal Sahu COVID-19 COVID-19 Active [facility] Diagnosis Active 2022-03-21 20:29:00 Isreal Sahu HYPOTENSIO N, UNSPECIFIE D HYPOTENSIO N, UNSPECIFIE D Active [facility] Diagnosis Active 2022-03-21 20:29:00 Isreal Sahu No known active problems No known active problems Disease [facility] Depo-Prove ra contracept vern status Depo-Prove ra contracept vern status Disease Resolve d 1-19 00:00: 00 2024-07-21 00:00:00 2024-07-21 21:39:44 [facility] Breast pain, left Breast pain, left Disease Resolve d 1-19 00:00: 00 2024-07-20 00:00:00 2024-07-20 13:26:05 [facility] Patient currently (finding) Patient currently (finding) Resolved 07/10/2019 Problem 11/16/2021 [facility] Problem Resolve d 07-09 00:00: 00 2021-11-16 10:07:01 2021-11-16 10:07:01 Isreal Sahu Chlamydial infection (disorder) Chlamydial infection (disorder) Resolved 04/25/2016 Problem 11/16/2021 [facility] Problem Resolve d 1- 00:00: 00 2021-11-16 10:07:2021-11-16 10:07:01 Isreal Sahu Abnormal ultrasound Abnormal ultrasound Disease Resolve d -24 00:00: 00 2020-02-13 00:00:00 2020-02-13 12:53:05 [facility] High-risk in second trimester High-risk in second trimester Disease Resolve d -06 00:00: 00 2020-02-13 00:00:00 2020-02-13 12:53:04 [facility] 23 weeks gestation of 23 weeks gestation of Disease Resolve d 04-30 00:00: 00 2020-02-13 00:00:00 2020-02-13 12:53:05 [facility] Bacterial vaginosis Bacterial vaginosis Disease Resolve d 01-17 00:00: 00 2019-04-30 00:00:00 2019-04-30 16:01:56 [facility] Screening examinatio n for STD (sexually transmitte d disease) Screening examinatio n for STD (sexually transmitte d disease) Disease Resolve d 01-17 00:00: 00 2019-04-30 00:00:00 2019-04-30 16:01:53 [facility] 39 weeks gestation of 39 weeks gestation of Disease Resolve d 12-14 00:00: 00 2018-01-17 00:00:00 2018-01-17 11:05:30 [facility] Gestationa l thrombocyt openia, third trimester Gestationa l thrombocyt openia, third trimester Disease Resolve d 12-13 00:00: 00 2018-01-17 00:00:00 2018-01-17 11:05:33 [facility] Encounter for supervisio n of normal first in second trimester Encounter for supervisio n of normal first in second trimester Disease Resolve d 5-04 00:00: 00 2018-01-17 00:00:00 2018-01-17 11:05:36 [facility] Liveborn , of eckert , born in hospital by vaginal delivery Liveborn infant, of eckert , born in hospital by vaginal delivery Disease Resolve d 12-14 00:00: 00 2017-04-11 00:00:00 2017-04-11 13:19:09 [facility] (spontaneo us vaginal delivery) (spontaneo us vaginal delivery) Disease Resolve d 12-14 00:00: 00 2017-04-11 00:00:00 2017-04-11 13:19:09 [facility] Second degree laceration of perineum, delivered, current hospitaliz ation Second degree laceration of perineum, delivered, current hospitaliz ation Disease Resolve d 12-14 00:00: 00 2017-04-11 00:00:00 2017-04-11 13:19:09 [facility] History of Past Illness Condition Name Condition Details Condition Category Status Onset Date Resolution Date Last Treatment Date Treating Clinician Comments Source Viral infection, unspecifie d Viral infection, unspecifie d 11/13/2021 11/16/2021 [facility] Problem 7- 02:07: 00 2021-11-16 10:07:01 2021-11-16 10:07:01 Isreal Sahu Glossitis Glossitis 02/05/2021 02/07/2021 [facility] Problem 2020-04 0-14 17:00: 00 2021-02-07 22:09:09 2021-02-07 22:09:09 Isreal Sahu Encounter for screening, unspecifie d Encounter for screening, unspecifie d 02/05/2021 02/07/2021 [facility] Problem 2020-04 0-14 17:00: 00 2021-02-07 22:09:09 2021-02-07 22:09:09 Isreal Sahu Antepartum hemorrhage , unspecifie d, unspecifie d trimester Antepartum hemorrhage , unspecifie d, unspecifie d trimester 07/10/2019 07/12/2019 [facility] Problem 2020-0 3-17 17:00: 00 2019-07-12 22:29:53 2019-07-12 22:29:53 Isreal Sahu 34 weeks gestation of 34 weeks gestation of 07/10/2019 07/12/2019 [facility] Problem 07-09 17:00: 00 2019-07-12 22:29:53 2019-07-12 22:29:53 Isreal Sahu Other specified disorders of eyelid Other specified disorders of eyelid 04/19/2019 04/21/2019 [facility] Problem 2018-04 18:00: 00 2019-04-21 22:47:59 2019-04-21 22:47:59 Isreal Sahu Other specified diseases and conditions complicati , childbirth and the puerperium Other specified diseases and conditions complicati , childbirth and the puerperium 9 03/12/2019 [facility] Problem 2018-04 18:00: 00 2019-03-12 23:04:41 2019-03-12 23:04:41 Isreal Sahu Other specified related conditions , unspecifie d trimester Other specified related conditions , unspecifie d trimester 03/10/2019 03/12/2019 [facility] Problem 2018-04 18:00: 00 2019-03-12 23:04:41 2019-03-12 23:04:41 Isreal Sahu Acute pharyngiti s, unspecifie d Acute pharyngiti s, unspecifie d 06/02/2017 09/08/2017 [facility] Problem 06-02 06:00: 00 2017-09-08 16:16:29 2017-09-08 16:16:29 Isreal Sahu Allergies, Adverse Reactions, Alerts Allergy Name Allergy Type Status Severity Reaction(s) Onset Date Inactive Date Treating Clinician Comments Source Aspirin Propensi ty to adverse reaction s Active Hives 04-26 00:00: 00 [facility] Shellfis h Derived Propensi ty to adverse reaction s Active Unknown - See comments 04-26 00:00: 00 [facility] ASPIRIN DRUG INGREDI Active Hives 04-26 00:00: 00 [facility] SHELLFIS H DERIVED DRUG INGREDI Active Unknown-Cmnt 2017-0 04-26 00:00: 00 [facility] Penicill ins Propensi ty to adverse reaction s Active Hives 2015-06-01 00:00: 00 [facility] Penicill ins Propensi ty to adverse reaction s Active Hives 2015-04 00:00: 00 [facility] Penicill ins Propensi ty to adverse reaction s Active Hives 2015-06-01 00:00: 00 [facility] Penicill ins Propensi ty to adverse reaction s Active Hives 2015-04 00:00: 00 [facility] PENICILL INS Drug Class Active Rash 2015-04 00:00: 00 [facility] aspirin aspirin Active [facility] shellfis h shellfis h Active [facility] penicill ins penicill ins Active [facility] Social History Social Habit Start Date Stop Date Quantity Comments Source Gender identity [facility] Sexual orientation U [facility] ASSERTION Not [facility] History of Occupation [facility] Alcoholic beverage intake 2024-05-17 00:00:00 2024-05-17 00:00:00 .14 /d [facility] History of Social function 2023-11-18 00:00:00 2023-11-18 00:00:00 [facility] Alcohol intake 2023-08-04 00:00:00 2023-08-04 00:00:00 0 /d [facility] Exposure to SARS-CoV-2 (event) 2022-08-14 00:00:00 2022-08-24 12:30:00 Not sure [facility] Tobacco use and exposure 2022-02-24 00:00:00 2022-02-24 00:00:00 Smokeless tobacco non-user [facility] Social History 2019-07-10 13:28:02 2019-07-10 13:28:02 Matt Sahu Sex assigned at 1995 00:00:00 1995 00:00:00 [facility] Smoking Status Start Date Stop Date Source Never smoked tobacco [facility] Medications Ordered Medication Name Filled Medication Name Start Date Stop Date Current Medication? Ordering Clinician Indication Dosage Frequency Signature (SIG) Comments Components Source LUTERA, 28, 0.1-20 mg-mcg per tablet 07-17 00:00: 00 Yes [id number] 1{tbl} Take 1 tablet by mouth every morning. [facility] levonorgest rel-ethinyl estradiol (LUTERA, 28,) 0.1-20 mg-mcg per tablet 05-17 00:00: 00 07-17 00:00 :00 No [id number] 1{tbl} Take 1 tablet by mouth every morning. [facility] LUTERA, 28, 0.1-20 mg-mcg per tablet 05-11 00:00: 00 05-17 00:00 :00 No [id number] 1{tbl} TAKE 1 TABLET BY MOUTH EVERY DAY IN THE MORNING [facility] levonorgest rel-ethinyl estradiol 0.1-20 mg-mcg per tablet 2023-04 00:00: 00 Yes [id number] 1{tbl} Take 1 tablet by mouth in the morning. [facility] levonorgest rel-ethinyl estradiol 0.1-20 mg-mcg per tablet 2023-04 00:00: 00 02-19 00:00 :00 No [id number] 1{tbl} Take 1 tablet by mouth in the morning. [facility] metroNIDAZO LE 500 mg tablet 11-17 00:00: 00 07-20 00:00 :00 No [id number] 500mg Take 1 tablet by mouth every 12 (twelve) hours. [facility] medroxyPROG ESTERone (DEPO-PROVE RA) syringe 150 mg 05-11 16:00: 00 02-16 19:15 :26 No [id number] 150mg 150 mg, Intramuscu lar, [id number], 5 doses, First dose on Tue05/11/23 at 1000, Last dose on Tue04/11/24 at 1000, Routine [facility] ferrous sulfate (IRON ORAL) 05-11 09:00: 45 Yes [id number] Take by mouth. [facility] medroxyPROG ESTERone (DEPO-PROVE RA) syringe 150 mg 2021-04 15:45: 00 05-11 15:48 :11 No [id number] 150mg [facility] tramadol 50 mg oral tablet 2021-04 08:51: 00 Yes 50 mg = 1 tab, PO, Q6H, PRN Pain, X 10 day, # 20 tab, 0 Refill(s), Pharmacy: [facility] #[id number], 172.72, cm, 02/06/22 0:14:00 CDT, Height, 54.545, kg, 02/06/22 0:14:00 CDT, Weight Isreal strong [facility] Zofran 4 mg oral tablet 11-13 02:07: 00 Yes 4 mg = 1 tab, PO, BID, X 5 day, # 10 tab, 0 Refill(s), [id number], 172.72, cm, 11/12/21 17:42:00 CDT, Height, 51.091, kg, 11/12/21 17:42:00 CDT, Weight [facility] cephALEXin (KEFLEX) 500 mg capsule 2020-04 00:00: 00 05-11 00:00 :00 No [id number] 500mg Take 1 capsule by mouth 2 (two) times daily. [facility] phenazopyri dine 200 mg tablet 2020-04 00:00: 00 05-11 00:00 :00 No [id number] 200mg Take 1 tablet by mouth 3 (three) times daily. [facility] medroxyPROG ESTERone (DEPO-PROVE RA) injection 150 mg 01-19 17:00: 00 09-29 16:05 :00 No [id number] 150mg [facility] Colace 100 mg oral capsule 07-13 07:00: 00 Yes 100 mg = 1 cap, PO, BID, PRN Constipati on, # 60 cap, 0 Refill(s), Pharmacy: [id number] Isreal strong [facility] ferrous sulfate 325 mg oral enteric coated tablet 07-13 07:00: 00 Yes 325 mg = 1 tab, PO, Daily, # 30 tab, 0 Refill(s), Pharmacy: [facility] #[id number] [facility] PNV oral tablet 07-13 07:00: 00 Yes 1 tab, PO, Daily, # 30 tab, 11 Refill(s), Pharmacy: [facility] #[id number] Isreal Sahu Acetaminoph en 325 MG Oral Tablet [Tylenol] 07-13 07:00: 00 Yes 325 mg = 1 tab, PO, Q4H, PRN Pain, X 10 day, # 60 tab, 0 Refill(s), Pharmacy: [facility] #[id number] Isreal strong Luis Alberto 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 a 07-11 11:09: 00 No Notes: (Same as: Depo-Prove ra) This is NOT Depo-SubQ Provera 104 For IM use only Hazardous Drug Group 2:Non-anti neoplastic Hazardous Drug -- Refer to safe handling procedure PPE Matrix MEDICATION WASTE Product Size: 150 mg Product Wasted: ___ mg Isreal Sahu Sodium Chloride 0.9% (titrate) 250 mL 07-10 15:40: 00 No 250 mL, Rate: To prime line and flush remaining blood products., Dosing Weight 60.909, kg, Route: IV, Total Volume: 250, Start Date: 07/11/19 10:40:00 CDT, Duration: 1 day, Stop date: 07/12/19 10:39:00 CDT, Replace Every: 24 hr, 0 Isreal Sahu Benadryl 07-10 15:24: 00 No Notes: (Same as: Benadryl) Isreal Sahu Multivitami ns oral tablet 07-10 14:00: 00 No 1 tab, Route: PO, Drug Form: TAB, Dosing Weight 60.909, kg, Daily, Start date: 07/11/19 9:00:00 CDT, Duration: 30 day, Stop date: 08/09/19 9:00:00 CDT, 0 Isreal Sahu ferrous sulfate 07-10 14:00: 00 No Notes: Give with food. "Do Not Crush" Isreal Sahu M-M-R II 07-10 05:00: 00 No Notes: (Same as: M-M-R II) (measles-m umps-rubel la virus vaccine 0.5 ml INJ VL) WASTE: F/P - Red; E -Red GIVE PRIOR TO DISCHARGE Isreal Sahu Ibuprofen 07-10 05:00: 00 No Notes: (Same as: Motrin) "Do Not Crush" Take with food. Isreal Sahu Docusate 07-10 04:39: 00 No Notes: (Same as: Colace) (Do Not Crush) Isreal Sahu Saline Flush 0.9% 07-10 04:39: 00 No Notes: (Same as: BD Posiflush) Isreal Sahu Lactated Ringers IV 1,000 mL 07-10 04:39: 00 No 1,000 mL, Rate: 100 ml/hr, Infuse over: 10 hr, Route: IV, Dosing Weight 60.909 kg, Total Volume: 1,000, Start date: 07/10/19 23:39:00 CDT, Duration: 30 day, Stop date: 08/09/19 23:38:00 CDT, 1.72, m2, 0 Isreal Sahu Bisacodyl 07-10 04:39: 00 No Notes: (Same As: Dulcolax, Correctol) (Do Not Crush) "Do Not Crush" Isreal Sahu lanolin topical cream 07-10 04:39: 00 No Notes: (Same as:Lanolin ) Isreal [facility] Simethicone 07-10 04:39: 00 No Notes: (Same as: Mylicon) Isreal [facility] zolpidem 07-10 04:39: 00 No Notes: (Same As: Ambien) Enmanuelsosa tae Sahu Tramadol 07-10 04:39: 00 No Notes: Not to exceed 400mg/day. (Same As: Ultram) Memsosa Sahu dexamethaso ne (ANES) 07-10 04:20: 00 No Route: IV, Drug form: INJ, ONCE, Stop date: 07/10/19 23:20:00 CDT Isreal Sahu midazolam (ANES) 07-10 04:09: 00 No Route: IV, Drug form: SOLN, ONCE, Stop date: 07/10/19 23:09:00 CDT Memsosa Sahu propofol (ANES) 07-10 04:09: 00 No Route: IV, Drug form: INJ, ONCE, Stop date: 07/10/19 23:09:00 CDT Memsosa Sahu Naloxone 07-10 04:00: 00 No Notes: Same as Narcan Memsosa Sahu bupivacaine (ANES) 07-10 03:54: 00 No Route: INTRATHECA L, Drug Form: INJ, ONCE, Stop date: 07/10/19 22:54:00 CDT Memsoas Sahu fentaNYL (ANES) 07-10 03:54: 00 No Route: INTRATHECA L, Drug form: INJ, ONCE, Stop date: 07/10/19 22:54:00 CDT Isreal Sahu famotidine (ANES) 07-10 03:49: 00 No Route: IV, Drug form: INJ, ONCE, Stop date: 07/10/19 22:49:00 CDT Isreal Sahu sodium citrate (ANES) 07-10 03:49: 00 No Route: PO, Drug Form: INJ, ONCE, Stop date: 07/10/19 22:49:00 CDT Memoria tae Sahu ceFAZolin (ANES) 07-10 03:49: 00 No Route: IV, Drug form: INJ, ONCE, Stop date: 07/10/19 22:49:00 CDT Memsosa Sahu Acetaminoph en 07-10 03:47: 00 Yes Notes: Max acetaminop hen 4000 mg/day (4 gm/day). (Same as: Tylenol Extra Strength) M[facility]osa [facility] Promethazin e 07-10 03:46: 00 No 6.25 mg, 0.25 mL, Route: IVPB, Drug form: INJ, Q6H, Dosing Weight 60.909, kg, PRN Nausea & Vomiting, Start date: 07/10/19 22:46:00 CDT, Duration: 24 hr, Stop date: 07/11/19 22:45:00 CDT, 0 Isreal Sahu Oxycodone Hydrochlori de 5 MG Oral Tablet 07-10 03:46: 00 No Notes: (Same as: Roxicodone ) Isreal Sahu Nalbuphine 07-10 03:46: 00 No Notes: (Same As: Nubain) Isreal Sahu Meperidine 07-10 03:46: 00 No Notes: (Same as: Demerol) "Use Precaution in Elderly, Seizure disorders, and Renal impairment " Isreal Sahu phenylephri ne (ANES) 100 microgram 07-10 03:10: 00 No Route: IV, Drug form: INJ, Start date: 07/10/19 22:10:00 CDT, Stop date: 07/10/19 23:10:00 CDT Isreal Sahu Lactated Ringers Injection IV (ANES) 1000 mL 07-10 02:49: 00 No Route: IV, Total Volume: 1,000, Start date: 07/10/19 21:49:00 CDT, Stop date: 07/10/19 22:49:00 CDT Isreal Sahu azithromyci n (ANES) 500 mg 07-10 02:45: 00 No Route: IV, Drug form: INJ, Start date: 07/10/19 21:45:00 CDT, Stop date: 07/10/19 22:45:00 CDT Isreal Sahu Methylergon ovine 07-10 01:00: 00 No 0.2 mg, 1 mL, Route: IM, Drug form: INJ, ONCALL, Dosing Weight 60.909, kg, Start date: 07/10/19 20:00:00 CDT, Duration: 30 day, Stop date: 08/09/19 19:59:00 CDT, 0 Isreal Sahu Misoprostol 07-10 01:00: 00 No 1,000 microgram, 5 tab, Route: CA, Drug form: TAB, ONCALL, Dosing Weight 60.909, kg, Start date: 07/10/19 20:00:00 CDT, Duration: 30 day, Stop date: 08/09/19 19:59:00 CDT, 0 Isreal tae Sahu Carboprost 07-10 01:00: 00 No 250 microgram, 1 mL, Route: IM, Drug form: INJ, ONCALL, Dosing Weight 60.909, kg, Start date: 07/10/19 20:00:00 CDT, Duration: 30 day, Stop date: 08/09/19 19:59:00 CDT, 0 Enmanuelsosa tae Sahu Tranexamic Acid 07-10 01:00: 00 No 1 gm, 10 mL, Route: IVPB, Drug form: INJ, ONCALL, Dosing Weight 60.909, kg, Start date: 07/10/19 20:00:00 CDT, Duration: 1 doses or times, 0 Isreal Sahu Oxytocin 07-10 00:35: 00 No 30 unit, 500 mL, Rate: Titrate, Dosing Weight 60.909, kg, Route: IV, Total Volume: 500 mL, Start date: 07/10/19 19:35:00 CDT, Duration: 1 doses or times, Stop date: 07/11/19 19:34:00 CDT, Replace Every: 24 hr, 0 Isreal Sahu Morphine 07-10 00:35: 00 No Notes: (Same as:MORPhin e Sulfate) Isreal Sahu Ondansetron 07-10 00:35: 00 No Notes: MEDICATION WASTE Product Size: 4 mg Product Wasted: ___ mg Isreal Sahu Calcium Chloride 0.0014 MEQ/ML / Potassium Chloride 0.004 MEQ/ML / Sodium Chloride 0.103 MEQ/ML / Sodium Lactate 0.028 MEQ/ML Injectable Solution 07-10 00:35: 00 No 1,000 mL, 1,000 ml/hr, Infuse Over: 1 hr, Route: IV, 1,000, Drug form: INJ, ONCE, Dosing Weight 60.909 kg, Start date: 07/10/19 19:35:00 CDT, Stop date: 07/10/19 19:35:00 CDT, 0 Isreal Sahu Citric Acid / sodium citrate 07-10 00:35: 00 No Notes: (Same As: Hannah Nealra-2) Sodium citrate-ci tric acid (500-334 mg/5 mL): 1 mL contains sodium 1 mEq/mL and bicarbonat e 1 mEq/mL Isreal Sahu Terbutaline 07-10 00:35: 00 No Notes: DO NOT USE IN DIRECTOR OF [employer] AREA Isreal Sahu Metoclopram saeid 07-10 00:35: 00 No Notes: (Same as: Reglan) Isreal Sahu betamethaso ne 07-09 17:00: 00 No Notes: (betametha sone acetate-so dium phosphate 6 mg/ml INJ) (Same As: Celestone Soluspan) Isreal Sahu Lactated Ringers (titrate) IV 1,000 mL 07-09 16:35: 00 No 1,000 mL, Rate: Titrate, Dosing Weight 63.636, kg, Route: IV, Total Volume: 1,000, Start Date: 07/10/19 11:35:00 CDT, Duration: 30 day, Stop date: 08/09/19 11:34:00 CDT, Replace Every: 24 hr, 0 Isreal Sahu Magnesium Sulfate 07-09 16:35: 00 No Notes: (Same as: MgSO4) WASTE: F/P - Sink; E - Municipal Trash Bin Isreal Sahu Calcium Gluconate 07-09 16:35: 00 No Notes: WASTE: F/P - Sink; E - Municipal Trash Bin Isreal Sahu BD Normal Saline Flush 07-09 14:50: 00 No Notes: (Same as: BD Posiflush) Isreal Sahu Sodium Chloride 0.9% IV 07-09 14:50: 00 No 25 mL, Route: IV, Start date: 07/10/19 9:50:00 CDT, Duration: 30 day, Stop date: 08/09/19 9:49:00 CDT, PRN Line Flush, 0 Isreal Sahu Prena1 oral capsule 07-09 13:19: 00 Yes 1 cap, PO, Daily, 0 Refill(s) Isreal Sahu ferrous sulfate 07-09 13:19: 00 Yes PO, 0 Refill(s) Isreal Sahu Famotidine 07-09 13:00: 00 No Notes: (Same as: Pepcid) Can be dilute in 5-10cc NS IVP: Slow IV push over at least 2 minutes. Isreal Sahu Misoprostol 07-09 13:00: 00 No Notes: (Same as:Cytotec ) Hazardous Drug Group 3:Reproduc tive risk Hazardous Drug -- Refer to safe handling procedure PPE Matrix Take with food Isreal Sahu Methylergon ovine 07-09 13:00: 00 No Notes: (Same as:Metherg ine) Hazardous Drug Group 3:Reproduc tive risk Hazardous Drug -- Refer to safe handling procedure PPE Matrix Isreal Sahu Carboprost 07-09 13:00: 00 No Notes: (Same As: Hemabate) Isreal Sahu Tranexamic Acid 07-09 13:00: 00 No Notes: (Same As: Cyklokapro n) Isreal Sahu Lidocaine Hydrochlori de 10 MG/ML Injectable Solution 07-09 12:59: 00 No Notes: Preservati ve free. (Same as: Xylocaine MPF) Isreal [facility] Calcium Chloride 0.0014 MEQ/ML / Potassium Chloride 0.004 MEQ/ML / Sodium Chloride 0.103 MEQ/ML / Sodium Lactate 0.028 MEQ/ML Injectable Solution 07-09 12:59: 00 No 1,000 mL, 1,000 ml/hr, Infuse Over: 1 hr, Route: IV, 1,000, Drug form: INJ, ONCE, Dosing Weight 63.636 kg, Start date: 07/10/19 7:59:00 CDT, Stop date: 07/10/19 7:59:00 CDT, Bolus for regional anesthesia per unit routine, 0 Isreal [facility] Lactated Ringers IV 1,000 mL 07-09 12:59: 00 No 1,000 mL, Rate: 125 ml/hr, Infuse over: 8 hr, Route: IV, Dosing Weight 63.636 kg, Total Volume: 1,000, Start date: 07/10/19 7:59:00 CDT, Duration: 30 day, Stop date: 08/09/19 7:58:00 CDT, 1.73, m2, 0 Isreal tae [facility] Oxytocin 07-09 12:59: 00 No Notes: Hazardous Drug Group 3:Reproduc tive risk Hazardous Drug -- Refer to safe handling procedure PPE [employer] Enmanuelsosa tae [facility] Butorphanol 07-09 12:59: 00 No Notes: (Same As: Stadol) [facility]real [facility] Ibuprofen 07-09 12:59: 00 No Notes: (Same as: Motrin) "Do Not Crush" Take with food. Isreal [facility] Acetaminoph en 325 MG / Hydrocodone Bitartrate 5 MG Oral Tablet 07-09 12:59: 00 No Notes: (Same as: [place] 325/5) Do not exceed 4gm/day of acetaminop hen. Isreal [facility] Ondansetron 07-09 12:59: 00 No Notes: (Same as: Faizafran) MEDICATION WASTE Product Size: 4 mg Product Wasted: _0__ mg Isreal [facility] Terbutaline 07-09 12:59: 00 No Notes: DO NOT USE IN DIRECTOR OF [employer]OT[employer] AREA (Same As: Brethine) Isreal [facility] tetanus/dip hth/pertuss (Tdap) adult/adol 07-09 05:00: 00 No Notes: Therapeuti c Interchang e for Boostrix Isreal [facility] erythromyci n ophthalmic 0.5% ointment 2018-04 23:31: 00 Yes 1 appl, RIGHT EYE, QID, X 7 day, # 3 gm, 0 Refill(s) Isreal [facility] Acetaminoph en 325 MG / Hydrocodone Bitartrate 5 MG Oral Tablet [[place] 5/325] 2018-04 21:14: 00 No Notes: (Same as: [place] 325/5) Do not exceed 4gm/day of acetaminop hen. 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, Stop date: 04/19/19 15:13:00 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 Isreal [facility] Nitrofurant oin 100 MG Oral Capsule [Macrobid] 2018-04 23:46: 00 Yes 100 mg = 1 cap, PO, BID, X 7 day, # 14 cap, 0 Refill(s) Isreal [facility] Saline Flush 0.9% 2018-04 21:37: 00 No Notes: (Same as: BD Posiflush) Isreal [facility] Sodium Chloride 0.9% (Bolus) IV 2018-04 21:37: 00 No 1,000 mL, 1,000 ml/hr, Infuse Over: 1 hr, Route: IV, ONCE, Priority: STAT, Dosing Weight 52.273 kg, Start date: 03/10/19 15:37:00 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, Stop date: 03/10/19 15:37:00 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 Isreal [facility] Immunizations Ordered Immunization Name Filled Immunization Name Date Status Comments Source Influenza, split virus, trivalent, PF (AFLURIA/FLUARIX/FLU LAVAL/FLUZONE) 2024-01-16 00:00:00 Completed [facility] Influenza Virus Vaccine Quad .5 mL IM 6+ MO (FLUZONE/FLULAVAL/FL UARIX) 2023-02-16 00:00:00 Completed [facility] Influenza Virus Vaccine Quad IM, Preserv and ABX Free 6 MO-64 YRS 2022-05-27 00:00:00 Completed [facility] Influenza Virus Vaccine Quad IM, Preserv and ABX Free 6 MO-64 YRS 2022-05-27 00:00:00 Completed [facility] Influenza Virus Vaccine Quad IM, Preserv and ABX Free 6 MO-64 YRS 2022-05-27 00:00:00 Completed [facility] Influenza Virus Vaccine Quad IM, Preserv and ABX Free 6 MO-64 YRS 2022-05-27 00:00:00 Completed [facility] Influenza Virus Vaccine Quad IM, Preserv and ABX Free 6 MO-64 YRS (FLUCELVAX) 2022-05-27 00:00:00 Completed [facility] Influenza Virus Vaccine Quad IM, Preserv and ABX Free 6 MO-64 YRS 2021-04-13 00:00:00 Completed [facility] Influenza Virus Vaccine Quad IM, Preserv and ABX Free 6 MO-64 YRS 2021-04-13 00:00:00 Completed [facility] Influenza Virus Vaccine Quad IM, Preserv and ABX Free 6 MO-64 YRS 2021-04-13 00:00:00 Completed [facility] Influenza Virus Vaccine Quad IM, Preserv and ABX Free 6 MO-64 YRS 2021-04-13 00:00:00 Completed [facility] Influenza Virus Vaccine Quad IM, Preserv and ABX Free 6 MO-64 YRS 2021-04-13 00:00:00 Completed [facility] Influenza Virus Vaccine Quad IM, Preserv and ABX Free 6 MO-64 YRS 2021-04-13 00:00:00 Completed [facility] Influenza Virus Vaccine Quad IM, Preserv and ABX Free 6 MO-64 YRS 2021-04-13 00:00:00 Completed [facility] Influenza Virus Vaccine Quad IM, Preserv and ABX Free 6 MO-64 YRS 2021-04-13 00:00:00 Completed [facility] Influenza Virus Vaccine Quad IM, Preserv and ABX Free 6 MO-64 YRS 2021-04-13 00:00:00 Completed [facility] Influenza Virus Vaccine Quad IM, Preserv and ABX Free 6 MO-64 YRS 2021-04-13 00:00:00 Completed [facility] Influenza Virus Vaccine Quad IM, Preserv and ABX Free 6 MO-64 YRS 2021-04-13 00:00:00 Completed [facility] Influenza Virus Vaccine Quad IM, Preserv and ABX Free 6 MO-64 YRS (FLUCELVAX) 2021-04-13 00:00:00 Completed [facility] Influenza Virus Vaccine Quad IM 3+ YRS 2020-02-08 00:00:00 Completed [facility] Influenza Virus Vaccine Quad IM 3+ YRS 2020-02-08 00:00:00 Completed [facility] Influenza Virus Vaccine Quad IM 3+ YRS 2020-02-08 00:00:00 Completed [facility] Influenza Virus Vaccine Quad IM 3+ YRS 2020-02-08 00:00:00 Completed [facility] Influenza Virus Vaccine Quad IM 3+ YRS 2020-02-08 00:00:00 Completed [facility] Influenza Virus Vaccine Quad IM 3+ YRS 2020-02-08 00:00:00 Completed [facility] Influenza Virus Vaccine Quad IM 3+ YRS 2020-02-08 00:00:00 Completed [facility] Influenza Virus Vaccine Quad IM 3+ YRS 2020-02-08 00:00:00 Completed [facility] Influenza Virus Vaccine Quad IM 3+ YRS 2020-02-08 00:00:00 Completed [facility] Influenza Virus Vaccine Quad IM 3+ YRS 2020-02-08 00:00:00 Completed [facility] Influenza Virus Vaccine Quad IM 3+ YRS 2020-02-08 00:00:00 Completed [facility] Influenza Virus Vaccine Quad IM 3+ YRS 2020-02-08 00:00:00 Completed [facility] Influenza Virus Vaccine Quad IM 3+ YRS 2020-02-08 00:00:00 Completed [facility] Influenza Virus Vaccine Quad IM 3+ YRS 2020-02-08 00:00:00 Completed [facility] Influenza Virus Vaccine Quad IM 3+ YRS 2020-02-08 00:00:00 Completed [facility] TDAP (ADACEL) VACCINE 2019-05-31 00:00:00 Completed [facility] TDAP (ADACEL) VACCINE 2019-05-31 00:00:00 Completed [facility] TDAP (ADACEL) VACCINE 2019-05-31 00:00:00 Completed [facility] TDAP (ADACEL) VACCINE 2019-05-31 00:00:00 Completed [facility] TDAP (ADACEL) VACCINE 2019-05-31 00:00:00 Completed [facility] TDAP (ADACEL) VACCINE 2019-05-31 00:00:00 Completed [facility] TDAP (ADACEL) VACCINE 2019-05-31 00:00:00 Completed [facility] TDAP (ADACEL) VACCINE 2019-05-31 00:00:00 Completed [facility] TDAP (ADACEL) VACCINE 2019-05-31 00:00:00 Completed [facility] TDAP (ADACEL) VACCINE 2019-05-31 00:00:00 Completed [facility] TDAP (ADACEL) VACCINE 2019-05-31 00:00:00 Completed [facility] TDAP (ADACEL) VACCINE 2019-05-31 00:00:00 Completed TDAP (ADACEL) VACCINE 2019-05-31 00:00:00 Completed [facility] TDAP (ADACEL) VACCINE 2019-05-31 00:00:00 Completed [facility] TDAP (ADACEL) VACCINE 2019-05-31 00:00:00 Completed [facility] Influenza Virus Vaccine 2019-02-23 00:00:00 Completed [facility] Influenza Virus Vaccine 2019-02-23 00:00:00 Completed [facility] Influenza Virus Vaccine 2019-02-23 00:00:00 Completed [facility] Influenza Virus Vaccine 2019-02-23 00:00:00 Completed [facility] Influenza Virus Vaccine 2019-02-23 00:00:00 Completed [facility] Influenza Virus Vaccine 2019-02-23 00:00:00 Completed [facility] Influenza Virus Vaccine 2019-02-23 00:00:00 Completed [facility] Influenza Virus Vaccine 2019-02-23 00:00:00 Completed [facility] Influenza Virus Vaccine 2019-02-23 00:00:00 Completed [facility] Influenza Virus Vaccine 2019-02-23 00:00:00 Completed [facility] Influenza Virus Vaccine 2019-02-23 00:00:00 Completed [facility] Influenza Virus Vaccine 2019-02-23 00:00:00 Completed [facility] Influenza Virus Vaccine 2019-02-23 00:00:00 Completed [facility] Influenza Virus Vaccine 2019-02-23 00:00:00 Completed [facility] Influenza Virus Vaccine 2019-02-23 00:00:00 Completed [facility] Influenza Virus Vaccine Quad IM 3+ YRS 2017-01-12 00:00:00 Completed [facility] Influenza Virus Vaccine Quad IM 3+ YRS 2017-01-12 00:00:00 Completed [facility] Influenza Virus Vaccine Quad IM 3+ YRS 2017-01-12 00:00:00 Completed [facility] Influenza Virus Vaccine Quad IM 3+ YRS 2017-01-12 00:00:00 Completed [facility] Influenza Virus Vaccine Quad IM 3+ YRS 2017-01-12 00:00:00 Completed [facility] Influenza Virus Vaccine Quad IM 3+ YRS 2017-01-12 00:00:00 Completed [facility] Influenza Virus Vaccine Quad IM 3+ YRS 2017-01-12 00:00:00 Completed [facility] Influenza Virus Vaccine Quad IM 3+ YRS 2017-01-12 00:00:00 Completed [facility] Influenza Virus Vaccine Quad IM 3+ YRS 2017-01-12 00:00:00 Completed [facility] Influenza Virus Vaccine Quad IM 3+ YRS 2017-01-12 00:00:00 Completed [facility] Influenza Virus Vaccine Quad IM 3+ YRS 2017-01-12 00:00:00 Completed [facility] Influenza Virus Vaccine Quad IM 3+ YRS 2017-01-12 00:00:00 Completed Influenza Virus Vaccine Quad IM 3+ YRS 2017-01-12 00:00:00 Completed [facility] Influenza Virus Vaccine Quad IM 3+ YRS 2017-01-12 00:00:00 Completed [facility] Influenza Virus Vaccine Quad IM 3+ YRS 2017-01-12 00:00:00 Completed [facility] TDAP 2016-09-23 00:00:00 Completed [facility] TDAP 2016-09-23 00:00:00 Completed [facility] TDAP 2016-09-23 00:00:00 Completed [facility] TDAP 2016-09-23 00:00:00 Completed [facility] TDAP 2016-09-23 00:00:00 Completed [facility] TDAP 2016-09-23 00:00:00 Completed [facility] TDAP 2016-09-23 00:00:00 Completed [facility] TDAP 2016-09-23 00:00:00 Completed [facility] TDAP 2016-09-23 00:00:00 Completed [facility] TDAP 2016-09-23 00:00:00 Completed [facility] TDAP 2016-09-23 00:00:00 Completed [facility] TDAP 2016-09-23 00:00:00 Completed TDAP 2016-09-23 00:00:00 Completed [facility] TDAP 2016-09-23 00:00:00 Completed [facility] TDAP 2016-09-23 00:00:00 Completed [facility] HPV9 2013-12-11 00:00:00 Completed [facility] HPV9 2013-12-11 00:00:00 Completed [facility] HPV9 2013-12-11 00:00:00 Completed [facility] HPV9 2013-12-11 00:00:00 Completed [facility] HPV9 2013-12-11 00:00:00 Completed [facility] HPV9 2013-12-11 00:00:00 Completed [facility] HPV9 2013-12-11 00:00:00 Completed [facility] HPV9 2013-12-11 00:00:00 Completed [facility] HPV9 2013-12-11 00:00:00 Completed [facility] HPV9 2013-12-11 00:00:00 Completed [facility] HPV9 2013-12-11 00:00:00 Completed [facility] HPV9 2013-12-11 00:00:00 Completed HPV9 2013-12-11 00:00:00 Completed [facility] HPV9 2013-12-11 00:00:00 Completed [facility] HPV9 2013-12-11 00:00:00 Completed [facility] HPV9 2012-11-17 00:00:00 Completed [facility] Meningococcal Vaccine 2012-11-17 00:00:00 Completed [facility] TDAP 2012-11-17 00:00:00 Completed [facility] Meningococcal Polysaccharide (groups A, C, Y and W-135) conjugate vaccine (MCV4P) 2012-11-17 00:00:00 Completed [facility] HPV9 2012-11-17 00:00:00 Completed [facility] Meningococcal Vaccine 2012-11-17 00:00:00 Completed [facility] TDAP 2012-11-17 00:00:00 Completed [facility] Meningococcal Polysaccharide (groups A, C, Y and W-135) conjugate vaccine (MCV4P) 2012-11-17 00:00:00 Completed [facility] HPV9 2012-11-17 00:00:00 Completed [facility] Meningococcal Vaccine 2012-11-17 00:00:00 Completed [facility] TDAP 2012-11-17 00:00:00 Completed [facility] Meningococcal Polysaccharide (groups A, C, Y and W-135) conjugate vaccine (MCV4P) 2012-11-17 00:00:00 Completed [facility] HPV9 2012-11-17 00:00:00 Completed [facility] Meningococcal Vaccine 2012-11-17 00:00:00 Completed [facility] TDAP 2012-11-17 00:00:00 Completed [facility] Meningococcal Polysaccharide (groups A, C, Y and W-135) conjugate vaccine (MCV4P) 2012-11-17 00:00:00 Completed [facility] HPV9 2012-11-17 00:00:00 Completed [facility] Meningococcal Vaccine 2012-11-17 00:00:00 Completed [facility] TDAP 2012-11-17 00:00:00 Completed [facility] Meningococcal Polysaccharide (groups A, C, Y and W-135) conjugate vaccine (MCV4P) 2012-11-17 00:00:00 Completed [facility] HPV9 2012-11-17 00:00:00 Completed [facility] Meningococcal Vaccine 2012-11-17 00:00:00 Completed [facility] TDAP 2012-11-17 00:00:00 Completed [facility] Meningococcal Polysaccharide (groups A, C, Y and W-135) conjugate vaccine (MCV4P) 2012-11-17 00:00:00 Completed [facility] HPV9 2012-11-17 00:00:00 Completed [facility] Meningococcal Vaccine 2012-11-17 00:00:00 Completed [facility] TDAP 2012-11-17 00:00:00 Completed [facility] Meningococcal Polysaccharide (groups A, C, Y and W-135) conjugate vaccine (MCV4P) 2012-11-17 00:00:00 Completed [facility] HPV9 2012-11-17 00:00:00 Completed [facility] Meningococcal Vaccine 2012-11-17 00:00:00 Completed [facility] TDAP 2012-11-17 00:00:00 Completed [facility] Meningococcal Polysaccharide (groups A, C, Y and W-135) conjugate vaccine (MCV4P) 2012-11-17 00:00:00 Completed [facility] HPV9 2012-11-17 00:00:00 Completed [facility] Meningococcal Vaccine 2012-11-17 00:00:00 Completed [facility] TDAP 2012-11-17 00:00:00 Completed [facility] Meningococcal Polysaccharide (groups A, C, Y and W-135) conjugate vaccine (MCV4P) 2012-11-17 00:00:00 Completed [facility] HPV9 2012-11-17 00:00:00 Completed [facility] Meningococcal Vaccine 2012-11-17 00:00:00 Completed [facility] TDAP 2012-11-17 00:00:00 Completed [facility] Meningococcal Polysaccharide (groups A, C, Y and W-135) conjugate vaccine (MCV4P) 2012-11-17 00:00:00 Completed [facility] HPV9 2012-11-17 00:00:00 Completed [facility] Meningococcal Vaccine 2012-11-17 00:00:00 Completed [facility] TDAP 2012-11-17 00:00:00 Completed [facility] Meningococcal Polysaccharide (groups A, C, Y and W-135) conjugate vaccine (MCV4P) 2012-11-17 00:00:00 Completed [facility] HPV9 2012-11-17 00:00:00 Completed Meningococcal Vaccine 2012-11-17 00:00:00 Completed TDAP 2012-11-17 00:00:00 Completed Meningococcal Polysaccharide (groups A, C, Y and W-135) conjugate vaccine (MCV4P) 2012-11-17 00:00:00 Completed HPV9 2012-11-17 00:00:00 Completed [facility] Meningococcal Vaccine 2012-11-17 00:00:00 Completed [facility] TDAP 2012-11-17 00:00:00 Completed [facility] Meningococcal Polysaccharide (groups A, C, Y and W-135) conjugate vaccine (MCV4P) 2012-11-17 00:00:00 Completed [facility] HPV9 2012-11-17 00:00:00 Completed [facility] Meningococcal Vaccine 2012-11-17 00:00:00 Completed [facility] TDAP 2012-11-17 00:00:00 Completed [facility] Meningococcal Polysaccharide (groups A, C, Y and W-135) conjugate vaccine (MCV4P) 2012-11-17 00:00:00 Completed [facility] HPV9 2012-11-17 00:00:00 Completed [facility] Meningococcal Vaccine 2012-11-17 00:00:00 Completed [facility] TDAP 2012-11-17 00:00:00 Completed [facility] Meningococcal Polysaccharide (groups A, C, Y and W-135) conjugate vaccine (MCV4P) 2012-11-17 00:00:00 Completed [facility] Influenza Virus Vaccine Quad IM Multi-dose 6+ MO 2012-04-21 00:00:00 Completed [facility] Influenza Virus Vaccine Quad IM Multi-dose 6+ MO 2012-04-21 00:00:00 Completed [facility] Influenza Virus Vaccine Quad IM Multi-dose 6+ MO 2012-04-21 00:00:00 Completed [facility] Influenza Virus Vaccine Quad IM Multi-dose 6+ MO 2012-04-21 00:00:00 Completed [facility] Influenza Virus Vaccine Quad IM Multi-dose 6+ MO 2012-04-21 00:00:00 Completed [facility] Influenza Virus Vaccine Quad IM Multi-dose 6+ MO 2012-04-21 00:00:00 Completed [facility] Influenza Virus Vaccine Quad IM Multi-dose 6+ MO 2012-04-21 00:00:00 Completed [facility] Influenza Virus Vaccine Quad IM Multi-dose 6+ MO 2012-04-21 00:00:00 Completed [facility] Influenza Virus Vaccine Quad IM Multi-dose 6+ MO 2012-04-21 00:00:00 Completed [facility] Influenza Virus Vaccine Quad IM Multi-dose 6+ MO 2012-04-21 00:00:00 Completed [facility] Influenza Virus Vaccine Quad IM Multi-dose 6+ MO 2012-04-21 00:00:00 Completed [facility] Influenza Virus Vaccine Quad IM Multi-dose 6+ MO 2012-04-21 00:00:00 Completed [facility] Influenza Virus Vaccine Quad IM Multi-dose 6+ MO 2012-04-21 00:00:00 Completed [facility] Influenza Virus Vaccine Quad IM Multi-dose 6+ MO 2012-04-21 00:00:00 Completed Influenza Virus Vaccine Quad IM Multi-dose 6+ MO 2012-04-21 00:00:00 Completed [facility] HEPATITIS A 2008-07-03 00:00:00 Completed [facility] HPV9 2008-07-03 00:00:00 Completed [facility] Varicella (varivax)(chicken pox) 2008-07-03 00:00:00 Completed [facility] HEPATITIS A 2008-07-03 00:00:00 Completed [facility] HPV9 2008-07-03 00:00:00 Completed [facility] Varicella (varivax)(chicken pox) 2008-07-03 00:00:00 Completed [facility] HEPATITIS A 2008-07-03 00:00:00 Completed [facility] HPV9 2008-07-03 00:00:00 Completed [facility] Varicella (varivax)(chicken pox) 2008-07-03 00:00:00 Completed [facility] HEPATITIS A 2008-07-03 00:00:00 Completed [facility] HPV9 2008-07-03 00:00:00 Completed [facility] Varicella (varivax)(chicken pox) 2008-07-03 00:00:00 Completed [facility] HEPATITIS A 2008-07-03 00:00:00 Completed [facility] HPV9 2008-07-03 00:00:00 Completed [facility] Varicella (varivax)(chicken pox) 2008-07-03 00:00:00 Completed [facility] HEPATITIS A 2008-07-03 00:00:00 Completed [facility] HPV9 2008-07-03 00:00:00 Completed [facility] Varicella (varivax)(chicken pox) 2008-07-03 00:00:00 Completed [facility] HEPATITIS A 2008-07-03 00:00:00 Completed [facility] HPV9 2008-07-03 00:00:00 Completed [facility] Varicella (varivax)(chicken pox) 2008-07-03 00:00:00 Completed [facility] HEPATITIS A 2008-07-03 00:00:00 Completed [facility] HPV9 2008-07-03 00:00:00 Completed [facility] Varicella (varivax)(chicken pox) 2008-07-03 00:00:00 Completed [facility] HEPATITIS A 2008-07-03 00:00:00 Completed [facility] HPV9 2008-07-03 00:00:00 Completed [facility] Varicella (varivax)(chicken pox) 2008-07-03 00:00:00 Completed [facility] HEPATITIS A 2008-07-03 00:00:00 Completed [facility] HPV9 2008-07-03 00:00:00 Completed [facility] Varicella (varivax)(chicken pox) 2008-07-03 00:00:00 Completed [facility] HEPATITIS A 2008-07-03 00:00:00 Completed [facility] HPV9 2008-07-03 00:00:00 Completed [facility] Varicella (varivax)(chicken pox) 2008-07-03 00:00:00 Completed [facility] HEPATITIS A 2008-07-03 00:00:00 Completed HPV9 2008-07-03 00:00:00 Completed Varicella (varivax)(chicken pox) 2008-07-03 00:00:00 Completed HEPATITIS A 2008-07-03 00:00:00 Completed [facility] HPV9 2008-07-03 00:00:00 Completed [facility] Varicella (varivax)(chicken pox) 2008-07-03 00:00:00 Completed [facility] HEPATITIS A 2008-07-03 00:00:00 Completed [facility] HPV9 2008-07-03 00:00:00 Completed [facility] Varicella (varivax)(chicken pox) 2008-07-03 00:00:00 Completed [facility] HEPATITIS A 2008-07-03 00:00:00 Completed [facility] HPV9 2008-07-03 00:00:00 Completed [facility] Varicella (varivax)(chicken pox) 2008-07-03 00:00:00 Completed [facility] TDAP Unknown Completed [facility] HEPATITIS A Unknown Completed [facility] HPV9 Unknown Completed [facility] Influenza Virus Vaccine Quad IM Multi-dose 6+ MO Unknown Completed [facility] Meningococcal Vaccine Unknown Completed [facility] Varicella (varivax)(chicken pox) Unknown Completed [facility] Influenza Virus Vaccine Quad IM 3+ YRS Unknown Completed [facility] Influenza Virus Vaccine Unknown Completed [facility] Meningococcal Polysaccharide (groups A, C, Y and W-135) conjugate vaccine (MCV4P) Unknown Completed [facility] Influenza Virus Vaccine Quad IM, Preserv and ABX Free 6 MO-64 YRS (FLUCELVAX) Unknown Completed [facility] HEPATITIS A Unknown Completed [facility] Influenza Virus Vaccine Quad IM Multi-dose 6+ MO Unknown Completed [facility] Meningococcal Vaccine Unknown Completed [facility] Varicella (varivax)(chicken pox) Unknown Completed [facility] Influenza Virus Vaccine Unknown Completed [facility] Meningococcal Polysaccharide (groups A, C, Y and W-135) conjugate vaccine (MCV4P) Unknown Completed [facility] TDAP Unknown Completed [facility] HPV9 Unknown Completed [facility] Influenza Virus Vaccine Quad IM 3+ YRS Unknown Completed [facility] Influenza Virus Vaccine Quad IM, Preserv and ABX Free 6 MO-64 YRS (FLUCELVAX) Unknown Completed [facility] TDAP Unknown Completed [facility] HEPATITIS A Unknown Completed [facility] HPV9 Unknown Completed [facility] Influenza Virus Vaccine Quad IM Multi-dose 6+ MO Unknown Completed [facility] Meningococcal Vaccine Unknown Completed [facility] Varicella (varivax)(chicken pox) Unknown Completed [facility] Influenza Virus Vaccine Quad IM 3+ YRS Unknown Completed [facility] Influenza Virus Vaccine Unknown Completed [facility] Meningococcal Polysaccharide (groups A, C, Y and W-135) conjugate vaccine (MCV4P) Unknown Completed [facility] Influenza Virus Vaccine Quad IM, Preserv and ABX Free 6 MO-64 YRS (FLUCELVAX) Unknown Completed [facility] TDAP Unknown Completed [facility] HEPATITIS A Unknown Completed [facility] HPV9 Unknown Completed [facility] Influenza Virus Vaccine Quad IM Multi-dose 6+ MO Unknown Completed [facility] Meningococcal Vaccine Unknown Completed [facility] Varicella (varivax)(chicken pox) Unknown Completed [facility] Influenza Virus Vaccine Quad IM 3+ YRS Unknown Completed [facility] Influenza Virus Vaccine Unknown Completed [facility] Meningococcal Polysaccharide (groups A, C, Y and W-135) conjugate vaccine (MCV4P) Unknown Completed [facility] Influenza Virus Vaccine Quad IM, Preserv and ABX Free 6 MO-64 YRS (FLUCELVAX) Unknown Completed [facility] TDAP Unknown Completed [facility] HEPATITIS A Unknown Completed [facility] HPV9 Unknown Completed [facility] Influenza Virus Vaccine Quad IM Multi-dose 6+ MO Unknown Completed [facility] Meningococcal Vaccine Unknown Completed [facility] Varicella (varivax)(chicken pox) Unknown Completed [facility] Influenza Virus Vaccine Quad IM 3+ YRS Unknown Completed [facility] Influenza Virus Vaccine Unknown Completed [facility] Meningococcal Polysaccharide (groups A, C, Y and W-135) conjugate vaccine (MCV4P) Unknown Completed [facility] Influenza Virus Vaccine Quad IM, Preserv and ABX Free 6 MO-64 YRS (FLUCELVAX) Unknown Completed [facility] TDAP (ADACEL) VACCINE Unknown Completed [facility]IS [facility] Influenza Virus Vaccine Quad IM Multi-dose 6+ MO Unknown Completed [facility] Meningococcal Vaccine Unknown Completed [facility] Varicella (varivax)(chicken pox) Unknown Completed [facility] Influenza Virus Vaccine Quad .5 mL IM 6+ MO (FLUZONE/FLULAVAL/FL UARIX) Unknown Completed [facility] Influenza Virus Vaccine Unknown Completed [facility] Meningococcal Polysaccharide (groups A, C, Y and W-135) conjugate vaccine (MCV4P) Unknown Completed [facility] Influenza Virus Vaccine Quad IM, Preserv and ABX Free 6 MO-64 YRS (FLUCELVAX) Unknown Completed [facility] Influenza, split virus, trivalent, PF (AFLURIA/FLUARIX/FLU LAVAL/FLUZONE) Unknown Completed [facility] Vital Signs Vital Name Observation Time Observation Value Comments S christine Systolic blood pressure 2024-07-17 20:17:00 119 mm[Hg] [facility] Diastolic blood pressure 2024-07-17 20:17:00 81 mm[Hg] [facility] Heart rate 2024-07-17 20:17:00 89 /min [facility] Body temperature 2024-07-17 20:17:00 36.67 Johnna [facility] Respiratory rate 2024-07-17 20:17:00 17 /min [facility] Body weight 2024-07-17 20:17:00 59.512 kg [facility] BMI 2024-07-17 20:17:00 19.95 kg/m2 [facility] Systolic blood pressure 2024-05-17 17:01:00 138 mm[Hg] [facility] Diastolic blood pressure 2024-05-17 17:01:00 86 mm[Hg] [facility] Heart rate 2024-05-17 17:01:00 57 /[facility] Body temperature 2024-05-17 17:01:00 36.11 Johnna [facility] Respiratory rate 2024-05-17 17:01:00 18 /min [facility] Body height 2024-05-17 17:01:00 172.7 cm [facility] Body weight 2024-05-17 17:01:00 60.147 kg [facility] BMI 2024-05-17 17:01:00 20.16 kg/m2 [facility] Systolic blood pressure 2024-02-17 18:49:00 121 mm[Hg] [facility] Diastolic blood pressure 2024-02-17 18:49:00 78 mm[Hg] [facility] Heart rate 2024-02-17 18:49:00 79 /min [facility] Body temperature 2024-02-17 18:49:00 35.94 Johnna [facility] Respiratory rate 2024-02-17 18:49:00 18 /min [facility] Body height 2024-02-17 18:49:00 172.7 cm [facility] Body weight 2024-02-17 18:49:00 59.603 kg [facility] BMI 2024-02-17 18:49:00 19.98 kg/m2 [facility] Systolic blood pressure 2024-01-16 17:42:00 124 mm[Hg] [facility] Diastolic blood pressure 2024-01-16 17:42:00 83 mm[Hg] [facility] Heart rate 2024-01-16 17:42:00 74 /min [facility] Body temperature 2024-01-16 17:42:00 36.22 Johnna [facility] Respiratory rate 2024-01-16 17:42:00 18 /min [facility] Body height 2024-01-16 17:42:00 172.7 cm [facility] Body weight 2024-01-16 17:42:00 59.784 kg [facility] BMI 2024-01-16 17:42:00 20.04 kg/m2 [facility] Systolic blood pressure 2023-11-18 17:41:00 119 mm[Hg] [facility] Diastolic blood pressure 2023-11-18 17:41:00 80 mm[Hg] [facility] Heart rate 2023-11-18 17:41:00 86 /min [facility] Body temperature 2023-11-18 17:41:00 36.67 Johnna [facility] Respiratory rate 2023-11-18 17:41:00 16 /min [facility] Body height 2023-11-18 17:41:00 172.7 cm [facility] Body weight 2023-11-18 17:41:00 60.51 kg [facility] BMI 2023-11-18 17:41:00 20.28 kg/m2 [facility] Systolic blood pressure 2023-10-28 20:17:00 130 mm[Hg] [facility] Diastolic blood pressure 2023-10-28 20:17:00 88 mm[Hg] [facility] Heart rate 2023-10-28 20:17:00 82 /min [facility] Body temperature 2023-10-28 20:17:00 35.67 Johnna [facility] Respiratory rate 2023-10-28 20:17:00 18 /min [facility] Body height 2023-10-28 20:17:00 172.7 cm [facility] Body weight 2023-10-28 20:17:00 58.423 kg [facility] BMI 2023-10-28 20:17:00 19.58 kg/m2 [facility] Systolic blood pressure 2023-08-04 14:46:00 119 mm[Hg] [facility] Diastolic blood pressure 2023-08-04 14:46:00 79 mm[Hg] [facility] Heart rate 2023-08-04 14:46:00 78 /min [facility] Body temperature 2023-08-04 14:46:00 37 Johnna [facility] Respiratory rate 2023-08-04 14:46:00 18 /min [facility] Body height 2023-08-04 14:46:00 172.7 cm [facility] Body weight 2023-08-04 14:46:00 58.06 kg [facility] BMI 2023-08-04 14:46:00 19.46 kg/m2 [facility] Systolic blood pressure 2023-05-11 14:45:00 126 mm[Hg] [facility] Diastolic blood pressure 2023-05-11 14:45:00 87 mm[Hg] [facility] Heart rate 2023-05-11 14:45:00 70 /min [facility] Body temperature 2023-05-11 14:45:00 36.33 Johnna [facility] Respiratory rate 2023-05-11 14:45:00 18 /min [facility] Body height 2023-05-11 14:45:00 172.7 cm [facility] Body weight 2023-05-11 14:45:00 59.166 kg [facility] BMI 2023-05-11 14:45:00 19.83 kg/m2 [facility] Systolic blood pressure 2023-02-16 18:54:00 125 mm[Hg] [facility] Diastolic blood pressure 2023-02-16 18:54:00 86 mm[Hg] [facility] Heart rate 2023-02-16 18:54:00 90 /min [facility] Body temperature 2023-02-16 18:54:00 37.06 Johnna [facility] Respiratory rate 2023-02-16 18:54:00 17 /min [facility] Body height 2023-02-16 18:54:00 172.7 cm [facility] Body weight 2023-02-16 18:54:00 58.514 kg [facility] BMI 2023-02-16 18:54:00 19.61 kg/m2 [facility] Systolic blood pressure 2022-11-16 17:55:00 117 mm[Hg] [facility] Diastolic blood pressure 2022-11-16 17:55:00 83 mm[Hg] [facility] Heart rate 2022-11-16 17:55:00 105 /min [facility] Body temperature 2022-11-16 17:55:00 35.83 Johnna [facility] Respiratory rate 2022-11-16 17:55:00 18 /min [facility] Body height 2022-11-16 17:55:00 172.7 cm [facility] Body weight 2022-11-16 17:55:00 56.972 kg [facility] BMI 2022-11-16 17:55:00 19.10 kg/m2 [facility] Systolic blood pressure 2022-08-24 18:34:00 117 mm[Hg] [facility] Diastolic blood pressure 2022-08-24 18:34:00 74 mm[Hg] [facility] Heart rate 2022-08-24 18:34:00 69 /min [facility] Body temperature 2022-08-24 18:34:00 36.67 Johnna [facility] Respiratory rate 2022-08-24 18:34:00 17 /min [facility] Body height 2022-08-24 18:34:00 172.7 cm [facility] Body weight 2022-08-24 18:34:00 58.423 kg [facility] BMI 2022-08-24 18:34:00 19.58 kg/m2 [facility] Systolic blood pressure 2022-05-27 21:10:00 109 mm[Hg] [facility] Diastolic blood pressure 2022-05-27 21:10:00 78 mm[Hg] [facility] Heart rate 2022-05-27 21:10:00 90 /min [facility] Body temperature 2022-05-27 21:10:00 36.94 Johnna [facility] Respiratory rate 2022-05-27 21:10:00 18 /min [facility] Body height 2022-05-27 21:10:00 172.7 cm [facility] Body weight 2022-05-27 21:10:00 58.65 kg [facility] BMI 2022-05-27 21:10:00 19.66 kg/m2 [facility] Systolic blood pressure 2022-02-24 14:35:00 118 mm[Hg] [facility] Diastolic blood pressure 2022-02-24 14:35:00 77 mm[Hg] [facility] Heart rate 2022-02-24 14:35:00 73 /min [facility] Body temperature 2022-02-24 14:35:00 36.56 Johnna [facility] Respiratory rate 2022-02-24 14:35:00 18 /min [facility] Body height 2022-02-24 14:35:00 172.7 cm [facility] Body weight 2022-02-24 14:35:00 58.06 kg [facility] BMI 2022-02-24 14:35:00 19.46 kg/m2 [facility] Systolic blood pressure 2021-09-29 16:00:00 112 mm[Hg] [facility] Diastolic blood pressure 2021-09-29 16:00:00 75 mm[Hg] [facility] Heart rate 2021-09-29 16:00:00 73 /min [facility] Body temperature 2021-09-29 16:00:00 36.5 Johnna [facility] Respiratory rate 2021-09-29 16:00:00 18 /min [facility] Body height 2021-09-29 16:00:00 172.7 cm [facility] Body weight 2021-09-29 16:00:00 58.996 kg [facility] BMI 2021-09-29 16:00:00 19.78 kg/m2 [facility] Systolic blood pressure 2021-07-07 19:26:00 122 mm[Hg] [facility] Diastolic blood pressure 2021-07-07 19:26:00 78 mm[Hg] [facility] Heart rate 2021-07-07 19:26:00 78 /min [facility] Body temperature 2021-07-07 19:26:00 36.94 Johnna [facility] Respiratory rate 2021-07-07 19:26:00 16 /min [facility] Body height 2021-07-07 19:26:00 172.7 cm [facility] Body weight 2021-07-07 19:26:00 57.561 kg [facility] BMI 2021-07-07 19:26:00 19.30 kg/m2 [facility] Systolic blood pressure 2021-04-13 19:42:00 124 mm[Hg] [facility] Diastolic blood pressure 2021-04-13 19:42:00 86 mm[Hg] [facility] Heart rate 2021-04-13 19:42:00 81 /min [facility] Body temperature 2021-04-13 19:42:00 36.11 Johnna [facility] Respiratory rate 2021-04-13 19:42:00 16 /min [facility] Body height 2021-04-13 19:42:00 172.7 cm [facility] Body weight 2021-04-13 19:42:00 57.38 kg [facility] BMI 2021-04-13 19:42:00 19.23 kg/m2 [facility] Systolic blood pressure 2021-04-01 20:43:00 149 mm[Hg] [facility] Diastolic blood pressure 2021-04-01 20:43:00 72 mm[Hg] [facility] Heart rate 2021-04-01 20:43:00 79 /min [facility] Body temperature 2021-04-01 20:43:00 36.78 Johnna [facility] Respiratory rate 2021-04-01 20:43:00 18 /min [facility] Body height 2021-04-01 20:43:00 172.7 cm [facility] Body weight 2021-04-01 20:43:00 54.432 kg [facility] BMI 2021-04-01 20:43:00 18.25 kg/m2 [facility] Oxygen saturation in Arterial blood by Pulse oximetry 2021-04-01 20:43:00 100 /min [facility] Temperature Oral (F) 2022-02-06 09:10:00 98.1 F [facility] Systolic (mm Hg) 2022-02-06 09:10:00 [facility] Diastolic (mm Hg) 2022-02-06 09:10:00 [facility] Height 2022-02-06 05:14:00 172.72 cm [facility] BMI Calculated 2022-02-06 05:14:00 [facility] Weight 2022-02-06 05:14:00 [facility] Heart Rate 2022-02-06 05:14:00 [facility] Heart Rate 2021-11-13 02:46:00 [facility] Respitory Rate 2021-11-13 02:46:00 [facility] Systolic (mm Hg) 2021-11-13 02:46:00 [facility] Diastolic (mm Hg) 2021-11-13 02:46:00 [facility] Height 2021-11-12 22:42:00 172.72 cm [facility] BMI Calculated 2021-11-12 22:42:00 [facility] Weight 2021-11-12 22:42:00 [facility] Systolic (mm Hg) 2021-11-12 22:42:00 [facility] Diastolic (mm Hg) 2021-11-12 22:42:00 [facility] Heart Rate 2021-11-12 22:42:00 [facility] Respitory Rate 2021-11-12 22:42:00 [facility] Height 2021-02-05 18:37:00 172.72 cm [facility] BMI Calculated 2021-02-05 18:37:00 [facility] Weight 2021-02-05 18:37:00 [facility] Systolic (mm Hg) 2021-02-05 18:37:00 [facility] Diastolic (mm Hg) 2021-02-05 18:37:00 [facility] Heart Rate 2021-02-05 18:37:00 [facility] Respitory Rate 2021-02-05 18:37:00 [facility] Temperature Oral (F) 2019-07-14 14:30:00 98.4 F [facility] Heart Rate 2019-07-14 14:30:00 [facility] Respitory Rate 2019-07-14 14:30:00 [facility] Systolic (mm Hg) 2019-07-14 14:30:00 [facility] Diastolic (mm Hg) 2019-07-14 14:30:00 [facility] Temperature Oral (F) 2019-07-14 05:00:00 98.2 F [facility] Heart Rate 2019-07-14 05:00:00 [facility] Respitory Rate 2019-07-14 05:00:00 [facility] Systolic (mm Hg) 2019-07-14 05:00:00 [facility] Diastolic (mm Hg) 2019-07-14 05:00:00 [facility] Temperature Oral (F) 2019-07-13 21:22:00 98.6 F [facility] Heart Rate 2019-07-13 21:22:00 [facility] Respitory Rate 2019-07-13 21:22:00 [facility] Systolic (mm Hg) 2019-07-13 21:22:00 [facility] Diastolic (mm Hg) 2019-07-13 21:22:00 [facility] Height 2019-07-10 23:00:00 172.72 cm [facility] Weight 2019-07-10 23:00:00 [facility] BMI Calculated 2019-07-10 23:00:00 [facility] Systolic (mm Hg) 2019-07-10 21:00:00 [facility] Diastolic (mm Hg) 2019-07-10 21:00:00 [facility] Temperature Oral (F) 2019-07-10 21:00:00 98.2 F [facility] Respitory Rate 2019-07-10 21:00:00 [facility] Systolic (mm Hg) 2019-07-10 20:45:00 [facility] Diastolic (mm Hg) 2019-07-10 20:45:00 [facility] Systolic (mm Hg) 2019-07-10 20:15:00 [facility] Diastolic (mm Hg) 2019-07-10 20:15:00 [facility] Temperature Oral (F) 2019-07-10 18:00:00 98.1 F [facility] Heart Rate 2019-07-10 13:30:00 [facility] Respitory Rate 2019-07-10 13:30:00 [facility] Heart Rate 2019-07-10 12:47:00 [facility] Respitory Rate 2019-07-10 12:47:00 [facility] Height 2019-07-10 12:47:00 167.64 cm [facility] BMI Calculated 2019-07-10 12:47:00 [facility] Weight 2019-07-10 12:47:00 [facility] Temperature Oral (F) 2019-04-19 23:39:00 98.4 F [facility] Heart Rate 2019-04-19 23:39:00 [facility] Respitory Rate 2019-04-19 23:39:00 [facility] Systolic (mm Hg) 2019-04-19 23:39:00 [facility] Diastolic (mm Hg) 2019-04-19 23:39:00 [facility] Systolic (mm Hg) 2019-04-19 20:11:00 [facility] Diastolic (mm Hg) 2019-04-19 20:11:00 [facility] Heart Rate 2019-04-19 20:11:00 [facility] Respitory Rate 2019-04-19 20:11:00 [facility] Temperature Oral (F) 2019-04-19 20:11:00 98.7 F [facility] Weight 2019-04-19 20:11:00 [facility] Heart Rate 2019-03-11 00:08:00 [facility] Temperature Oral (F) 2019-03-11 00:08:00 98.4 F [facility] Respitory Rate 2019-03-11 00:08:00 [facility] Systolic (mm Hg) 2019-03-11 00:08:00 [facility] Diastolic (mm Hg) 2019-03-11 00:08:00 [facility] Heart Rate 2019-03-10 22:03:00 [facility] Respitory Rate 2019-03-10 22:03:00 [facility] Systolic (mm Hg) 2019-03-10 22:03:00 [facility] Diastolic (mm Hg) 2019-03-10 22:03:00 [facility] Systolic (mm Hg) 2019-03-10 21:28:00 [facility] Diastolic (mm Hg) 2019-03-10 21:28:00 [facility] Heart Rate 2019-03-10 21:28:00 [facility] Respitory Rate 2019-03-10 21:28:00 [facility] Temperature Oral (F) 2019-03-10 21:28:00 98.1 F [facility] Height 2019-03-10 21:28:00 165.1 cm [facility] BMI Calculated 2019-03-10 21:28:00 [facility] Weight 2019-03-10 21:28:00 [facility] Systolic (mm Hg) 2017-06-02 22:17:00 [facility] Diastolic (mm Hg) 2017-06-02 22:17:00 [facility] Respitory Rate 2017-06-02 22:17:00 [facility] Temperature Oral (F) 2017-06-02 22:17:00 97.7 F [facility] Heart Rate 2017-06-02 22:17:00 [facility] Respitory Rate 2017-06-02 21:08:00 [facility] Heart Rate 2017-06-02 21:08:00 [facility] Temperature Oral (F) 2017-06-02 21:08:00 98 F [facility] Weight 2017-06-02 21:08:00 [facility] Systolic (mm Hg) 2017-06-02 21:08:00 [facility] Diastolic (mm Hg) 2017-06-02 21:08:00 [facility] Procedures Procedure Date / Time Performed Performing Clinicia n Source POCT TEST 2024-07-17 00:00:00 Falguni Shukla [facility] POCT TEST 2024-02-17 20:44:00 Falguni Shukla [facility] FLU VACC (), 6+ MONTHS, IM, TIV (AFLURIA/FLUARIX/FLULA JASWINDER/FLUZONE) 2024-01-16 17:46[facility] 2024-01-16 17:45:00 Falguni Shukla [facility] POCT URINALYSIS W/O SPECIFIC GRAVITY 2023-11-18 17:43:00 Georgi Wells [facility] CBC WITH DIFF 2023-05-11 16:14:00 Ayleen Nava [facility] HIV 1/2 AG-AB WITH REFLEX 2023-05-11 16:14:00 Ayleen Nava [facility] PAP SMEAR-LIQUID BASED-CP 2023-05-11 16:14:00 Ayleen Nava [facility] SYPHILIS IGG/IGM 2023-05-11 16:14:00 Ayleen Nava [facility] "SP MANPREET ONLY" FLU VACC([id number]), 6+ MONTHS, IM, QUAD (FLUZONE/FLULAVAL/FLUA NORMAN) 2023-02-16 19:02:03 Ramos Isidro [facility] ASSIGNMENT OF BENEFITS 2022-11-16 17:40:42 Docto r Unassigned, [place] [facility] FLU VACC (), 6 MO-64 YRS, .5ML, IM, QUAD (FLUCELVAX) 2022-05-27 21:11:51 Malia Palafox [facility] POCT TEST 2022-02-24 15:48:00 Javy Malia [facility] POCT TEST 2021-07-07 19:38:00 Yanira Packer [facility] FLU VACC ([id number]), 2-64 YRS, .5ML, IM, QUAD (FLUCELVAX) 2021-04-13 19:59:56 Orestes Bledsoe [facility] POCT TEST 2021-04-01 21:33:00 Adelfo Suazo [facility] URINALYSIS 2021-04-01 21:00:00 Panfilo Choi [facility] CONSENT/REFUSAL FOR DIAGNOSIS AND TREATMENT 2021-04-01 20:23:48 Doctor Unassigned, [place] [facility] NOTICE OF PRIVACY PRACTICES 2021-04-01 20:23:30 Doctor Unassigned, [place] [facility] Vaginal delivery of fetus [facility] Encounters Start Date/Time End Date/Time Encounter Type Admission Type Attending Clinicians Care Facility Care Department Encounter ID Source 2022-07-08 13:26:55 Outpatient [facility] [id number] [facility] 2022-05-11 14:59:37 Outpatient [facility] [id number] [facility] 2025-05-17 09:00:00 2025-05-17 09:00:[address] 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 [id number] [facility] 2024-10-19 14:00:00 2024-10-19 14:00:00 Outpatient R ALIYA CIFUENTES OGECHUKWU [facility] [id number] [facility] 2024-07-17 15:00:00 2024-07-17 15:52:56 Outpatient R VAZQUEZ FALGUNI 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2.840.114 350.1.13.10 4.2.7.2.686 [id number] 107 [id number] [facility] 2024-05-17 11:00:00 2024-05-17 11:51:[address] [facility] [id number] [facility] 2024-05-17 11:00:00 2024-05-17 11:51:19 Office Visit Falguni Shukla [facility] DIRECTOR OF ROTC [facility] MATERNAL & CHILD [facility] 1.2.840.114 350.1.13.10 4.2.7.2.686 [id number] 107 [id number] [facility] 2024-02-20 00:00:00 2024-02-21 09:26:39 Telephone Falguni Shukla [facility] DIRECTOR OF ROTC [facility] & CHILD [facility] 1.2.840.114 350.1.13.10 4.2.7.2.686 [id number] 107 [id number] [facility] 2024-02-20 00:00:00 2024-02-20 15:04:39 Telephone Falguni Shukla [facility] DIRECTOR OF ROTC [facility] & CHILD [facility] 1.2.840.114 350.1.13.10 4.2.7.2.686 [id number] 107 [id number] [facility] 2024-02-17 13:30:00 2024-02-17 14:15:19 Office Visit Falguni Shukla [facility] DIRECTOR OF ROTC [facility] & CHILD [facility] 1.2.840.114 350.1.13.10 4.2.7.2.686 [id number] [facility] 2024-02-17 13:30:00 2024-02-17 14:15:[address] [facility] [id number] [facility] 2024-01-16 12:45:00 2024-01-16 13:08:20 Outpatient R FALGUNI SHUKLA [facility] [id number] [facility] 2024-01-16 12:45:00 2024-01-16 13:08:20 Office Visit VazquezFalguni [facility] DIRECTOR OF ROTC [facility] MATERNAL & CHILD [facility] 1.2.840.114 350.1.13.10 4.2.7.2.686 [id number] 107 [id number] [facility] 2023-11-18 12:45:00 2023-11-18 13:13:29 Outpatient R GEORGI WELLS MARYANN [facility] [id number] [facility] 2023-11-18 12:45:00 2023-11-18 13:13:29 Office Visit Georgi Wells [facility] DIRECTOR OF ROTC [facility] & CHILD [facility] 1..840.114 350.1.13.10 4.2.7.2.686 [id number] [facility] 2023-10-28 15:00:00 2023-10-28 15:24:27 Outpatient R AYUSH JUAREZ [facility] [id number] [facility] 2023-10-28 15:00:00 2023-10-28 15:24:27 Nurse Visit Visit, Ang-Rmchp Nurse Giselle [facility] DIRECTOR OF ROTC [facility] & CHILD [facility] 1..840.114 350.1.13.10 4.2.7.2.686 [id number] 107 [id number] [facility] 2023-10-28 15:00:00 2023-10-28 15:00:[address] [facility] [id number] [facility] 2023-10-28 10:30:00 2023-10-28 10:30:[address] [facility] [id number] [facility] 2023-08-04 09:30:00 2023-08-04 09:51:[address] [facility] [id number] [facility] 2023-08-04 09:30:00 2023-08-04 09:51:25 [facility]OTC [facility] & CHILD [facility] 1.2.840.114 350.1.13.10 4.2.7.2.686 [id number] 107 [id number] [facility] 2023-08-03 09:00:00 2023-08-03 09:00:[address] [facility] [id number] [facility] 2023-05-11 09:00:00 2023-05-11 10:13:[address] [facility] [id number] [facility] 2023-05-11 09:00:00 2023-05-11 10:13:23 Office Visit Ayleen Nava [facility] DIRECTOR OF ROTC [facility] & CHILD [facility] 1..840.114 350.1.13.10 4.2.7.2.686 [id number] 107 [id number] [facility] 2023-02-16 13:00:00 2023-02-16 14:16:[address] [facility] [id number] [facility] 2023-02-16 13:00:00 2023-02-16 13:15:00 Nurse Visit [facility], [facility] DIRECT[facility] OF ROTC [facility] & CHILD [facility] 1..840.114 350.1.13.10 4.2.7.2.686 [id number] 107 [id number] [facility] 2022-11-16 13:00:00 2022-11-16 13:01:23 Outpatient R RAMOS ISIDRO [facility] [id number] [facility] 2022-11-16 13:00:00 2022-11-16 13:01:23 Nurse Visit Visit, Drake-Rmchp Nurse Ramos Isidro [facility] DIRECTOR OF ROTC [facility] MATERNAL & CHILD [facility] 1.840.114 350.1.13.10 4.2.7.2.686 [id number] 107 [id number] [facility] 2022-11-16 00:00:00 2022-11-16 00:00:00 Orders Only Doctor Unassigned, [place] [facility] 1.840.114 350.1.13.10 4.2.7.2.686 [id number] [facility] 2022-08-24 14:00:00 2022-08-24 14:00:[address] [facility] [id number] [facility] 2022-08-24 13:30:00 2022-08-24 13:30:00 Outpatient R AYLEEN NAVA [facility] [id number] [facility] 2022-08-24 13:30:00 2022-08-24 13:30:00 Nurse Visit Visit, [facility] Ayleen Nava [facility] 1..840.114 350.1.13.10 4.2.7.2.686 [id number] 107 [id number] [facility] 2022-05-27 15:00:00 2022-05-27 15:22:[address] [facility] [id number] [facility] 2022-05-27 15:00:00 2022-05-27 15:22:24 Nurse Visit 1, [facility] Visit Gisela Azevedo [facility] DIRECTOR OF ROTC [facility] & CHILD [facility] 1..840.114 350.1.13.10 4.2.7.2.686 [id number] [facility] 2022-05-27 14:00:00 2022-05-27 14:00:00 Outpatient R NORIS YANIRA [facility]ON [facility] [id number] [facility] 2022-05-24 00:00:00 2022-05-24 00:00:00 Telephone Visit, Chris-Rmchp Nurse [facility] DIRECTOR OF ROTC [facility] & CHILD [facility] 1.2.840.114 350.1.13.10 4.2.7.2.686 [id number] [facility] 2022-03-19 17:30:00 2022-03-21 13:35:00 Inpatient E HELGA NAM [facility] 7507 Isreal strong 2022-02-24 09:30:00 2022-02-24 11:19:54 Outpatient R MALIA PALAFOX FELECIA [facility] [id number] [facility] 2022-02-24 09:30:00 2022-02-24 11:19:54 Office Visit Malia Palafox [facility] DIRECTOR OF ROTC [facility] & CHILD [facility] 1.2.840.114 350.1.13.10 4.2.7.2.686 [id number] [facility] 2022-02-16 00:00:00 2022-02-16 00:00:00 Telephone Pcp, Patient Does Not Have A [facility] DIRECTOR OF ROTC [facility] & CHILD [facility] 1.2.840.114 350.1.13.10 4.2.7.2.686 [id number] [facility] 2022-02-06 05:13:53 2022-02-06 09:29:00 Emergency nullFlavo r [facility] [id number] Isreal Sahu 2022-02-06 00:13:00 2022-02-06 04:29:00 Emergency E LORENZO TRAN [facility] [id number] Isreal strong 2022-02-06 00:00:00 2022-02-06 00:00:00 Telephone Malia Palafox [facility] DIRECTOR OF ROTC [facility] & CHILD [facility] .114 350.1.13.10 4.2.7.2.686 [id number] [facility] 2022-01-26 09:30:00 2022-01-26 09:30:00 Outpatient Hansa BOGGSPEREZHAYLEE QUEZADAE [facility] [id number] [facility] 2021-12-30 13:45:00 2021-12-30 13:45:00 Outpatient R ANSHU-LAKSHMI US, [facility] [id number] [facility] 2021-11-12 22:29:40 2021-11-13 02:48:00 [facility] [id number] [facility] 2021-11-12 17:29:00 2021-11-12 21:48:00 Emergency E MONICA THOMAS [facility] [id number] [facility] 2021-09-29 14:30:00 2021-09-29 14:30:00 Outpatient R ANSHU-LAKSHMI US, [facility] [id number] [facility] 2021-09-29 10:30:00 2021-09-29 11:05:48 Outpatient R ANSHU-LAKSHMI US, [facility] [id number] [facility] 2021-09-29 10:30:00 2021-09-29 11:05:48 Nurse Visit Visit, Chris-Rmsigifredo Nurse BlaneBerwind us [facility] DIRECTOR OF ROTC [facility] MATERNAL & CHILD [facility] .114 350.1.13.10 4.2.7.2.686 [id number] [facility] 2021-07-07 15:00:00 2021-07-07 15:00:00 Nurse Visit Visit, Sug-Rmchp Meme Hanson [facility] DIRECTOR OF ROTC [facility] MATERNAL & CHILD [facility] .114 350.1.13.10 4.2.7.2.686 [id number] [facility] 2021-07-07 15:00:00 2021-07-07 14:51:07 Outpatient R [address]E JIMENES [facility] [id number] [facility] 2021-07-06 13:30:00 2021-07-06 13:30:00 Outpatient R ORESTES BLEDSOE [facility] [id number] [facility] 2021-04-13 14:45:00 2021-04-13 14:45:[address] [facility] [id number] [facility] 2021-04-13 13:30:00 2021-04-13 14:00:07 Outpatient R ORESTES [facility] 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 [id number] [facility] 2021-04-02 09:00:00 2021-04-02 09:00:00 Outpatient R CHATO KWON [facility] [id number] [facility] 2021-04-01 14:45:00 2021-04-01 19:49:00 Emergency X ADELFO SUAZO [facility] ERT [id number] [facility] 2021-04-01 14:45:00 2021-04-01 19:49:00 Emergency Adelfo Suazo B 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 [facility] 1.2.840.114 350.1.13.10 4.2.7.2.686 [id number] [facility] 2021-04-01 00:00:00 2021-04-01 00:00:00 Orders Only Doctor Unassigned, [place] [facility] 1.2.840.114 350.1.13.10 4.2.7.2.686 [id number] [facility] 2021-02-05 18:37:16 2021-02-05 19:29:00 [facility] [id number] [facility] 2021-02-05 13:37:00 2021-02-05 14:29:00 Emergency E RAYMUNDO LOPEZ [facility] [id number] [facility] 2021-01-19 15:00:00 2021-01-19 15:00:[address] 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 [id number] [facility] 2020-10-20 14:45:34 2020-10-20 15:12:58 Nurse Visit 1, [facility] Visit Gisela Azevedo [facility] DIRECTOR OF ROTC [facility] MATERNAL & [facility] 1.114 350.1.13.10 4.2.7.2.686 [id number] [facility] 2020-10-20 14:45:00 2020-10-20 14:45:[address] [facility] [id number] [facility] 2020-10-20 13:30:00 2020-10-20 13:30:00 Outpatient [facility] [id number] [facility] 2020-10-17 14:00:00 2020-10-17 14:00:00 [facility]patient [facility] [id number] [facility] 2020-07-21 14:15:19 2020-07-21 14:30:19 Nurse Visit Nurse, [facility] Latrice [facility] ..114 350.1.13.10 4.2.7.2.686 [id number] [facility] 2020-07-21 14:00:00 2020-07-21 14:00:00 Outpatient Hansa BELLA [facility] [id number] [facility] 2020-07-21 00:00:00 2020-07-21 00:00:00 Orders Only Doctor Unassigned, [place] [facility] 114 350.1.13.10 4.2.7.2.686 [id number] [facility] 2020-07-15 00:00:00 2020-07-15 00:00:00 Patient Outreach Humberto Femifabio Acosta [facility] 1.284.114 350.1.13.10 4.2.7.2.686 [id number] [facility] 2020-05-08 13:30:00 2020-05-08 13:30:00 Outpatient R SHAYNE [facility] [id number] [facility] 2020-04-21 14:05:07 2020-04-21 14:20:07 Nurse Visit Nurse, [facility] Torres Garza [facility] 1.840.114 350.1.13.10 4.2.7.2.686 [id number] [facility] 2020-04-21 14:00:00 2020-04-21 14:00:[address] [facility] [id number] [facility] 2020-02-14 00:00:00 2020-02-14 00:00:00 Case Management Sh[facility] Building 1.84.114 350.1.13.10 4.2.7.2.686 [id number] [facility] 2020-02-14 00:00:00 2020-02-14 00:00:00 Telephone Shayne Latrice [facility] Building 1..840.114 350.1.13.10 4.2.7.2.686 [id number] [facility] 2020-02-13 11:36:10 2020-02-13 12:12:11 Office Visit Torres Garza [facility] Building 1.2.840.114 350.1.13.10 4.2.7.2.686 [id number] [facility] 2020-02-13 11:15:00 2020-02-13 11:15:00 Outpatient R TORRES GARZA [facility] [id number] [facility] 2020-01-18 14:08:41 2020-01-18 14:40:56 Nurse Visit Nurse, [facility] Torres Garza [facility] Professio nal Building 1.2.840.114 350.1.13.10 4.2.7.2.686 [id number] [facility] 2020-01-18 14:00:00 2020-01-18 14:00:[address] [facility] [id number] [facility] 2019-12-24 16:00:00 2019-12-24 16:00:00 Outpatient R SHARI [facility]OWDHURY [facility] [id number] [facility] 2019-10-18 10:37:39 2019-10-18 11:21:53 Office Visit Shayne Latrice [facility] Building 1.2.840.114 350.1.13.10 4.2.7.2.686 [id number] [facility] 2019-10-18 10:30:00 2019-10-18 10:30:00 [facility] [id number] [facility] 2019-10-18 00:00:00 2019-10-18 00:00:00 Orders Only Doctor Unassigned, [place] [facility] 1..840.114 350.1.13.10 4.2.7.2.686 [id number] [facility] 2019-07-19 18:00:00 2019-07-19 18:00:00 Outpatient R CHATO KWON 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 & CHILD [facility] 1.2.840.114 350.1.13.10 4.2.7.2.686 [id number] [facility] 2019-07-10 22:40:00 2019-07-14 20:19:00 [facility] [id number] [facility] tae [place] 2019-06-28 15:20:28 2019-07-12 18:03:39 [facility] DIRECTOR OF 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 [facility] & CHILD [facility] 1.0.114 350.1.13.10 4.2.7.2.686 [id number] [facility] 2019-07-12 18:00:00 2019-07-12 18:00:00 Outpatient R [facility] [id number] [facility] 2019-07-12 00:00:00 2019-07-12 00:00:00 Telephone [facility] 1.840.114 350.1.13.10 4.2.7.2.686 [id number] [facility] 2019-07-10 12:43:22 2019-07-10 21:38:00 Inpatient [facility] [id number] [facility] 2019 00:00:00 2019 00:00:00 Orders Only Doctor Unassigned, [place] [facility] 1.0.114 350.1.13.10 4.2.7.2.686 [id number] [facility] 2019-07-05 15:18:33 2019-07-05 15:36:47 Cvor Nurse Visit Ultrasound, Judy-Priscilla Valdez George [facility] DIRECTOR OF 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 [facility] MATERNAL & CHILD [facility] 1.2.840.114 350.1.13.10 4.2.7.2.686 [id number] [facility] 2019-05-24 15:24:36 2019-05-24 16:27:41 Cvor Nurse Visit Ultrasound, Priscilla Welch [facility] DIRECTOR OF ROTC [facility] MATERNAL & CHILD [facility] 1.2.840.114 350.1.13.10 4.2.7.2.686 [id number] [facility] 2019-05-17 15:41:08 2019-05-17 16:10:01 Routine Visit Chato Kwon [facility] DIRECTOR OF ROTC [facility] & CHILD [facility] 1.2.840.114 350.1.13.10 4.2.7.2.686 [id number] [facility] 2019-04-19 20:06:33 2019-04-19 23:43:00 Emergency nullFlavo r [facility] [id number] Isreal Sahu 2019-04-19 14:06:00 2019-04-19 14:06:00 Emergency E KM KM 7502 [facility] 2019-03-10 21:25:04 2019-03-11 00:43:00 Emergency nullFlavo [facility] [id number] Isreal Sahu 2019-03-10 15:25:00 2019-03-10 15:25:00 Emergency E KM KM [facility]01 [facility] 2019-01-02 00:00:00 2019-01-02 00:00:00 Orders Only Doctor Unassigned, [place] [facility] [id number] [facility] 2017-06-02 21:02:00 2017-06-02 21:57:00 Emergency nullFlavo r [facility] [id number] Isreal Sahu Results Test Description Test Time Test Comments Results Result Co mments Source [facility] [id number] 20:44:00* Test Item Value Reference Range Interpretation Comme nts POCT PREG (test code = 1605) Negative On board controls acceptable with C Line (test code = 3574) Yes POCT PREG LOT # (test code = 3575) POCT PREG TEST DATE ( test code = 3576) [facility] [id number] 17:45:00* Test Item Value Reference Range Interpretation Comme nts POCT PREG (test code = 1605) Negative On board controls acceptable with C Line (test code = 3574) Yes POCT PREG LOT # (test code = 3575) POCT PREG TEST DATE ( test code = 3576) [facility] Urinalysis w/o Specific [id number] 17:44:00* Test Item Value Reference Range Interpretation Comme nts POCT PH U (test code = 3254) 8 mg/dl 5-8 POCT U LEUK EST (test code = 3263) trace Negative - Negative POCT U NIT (test code = 3262) negative Negative - Negati ve POCT U PROT (test code = 3259) trace Negative - Negat vern POCT U GLU (test code = 3256) negative Negative - Negati ve POCT U KETONE (test code = 3258) negative Negative - Neg ative POCT U BLD (test code = 3257) negative Negative - Negati ve Lab Interpretation (test cod e = 06045-1) Abnormal [facility] ONLY - SYPHILIS [id number] 15:38:34* Test Item Value Reference Range Interpretation Comme nts Syphilis IgG/IgM (test code = 26216-0) Non-reactive Non-reactive LORENE (test code = LORENE) Non-reactive - No serologic evidence of T. pallidum infection. Cannot exclude incubating or early syphilis. Submit a second specimen in 2-4 weeks if syphilis is clinically suspected. Equivocal - Further testing to follow. Reactive - Further testing to follow. Lab Interpretation (test code = 30198-6) Normal [facility] ONLY - SYPHILIS [id number] 15:38:34* Test Item Value Reference Range Interpretation Comme nts Syphilis IgG/IgM (test code = 17864-7) Non-reactive Non-reactive LORENE (test code = LORENE) Non-reactive - No serologic evidence of T. pallidum infection. Cannot exclude incubating or early syphilis. Submit a second specimen in 2-4 weeks if syphilis is clinically suspected. Equivocal - Further testing to follow. Reactive - Further testing to follow. Lab Interpretation (test code = 81189-4) Normal [facility] 1/2 AG-AB WITH [id number] 06:04:52* Test Item Value Reference Range Interpretation Comme nts HIV Semi-quantitative (test code = 70720-0) 0.07 Negative LORENE (test code = LORENE) Non-reactive for HIV-1 antigen and HIV-1/HIV-2 antibodies. ?No laboratory evidence of HIV infection. ?Repeat in 2-4 weeks if acute HIV infection is suspected. [facility] 1/2 AG-AB WITH [id number] 06:04:52* Test Item Value Reference Range Interpretation Comme nts HIV Semi-quantitative (test code = 05634-5) 0.07 Negative LORENE (test code = LORENE) Non-reactive for HIV-1 antigen and HIV-1/HIV-2 antibodies. ?No laboratory evidence of HIV infection. ?Repeat in 2-4 weeks if acute HIV infection is suspected. [facility] WITH [id number] 05:12:46* Test Item Value Reference Range Interpretation Comme nts WBC (test code = 6690-2) 4.83 See_Comment [Automated SmartCellsa Scopelec] The system which generated this result transmitted reference range: 4.30 - 11.10 10*3/?L. The reference range was not used to interpret this result as normal/abnormal. RBC (test code = 789-8) 4.63 See_Comment [Automated SmartCellsa ge] The system which generated this result transmitted reference range: 3.93 - 5.25 10*6/?L. The reference range was not used to interpret this result as normal/abnormal. HGB (test code = 718-7) 12.2 g/dL 11.6-15.0 HCT (test code = 4544-3) 38.2 % 35.7-45.2 MCV (test code = 787-2) 82.5 fL 80.6-95.5 MCH (test code = 785-6) 26.3 pg 25.9-32.8 MCHC (test code = 786-4) 31.9 g/dL 31.6-35.1 RDW-SD (test code = 45390-8) 41.0 fL 39.0-49.9 RDW-CV (test code = 788-0) 13.7 % 12.0-15.5 PLT (test code = 777-3) 350 See_Comment [Automated messa ge] The system which generated this result transmitted reference range: 166 - 358 10*3/?L. The reference range was not used to interpret this result as normal/abnormal. MPV (test code = 44252-2) 10.3 fL 9.5-12.9 NRBC/100 WBC (test code = 4537459623) 0.0 See_Comment [Automated batterii ssage] The system which generated this result transmitted reference range: 0.0 - 10.0 /100 WBCs. The reference range was not used to interpret this result as normal/abnormal. NRBC x10^3 (test code = 2536737818) See_Comment [Automated messa ge] The system which generated this result transmitted reference range: 10*3/?L. The reference range was not used to interpret this result as normal/abnormal. GRAN MAT (NEUT) % (test code = 770-8) 56.1 % IMM GRAN % (test code = 1861141425) 0.20 % LYMPH % (test code = 736-9) 35.4 % MONO % (test code = 5905-5) 4.6 % EOS % (test code = 713-8) 3.1 % BASO % (test code = 706-2) 0.6 % GRAN MAT x10^3(ANC) (test code = 4310161396) 2.71 10*3/uL 1.88-7.09 IMM GRAN x10^3 (test code = 7788635251) 0.00-0.06 LYMPH x10^3 (test code = 731-0) 1.71 10*3/uL 1.32-3.29 MONO x10^3 (test code = 742-7) 0.22 10*3/uL 0.33-0.92 L EOS x10^3 (test code = 711-2) 0.15 10*3/uL 0.03-0.39 BASO x10^3 (test code = 704-7) 0.03 10*3/uL 0.01-0.07 Lab Interpretation (test code = 15636-3) Abnormal [facility] WITH [id number] 05:12:46* Test Item Value Reference Range Interpretation Comme nts WBC (test code = 6690-2) 4.83 See_Comment [Automated messa ge] The system which generated this result transmitted reference range: 4.30 - 11.10 10*3/?L. The reference range was not used to interpret this result as normal/abnormal. RBC (test code = 789-8) 4.63 See_Comment [Automated messa ge] The system which generated this result transmitted reference range: 3.93 - 5.25 10*6/?L. The reference range was not used to interpret this result as normal/abnormal. HGB (test code = 718-7) 12.2 g/dL 11.6-15.0 HCT (test code = 4544-3) 38.2 % 35.7-45.2 MCV (test code = 787-2) 82.5 fL 80.6-95.5 MCH (test code = 785-6) 26.3 pg 25.9-32.8 MCHC (test code = 786-4) 31.9 g/dL 31.6-35.1 RDW-SD (test code = 17993-0) 41.0 fL 39.0-49.9 RDW-CV (test code = 788-0) 13.7 % 12.0-15.5 PLT (test code = 777-3) 350 See_Comment [Automated messa ge] The system which generated this result transmitted reference range: 166 - 358 10*3/?L. The reference range was not used to interpret this result as normal/abnormal. MPV (test code = 16182-5) 10.3 fL 9.5-12.9 NRBC/100 WBC (test code = 7729303550) 0.0 See_Comment [Automated batterii ssage] The system which generated this result transmitted reference range: 0.0 - 10.0 /100 WBCs. The reference range was not used to interpret this result as normal/abnormal. NRBC x10^3 (test code = 4836180569) See_Comment [Automated messa ge] The system which generated this result transmitted reference range: 10*3/?L. The reference range was not used to interpret this result as normal/abnormal. GRAN MAT (NEUT) % (test code = 770-8) 56.1 % IMM GRAN % (test code = 6926546528) 0.20 % LYMPH % (test code = 736-9) 35.4 % MONO % (test code = 5905-5) 4.6 % EOS % (test code = 713-8) 3.1 % BASO % (test code = 706-2) 0.6 % GRAN MAT x10^3(ANC) (test code = 0687227859) 2.71 10*3/uL 1.88-7.09 IMM GRAN x10^3 (test code = 1695477522) 0.00-0.06 LYMPH x10^3 (test code = 731-0) 1.71 10*3/uL 1.32-3.29 MONO x10^3 (test code = 742-7) 0.22 10*3/uL 0.33-0.92 L EOS x10^3 (test code = 711-2) 0.15 10*3/uL 0.03-0.39 BASO x10^3 (test code = 704-7) 0.03 10*3/uL 0.01-0.07 Lab Interpretation (test code = 06763-6) Abnormal [facility] [id number] 15:48:00* Test Item Value Reference Range Interpretation Comme nts POCT PREG (test code = 1605) Negative On board controls acceptable with C Line (test code = 3574) Yes POCT PREG LOT # (test code = 3575) POCT PREG TEST DATE ( test code = 3576) [facility] [id number] 15:48:00* Test Item Value Reference Range Interpretation Comme nts POCT PREG (test code = 1605) Negative On board controls acceptable with C Line (test code = 3574) Yes POCT PREG LOT # (test code = 3575) POCT PREG TEST DATE ( test code = 3576) [id number] 15:48:00* Test Item Value Reference Range Interpretation Comme nts POCT PREG (test code = 1605) Negative On board controls acceptable with C Line (test code = 3574) Yes POCT PREG LOT # (test code = 3575) POCT PREG TEST DATE ( test code = 3576) [facility] 07:54:31* Test Item Value Reference Range Interpretation Comme nts RADRPT (test code = RADRPT) Radiation Dose CTDIVOL = 0 (mGy): DLP = 446 (mGy-cm)PROCEDURE INFORMATION: Exam: [...] appendix. Jeffrey Guerrero MD On 02/06/2022 02:53:39; [id number] [facility]kngttlHELLBAOLU6799-16-07 06:39:00* Test Item Value Reference Range Interpretation Comme nts Glucose Lvl (test code = Glucose Lvl) 95 70-99 BUN (test code = BUN) 12 7-22 Creatinine Lvl (test code = Creatinine Lvl) 0.84 0.50-1.40 Sodium Lvl (test code = Sodium Lvl) 139 135-145 Potassium Lvl (test code = Potassium Lvl) 3.3 3.5-5.1 Chloride Lvl (test code = Chloride Lvl) 107 95-109 CO2 (test code = CO2) 26 24-32 Calcium Lvl (test code = Calcium Lvl) 9.0 8.5-10.5 Total Protein (test code = Total Protein) 7.8 6.4-8.4 Albumin Lvl (test code = Albumin Lvl) 3.9 3.5-5.0 ALT (test code = ALT) 17 <=65 AST (test code = AST) 11 <=37 Alk Phos (test code = Alk Phos) 42 39-136 Bili Total (test code = Bili Total) 0.4 0.2-1.3 AGAP (test code = AGAP) 9.3 10.0-20.0 B/C Ratio (test code = B/C Ratio) 14 1 6-25 Globulin (test code = Globulin) 3.9 2.7-4.2 A/G Ratio (test code = A/G Ratio) 1.0 1 0.7-1.6 eGFR (test code = eGFR) 97 S Preg (test code = S Preg) Negative *NA*(02/06/22 1:39 AM) [facility]NsvkcxfTJQORNQVON3266-18-77 06:39:00* Test Item Value Reference Range Interpretation Comme nts WBC (test code = WBC) 8.2 3.7-10.4 RBC (test code = RBC) 4.30 4.20-5.40 Hgb (test code = Hgb) 11.8 12.0-16.0 Hct (test code = Hct) 34.5 36.0-48.0 MCV (test code = MCV) 80.2 80.0-98.0 MCH (test code = MCH) 27.5 pg 27.0-31.0 MCHC (test code = MCHC) 34.3 32.0-36.0 RDW (test code = RDW) 13.7 11.5-14.5 Platelet (test code = Platelet) 335 133-450 MPV (test code = MPV) 8.4 7.4-10.4 Segs (test code = Segs) 68.7 45.0-75.0 Lymphocytes (test code = Lymphocytes) 22.8 20.0-40.0 Monocytes (test code = Monocytes) 4.1 2.0-12.0 Eosinophils (test code = Eosinophils) 3.9 <=4.0 Basophils (test code = Basophils) 0.5 <=1.0 Neutrophils # (test code = Neutrophils #) 5.6 1.5-8.1 Lymphocytes # (test code = Lymphocytes #) 1.9 1.0-5.5 Monocytes # (test code = Monocytes #) 0.3 <=0.8 Eosinophils # (test code = Eosinophils #) 0.3 <=0.5 [facility] [id number] 06:39:00* Test Item Value Reference Range Interpretation Comme nts UA Color (test code = UA Color) Yellow *NA*(02/06/22 1:39 AM) UA Turbidity (test code = UA Turbidity) Slight *ABN*(02/06/22 1:39 AM) UA Spec Grav (test code = UA Spec Grav) 1.020 1 UA pH (test code = UA pH) 6.0 1 5.0-8.0 UA Protein (test code = UA Protein) Negative mg/dL UA Glucose (test code = UA Glucose) Negative mg/dL UA Ketones (test code = UA Ketones) 20 mg/dL UA Bili (test code = UA Bili) Negative *NA*(02/06/22 1:39 AM) UA Blood (test code = UA Blood) Negative (02/06/22 1:39 AM) UA Nitrite (test code = UA Nitrite) Negative (02/06/22 1:39 AM) UA Leuk Est (test code = UA Leuk Est) Negative (02/06/22 1:39 AM) UA Sq Epi (test code = UA Sq Epi) Occasional /LPF UA WBC (test code = UA WBC) 4 <=5 UA RBC (test code = UA RBC) 1 <=2 UA Mucus (test code = UA Mucus) Few /LPF UA Renal Epi (test code = UA Renal Epi) 4 UA Urobilinogen (test code = UA Urobilinogen) <=1.0 mg/dL 0.1-1.0 [facility] HospitalLbyrxidEDFIYHGGVU6316-79-62 23:20:00* Test Item Value Reference Range Interpretation Comme nts Coronavirus (COVID-19) MATEUS (test code = Coronavirus (COVID-19) MATEUS) Not Detected (11/12/21 6:20 PM) [facility] [id number] 19:38:00* Test Item Value Reference Range Interpretation Comme nts POCT PREG (test code = 1605) Negative On board controls acceptable with C Line (test code = 3574) Yes POCT PREG LOT # (test code = 3575) POCT PREG TEST DATE ( test code = 3576) [facility] [id number] 21:33:00* Test Item Value Reference Range Interpretation Comme nts POCT PREG (test code = 1605) negative On board controls acceptable with C Line (test code = 3574) present Lab Interpretation (test cod e = 90026-0) [facility] 11:28:00* Test Item Value Reference Range Interpretation Comme nts Segs (test code = Segs) 76.1 45.0-75.0 Lymphocytes (test code = Lymphocytes) 16.9 20.0-40.0 Monocytes (test code = Monocytes) 5.1 2.0-12.0 Eosinophils (test code = Eosinophils) 1.8 <=4.0 Basophils (test code = Basophils) 0.1 <=1.0 Neutrophils # (test code = Neutrophils #) 9.3 1.5-8.1 Lymphocytes # (test code = Lymphocytes #) 2.1 1.0-5.5 Monocytes # (test code = Monocytes #) 0.6 <=0.8 Eosinophils # (test code = Eosinophils #) 0.2 <=0.5 WBC (test code = WBC) 12.2 3.7-10.4 RBC (test code = RBC) 2.73 4.20-5.40 Hgb (test code = Hgb) 7.9 12.0-16.0 Hct (test code = Hct) 23.9 36.0-48.0 MCV (test code = MCV) 87.6 80.0-98.0 MCH (test code = MCH) 29.1 pg 27.0-31.0 MCHC (test code = MCHC) 33.3 32.0-36.0 RDW (test code = RDW) 14.5 11.5-14.5 Platelet (test code = Platelet) 157 133-450 MPV (test code = MPV) 8.7 7.4-10.4 [facility] CampusFqdxiyhJPURDBIZCT4801-39-42 01:30:00* Test Item Value Reference Range Interpretation Comme nts WBC (test code = WBC) 20.3 3.7-10.4 RBC (test code = RBC) 3.29 4.20-5.40 Hgb (test code = Hgb) 9.6 12.0-16.0 Hct (test code = Hct) 29.7 36.0-48.0 MCV (test code = MCV) 90.3 80.0-98.0 MCH (test code = MCH) 29.1 pg 27.0-31.0 MCHC (test code = MCHC) 32.2 32.0-36.0 RDW (test code = RDW) 14.4 11.5-14.5 Platelet (test code = Platelet) 176 133-450 MPV (test code = MPV) 9.0 7.4-10.4 RBC Morph (test code = RBC Morph) Normal (07/11/19 8:30 PM) Plt Morph (test code = Plt Morph) Normal (07/11/19 8:30 PM) Segs (test code = Segs) 87.4 45.0-75.0 Lymphocytes (test code = Lymphocytes) 4.8 20.0-40.0 Monocytes (test code = Monocytes) 7.3 2.0-12.0 Eosinophils (test code = Eosinophils) 0.1 <=4.0 Basophils (test code = Basophils) 0.4 <=1.0 Neutrophils # (test code = Neutrophils #) 17.7 1.5-8.1 Lymphocytes # (test code = Lymphocytes #) 1.0 1.0-5.5 Monocytes # (test code = Monocytes #) 1.5 <=0.8 Basophils # (test code = Basophils #) 0.1 <=0.2 [facility] [id number] 15:40:00* Test Item Value Reference Range Interpretation Comme [facility] RBC product (test code = RBC product) Product available (07/11/19 10:40 AM) [facility] CampusWfenmjtJRLFORQAZJ0159-15-22 13:38:00* Test Item Value Reference Range Interpretation Comme [facility] Hgb (test code = Hgb) 6.4 12.0-16.0 Hct (test code = Hct) 19.4 36.0-48.0 [facility] JUTPKMQ1145-46-22 01:51:00* Test Item Value Reference Range Interpretation Comme [facility] RBC product (test code = RBC product) Product available (07/10/19 8:51 PM) [facility] [id number] 01:44:00* Test Item Value Reference Range Interpretation Comme [facility] ABO/Rh (test code = ABO/Rh) A POS Antibody Scrn (test code = Antibody Scrn) Negative (07/10/19 8:44 PM) [facility] CampusImoocgvGMAADLRYTE0668-54-31 00:46:00* Test Item Value Reference Range Interpretation Comme nts WBC (test code = WBC) 10.9 3.7-10.4 RBC (test code = RBC) 3.13 4.20-5.40 MCV (test code = MCV) 86.6 80.0-98.0 MCH (test code = MCH) 28.7 pg 27.0-31.0 MCHC (test code = MCHC) 33.1 32.0-36.0 RDW (test code = RDW) 14.1 11.5-14.5 Platelet (test code = Platelet) 180 133-450 MPV (test code = MPV) 9.4 7.4-10.4 Segs (test code = Segs) 92.7 45.0-75.0 Lymphocytes (test code = Lymphocytes) 6.2 20.0-40.0 Monocytes (test code = Monocytes) 0.9 2.0-12.0 Eosinophils (test code = Eosinophils) 0.1 <=4.0 Basophils (test code = Basophils) 0.1 <=1.0 Neutrophils # (test code = Neutrophils #) 10.1 1.5-8.1 Lymphocytes # (test code = Lymphocytes #) 0.7 1.0-5.5 Monocytes # (test code = Monocytes #) 0.1 <=0.8 [facility] HospitalFxdgkscLWLMOLPGEI5250-18-23 00:46:00* Test Item Value Reference Range Interpretation Comme nts Hep Bs Ag (test code = Hep Bs Ag) Negative *NA*(07/10/19 7:46 PM) Treponemal Ab (test code = Treponemal Ab) Non-Reactive *NA*(07/10/19 7:46 PM) HIV. (test code = HIV.) Negative *NA*( 7:46 PM) [facility] HospitalIuyuecrFJATOESKVZ6594-19-29 17:49:00* Test Item Value Reference Range Interpretation Comme nts WBC (test code = WBC) 8.2 3.7-10.4 RBC (test code = RBC) 2.84 4.20-5.40 Hgb (test code = Hgb) 8.3 12.0-16.0 Hct (test code = Hct) 24.5 36.0-48.0 MCV (test code = MCV) 86.1 80.0-98.0 MCH (test code = MCH) 29.1 pg 27.0-31.0 MCHC (test code = MCHC) 33.8 32.0-36.0 RDW (test code = RDW) 14.2 11.5-14.5 Platelet (test code = Platelet) 156 133-450 MPV (test code = MPV) 9.0 7.4-10.4 RBC Morph (test code = RBC Morph) Normal (07/10/19 12:49 PM) Plt Morph (test code = Plt Morph) Normal (07/10/19 12:49 PM) Segs (test code = Segs) 81.8 45.0-75.0 Lymphocytes (test code = Lymphocytes) 12.0 20.0-40.0 Monocytes (test code = Monocytes) 4.6 2.0-12.0 Eosinophils (test code = Eosinophils) 1.3 <=4.0 Basophils (test code = Basophils) 0.3 <=1.0 Neutrophils # (test code = Neutrophils #) 6.7 1.5-8.1 Lymphocytes # (test code = Lymphocytes #) 1.0 1.0-5.5 Monocytes # (test code = Monocytes #) 0.4 <=0.8 Eosinophils # (test code = Eosinophils #) 0.[address] [facility]LE[facility] HUAFNJFQCZ0936-28-25 16:57:00* Test Item Value Reference Range Interpretation Comme nts Source APTIMA (test code = Source APTIMA) Vaginal *NA*(07/10/19 11:57 AM) C trachomatis by Amp Det (APTIMA) (test code = C trachomatis by Amp Det (APTIMA)) Negative *NA*(07/10/19 11:57 AM) N gonorrhea by Amp Det (APTIMA) (test code = N gonorrhea by Amp Det (APTIMA)) Negative *NA*(07/10/19 11:57 AM) [facility] Genital Strep Epcszx9585-53-24 16:57:00* Test Item Value Reference Range Interpretation Comme [facility] Culture: Genital Strep Screen (test code = Culture: Genital Strep Screen) Group B Streptococcus Isolated [facility] HospitalDRUG [id number] 13:08:00* Test Item Value Reference Range Interpretation Comme nts U Amph Scr (test code = U Amph Scr) Negative *NA*(07/10/19 8:08 AM) U Judy Scr (test code = U Judy Scr) Negative *NA*(07/10/19 8:08 AM) U Benzodiaz Scr (test code = U Benzodiaz Scr) Negative *NA*(07/10/19 8:08 AM) U Cocaine Scr (test code = U Cocaine Scr) Negative *NA*(07/10/19 8:08 AM) U Cannab Scr (test code = U Cannab Scr) Negative *NA*(07/10/19 8:08 AM) U Opiate Scr (test code = U Opiate Scr) Negative *NA*(07/10/19 8:08 AM) U Phencyclidine Scr (test code = U Phencyclidine Scr) Negative *NA*(07/10/19 8:08 AM) UDS Note (test code = UDS Note) See Note (07/10/19 8:08 AM) [facility] CampusKvkfquaTQHOZQUJTF3429-60-61 13:08:00* Test Item Value Reference Range Interpretation Comme nts WBC (test code = WBC) 6.5 3.7-10.4 RBC (test code = RBC) 3.49 4.20-5.40 Hgb (test code = Hgb) 10.0 12.0-16.0 Hct (test code = Hct) 30.1 36.0-48.0 MCV (test code = MCV) 86.0 80.0-98.0 MCH (test code = MCH) 28.5 pg 27.0-31.0 MCHC (test code = MCHC) 33.1 32.0-36.0 RDW (test code = RDW) 14.5 11.5-14.5 Platelet (test code = Platelet) 170 133-450 MPV (test code = MPV) 8.9 7.4-10.4 Fibrinogen Lvl (test code = Fibrinogen Lvl) 417 230-510 Segs (test code = Segs) 62.0 45.0-75.0 Lymphocytes (test code = Lymphocytes) 25.8 20.0-40.0 Monocytes (test code = Monocytes) 7.8 2.0-12.0 Eosinophils (test code = Eosinophils) 4.1 <=4.0 Basophils (test code = Basophils) 0.3 <=1.0 Neutrophils # (test code = Neutrophils #) 4.0 1.5-8.1 Lymphocytes # (test code = Lymphocytes #) 1.7 1.0-5.5 Monocytes # (test code = Monocytes #) 0.5 <=0.8 Eosinophils # (test code = Eosinophils #) 0.3 <=0.5 [facility] HospitalQocpgfcPYKJXXDJSV5478-20-83 13:08:00* Test Item Value Reference Range Interpretation Comme nts Treponemal Ab (test code = Treponemal Ab) Non-Reactive *NA*(07/10/19 8:08 AM) Hep Bs Ag (test code = Hep Bs Ag) Negative *NA*(07/10/19 8:08 AM) HIV. (test code = HIV.) Negative ( 0 8:08 AM) [facility] HospitalURINE AND [id number] 13:08:00* Test Item Value Reference Range Interpretation Comme nts UA Color (test code = UA Color) Yellow *NA*(07/10/19 8:08 AM) UA Turbidity (test code = UA Turbidity) Slight *ABN*(07/10/19 8:08 AM) UA Spec Grav (test code = UA Spec Grav) 1.012 1 UA pH (test code = UA pH) 7.0 1 5.0-8.0 UA Protein (test code = UA Protein) Negative mg/dL UA Glucose (test code = UA Glucose) Negative mg/dL UA Ketones (test code = UA Ketones) Trace mg/dL UA Bili (test code = UA Bili) Negative *NA*(07/10/19 8:08 AM) UA Blood (test code = UA Blood) Negative (07/10/19 8:08 AM) UA Nitrite (test code = UA Nitrite) Negative (07/10/19 8:08 AM) UA Leuk Est (test code = UA Leuk Est) Negative (07/10/19 8:08 AM) UA Sq Epi (test code = UA Sq Epi) Occasional /LPF UA WBC (test code = UA WBC) 3 <=5 UA RBC (test code = UA RBC) no gt <=2 UA Mucus (test code = UA Mucus) Few /LPF UA Amorph Monique (test code = UA Amorph Monique) Occasional /HPF UA Urobilinogen (test code = UA Urobilinogen) <=1.0 mg/dL 0.1-1.0 [facility] [employer]HAND BANK [id number] 13:08:00* Test Item Value Reference Range Interpretation Comme nts ABO/Rh (test code = ABO/Rh) A POS Antibody Scrn (test code = Antibody Scrn) Negative (07/10/19 8:08 AM) [facility] [employer] SolutionsCHEM [id number] 13:08:00* Test Item Value Reference Range Interpretation Comme nts Glucose Lvl (test code = Glucose Lvl) 79 70-99 BUN (test code = BUN) 9 7-22 Creatinine Lvl (test code = Creatinine Lvl) 0.64 0.50-1.40 Sodium Lvl (test code = Sodium Lvl) 141 135-145 Potassium Lvl (test code = P otassium Lvl) 4.1 3.5-5.1 Chloride Lvl (test code = Chloride Lvl) 110 95-109 CO2 (test code = CO2) 25 24-32 Calcium Lvl (test code = Calcium Lvl) 7.9 8.5-10.5 Total Protein (test code = T otal Protein) 5.6 6.4-8.4 Albumin Lvl (test code = Albumin Lvl) 2.4 3.5-5.0 ALT (test code = ALT) 14 <=65 AST (test code = AST) 14 <=37 Alk Phos (test code = Alk Phos) 57 39-136 Bili Total (test code = Bili Total) 0.2 0.2-1.3 AGAP (test code = AGAP) 10.1 10.0-20.0 B/C Ratio (test code = B/C Ratio) 14 1 6-25 Globulin (test code = Globulin) 3.2 2.7-4.2 A/G Ratio (test code = A/G Ratio) 0.8 1 0.7-1.6 eGFR (test code = eGFR) 143 [facility] BANK KLZWRQV8400-77-38 21:51:00* Test Item Value Reference Range Interpretation Comme nts ABO/Rh (test code = ABO/Rh) A POS [facility] ClubRyylbypVCZQFKPBNTOV2305-50-13 21:51:00* Test Item Value Reference Range Interpretation Comme nts AGAP (test code = AGAP) 10.5 10.0-20.0 B/C Ratio (test code = B/C Ratio) 11 1 6-25 Globulin (test code = Globulin) 4.6 2.7-4.2 A/G Ratio (test code = A/G Ratio) 0.7 1 0.7-1.6 Glucose Lvl (test code = Glucose Lvl) 87 70-99 BUN (test code = BUN) 7 7-22 Creatinine Lvl (test code = Creatinine Lvl) 0.64 0.50-1.40 Sodium Lvl (test code = Sodium Lvl) 138 135-145 Potassium Lvl (test code = P otassium Lvl) 3.5 3.5-5.1 Chloride Lvl (test code = Chloride Lvl) 105 95-109 CO2 (test code = CO2) 26 24-32 Calcium Lvl (test code = Calcium Lvl) 8.8 8.5-10.5 Total Protein (test code = T otal Protein) 8.0 6.4-8.4 Albumin Lvl (test code = Albumin Lvl) 3.4 3.5-5.0 ALT (test code = ALT) 13 <=65 AST (test code = AST) 10 <=37 Alk Phos (test code = Alk Phos) 36 39-136 Bili Total (test code = Bili Total) 0.3 0.2-1.3 eGFR (test code = eGFR) [id number] 21:51:00* Test Item Value Reference Range Interpretation Comme nts hCG Tot (test code = hCG Tot) [id number] [id number] 21:51:00* Test Item Value Reference Range Interpretation Comme nts WBC (test code = WBC) 9.0 3.7-10.4 RBC (test code = RBC) 4.28 4.20-5.40 Hgb (test code = Hgb) 11.5 12.0-16.0 Hct (test code = Hct) 34.5 36.0-48.0 MCV (test code = MCV) 80.5 80.0-98.0 MCH (test code = MCH) 26.8 pg 27.0-31.0 MCHC (test code = MCHC) 33.2 32.0-36.0 RDW (test code = RDW) 14.6 11.5-14.5 Platelet (test code = Platelet) 312 133-450 MPV (test code = MPV) 8.2 7.4-10.4 Segs (test code = Segs) 69.1 45.0-75.0 Lymphocytes (test code = Lymphocytes) 18.1 20.0-40.0 Monocytes (test code = Monocytes) 3.6 2.0-12.0 Eosinophils (test code = Eosinophils) 8.9 <=4.0 Basophils (test code = Basophils) 0.3 <=1.0 Neutrophils # (test code = Neutrophils #) 6.2 1.5-8.1 Lymphocytes # (test code = Lymphocytes #) 1.6 1.0-5.5 Monocytes # (test code = Monocytes #) 0.3 <=0.8 Eosinophils # (test code = Eosinophils #) 0.8 <=0.5 Matt SahuURINE AND [id number] 21:51:00* Test Item Value Reference Range Interpretation Comme nts UA Color (test code = UA Color) Yellow *NA*(03/10/19 3:51 PM) UA Turbidity (test code = UA Turbidity) Marked *ABN*(03/10/19 3:51 PM) UA Spec Grav (test code = UA Spec Grav) 1.020 1 UA pH (test code = UA pH) 7.0 1 5.0-8.0 UA Protein (test code = UA Protein) 100 mg/dL UA Glucose (test code = UA Glucose) Negative mg/dL UA Ketones (test code = UA Ketones) Negative mg/dL UA Bili (test code = UA Bili) Negative *NA*(03/10/19 3:51 PM) UA Blood (test code = UA Blood) Negative (03/10/19 3:51 PM) UA Nitrite (test code = UA Nitrite) Negative (03/10/19 3:51 PM) UA Leuk Est (test code = UA Leuk Est) Small *ABN*(03/10/19 3:51 PM) UA Sq Epi (test code = UA Sq Epi) Moderate /LPF UA WBC (test code = UA WBC) 14 <=5 UA RBC (test code = UA RBC) 2 <=2 UA Bacteria (test code = UA Bacteria) Occasional /HPF UA Mucus (test code = UA Mucus) Many /LPF UA Amorph Monique (test code = UA Amorph Monique) Occasional /HPF UA Urobilinogen (test code = UA Urobilinogen) <=1.0 mg/dL 0.1-1.0 Matt [id number] 21:27:00* Test Item Value Reference Range Interpretation Comme nts Grp A Strep Scr (test code = Grp A Strep Scr) Negative (06/02/17 3:27 PM) Matt Sahu Notes Date/Time Note Provider Source 2024-11-08 08:38:49 Patient stated she stopped taking her OCPs in September and has been having anxiety and fatigue. Stated she is wanting to have her thyroid labs checked. Informed patient labs can be done but RESIDENTIAL THERAPIST can not manage any issues that are not BREEDING MANAGER related. Advised pt to see PCP, pt stated she does not have coverage. Resources for primary care and mental health care given. Pt stated she will call and try to make appt there. [facility] 2024-11-08 08:05:50 Called pt, no answer. Left vm. Dona Reyes RN 11/08/24 8:06 AM Dona Reyes RN [facility] 2024-11-07 16:53:31 Copied from [facility] #[id number]. Topic: Clinical - Medical Advice >> Nov 07, 2024 4:[address] [employer] Servicer wrote: Remedios Vazquez Pt is requesting call back, states is having hormonal in balance since quitting BC. Please call [phone] (home) CURTIS Peng [facility] 2024-07-16 16:24:57 Remedios Vazquez is a 29 year old female Pt is calling stating they kept taking this BC even when they were told to switch and they are on their last pack requesting a refill Please advise at [phone] (home) [facility] 2024-05-18 09:02:10 Called pt, informed previous BC brand and Aviane have the same hormones, but we dispense Aviane brand from the clinic. Pt verbalized understanding. Linda Cheng LVN 05/18/2024 9:02 AM [facility] 2024-05-18 08:20:38 Remedios Vazquez is a 28 year old female calling requesting to talk with an nurse having questions why BC was changed, Please contact patient at [phone] (home) Y Clarke [facility] 2024-02-21 09:20:39 Call placed to pharmacy and stated pt was able to miner pick 3 months supply. Pt stated she is having issues with her private insurance that was terminated in 2020 and might not be able to get more OCPs from pharmacy in the future. Informed pt she could receive OCPs from clinic stock with HTW when she comes in 05/19, verbalized understanding. [facility] 2024-02-20 15:51:24 Remedios Vazquez is a 28 year old female Pt is calling stating that she is still having problems with getting her control pills. Pt would like a nurse to call her back. [phone] (home) Please advise. Tiny Lucas [facility] 2024-02-20 15:04:10 Patient informed orders were resent and should be covered, verbalized understanding. T [facility] 2024-02-20 14:37:05 [facility] [place] stated [facility]Ps needed to be sent under a MD. Orders resent under Dr. Aguiar, attempted to call patient, no answer, left vm. [facility] 2024-02-20 08:48:12 Remedios Vazquez is a 28 year old female Pt states that her insurance will not cover bc's prescribed, advised to ask clinic for samples, until her new insurance becomes effective new month. Thanks Jessica Valdivia [facility] 2022-03-18 18:26:00 Radiation Dose CTDIV OL = 0 (mGy): DLP = 260.24 (mGy-cm) PROCEDURE INFORMATION: Exam: CTA Chest With Contrast Exam date and time: 03/18/2022 6:26 PM Age: 26 years old Clinical indication: /pe rule out given covid and ongiong tachycardia TECHNIQUE: Imaging protocol: Computed tomographic angiography of the chest with contrast. 3D rendering (Not supervised by radiologist): MIP and/or 3D reconstructed images were created by the technologist. Radiation optimization: All CT scans at this facility use at least one of these dose optimization techniques: automated exposure control; mA and/or kV adjustment per patient size (includes targeted exams where dose is matched to clinical indication); or iterative reconstruction. Contrast material: OMNIPAQUE; Contrast volume: 75 ml; Contrast route: INTRAVENOUS (IV); COMPARISON: CR CHEST 1VIEW DX 03/18/2022 12:01 AM RADIATION DOSE METRICS: Total DLP (mGy-cm): 260.24 FINDINGS: Pulmonary arteries: No evidence of pulmonary embolism. Aorta: Normal appearance of the aorta. Lungs: Mild dependent atelectasis. Minimal ground-glass opacity within the posterior aspect of the right upper lobe near the hilum. No focal consolidation. No nodularity or mass lesion. Pleural spaces: Unremarkable. Heart: Unremarkable. No pericardial disease. Lymph nodes: No enlarged lymph nodes. Bones/joints: No significant abnormality. Soft tissues: The extra thoracic soft tissues are unremarkable. IMPRESSION: 1. No evidence of acute pulmonary embolism. 2. Minimal right upper lobe infiltrate. 3. Mild dependent atelectasis. Corey Nur MD On 03/18/2022 19:28:59; [id number] [facility] 2022-03-18 18:26:00 Radiation Dose CTDIV OL = 0 (mGy): DLP = 260.24 (mGy-cm) PROCEDURE INFORMATION: Exam: CTA Chest With Contrast Exam date and time: 03/18/2022 6:26 PM Age: 26 years old Clinical indication: /pe rule out given covid and ongiong tachycardia TECHNIQUE: Imaging protocol: Computed tomographic angiography of the chest with contrast. 3D rendering (Not supervised by radiologist): MIP and/or 3D reconstructed images were created by the technologist. Radiation optimization: All CT scans at this facility use at least one of these dose optimization techniques: automated exposure control; mA and/or kV adjustment per patient size (includes targeted exams where dose is matched to clinical indication); or iterative reconstruction. Contrast material: OMNIPAQUE; Contrast volume: 75 ml; Contrast route: INTRAVENOUS (IV); COMPARISON: CR CHEST 1VIEW DX 03/18/2022 12:01 AM RADIATION DOSE METRICS: Total DLP (mGy-cm): 260.24 FINDINGS: Pulmonary arteries: No evidence of pulmonary embolism. Aorta: Normal appearance of the aorta. Lungs: Mild dependent atelectasis. Minimal ground-glass opacity within the posterior aspect of the right upper lobe near the hilum. No focal consolidation. No nodularity or mass lesion. Pleural spaces: Unremarkable. Heart: Unremarkable. No pericardial disease. Lymph nodes: No enlarged lymph nodes. Bones/joints: No significant abnormality. Soft tissues: The extra thoracic soft tissues are unremarkable. IMPRESSION: 1. No evidence of acute pulmonary embolism. 2. Minimal right upper lobe infiltrate. 3. Mild dependent atelectasis. Corey Nur MD On 03/18/2022 19:28:59; [id number] [facility] 2022-03-17 23:55:00 PROCEDURE INFORMATIO N: Exam: XR Chest Exam date and time: 03/18/2022 12:01 AM Age: 26 years old Clinical indication: /fever, cough TECHNIQUE: Imaging protocol: Radiologic exam of the chest. Views: 1 view. COMPARISON: CT ED Abdomen/Pelvis IV contrast only 02/06/2022 2:36 AM FINDINGS: Lungs: No consolidation. Pleural spaces: No pleural effusion. No pneumothorax. Heart/Mediastinum: No cardiomegaly. Bones/joints: No acute abnormality. IMPRESSION: No acute cardiopulmonary findings. Jeffrey Guerrero MD On 03/18/2022 00:03:12; [id number] [facility] 2022-03-17 23:55:00 PROCEDURE INFORMATIO N: Exam: XR Chest Exam date and time: 03/18/2022 12:01 AM Age: 26 years old Clinical indication: /fever, cough TECHNIQUE: Imaging protocol: Radiologic exam of the chest. Views: 1 view. COMPARISON: CT ED Abdomen/Pelvis IV contrast only 02/06/2022 2:36 AM FINDINGS: Lungs: No consolidation. Pleural spaces: No pleural effusion. No pneumothorax. Heart/Mediastinum: No cardiomegaly. Bones/joints: No acute abnormality. IMPRESSION: No acute cardiopulmonary findings. Jeffrey Guerrero MD On 03/18/2022 00:03:12; [id number] [facility] 2022-02-06 02:41:30 Radiation Dose CTDIV OL = 0 (mGy): DLP = 446 (mGy-cm) PROCEDURE INFORMATION: Exam: CT Abdomen And Pelvis [...] appendix. Jeffrey Guerrero MD On 02/06/2022 02:53:39; [id number] [facility] 2022-02-06 02:41:30 Radiation Dose CTDIV OL = 0 (mGy): DLP = 446 (mGy-cm) PROCEDURE INFORMATION: Exam: CT Abdomen And Pelvis [...] appendix. Jeffrey Guerrero MD On 02/06/2022 02:53:39; [id number] [facility] 2019-07-10 08:08:00 There is a posterior ly located grade 2 placenta without placenta previa. Jose Eduardo Thomas MD On 07/10/2019 13:37:11; [id number] PROCEDURE INFORMATION: Exam: US Biophysical Profile With Non-Stress Test Exam date and time: 07/10/2019 8:08 AM Age: 24 years old Clinical indication: /vaginal bleeding TECHNIQUE: Imaging protocol: biophysical profile with non-stress test. COMPARISON: US AGE 1103/10/2019 4:20 PM FINDINGS: Breathin/2 Gross body movements: 2/2 Qualitative amniotic fluid: 2/2 tone: 2/2 Reactive heart rate: 2/2 Biophysical Profile Score: 8/8 Notes: The fetus is in cephalic presentation with an estimated gestational age of cephalic by LMP. There is positive cardiac activity of 143 bpm. The amniotic fluid index equals 12.66 cm and the umbilical artery S/D ratio is 2.7. IMPRESSION: Biophysical profile 8/8. Jose Eduardo Thomas MD On 07/10/2019 10:35:32; [id number] [facility] 2019-07-10 08:08:00 There is a posterior ly located grade 2 placenta without placenta previa. Jose Eduardo Thomas MD On 07/10/2019 13:37:11; [id number] PROCEDURE INFORMATION: Exam: US Biophysical Profile With Non-Stress Test Exam date and time: 07/10/2019 8:08 AM Age: 24 years old Clinical indication: /vaginal bleeding TECHNIQUE: Imaging protocol: biophysical profile with non-stress test. COMPARISON: US AGE 1103/10/2019 4:20 PM FINDINGS: Breathin/2 Gross body movements: 2/2 Qualitative amniotic fluid: 2/2 tone: 2/2 Reactive heart rate: 2/2 Biophysical Profile Score: 8/8 Notes: The fetus is in cephalic presentation with an estimated gestational age of cephalic by LMP. There is positive cardiac activity of 143 bpm. The amniotic fluid index equals 12.66 cm and the umbilical artery S/D ratio is 2.7. IMPRESSION: Biophysical profile 11/30. Jose Eduardo Thomas MD On 07/10/2019 10:35:32; [id number] [facility] 2019-03-10 16:04:00 PROCEDURE INFORMATIO N: Exam: US , Limited Exam date and time: 03/10/2019 4:20 PM Clinical history: 23 years old, female; Pain; Additional info: Pelvic pressure/pelvic pressure TECHNIQUE: Imaging protocol: Real-time ultrasound of the maternal uterus with image documentation. Exam focused on the clinical indication. COMPARISON: No relevant prior studies available. FINDINGS: GESTATION: Gestation: Intrauterine gestation. Presentation: Intrauterine in cephalic position. Heart rate 149 beats per minute. Gestational age 16 weeks 3 days. Placenta: Placenta is fundal without previa. Amniotic fluid: The amniotic fluid volume visually appears adequate. BIOMETRY: Estimated weight: Estimated weight 145 g. Estimated date of delivery 08/23/2019. MATERNAL: Cervix: Cervix measures 3.9 cm length. IMPRESSION: Single living intrauterine with gestational age 16 weeks 3 days. Pranav Jimenez MD On 03/10/2019 17:27:21; [id number] [facility] 2019-03-10 16:04:00 PROCEDURE INFORMATIO N: Exam: US , Limited Exam date and time: 03/10/2019 4:20 PM Clinical history: 23 years old, female; Pain; Additional info: Pelvic pressure/pelvic pressure TECHNIQUE: Imaging protocol: Real-time ultrasound of the maternal uterus with image documentation. Exam focused on the clinical indication. COMPARISON: No relevant prior studies available. FINDINGS: GESTATION: Gestation: Intrauterine gestation. Presentation: Intrauterine in cephalic position. Heart rate 149 beats per minute. Gestational age 16 weeks 3 days. Placenta: Placenta is fundal without previa. Amniotic fluid: The amniotic fluid volume visually appears adequate. BIOMETRY: Estimated weight: Estimated weight 145 g. Estimated date of delivery 08/23/2019. MATERNAL: Cervix: Cervix measures 3.9 cm length. IMPRESSION: Single living intrauterine with gestational age 16 weeks 3 days. Pranav Jimenez MD On 03/10/2019 17:27:21; [id number] [facility]
[2024-12-10] MEDS ORDERED: IBUPROFEN 400 MG TAB ONE (21:39)
[2024-12-10] MEDS ORDERED: IBUPROFEN 200 MG TAB PO ONE (21:39)
[2024-12-10 22:09] LABS: Influenza A Ag Negative; Influenza B Ag Negative; SARS-CoV-2 Antigen Rapid Res Negative (Negative)
[2024-12-10] MEDS ORDERED: ACETAMINOPHEN 500 MG TAB ONE (22:22)
[2024-12-10] MEDS ORDERED: NA CHLORIDE 0.9% 1,000 ML ONE (22:22)
[2024-12-10 22:42] LABS: Urine Microscopic Reflex YN NO UMIC
[2024-12-10 22:53] LABS: Absolute Lymphocytes (CBC) 0.5 K/uL (0.7-4.9); Hematocrit 38.9 % (36.0-45.0); Hemoglobin 13.1 g/dL (12.0-15.0); MCH 26.8 pg (27.0-35.0); MCHC 33.7 g/dL (32.0-36.0); MCV 79.6 fL (80-100); MPV 8.1 fL (7.6-11.3); Nucleated RBC Absolute Count 0.0 (0-0); Nucleated Red Blood Cells % 0.0 % (0-0); RBC Red Blood Cell Count 4.89 M/uL (3.86-4.86); White Blood Count 8.20 thou/uL (4.3-10.9)
[2024-12-10 23:12] LABS: ALT/SGPT 24 U/L (13-56); Albumin 4.2 g/dL (3.4-5.0); Albumin/Globulin Ratio 1.1 (1.1-1.8); Alkaline Phosphatase 46 U/L (45-117); Anion Gap 17.4 mEq/L (5.0-15.0); BUN Blood Urea Nitrogen 15 mg/dL (7-18); Globulin 3.8 g/dL (2.3-3.5); Glucose Level 100 mg/dL (74-106); Potassium 3.4 mEq/L (3.5-5.1)
[2024-12-10 23:13] LABS: AST/SGOT < 10 U/L (15-37)
[2024-12-10 23:56] LABS: Blood Morphology Comment NOT SEEN (NOT SEEN); Differential Total Cells Count 100; Segmented Neutrophils 73 % (40-80)
--- NOTE | 2024-12-11 00:06 | ER ---
Nurse's Notes [facility] Name: Remedios Capellan Age: 29 yrs Sex: Female : 1995 Arrival Date: 12/10/2024 Time: 21:25 Bed 7 Private MD: Diagnosis: Viral infection, unspecified Presentation: 12/10 21:30 Chief complaint: Patient states: I started with a sore throat yesterday and then today bm8 started a fever with chills and congestion. 21:30 Coronavirus screen: Vaccine status: Patient reports receiving the 2nd dose of the covid bm8 vaccine. Ebola Screen: Patient negative for fever greater than or equal to 101.5 degrees Fahrenheit, and additional compatible Ebola Virus Disease symptoms Patient denies exposure to infectious person. Patient denies travel to an Ebola-affected area in the 21 days before illness onset. No symptoms or risks identified at this time. Initial Sepsis Screen: Does the patient meet any 2 criteria? Temp <36.0*C (96.8*F)) or > 38.3*C (100.9*F). HR > 90 bpm. Yes Does the patient have a suspected source of infection? No. Patient's initial sepsis screen is negative. Risk Assessment: Do you want to hurt yourself or someone else? Patient reports no desire to harm self or others. Onset of symptoms was December 09, 2024. 21:30 Method Of Arrival: Ambulatory bm8 21:30 Acuity: SUZETTE 4 bm8 Triage Assessment: 21:30 General: Appears in no apparent distress. uncomfortable, Behavior is calm, cooperative, bm8 appropriate for age. 21:30 Pain: Complains of pain in generalized and throat Pain currently is 6 out of 10 on a bm8 pain scale. EENT: Throat is reddened bilaterally with gag reflex present. EENT: Nares with drainage noted Reports nasal congestion nasal discharge that is watery. Neuro: No deficits noted. Level of Consciousness is awake, alert, obeys commands, Oriented to person, place, time, situation, Appropriate for age. Cardiovascular: Denies chest pain, Heart tones S1 S2 present Capillary refill < 3 seconds Patient's skin is warm and dry. Respiratory: Airway is patent Respiratory effort is even, unlabored, Respiratory pattern is regular, symmetrical, Breath sounds are clear bilaterally. GI: No signs and/or symptoms were reported involving the gastrointestinal system. : No signs and/or symptoms were reported regarding the genitourinary system. Derm: No signs and/or symptoms reported regarding the dermatologic system. Musculoskeletal: Reports generalized body aches. 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 - Infectious Disease History:: Denies. - Social history:: Smoking status: Patient denies any tobacco usage or history of. Patient/guardian denies using alcohol, street drugs. Screenin:45 [facility] ED Fall Risk Assessment (Adult) History of falling in the last 3 months, bm8 including since admission No falls in past 3 months (0 pts) Confusion or Disorientation No (0 pts) Intoxicated or Sedated No (0 pts) Impaired Gait No (0 pts) Mobility Assist Device Used No (0 pt) Altered Elimination No (0 pt) Score/Fall Risk Level 0 - 2 = Low Risk Oriented to surroundings, Maintained a safe environment, Educated pt \T\ family on fall prevention, incl call for assistance when getting out of bed, Assessed \T\ reinforced patient's understanding of fall precautions, Hourly rounding (assess needs \T\ fall precautionary measures) done, Used ambulatory aids as needed (educated on \T\ assisted with), Used gait belt as appropriate. Abuse screen: Denies threats or abuse. Nutritional screening: No deficits noted. Tuberculosis screening: No symptoms or risk factors identified. Assessment: 21:45 Reassessment: see triage assessment. bm8 22:13 Reassessment: Patient appears in no apparent distress at this time. No changes from bm8 previously documented assessment. Patient and/or family updated on plan of care and expected duration. Pain level reassessed. Patient is alert, oriented x 3, equal unlabored respirations, skin warm/dry/pink. 23:22 Reassessment: Patient appears in no apparent distress at this time. Patient and/or bm8 family updated on plan of care and expected duration. Pain level reassessed. Patient is alert, oriented x 3, equal unlabored respirations, skin warm/dry/pink. Patient states feeling better. Patient states symptoms have improved. Pain: Pain currently is 4 out of 10 on a pain scale. 12/11 00:12 Reassessment: Patient appears in no apparent distress at this time. Patient and/or bm8 family updated on plan of care and expected duration. Pain level reassessed. Patient is alert, oriented x 3, equal unlabored respirations, skin warm/dry/pink. Patient states feeling better. Patient states symptoms have improved. Vital Signs: 12/10 21:30 BP 115 / 86; Pulse 137; Resp 18; Temp 101.9; Pulse Ox 100% ; Weight 55.79 kg; Height 5 bm8 ft. 8 in. ; Pain 6/10; 22:13 BP 113 / 78; Pulse 120; Resp 18; Temp 102.7; Pulse Ox 100% ; Pain 6/10; 8 23:22 BP 111 / 74; Pulse 102; Resp 17; Temp 100.2; Pulse Ox 99% ; Pain 4/10; bm8 12/11 00:12 BP 108 / 78; Pulse 105; Resp 20; Temp 99.7; Pulse Ox 100% ; Pain 0/10; bm8 00:51 BP 135 / 59; Pulse 77; Resp 20; Pulse Ox 99% on R/A; tb4 12/10 21:30 Body Mass Index 18.70 (55.79 kg, 172.72 cm) [facility] 12/10 21:30 Pain Scale: Adult bm8 22:13 Pain Scale: Adult bm8 23:22 Pain Scale: Adult bm8 12/11 00:12 Pain Scale: Adult bm8 Pauline Coma Score: 12/10 21:45 Eye Response: spontaneous(4). Motor Response: obeys commands(6). Verbal Response: bm8 oriented(5). Total: 15. 22:13 Eye Response: spontaneous(4). Motor Response: obeys commands(6). Verbal Response: bm8 oriented(5). Total: 15. 23:22 Eye Response: spontaneous(4). Motor Response: obeys commands(6). Verbal Response: bm8 oriented(5). Total: 15. 12/11 00:12 Eye Response: spontaneous(4). Motor Response: obeys commands(6). Verbal Response: bm8 oriented(5). Total: 15. ED Course: 12/10 21:28 Patient arrived in ED. mr 21:30 Arm band placed on right wrist. bm8 21:32 Ban Vidal FNP-C [facility]. kb 21:32 Roberto Cruz MD is Attending Physician. kb 21:41 Chirag Billingsley, RN is Primary Nurse. bm8 21:43 Triage completed. bm8 21:45 Patient has correct armband on for positive identification. Placed in gown. Bed in low bm8 position. Call light in reach. Side rails up X 1. Client placed on continuous cardiac and pulse oximetry monitoring. NIBP monitoring applied. Pulse ox on. NIBP on. Door closed. Noise minimized. Pillow given. Verbal reassurance given. Head of bed elevated. 21:45 No provider procedures requiring assistance completed. COVID swab sent to lab. Flu bm8 and/or RSV swab sent to lab. Strep swab sent to lab. Patient maintains SpO2 saturation greater than 95% on room air. 22:20 Initial lab(s) drawn, by me, sent to lab. First set of blood cultures drawn by me, bm8 Urine collected: clean catch specimen, clear. 22:32 Inserted saline lock: 20 gauge in right antecubital area, using aseptic technique. bm8 Blood collected. Flushed with 10 mL NS. 22:39 Chest Single View XRAY In Process Unspecified. EDMS 12/11 00:54 Provided Education on: Follow up with primary care. tb4 00:54 IV discontinued, intact, bleeding controlled, No redness/swelling at site. Pressure tb4 dressing applied. Administered Medications: 12/10 21:41 Drug: Ibuprofen PO 600 mg PO once Route: PO; bm8 23:23 Follow up: Response: No adverse reaction bm8 22:26 Drug: Acetaminophen PO 1000 mg PO once Route: PO; bm8 23:23 Follow up: Response: No adverse reaction bm8 22:26 Drug: NS 0.9% IV 1000 ml IV at 1000 ml once; to be given as a bolus over 60 minutes bm8 Route: IV; Rate: 1000 ml; Site: right antecubital; 23:23 Follow up: Response: No adverse reaction; IV Status: Completed infusion bm8 Medication: 21:45 VIS not applicable for this client. bm8 Outcome: 12/11 00:05 Discharge ordered by MD. alcaraz 00:54 Condition: stable tb4 00:54 Discharge instructions given to patient, Instructed on discharge instructions, follow up and referral plans. Demonstrated understanding of instructions, follow-up care, 00:54 Discharged to home ambulatory, tb4 00:55 Patient left the ED. tb4 Signatures: Dispatcher [employer] EDBan Burgess, SCHOOL OCCUPATIONAL THERAPIST-C SCHOOL OCCUPATIONAL THERAPIST-CkStacie Rueda, Reg Reg Chirag Rosales, RN RN bm8 Sarah Darby, RN RN tb4 Corrections: (The following items were deleted from the chart) 12/10 21:43 21:43 Allergies: Advil; bm8 bm8
--- NOTE | 2024-12-11 00:06 | EDPHYS ---
Physician Documentation [facility] Name: Remedios Capellan Age: 29 yrs Sex: Female : 1995 Arrival Date: 12/10/2024 Time: 21:25 Bed 7 Private MD: ED Physician Roberto Cruz HPI: 12/10 21:44 This 29 yrs old Black Female presents to ER via Ambulatory with complaints of Flu kb Symptoms. 21:44 Pt is a 29 year old female who presents for bodyaches, fever, chills, congestion and kb sore throat that started yesterday. Denies n/v/d. . 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 - Infectious Disease History:: Denies. - Social history:: Smoking status: Patient denies any tobacco usage or history of. Patient/guardian denies using alcohol, street drugs. ROS: 21:44 Constitutional: As per HPI kb Exam: 21:44 Constitutional: This is a well developed, well nourished patient who is awake, alert, kb and in no acute distress. Head/Face: Normocephalic, atraumatic. ENT: Moist Mucous membranes Cardiovascular: Tachycardic rate Respiratory: Respirations even and unlabored. No increased work of breathing. Talking in full sentences Abdomen/GI: Soft, non-tender. No distention Skin: Warm, dry with normal turgor. Normal color. MS/ Extremity: Pulses equal, no cyanosis. Neurovascular intact. Full, normal range of motion. Neuro: Awake and alert, GCS 15, oriented to person, place, time, and situation. Vital Signs: 21:30 BP 115 / 86; Pulse 137; Resp 18; Temp 101.9; Pulse Ox 100% ; Weight 55.79 kg; Height 5 bm8 ft. 8 in. ; Pain 6/10; 22:13 BP 113 / 78; Pulse 120; Resp 18; Temp 102.7; Pulse Ox 100% ; Pain 6/10; bm8 23:22 BP 111 / 74; Pulse 102; Resp 17; Temp 100.2; Pulse Ox 99% ; Pain 4/10; bm8 12/11 00:12 BP 108 / 78; Pulse 105; Resp 20; Temp 99.7; Pulse Ox 100% ; Pain 0/10; bm8 00:51 BP 135 / 59; Pulse 77; Resp 20; Pulse Ox 99% on R/A; tb4 12/10 21:30 Body Mass Index 18.70 (55.79 kg, 172.72 cm) bm8 12/10 21:30 Pain Scale: Adult bm8 22:13 Pain Scale: Adult bm8 23:22 Pain Scale: Adult bm8 12/11 00:12 Pain Scale: Adult bm8 Pauline Coma Score: 12/10 21:45 Eye Response: spontaneous(4). Motor Response: obeys commands(6). Verbal Response: bm8 oriented(5). Total: 15. 22:13 Eye Response: spontaneous(4). Motor Response: obeys commands(6). Verbal Response: bm8 oriented(5). Total: 15. 23:22 Eye Response: spontaneous(4). Motor Response: obeys commands(6). Verbal Response: bm8 oriented(5). Total: 15. 12/11 00:12 Eye Response: spontaneous(4). Motor Response: obeys commands(6). Verbal Response: bm8 oriented(5). Total: 15. MDM: 12/10 21:32 Medical Screening Exam initiated kb 22:22 ED course: Fever increased after ibuprofen, swabs negative for strep, covid and flu. kb Labs and CXR ordered. 23:17 Data reviewed: vital signs, nurses notes. Independent interpretation of the following kb test(s) in the Emergency Department X-Ray: My interpretation is CXR: no pneumothorax. 12/11 00:04 Differential diagnosis: viral Infection, flu, covid, strep, pneumonia. I considered the kb following discharge prescriptions or medication management in the emergency department I discussed and recommended Over The Counter medications, Antibiotics: At this time antibiotics are not recommended. Counseling: I had a detailed discussion with the patient and/or guardian regarding the historical points, exam findings, and any diagnostic results supporting the discharge/admit diagnosis, lab results, radiology results, the need for outpatient follow up, a family practitioner, to return to the emergency department if symptoms worsen or persist or if there are any questions or concerns that arise at home. 12/10 21:36 Order name: COVID-19 Ag + Flu A+B Ag; Complete Time: 22:12 kb 12/10 21:36 Order name: Group A Streptococcus Rapid; Complete Time: 22:02 kb 12/10 22:03 Order name: Throat Culture EDMS 12/10 22:15 Order name: CBC with Diff; Complete Time: 23:57 kb 12/10 22:15 Order name: CMP; Complete Time: 23:15 kb 12/10 22:15 Order name: Foster Screen Profile; Complete Time: 23:58 kb 12/10 22:15 Order name: UA Rfx Anam Cult if indicated; Complete Time: 22:51 kb 12/10 22:15 Order name: Test, Urine; Complete Time: 23:38 kb 12/10 22:59 Order name: Manual Differential; Complete Time: 23:57 EDMS 12/10 22:15 Order name: Chest Single View XRAY kb 12/10 22:12 Order name: Vital Signs; Complete Time: 22:36 kb 12/10 22:15 Order name: IV Start; Complete Time: 22:32 kb Administered Medications: 12/10 21:41 Drug: Ibuprofen PO 600 mg PO once Route: PO; bm8 23:23 Follow up: Response: No adverse reaction bm8 22:26 Drug: Acetaminophen PO 1000 mg PO once Route: PO; bm8 23:23 Follow up: Response: No adverse reaction bm8 22:26 Drug: NS 0.9% IV 1000 ml IV at 1000 ml once; to be given as a bolus over 60 minutes bm8 Route: IV; Rate: 1000 ml; Site: right antecubital; 23:23 Follow up: Response: No adverse reaction; IV Status: Completed infusion bm8 Disposition: 12/11 06:33 Co-signature as Attending Physician, Roberto Cruz MD I agree with the assessment sp4 and plan of care. I reviewed the patient's care provided by the Advanced Practice Provider and agree with the diagnosis and treatment plan. Disposition Summary: 12/11/24 00:05 Discharge Ordered Notes: Location: Home kb Condition: Stable kb Diagnosis - Viral infection, unspecified kb Followup: kb - With: Emergency Department - When: As needed - Reason: Worsening of condition Followup: kb - With: Private Physician - When: 2 - 3 days - Reason: Recheck today's complaints, Continuance of care, Re-evaluation by your physician Discharge Instructions: - Discharge Summary Sheet kb - Viral Illness, Adult kb Forms: - Medication Reconciliation Form kb - Antibiotic Education kb - Prescription Opioid Use kb - Patient Portal Instructions kb - Leadership Thank You Letter kb Signatures: Dispatcher [employer] EDMS Ban Vidal, HYDRAULIC SPECIALIST-C HYDRAULIC SPECIALIST-Roberto Strange MD MD sp4 Chirag Billingsley, RN RN bm8 Corrections: (The following items were deleted from the chart) 12/10 21:43 21:43 Allergies: Advil; bm8 bm8 21:45 21:44 Constitutional: This is a well developed, well nourished patient who is awake, kb alert, and in no acute distress. Head/Face: Normocephalic, atraumatic. ENT: Moist Mucous membranes Cardiovascular: Regular rate Respiratory: Respirations even and unlabored. No increased work of breathing. Talking in full sentences Abdomen/GI: Soft, non-tender. No distention Skin: Warm, dry with normal turgor. Normal color. MS/ Extremity: Pulses equal, no cyanosis. Neurovascular intact. Full, normal range of motion. Neuro: Awake and alert, GCS 15, oriented to person, place, time, and situation. kb
--- NOTE | 2024-12-11 00:09 | RAD REPORT ---
EXAM: XR Chest, 1 View CLINICAL HISTORY: The patient is 29 years old and is Female; COUGH TECHNIQUE: Frontal view of the chest. COMPARISON: No relevant prior studies available. FINDINGS: Lungs: Unremarkable. No consolidation. Pleural space: Unremarkable. No pneumothorax. Heart: Unremarkable. Mediastinum: Unremarkable. Normal mediastinal contour. Bones/joints: No acute findings. IMPRESSION: No acute findings in the chest. Electronically signed by: Brian Long MD 12/10/2024 11:35 PM CDT RP 8 Due to temporary technical issues with the PACS/[employer] reporting system, reports are being ruben d by the in-house radiologist without review as a courtesy to ensure prompt reporting the interpreting radiologist is fully responsible for the content of the report. Transcribed Date/Time: 12/11/2024 12:09 AM
[2024-12-11 07:56] VITALS: TEMP 99.7
[2024-12-11 07:58] VITALS: BP 135/59; O2SAT 99
== END 2024-12-11 00:55 | disposition home or self-care (01) ==
LOC: ER 21:25
DX: B34.9 Viral infection, unspecified (principal); Z11.52 Encounter for screening for COVID-19
CPT/HCPCS: 36415; 71045; 80053; 81003; 81025; 85025; 86308; 87070; 87428; J7030

== ENCOUNTER 2025-02-11 09:09 | Emergency (ER) | payer SELFPAY ==
[2025-02-11 10:07] LABS: Influenza A Ag Negative; Influenza B Ag Negative; SARS-CoV-2 Antigen Rapid Res Negative (Negative)
--- NOTE | 2025-02-11 10:28 | RAD REPORT ---
EXAMINATION: ONE VIEW CHEST XR CLINICAL INDICATION: COUGH TECHNIQUE: Frontal chest projection is submitted. Examination is limited by patient positioning and t echnique. COMPARISON: 12/10/2024 FINDINGS: The lungs are diffusely emphysematous but grossly clear. The heart is normal in size. No displaced fr actures identified. IMPRESSION: COPD without an acute process suspected.
--- NOTE | 2025-02-11 11:10 | EDPHYS ---
Physician Documentation [facility] Name: Remedios Capellan Age: 29 yrs Sex: Female : 1995 Arrival Date: 02/11/2025 Time: 09:09 Bed DX4 Private MD: ED Physician Sharon Evans HPI: 02/11 14:04 This 29 yrs old Black Female presents to ER via Ambulatory with complaints of Cough, dr5 Congestion, Headache, Dizziness, Pain All Over. 14:04 Onset: The symptoms/episode began/occurred 2 week(s) ago. Patient is a 29-year-old dr5 female with no past medical history coming with cough, congestion, headache this been going on for the past 2 weeks. Patient reports that her pain is intermittent. Patient also reports that she is her primary care doctor. Patient states that she thinks there is mold in her home which is making all the symptoms occur. Patient denies taking medication prior to arrival. Patient denies chest pain, shortness of breath, nausea, vomiting or diarrhea. ADHESION TESTER: 09:33 LMP 01/30/2025, unknown hb Historical: - Allergies: 09:31 Aspirin; hb 09:31 PENICILLINS; hb 09:31 SHELL FISH; hb - Home Meds: 09:31 None [Active]; hb - PMHx: 09:31 None; hb - PSHx: 09:31 Appendectomy; section; hb - Immunization history:: Adult Immunizations up to date. - Infectious Disease History:: Denies. - Social history:: Smoking status: Patient denies any tobacco usage or history of. ROS: 14:04 Constitutional: as per hpi dr5 Exam: 14:04 Constitutional: This is a well developed, well nourished patient who is awake, alert, dr5 and in no acute distress. Head/Face: Normocephalic, atraumatic. Eyes: Pupils equal round and reactive to light, extra-ocular motions intact. Lids and lashes normal. Conjunctiva and sclera are non-icteric and not injected. Cornea within normal limits. Periorbital areas with no swelling, redness, or edema. Chest/axilla: Normal chest wall appearance and motion. Nontender with no deformity. No lesions are appreciated. Cardiovascular: Regular rate and rhythm with a normal S1 and S2. Normal PMI, no JVD. No pulse deficits. Respiratory: Lungs have equal breath sounds bilaterally, clear to auscultation. No rales, rhonchi or wheezes noted. No increased work of breathing, no retractions or nasal flaring. Abdomen/GI: Soft, non-tender, non-distended Back: No spinal tenderness. No costovertebral tenderness. Full range of motion. Skin: Warm, dry with normal turgor. Normal color with no rashes, no lesions, and no evidence of cellulitis. MS/ Extremity: Pulses equal, no cyanosis. Neurovascular intact. Full, normal range of motion. Neuro: Awake and alert, GCS 15, oriented to person, place, time, and situation. Cranial nerves II-XII grossly intact. Motor strength 5/5 in all extremities. Sensory grossly intact. Cerebellar exam normal. Normal gait. Vital Signs: 09:29 BP 131 / 87; Pulse 113; Resp 18; Pulse Ox 100% on R/A; Weight 58.06 kg; Height 5 ft. 8 hb in. ; 14:04 BP 128 / 84; Pulse 86; Resp 18; dr5 09:29 Body Mass Index 19.46 (58.06 kg, 172.72 cm) hb MDM: 09:14 Medical Screening Exam initiated dr5 14:04 Differential Diagnosis: Bronchitis Influenza Upper Respiratory Infection Pharyngitis dr5 Viral Syndrome Pneumonia. Data reviewed: vital signs, nurses notes, lab test result(s), Flu: negative COVID negative, Strep Negative. Consideration of Admission/Observation Escalation of care including admission/observation considered. Escalation considered patient found to have pneumonia or strep throat. I considered the following discharge prescriptions or medication management in the emergency department I discussed and recommended Over The Counter medications, Medications were administered in the Emergency Department. See MAR. Independent interpretation of the following test(s) in the Emergency Department X-Ray: My interpretation is Independent interpretation of chest x-ray does not reveal pneumonia. Historians other than the Patient: Spouse/Significant Other: Significant other. Care significantly affected by the following Social Determinants of Health: Poor access to healthcare and/or lack of insurance, Poor access to transportation, Problems related to employment. Counseling: I had a detailed discussion with the patient and/or guardian regarding the historical points, exam findings, and any diagnostic results supporting the discharge/admit diagnosis, the presence of at least one elevated blood pressure reading (>120/80) during this emergency department visit, lab results, radiology results, the need for outpatient follow up, for definitive care, a family practitioner, to return to the emergency department if symptoms worsen or persist or if there are any questions or concerns that arise at home. Special discussion: I discussed with the patient/guardian in detail that at this point there is no indication for admission to the hospital. It is understood, however, that if the symptoms persist or worsen the patient needs to return immediately for re-evaluation. Based on the history and exam findings, there is no indication for further emergent testing or inpatient evaluation. I discussed with the patient/guardian the need to see the primary care provider for further evaluation of the symptoms. ED course: Recommended patient follow-up with primary care doctor and make appointment with my CHN for further management. Recommended not staying in a home that has mold in it. Negative COVID, strep, flu. No abnormality on chest x-ray. Given patient's duration of symptoms, will cover with azithromycin as well as steroid Dosepak. All questions. Strict precautions given. 02/11 09:33 Order name: COVID-19 Ag + Flu A+B Ag; Complete Time: 10:11 hb 02/11 09:33 Order name: Group A Streptococcus Rapid; Complete Time: 10:11 hb 02/11 09:55 Order name: Throat Culture EDMS 02/11 09:33 Order name: Chest Single View XRAY; Complete Time: 10:37 hb Administered Medications: No medications were administered Disposition Summary: 02/11/25 11:10 Discharge Ordered Notes: Location: Home dr5 Condition: Stable dr5 Diagnosis - Cough dr5 - Nasal congestion dr5 Followup: dr5 - With: Emergency Department - When: As needed - Reason: Worsening of condition Followup: dr5 - With: Private Physician - When: 1 - 2 days - Reason: Recheck today's complaints, Continuance of care, Re-evaluation by your physician Discharge Instructions: - Discharge Summary Sheet dr5 - Cough, Adult dr5 Forms: - Work release form dr5 - Medication Reconciliation Form dr5 - Antibiotic Education dr5 - Patient Portal Instructions dr5 - Leadership Thank You Letter dr5 Prescriptions: - Zithromax Z-Shawn 250 mg Oral Tablet - take 1 tablet ORAL route as directed for 5 days Day 1 - take two (2) tablets dr5 one time. Day 2, 3, 4 , 5 take one (1) tablet once daily.; 6 tablet; Refills: 0, Product Selection Permitted - Medrol (Shawn) 4 mg Oral Tablets, Dose Pack - take 1 tablet ORAL route as directed - follow package instructions; 1 packet; dr5 Refills: 0, Product Selection Permitted Signatures: Radha Fuchs, RN RN Armin Moyer, MARINE MECHANIC-C MARINE MECHANIC-Cdr5
--- NOTE | 2025-02-11 11:10 | ER ---
Nurse's Notes [facility] Name: Remedios Capellan Age: 29 yrs Sex: Female : 1995 Arrival Date: 02/11/2025 Time: 09:09 Bed DX4 Private MD: Diagnosis: Cough;Nasal congestion Presentation: 02/11 09:29 Chief complaint: Mold in house for months, wants mold testing. Reports headache, sinus hb congestion, and cough. Coronavirus screen: At this time, the client does not indicate any symptoms associated with coronavirus-19. Ebola Screen: No symptoms or risks identified at this time. Initial Sepsis Screen: Does the patient meet any 2 criteria? No. Patient's initial sepsis screen is negative. Does the patient have a suspected source of infection? No. Patient's initial sepsis screen is negative. Risk Assessment: Do you want to hurt yourself or someone else? Patient reports no desire to harm self or others. Onset of symptoms was October 2024. 09:29 Method Of Arrival: Ambulatory hb 09:29 Acuity: SUZETTE 4 hb Triage Assessment: 09:31 General: Appears in no apparent distress. Behavior is calm, cooperative. Pain: Denies hb pain. Neuro: GCS 15. Cardiovascular: Patient's skin is warm and dry. Respiratory: Respiratory effort is even, unlabored, Respiratory pattern is regular, symmetrical. 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 - Infectious Disease History:: Denies. - Social history:: Smoking status: Patient denies any tobacco usage or history of. Vital Signs: 09:29 BP 131 / 87; Pulse 113; Resp 18; Pulse Ox 100% on R/A; Weight 58.06 kg; Height 5 ft. 8 hb in. ; 14:04 BP 128 / 84; Pulse 86; Resp 18; dr5 09:29 Body Mass Index 19.46 (58.06 kg, 172.72 cm) hb ED Course: 09:13 Patient arrived in ED. im 09:14 Armin Campo FNP-C is [facility]. dr5 09:14 Sharon Evans MD is Attending Physician. dr5 09:31 Triage completed. hb 09:31 Arm band placed on. hb 09:36 Group A Streptococcus Rapid Sent. hb 09:36 COVID-19 Ag + Flu A+B Ag Sent. hb 10:20 Chest Single View XRAY In Process Unspecified. EDMS 10:47 Radha Garcia, RN is Primary Nurse. hb Administered Medications: No medications were administered Outcome: 11:10 Discharge ordered by . dr5 11:21 Patient left the ED. hb Signatures: Dispatcher [employer] EDMS Radha Garcia RN RN Laura De Los Santos im Armin Campo FNP-C FNP-Cdr5 Corrections: (The following items were deleted from the chart) 09:34 09:29 Chief complaint: Mold in house for months, wants mold testing. Reports headache hb and sinus congestion hb
[2025-02-11 14:56] VITALS: BP 131/87; O2SAT 100
== END 2025-02-11 11:21 | disposition home or self-care (01) ==
LOC: ER 09:09
DX: R05.9 Cough, unspecified (principal); R09.81 Nasal congestion; Z11.52 Encounter for screening for COVID-19
CPT/HCPCS: 36415; 71045; 87070; 87428; 99282